=== PATIENT | female | born 1950 | race Caucasian/White ===

== ENCOUNTER → 2016-12-07 | Outpatient (REF) | payer OTHER ==
[~2016-12-07] MED LIST: ASPI1TAB PO; BENA20TA2 PO; CALC600T10 PO; CIPR500T89 PO; FLAG500T PO; FLON1SPR; GABA300C3 PO; HYDR12CA PO; INSULANT SC; MAXA5TAB11 PO; METF500T PO; OMEP20CA3 PO; PROP1TAB29 PO; ROPI1TAB PO; TRAM50TA2 PO; VITA-121 PO; ZOCO40TA PO
[2016-12-07 19:00] LABS: PERCENT SATURATION 11.2 % (13.2-37.4)
== END ==
LOC: M LAB REF 16:53
PROVIDERS: ATTEND Internal Medicine Nephrology
DX: N18.9 Chronic kidney disease, unspecified (principal); D63.1 Anemia in chronic kidney disease

== ENCOUNTER → 2016-12-28 | Outpatient (CLI) | payer OTHER ==
[2016-12-28 10:15] LABS: ALBUMIN 3.3 GM/DL (3.2-5.2); ALBUMIN/GLOBULIN RATIO 0.8 (1.00-1.93); BASO # 0.1 K/mm3 (0.0-0.2); BASO % 0.7 % (0.0-1.0); BILIRUBIN,TOTAL 0.3 MG/DL (0.2-1.0); CALCIUM LEVEL 9.4 MG/DL (8.8-10.2); CREATININE FOR GFR 2.43 MG/DL (0.55-1.02); EOS # 0.4 K/mm3 (0.0-0.50); EOS % 5.2 % (0.0-3.0); GLOMERULAR FILTRATION RATE 21.3 (>45); LARGE UNSTAINED CELL # 0.1 K/mm3 (0.0-0.4); LARGE UNSTAINED CELL % 1.7 % (0.0-4.0); LYMPH # 1.9 K/mm3 (1.5-4.5); LYMPH % 21.8 % (24.0-44.0); MEAN CORPUSCULAR HEMOGLOBIN 28.3 pg (27.0-33.0); MEAN CORPUSCULAR VOLUME 88.5 fl (80.0-96.0); MONO # 0.5 K/mm3 (0.0-0.8); MONO % 6.1 % (0.0-5.0); NEUTROPHILS # 5.2 K/mm3 (1.8-7.7); NEUTROPHILS % 64.4 % (36.0-66.0); PLATELET COUNT, AUTOMATED 280 k/mm3 (150-450); POTASSIUM SERUM 4.9 MEQ/L (3.5-5.1); TOTAL PROTEIN 7.4 GM/DL (6.4-8.2); WHITE BLOOD COUNT 8.1 K/mm3 (4.0-10.0)
== END ==
LOC: M WUC 08:09
PROVIDERS: ATTEND Nurse Practitioner Family
DX: D64.9 Anemia, unspecified (principal); E11.29 Type 2 diabetes mellitus with other diabetic kidney complication

== ENCOUNTER → 2017-01-29 | Outpatient (CLI) | payer OTHER ==
[~2017-01-29] MED LIST changes: +GABA-282 PO; -GABA300C3 PO
[2017-01-29 10:24] LABS: ALBUMIN 3.1 GM/DL (3.2-5.2); CALCIUM LEVEL 8.7 MG/DL (8.8-10.2); CREATININE FOR GFR 1.82 MG/DL (0.55-1.02); GLOMERULAR FILTRATION RATE 29.8 (>45); MAGNESIUM LEVEL 1.8 MG/DL (1.8-2.4); PHOSPHORUS LEVEL 4.6 MG/DL (2.5-4.9); POTASSIUM SERUM 4.4 MEQ/L (3.5-5.1)
[2017-01-29 10:25] LABS: MEAN CORPUSCULAR HEMOGLOBIN 27.8 pg (27.0-33.0); MEAN CORPUSCULAR HGB CONC 31.5 g/dl (32.0-36.5); MEAN CORPUSCULAR VOLUME 88.3 fl (80.0-96.0); WHITE BLOOD COUNT 7.7 K/mm3 (4.0-10.0)
== END ==
LOC: M WUC 08:05
PROVIDERS: ATTEND Internal Medicine Nephrology
DX: N17.9 Acute kidney failure, unspecified (principal); E11.22 Type 2 diabetes mellitus with diabetic chronic kidney disease; D50.9 Iron deficiency anemia, unspecified; N25.81 Secondary hyperparathyroidism of renal origin

== ENCOUNTER → 2017-03-16 | Outpatient (CLI) | payer OTHER ==
[2017-03-16 12:49] LABS: MEAN CORPUSCULAR HEMOGLOBIN 28.7 pg (27.0-33.0); MEAN CORPUSCULAR HGB CONC 32.1 g/dl (32.0-36.5); MEAN CORPUSCULAR VOLUME 89.5 fl (80.0-96.0); RED CELL DISTRIBUTION WIDTH 13.8 % (11.5-14.5); WHITE BLOOD COUNT 6.4 K/mm3 (4.0-10.0)
[2017-03-16 13:05] LABS: ALBUMIN 2.9 GM/DL (3.2-5.2); CALCIUM LEVEL 8.8 MG/DL (8.8-10.2); CREATININE FOR GFR 1.31 MG/DL (0.55-1.02); GLOMERULAR FILTRATION RATE 43.5 (>45); MAGNESIUM LEVEL 1.7 MG/DL (1.8-2.4); PHOSPHORUS LEVEL 3.6 MG/DL (2.5-4.9); POTASSIUM SERUM 4.6 MEQ/L (3.5-5.1)
== END ==
LOC: M WUC 09:12
PROVIDERS: ATTEND Internal Medicine Nephrology
DX: N17.9 Acute kidney failure, unspecified (principal); E11.22 Type 2 diabetes mellitus with diabetic chronic kidney disease; D50.9 Iron deficiency anemia, unspecified; N25.81 Secondary hyperparathyroidism of renal origin

== ENCOUNTER → 2017-03-30 | Outpatient (CLI) | payer OTHER ==
[2017-03-30 12:03] LABS: ALBUMIN 3.2 GM/DL (3.2-5.2); ALBUMIN/GLOBULIN RATIO 0.84 (1.00-1.93); BILIRUBIN,TOTAL 0.4 MG/DL (0.2-1.0); CREATININE FOR GFR 1.33 MG/DL (0.55-1.02); GLOMERULAR FILTRATION RATE 42.8 (>45); POTASSIUM SERUM 4.3 MEQ/L (3.5-5.1)
== END ==
LOC: M WUC 08:31
PROVIDERS: ATTEND Nurse Practitioner Family
DX: E11.29 Type 2 diabetes mellitus with other diabetic kidney complication (principal)

== ENCOUNTER → 2017-07-02 | Outpatient (CLI) | payer MEDICARE, OTHER ==
[~2017-07-02] MED LIST changes: -BENA20TA2 PO; +BENA20TA8 PO; -CALC600T10 PO; +CALC600T31 PO; +CIPR-249 PO; -CIPR500T89 PO; -METF500T PO; +METF500T13 PO
[2017-07-02 14:37] LABS: BASO # 0.1 10^3/uL (0.0-0.2); BASO % 0.9 % (0.0-1.0); EOS # 0.3 10^3/uL (0.0-0.50); EOS % 4.1 % (0.0-3.0); LYMPH # 1.7 10^3/uL (1.5-4.5); LYMPH % 26.1 % (24.0-44.0); MEAN CORPUSCULAR HEMOGLOBIN 27.4 pg (27.0-33.0); MEAN CORPUSCULAR HGB CONC 31.4 g/dl (32.0-36.5); MEAN CORPUSCULAR VOLUME 87.2 fl (80.0-96.0); MONO # 0.5 10^3/uL (0.0-0.8); MONO % 7.2 % (0.0-5.0); NEUTROPHILS # 4.1 10^3/uL (1.8-7.7); NEUTROPHILS % 61.5 % (36.0-66.0); PLATELET COUNT, AUTOMATED 258 10^3/uL (150-450); RED CELL DISTRIBUTION WIDTH 14.5 % (11.5-14.5); WHITE BLOOD COUNT 6.7 10^3/uL (4.0-10.0)
[2017-07-02 15:21] LABS: ALBUMIN 3.1 GM/DL (3.2-5.2); CALCIUM LEVEL 8.9 MG/DL (8.8-10.2); CREATININE FOR GFR 1.51 MG/DL (0.55-1.02); GLOMERULAR FILTRATION RATE 36.8 (>45); MAGNESIUM LEVEL 1.9 MG/DL (1.8-2.4); PHOSPHORUS LEVEL 4.3 MG/DL (2.5-4.9); POTASSIUM SERUM 4.1 MEQ/L (3.5-5.1)
== END ==
LOC: M WUC 09:16
PROVIDERS: ATTEND Internal Medicine Nephrology
DX: N18.3 Chronic kidney disease, stage 3 (moderate) (principal); D50.9 Iron deficiency anemia, unspecified; N25.81 Secondary hyperparathyroidism of renal origin

== ENCOUNTER → 2017-07-02 | Outpatient (CLI) | payer MEDICARE, OTHER ==
[2017-07-02 14:36] LABS: BASO % 0.6 % (0.0-1.0); EOS # 0.2 10^3/uL (0.0-0.50); EOS % 3.4 % (0.0-3.0); LYMPH # 1.8 10^3/uL (1.5-4.5); MEAN CORPUSCULAR HEMOGLOBIN 27.4 pg (27.0-33.0); MEAN CORPUSCULAR HGB CONC 31.3 g/dl (32.0-36.5); MEAN CORPUSCULAR VOLUME 87.6 fl (80.0-96.0); MONO # 0.5 10^3/uL (0.0-0.8); MONO % 7.4 % (0.0-5.0); NEUTROPHILS # 4.2 10^3/uL (1.8-7.7); NEUTROPHILS % 62.3 % (36.0-66.0); PLATELET COUNT, AUTOMATED 251 10^3/uL (150-450); RED CELL DISTRIBUTION WIDTH 14.6 % (11.5-14.5); WHITE BLOOD COUNT 6.7 10^3/uL (4.0-10.0)
[2017-07-02 15:09] LABS: ALBUMIN 3.1 GM/DL (3.2-5.2); ALBUMIN/GLOBULIN RATIO 0.79 (1.00-1.93); BILIRUBIN,TOTAL 0.4 MG/DL (0.2-1.0); CALCIUM LEVEL 9.3 MG/DL (8.8-10.2); CREATININE FOR GFR 1.51 MG/DL (0.55-1.02); GLOMERULAR FILTRATION RATE 36.8 (>45); PERCENT SATURATION 14.7 % (13.2-45.0); POTASSIUM SERUM 4.1 MEQ/L (3.5-5.1)
== END ==
LOC: M WUC 09:22
PROVIDERS: ATTEND Nurse Practitioner Family
DX: E11.29 Type 2 diabetes mellitus with other diabetic kidney complication (principal); E78.2 Mixed hyperlipidemia; D63.1 Anemia in chronic kidney disease

== ENCOUNTER → 2017-07-27 | Outpatient (REF) | payer MEDICARE | LOC: M LAB REF 16:20 | PROVIDERS: ATTEND Obstetrics & Gynecology | DX: Z11.3 Encounter for screening for infections with a predominantly sexual mode of transmission (principal); N76.4 Abscess of vulva ==

== ENCOUNTER → 2017-08-03 | Outpatient (CLI) | payer MEDICARE ==
[2017-08-03 08:59] LABS: BASO # 0.1 10^3/uL (0.0-0.2); BASO % 0.6 % (0.0-1.0); EOS # 0.2 10^3/uL (0.0-0.50); IMMATURE GRANULOCYTE % 0.1 % (0-0); LYMPH # 1.7 10^3/uL (1.5-4.5); LYMPH % 21.3 % (24.0-44.0); MEAN CORPUSCULAR HEMOGLOBIN 27.4 pg (27.0-33.0); MEAN CORPUSCULAR HGB CONC 31.8 g/dl (32.0-36.5); MEAN CORPUSCULAR VOLUME 86.1 fl (80.0-96.0); MONO # 0.6 10^3/uL (0.0-0.8); MONO % 6.9 % (0.0-5.0); NEUTROPHILS # 5.4 10^3/uL (1.8-7.7); NEUTROPHILS % 68.1 % (36.0-66.0); PLATELET COUNT, AUTOMATED 308 10^3/uL (150-450); RED CELL DISTRIBUTION WIDTH 14.2 % (11.5-14.5); WHITE BLOOD COUNT 7.9 10^3/uL (4.0-10.0)
[2017-08-03 09:27] LABS: ALBUMIN 3.2 GM/DL (3.2-5.2); ALBUMIN/GLOBULIN RATIO 0.84 (1.00-1.93); BILIRUBIN,TOTAL 0.3 MG/DL (0.2-1.0); CALCIUM LEVEL 8.9 MG/DL (8.8-10.2); CREATININE FOR GFR 1.21 MG/DL (0.55-1.02); GLOMERULAR FILTRATION RATE 47.5 (>45); PERCENT SATURATION 12.4 % (13.2-45.0); POTASSIUM SERUM 4.2 MEQ/L (3.5-5.1)
== END ==
LOC: M WUC 08:22
PROVIDERS: ATTEND Nurse Practitioner Family
DX: E11.29 Type 2 diabetes mellitus with other diabetic kidney complication (principal); D63.1 Anemia in chronic kidney disease; N18.9 Chronic kidney disease, unspecified

== ENCOUNTER → 2017-10-05 | Outpatient (CLI) | payer MEDICARE ==
[2017-10-05 09:29] LABS: ALBUMIN 3.3 GM/DL (3.2-5.2); ALBUMIN/GLOBULIN RATIO 0.83 (1.00-1.93); ALKALINE PHOSPHATASE 141 U/L (45-117); ALT/SGPT 16 U/L (12-78); ANION GAP 6 MEQ/L (8-16); AST/SGOT 14 U/L (7-37); BILIRUBIN,TOTAL 0.4 MG/DL (0.2-1.0); BLOOD UREA NITROGEN 43 MG/DL (7-18); CALCIUM LEVEL 9.1 MG/DL (8.8-10.2); CARBON DIOXIDE LEVEL 32 MEQ/L (21-32); CHLORIDE LEVEL 105 MEQ/L (98-107); GLOMERULAR FILTRATION RATE 43.8 (>45); GLUCOSE, FASTING 134 MG/DL (80-110); POTASSIUM SERUM 3.9 MEQ/L (3.5-5.1); SODIUM LEVEL 143 MEQ/L (136-145); TOTAL PROTEIN 7.3 GM/DL (6.4-8.2)
[2017-10-05 10:07] LABS: ESTIMATED AVERAGE GLUCOSE 203 MG/DL (60-110)
== END ==
LOC: M WUC 08:00
DX: E11.21 Type 2 diabetes mellitus with diabetic nephropathy (principal)

== ENCOUNTER → 2017-10-05 | Outpatient (CLI) | payer MEDICARE ==
[2017-10-05 09:20] LABS: MEAN CORPUSCULAR HEMOGLOBIN 27.2 pg (27.0-33.0); MEAN CORPUSCULAR HGB CONC 31.8 g/dl (32.0-36.5); MEAN CORPUSCULAR VOLUME 85.6 fl (80.0-96.0); PLATELET COUNT, AUTOMATED 326 10^3/uL (150-450); RED CELL DISTRIBUTION WIDTH 13.9 % (11.5-14.5); WHITE BLOOD COUNT 8.6 10^3/uL (4.0-10.0)
[2017-10-05 10:58] LABS: ALBUMIN 3.3 GM/DL (3.2-5.2); ANION GAP 9 MEQ/L (8-16); BLOOD UREA NITROGEN 44 MG/DL (7-18); CALCIUM LEVEL 8.9 MG/DL (8.8-10.2); CARBON DIOXIDE LEVEL 31 MEQ/L (21-32); CHLORIDE LEVEL 106 MEQ/L (98-107); CREATININE FOR GFR 1.32 MG/DL (0.55-1.02); GLUCOSE, FASTING 135 MG/DL (80-110); POTASSIUM SERUM 4.1 MEQ/L (3.5-5.1); SODIUM LEVEL 146 MEQ/L (136-145); URIC ACID 6.7 MG/DL (2.6-6.0)
== END ==
LOC: M WUC 08:03
DX: N18.3 Chronic kidney disease, stage 3 (moderate) (principal); E11.21 Type 2 diabetes mellitus with diabetic nephropathy; E11.22 Type 2 diabetes mellitus with diabetic chronic kidney disease; D50.9 Iron deficiency anemia, unspecified; N25.81 Secondary hyperparathyroidism of renal origin
CPT/HCPCS: 83735

== ENCOUNTER → 2017-11-08 | Outpatient (CLI) | payer MEDICARE ==
[2017-11-08 19:08] LABS: BASO # 0.1 10^3/uL (0.0-0.2); BASO % 0.6 % (0.0-1.0); EOS # 0.2 10^3/uL (0.0-0.50); EOS % 2.4 % (0.0-3.0); HEMATOCRIT 35.3 % (36.0-47.0); HEMOGLOBIN 11.1 g/dl (12.0-16.0); IMMATURE GRANULOCYTE % 0.2 % (0-0); LYMPH # 2.4 10^3/uL (1.5-4.5); LYMPH % 24.9 % (24.0-44.0); MEAN CORPUSCULAR HEMOGLOBIN 27.2 pg (27.0-33.0); MEAN CORPUSCULAR HGB CONC 31.4 g/dl (32.0-36.5); MEAN CORPUSCULAR VOLUME 86.5 fl (80.0-96.0); MONO # 0.7 10^3/uL (0.0-0.8); MONO % 7.1 % (0.0-5.0); NEUTROPHILS # 6.1 10^3/uL (1.8-7.7); NEUTROPHILS % 64.8 % (36.0-66.0); PLATELET COUNT, AUTOMATED 312 10^3/uL (150-450); RED BLOOD COUNT 4.08 10^6/uL (4.00-5.40); RED CELL DISTRIBUTION WIDTH 14.4 % (11.5-14.5); WHITE BLOOD COUNT 9.5 10^3/uL (4.0-10.0)
[2017-11-08 19:49] LABS: APPEARANCE, URINE CLEAR (CLEAR); BACTERIA, URINE AUTO 1+ (NEGATIVE); BILIRUBIN, URINE AUTO NEGATIVE (NEGATIVE); BLOOD, URINE BLOOD NEGATIVE (NEGATIVE); COLOR, URINE STRAW (YELLOW); GLUCOSE, URINE (UA) AUTO 2+ mg/dL (NEGATIVE); KETONE, URINE AUTO NEGATIVE (NEGATIVE); LEUKOCYTE ESTERASE, URINE AUTO NEGATIVE (NEGATIVE); NITRITE, URINE AUTO NEGATIVE (NEGATIVE); PROTEIN, URINE AUTO NEGATIVE (NEGATIVE); RBC, URINE AUTO 2 /HPF (0-3); SPECIFIC GRAVITY URINE AUTO 1.006 (1.002-1.035); SQUAMOUS EPITHELIAL CELL UR AU 0 /HPF (0-6); UROBILINOGEN, URINE AUTO 0.2 mg/dL (0.0-2.0); WBC, URINE AUTO 0 /HPF (0-3)
[2017-11-08 20:14] LABS: ALBUMIN 3.3 GM/DL (3.2-5.2); ANION GAP 7 MEQ/L (8-16); BLOOD UREA NITROGEN 37 MG/DL (7-18); CALCIUM LEVEL 8.8 MG/DL (8.8-10.2); CARBON DIOXIDE LEVEL 29 MEQ/L (21-32); CHLORIDE LEVEL 103 MEQ/L (98-107); CREATININE FOR GFR 1.35 MG/DL (0.55-1.30); GLOMERULAR FILTRATION RATE 41.9 (>45); GLUCOSE, FASTING 285 MG/DL (70-100); POTASSIUM SERUM 4.2 MEQ/L (3.5-5.1); SODIUM LEVEL 139 MEQ/L (136-145)
== END ==
LOC: M WUC 14:18
DX: N18.3 Chronic kidney disease, stage 3 (moderate) (principal); D63.8 Anemia in other chronic diseases classified elsewhere
CPT/HCPCS: 80069

== ENCOUNTER → 2018-01-31 | Outpatient (CLI) | payer MEDICARE ==
[2018-01-31 09:04] LABS: HEMOGLOBIN 10.8 g/dl (12.0-15.5); MEAN CORPUSCULAR HEMOGLOBIN 27.1 pg (27.0-33.0); MEAN CORPUSCULAR HGB CONC 31.8 g/dl (32.0-36.5); MEAN CORPUSCULAR VOLUME 85.2 fl (80.0-96.0); PLATELET COUNT, AUTOMATED 297 10^3/uL (150-450); RED BLOOD COUNT 3.99 10^6/uL (4.00-5.40); RED CELL DISTRIBUTION WIDTH 14.5 % (11.5-14.5); RETIC HEMOGLOBIN EQUIVALENT 31.3 pg (24-36); RETICULOCYTE # 50.7 10^9/L (17-77); RETICULOCYTE % 1.3 % (0.5-1.5); WHITE BLOOD COUNT 6.5 10^3/uL (4.0-10.0)
[2018-01-31 09:48] LABS: ALBUMIN 3.2 GM/DL (3.2-5.2); ALBUMIN/GLOBULIN RATIO 0.86 (1.00-1.93); ALKALINE PHOSPHATASE 135 U/L (45-117); ALT/SGPT 16 U/L (12-78); ANION GAP 6 MEQ/L (8-16); AST/SGOT 14 U/L (7-37); BILIRUBIN,TOTAL 0.4 MG/DL (0.2-1.0); BLOOD UREA NITROGEN 35 MG/DL (7-18); CALCIUM LEVEL 8.7 MG/DL (8.8-10.2); CARBON DIOXIDE LEVEL 30 MEQ/L (21-32); CHLORIDE LEVEL 111 MEQ/L (98-107); CHOLESTEROL LEVEL 114 MG/DL (<200); CREATININE FOR GFR 1.35 MG/DL (0.55-1.30); FERRITIN 76 NG/ML (8-252); FREE T4 1.16 NG/DL (0.76-1.46); GLOMERULAR FILTRATION RATE 41.9 (>45); GLUCOSE, FASTING 94 MG/DL (70-100); HDL CHOLESTEROL 41 MG/DL (>40); IRON (FE) 49 UG/DL (50-170); LDL CHOLESTEROL 53.6 MG/DL (<100); NON-HDL-C 73 MG/DL; PERCENT SATURATION 16.7 % (13.2-45.0); POTASSIUM SERUM 4.1 MEQ/L (3.5-5.1); SODIUM LEVEL 147 MEQ/L (136-145); TOTAL IRON BINDING CAPACITY 294 UG/DL (250-450); TOTAL PROTEIN 6.9 GM/DL (6.4-8.2); TRIGLYCERIDES LEVEL 97 MG/DL (<150)
[2018-01-31 10:40] LABS: ESTIMATED AVERAGE GLUCOSE 200 MG/DL (60-110); HEMOGLOBIN A1c 8.6 %
== END ==
LOC: M WUC 08:04
DX: E11.21 Type 2 diabetes mellitus with diabetic nephropathy (principal); E78.2 Mixed hyperlipidemia; D63.1 Anemia in chronic kidney disease
CPT/HCPCS: 83550

== ENCOUNTER → 2018-02-04 | Outpatient (REF) | payer MEDICARE ==
[2018-02-04 16:17] LABS: FREE T4 1.05 NG/DL (0.76-1.46)
== END ==
LOC: M SFHCPLAZ 13:51
DX: R94.6 Abnormal results of thyroid function studies (principal)
CPT/HCPCS: 84443

== ENCOUNTER → 2018-02-08 | Outpatient (CLI) | payer MEDICARE ==
[2018-02-08 12:42] LABS: BASO # 0.1 10^3/uL (0.0-0.2); BASO % 0.6 % (0.0-1.0); EOS # 0.4 10^3/uL (0.0-0.50); EOS % 4.5 % (0.0-3.0); HEMATOCRIT 34.1 % (36.0-47.0); HEMOGLOBIN 10.8 g/dl (12.0-15.5); IMMATURE GRANULOCYTE % 0.4 % (0-3.0); LYMPH # 1.7 10^3/uL (1.5-4.5); LYMPH % 22.4 % (24.0-44.0); MEAN CORPUSCULAR HEMOGLOBIN 27.5 pg (27.0-33.0); MEAN CORPUSCULAR HGB CONC 31.7 g/dl (32.0-36.5); MEAN CORPUSCULAR VOLUME 86.8 fl (80.0-96.0); MONO # 0.5 10^3/uL (0.0-0.8); MONO % 6.3 % (0.0-5.0); NEUTROPHILS # 5.1 10^3/uL (1.8-7.7); NEUTROPHILS % 65.8 % (36.0-66.0); PLATELET COUNT, AUTOMATED 317 10^3/uL (150-450); RED BLOOD COUNT 3.93 10^6/uL (4.00-5.40); RED CELL DISTRIBUTION WIDTH 14.6 % (11.5-14.5); WHITE BLOOD COUNT 7.7 10^3/uL (4.0-10.0)
[2018-02-08 13:03] LABS: APPEARANCE, URINE HAZY (CLEAR); BACTERIA, URINE AUTO NEGATIVE (NEGATIVE); BILIRUBIN, URINE AUTO NEGATIVE (NEGATIVE); BLOOD, URINE BLOOD NEGATIVE (NEGATIVE); COLOR, URINE YELLOW (YELLOW); GLUCOSE, URINE (UA) AUTO NEGATIVE (NEGATIVE); KETONE, URINE AUTO NEGATIVE (NEGATIVE); LEUKOCYTE ESTERASE, URINE AUTO NEGATIVE (NEGATIVE); NITRITE, URINE AUTO NEGATIVE (NEGATIVE); PROTEIN, URINE AUTO NEGATIVE (NEGATIVE); RBC, URINE AUTO 2 /HPF (0-3); SPECIFIC GRAVITY URINE AUTO 1.018 (1.002-1.035); SQUAMOUS EPITHELIAL CELL UR AU 3 /HPF (0-6); UROBILINOGEN, URINE AUTO 0.2 mg/dL (0.0-2.0); WBC, URINE AUTO 0 /HPF (0-3)
[2018-02-08 13:08] LABS: PTH INTACT 173.6 PG/ML (18.5-88.0); TOTAL 25(OH) VITAMIN D 36.4 NG/ML (30.0-100.0)
[2018-02-08 14:29] LABS: ALBUMIN 3.3 GM/DL (3.2-5.2); ANION GAP 9 MEQ/L (8-16); BLOOD UREA NITROGEN 43 MG/DL (7-18); CALCIUM LEVEL 8.8 MG/DL (8.8-10.2); CARBON DIOXIDE LEVEL 26 MEQ/L (21-32); CHLORIDE LEVEL 105 MEQ/L (98-107); CREATININE FOR GFR 1.57 MG/DL (0.55-1.30); GLOMERULAR FILTRATION RATE 35.2 (>45); GLUCOSE, FASTING 214 MG/DL (70-100); PHOSPHORUS LEVEL 4.2 MG/DL (2.5-4.9); POTASSIUM SERUM 3.9 MEQ/L (3.5-5.1); SODIUM LEVEL 140 MEQ/L (136-145)
== END ==
LOC: M WUC 09:48
DX: N18.3 Chronic kidney disease, stage 3 (moderate) (principal); D50.9 Iron deficiency anemia, unspecified; N25.81 Secondary hyperparathyroidism of renal origin
CPT/HCPCS: 83735

== ENCOUNTER → 2018-02-12 | Outpatient (CLI) | payer MEDICARE | LOC: M RAD 13:29 | DX: E04.1 Nontoxic single thyroid nodule (principal) | CPT/HCPCS: 76536 ==

== ENCOUNTER → 2018-04-08 | Outpatient (CLI) | payer MEDICARE ==
[~2018-04-08] MED LIST changes: -ASPI1TAB PO; -BENA20TA8 PO; -CALC600T31 PO; -CIPR-249 PO; +E-Z-GAS II EFFERVESCENT PACKET (SODIUM BICARB./CITRIC ACID/SIMETHICONE) As Ordered; +E-Z-HD 98% w/w 340GM SUSP BTL As Ordered; +E-Z-PAQUE 96% w/w SUSP 176GM BTL As Ordered; -FLAG500T PO; -FLON1SPR; -GABA-282 PO; -HYDR12CA PO; -INSULANT SC; -MAXA5TAB11 PO; -METF500T13 PO; -OMEP20CA3 PO; -PROP1TAB29 PO; -ROPI1TAB PO; -TRAM50TA2 PO; -VITA-121 PO; -ZOCO40TA PO
== END ==
LOC: M RAD 08:19
DX: K21.9 Gastro-esophageal reflux disease without esophagitis (principal); R13.10 Dysphagia, unspecified
CPT/HCPCS: 74220

== ENCOUNTER → 2018-04-12 | Outpatient (CLI) | payer MEDICARE ==
[~2018-04-12] MED LIST changes: -E-Z-GAS II EFFERVESCENT PACKET (SODIUM BICARB./CITRIC ACID/SIMETHICONE) As Ordered; -E-Z-HD 98% w/w 340GM SUSP BTL As Ordered; -E-Z-PAQUE 96% w/w SUSP 176GM BTL As Ordered; +LIDOCAINE 1% MDV 20ML VIAL As Ordered
== END ==
LOC: M RADPRO 11:59
DX: E04.2 Nontoxic multinodular goiter (principal); Z79.82 Long term (current) use of aspirin; Z79.899 Other long term (current) drug therapy; Z79.4 Long term (current) use of insulin; Z88.5 Allergy status to narcotic agent; Z91.041 Radiographic dye allergy status; Z88.8 Allergy status to other drugs, medicaments and biological substances
CPT/HCPCS: 10022

== ENCOUNTER → 2018-04-18 | Outpatient (CLI) | payer MEDICARE ==
[2018-04-18 09:17] LABS: ESTIMATED AVERAGE GLUCOSE 203 MG/DL (60-110); HEMOGLOBIN A1c 8.7 %
[2018-04-18 09:21] LABS: ALBUMIN 2.9 GM/DL (3.2-5.2); ALBUMIN/GLOBULIN RATIO 0.76 (1.00-1.93); ALKALINE PHOSPHATASE 154 U/L (45-117); ALT/SGPT 14 U/L (12-78); ANION GAP 9 MEQ/L (8-16); AST/SGOT 14 U/L (7-37); BILIRUBIN,TOTAL 0.4 MG/DL (0.2-1.0); BLOOD UREA NITROGEN 37 MG/DL (7-18); CALCIUM LEVEL 8.6 MG/DL (8.8-10.2); CARBON DIOXIDE LEVEL 29 MEQ/L (21-32); CHLORIDE LEVEL 107 MEQ/L (98-107); CREATININE FOR GFR 1.34 MG/DL (0.55-1.30); GLOMERULAR FILTRATION RATE 42.3 (>45); GLUCOSE, FASTING 89 MG/DL (70-100); POTASSIUM SERUM 4.5 MEQ/L (3.5-5.1); SODIUM LEVEL 145 MEQ/L (136-145); TOTAL PROTEIN 6.7 GM/DL (6.4-8.2)
== END ==
LOC: M WUC 08:04
DX: E11.21 Type 2 diabetes mellitus with diabetic nephropathy (principal)
CPT/HCPCS: 80053

== ENCOUNTER → 2018-05-09 | Outpatient (CLI) | payer MEDICARE ==
[2018-05-09 12:06] LABS: HEMATOCRIT 33.3 % (36.0-47.0); HEMOGLOBIN 10.3 g/dl (12.0-15.5); MEAN CORPUSCULAR HEMOGLOBIN 26.9 pg (27.0-33.0); MEAN CORPUSCULAR HGB CONC 30.9 g/dl (32.0-36.5); MEAN CORPUSCULAR VOLUME 86.9 fl (80.0-96.0); PLATELET COUNT, AUTOMATED 290 10^3/uL (150-450); RED BLOOD COUNT 3.83 10^6/uL (4.00-5.40); RED CELL DISTRIBUTION WIDTH 14.1 % (11.5-14.5); WHITE BLOOD COUNT 7.8 10^3/uL (4.0-10.0)
[2018-05-09 12:11] LABS: APPEARANCE, URINE CLEAR (CLEAR); BACTERIA, URINE AUTO NEGATIVE (NEGATIVE); BILIRUBIN, URINE AUTO NEGATIVE (NEGATIVE); BLOOD, URINE BLOOD NEGATIVE (NEGATIVE); COLOR, URINE YELLOW (YELLOW); GLUCOSE, URINE (UA) AUTO NEGATIVE (NEGATIVE); KETONE, URINE AUTO NEGATIVE (NEGATIVE); LEUKOCYTE ESTERASE, URINE AUTO NEGATIVE (NEGATIVE); NITRITE, URINE AUTO NEGATIVE (NEGATIVE); PROTEIN, URINE AUTO NEGATIVE (NEGATIVE); RBC, URINE AUTO 0 /HPF (0-3); SPECIFIC GRAVITY URINE AUTO 1.015 (1.002-1.035); SQUAMOUS EPITHELIAL CELL UR AU 1 /HPF (0-6); UROBILINOGEN, URINE AUTO 0.2 mg/dL (0.0-2.0); WBC, URINE AUTO 0 /HPF (0-3)
[2018-05-09 12:30] LABS: PTH INTACT 116.8 PG/ML (18.5-88.0)
[2018-05-09 12:53] LABS: ANION GAP 10 MEQ/L (8-16); BLOOD UREA NITROGEN 48 MG/DL (7-18); CALCIUM LEVEL 8.6 MG/DL (8.8-10.2); CARBON DIOXIDE LEVEL 26 MEQ/L (21-32); CHLORIDE LEVEL 109 MEQ/L (98-107); GLOMERULAR FILTRATION RATE 37.1 (>45); GLUCOSE, FASTING 118 MG/DL (70-100); MAGNESIUM LEVEL 1.9 MG/DL (1.8-2.4); PHOSPHORUS LEVEL 3.8 MG/DL (2.5-4.9); POTASSIUM SERUM 4.1 MEQ/L (3.5-5.1); SODIUM LEVEL 145 MEQ/L (136-145)
[2018-05-09 13:24] LABS: MALB URINE SIEMENS 22.9 MG/L; MAU/CREAT RATIO 22.6 MCG/MG (0.0-30.0)
== END ==
LOC: M WUC 08:25
DX: N18.3 Chronic kidney disease, stage 3 (moderate) (principal); E11.22 Type 2 diabetes mellitus with diabetic chronic kidney disease; E50.9 Vitamin A deficiency, unspecified; N25.81 Secondary hyperparathyroidism of renal origin
CPT/HCPCS: 83735

== ENCOUNTER → 2018-07-22 | Outpatient (CLI) | payer MEDICARE ==
[2018-07-22 09:10] LABS: HEMATOCRIT 34.3 % (36.0-47.0); HEMOGLOBIN 10.9 g/dl (12.0-15.5); MEAN CORPUSCULAR HEMOGLOBIN 27.6 pg (27.0-33.0); MEAN CORPUSCULAR HGB CONC 31.8 g/dl (32.0-36.5); MEAN CORPUSCULAR VOLUME 86.8 fl (80.0-96.0); PLATELET COUNT, AUTOMATED 290 10^3/uL (150-450); RED BLOOD COUNT 3.95 10^6/uL (4.00-5.40); RED CELL DISTRIBUTION WIDTH 14.1 % (11.5-14.5)
[2018-07-22 09:41] LABS: ESTIMATED AVERAGE GLUCOSE 174 MG/DL (60-110); HEMOGLOBIN A1c 7.7 %
[2018-07-22 09:51] LABS: ANION GAP 7 MEQ/L (8-16); BLOOD UREA NITROGEN 45 MG/DL (7-18); CALCIUM LEVEL 9.1 MG/DL (8.8-10.2); CARBON DIOXIDE LEVEL 31 MEQ/L (21-32); CHLORIDE LEVEL 106 MEQ/L (98-107); CREATININE FOR GFR 1.54 MG/DL (0.55-1.30); FREE T4 1.08 NG/DL (0.76-1.46); GLOMERULAR FILTRATION RATE 35.9 (>45); GLUCOSE, FASTING 107 MG/DL (70-100); POTASSIUM SERUM 4.3 MEQ/L (3.5-5.1); SODIUM LEVEL 144 MEQ/L (136-145)
== END ==
LOC: M WUC 08:10
DX: E03.9 Hypothyroidism, unspecified (principal); E11.21 Type 2 diabetes mellitus with diabetic nephropathy; E11.22 Type 2 diabetes mellitus with diabetic chronic kidney disease; D63.1 Anemia in chronic kidney disease; N18.3 Chronic kidney disease, stage 3 (moderate)
CPT/HCPCS: 83735

== ENCOUNTER → 2018-07-22 | Outpatient (CLI) | payer MEDICARE ==
[2018-07-22 09:10] LABS: BASO # 0.1 10^3/uL (0.0-0.2); BASO % 0.8 % (0.0-1.0); EOS # 0.4 10^3/uL (0.0-0.50); EOS % 4.8 % (0.0-3.0); HEMATOCRIT 33.3 % (36.0-47.0); HEMOGLOBIN 10.6 g/dl (12.0-15.5); IMMATURE GRANULOCYTE % 0.3 % (0-3.0); LYMPH # 2.2 10^3/uL (1.5-4.5); MEAN CORPUSCULAR HEMOGLOBIN 27.1 pg (27.0-33.0); MEAN CORPUSCULAR HGB CONC 31.8 g/dl (32.0-36.5); MEAN CORPUSCULAR VOLUME 85.2 fl (80.0-96.0); MONO # 0.6 10^3/uL (0.0-0.8); MONO % 8.3 % (0.0-5.0); NEUTROPHILS # 4.1 10^3/uL (1.8-7.7); NEUTROPHILS % 55.8 % (36.0-66.0); PLATELET COUNT, AUTOMATED 291 10^3/uL (150-450); RED BLOOD COUNT 3.91 10^6/uL (4.00-5.40); RED CELL DISTRIBUTION WIDTH 14.3 % (11.5-14.5); WHITE BLOOD COUNT 7.3 10^3/uL (4.0-10.0)
[2018-07-22 09:19] LABS: APPEARANCE, URINE CLEAR (CLEAR); BACTERIA, URINE AUTO NEGATIVE (NEGATIVE); BILIRUBIN, URINE AUTO NEGATIVE (NEGATIVE); BLOOD, URINE BLOOD NEGATIVE (NEGATIVE); COLOR, URINE YELLOW (YELLOW); GLUCOSE, URINE (UA) AUTO NEGATIVE (NEGATIVE); KETONE, URINE AUTO NEGATIVE (NEGATIVE); LEUKOCYTE ESTERASE, URINE AUTO NEGATIVE (NEGATIVE); NITRITE, URINE AUTO NEGATIVE (NEGATIVE); PROTEIN, URINE AUTO NEGATIVE (NEGATIVE); RBC, URINE AUTO 1 /HPF (0-3); SPECIFIC GRAVITY URINE AUTO 1.015 (1.002-1.035); SQUAMOUS EPITHELIAL CELL UR AU 1 /HPF (0-6); UROBILINOGEN, URINE AUTO 0.2 mg/dL (0.0-2.0); WBC, URINE AUTO 1 /HPF (0-3)
[2018-07-22 09:42] LABS: ALBUMIN 3.2 GM/DL (3.2-5.2); ANION GAP 9 MEQ/L (8-16); BLOOD UREA NITROGEN 47 MG/DL (7-18); CALCIUM LEVEL 9.1 MG/DL (8.8-10.2); CARBON DIOXIDE LEVEL 30 MEQ/L (21-32); CHLORIDE LEVEL 106 MEQ/L (98-107); CREATININE FOR GFR 1.51 MG/DL (0.55-1.30); GLOMERULAR FILTRATION RATE 36.7 (>45); GLUCOSE, FASTING 107 MG/DL (70-100); MAGNESIUM LEVEL 2.1 MG/DL (1.8-2.4); PHOSPHORUS LEVEL 3.6 MG/DL (2.5-4.9); POTASSIUM SERUM 4.2 MEQ/L (3.5-5.1); SODIUM LEVEL 145 MEQ/L (136-145)
== END ==
LOC: M WUC 08:15
DX: N18.3 Chronic kidney disease, stage 3 (moderate) (principal); D50.9 Iron deficiency anemia, unspecified

== ENCOUNTER → 2018-09-18 | Outpatient (CLI) | payer MEDICARE ==
[2018-09-18 12:02] LABS: BASO # 0.1 10^3/uL (0.0-0.2); BASO % 0.9 % (0.0-1.0); EOS # 0.3 10^3/uL (0.0-0.50); EOS % 3.8 % (0.0-3.0); HEMOGLOBIN 10.4 g/dl (12.0-15.5); IMMATURE GRANULOCYTE % 0.3 % (0-3.0); LYMPH # 1.8 10^3/uL (1.5-4.5); LYMPH % 23.8 % (24.0-44.0); MEAN CORPUSCULAR HEMOGLOBIN 27.3 pg (27.0-33.0); MEAN CORPUSCULAR HGB CONC 31.5 g/dl (32.0-36.5); MEAN CORPUSCULAR VOLUME 86.6 fl (80.0-96.0); MONO # 0.6 10^3/uL (0.0-0.8); MONO % 7.2 % (0.0-5.0); NEUTROPHILS # 4.9 10^3/uL (1.8-7.7); PLATELET COUNT, AUTOMATED 326 10^3/uL (150-450); RED BLOOD COUNT 3.81 10^6/uL (4.00-5.40); RED CELL DISTRIBUTION WIDTH 14.4 % (11.5-14.5); WHITE BLOOD COUNT 7.7 10^3/uL (4.0-10.0)
[2018-09-18 12:03] LABS: APPEARANCE, URINE CLEAR (CLEAR); BACTERIA, URINE AUTO NEGATIVE (NEGATIVE); BILIRUBIN, URINE AUTO NEGATIVE (NEGATIVE); BLOOD, URINE BLOOD NEGATIVE (NEGATIVE); COLOR, URINE STRAW (YELLOW); GLUCOSE, URINE (UA) AUTO NEGATIVE (NEGATIVE); KETONE, URINE AUTO NEGATIVE (NEGATIVE); LEUKOCYTE ESTERASE, URINE AUTO NEGATIVE (NEGATIVE); MUCUS, URINE SMALL (NEGATIVE); NITRITE, URINE AUTO NEGATIVE (NEGATIVE); PROTEIN, URINE AUTO NEGATIVE (NEGATIVE); RBC, URINE AUTO 1 /HPF (0-3); SPECIFIC GRAVITY URINE AUTO 1.008 (1.002-1.035); SQUAMOUS EPITHELIAL CELL UR AU 1 /HPF (0-6); UROBILINOGEN, URINE AUTO 0.2 mg/dL (0.0-2.0); WBC, URINE AUTO 0 /HPF (0-3)
[2018-09-18 12:59] LABS: ALBUMIN 2.8 GM/DL (3.2-5.2); ANION GAP 10 MEQ/L (8-16); BLOOD UREA NITROGEN 55 MG/DL (7-18); CALCIUM LEVEL 8.5 MG/DL (8.8-10.2); CARBON DIOXIDE LEVEL 27 MEQ/L (21-32); CHLORIDE LEVEL 106 MEQ/L (98-107); CREATININE FOR GFR 1.95 MG/DL (0.55-1.30); GLOMERULAR FILTRATION RATE 27.3 (>45); GLUCOSE, FASTING 175 MG/DL (70-100); MAGNESIUM LEVEL 1.7 MG/DL (1.8-2.4); PHOSPHORUS LEVEL 3.3 MG/DL (2.5-4.9); POTASSIUM SERUM 4.1 MEQ/L (3.5-5.1); SODIUM LEVEL 143 MEQ/L (136-145); URIC ACID 9.8 MG/DL (2.6-6.0)
== END ==
LOC: M WUC 08:35
DX: N18.3 Chronic kidney disease, stage 3 (moderate) (principal); D50.9 Iron deficiency anemia, unspecified
CPT/HCPCS: 83735

== ENCOUNTER → 2018-10-14 | Outpatient (CLI) | payer MEDICARE ==
[~2018-10-14] MED LIST changes: +ASPI1TAB PO; +BENA20TA8 PO; +CALC600T31 PO; +CIPR-249 PO; +FLAG500T PO; +FLON1SPR; +GABA-843 PO; +HYDR12CA PO; +INSULANT SC; -LIDOCAINE 1% MDV 20ML VIAL As Ordered; +MAXA5TAB11 PO; +METF500T13 PO; +OMEP20CA3 PO; +PROP20TA72 PO; +ROPI1TAB PO; +TRAM50TA2 PO; +VITA-121 PO; +ZOCO40TA PO
--- NOTE | 2018-10-14 14:06 | REP ---
THYROID ULTRASOUND: Real-time sonographic evaluation of the thyroid performed and compared to several prior studies including 02/12/2018 and 12/14/2011. Patient has had a prior right thyroidectomy. Left lobe is unchanged in size measuring 5.0 x 1.9 x 1.7 cm. There is diffusely heterogeneous echotexture in the left lobe. Multiple cysts and nodules are seen essentially unchanged compared to the prior study. There is an oval cyst in the left upper pole measuring 1.4 x 0.9 x 1.5 cm. Adjacent complex nodule is stable compared back to 2012 exam measuring 10 x 6 x 7 mm. A cyst more inferiorly measures 1 cm in maximum diameter. A 5 mm cyst is also seen in the left lower pole. IMPRESSION: Multiple cysts and nodules in the left lobe essentially unchanged compared to prior studies. Patient is status post right thyroidectomy. Electronically Signed by Marino Mahoney MD 10/14/2018 03:50 P
== END ==
LOC: M RAD 12:33
PROVIDERS: ATTEND Otolaryngology
DX: E04.2 Nontoxic multinodular goiter (principal); Z90.89 Acquired absence of other organs

== ENCOUNTER → 2018-10-24 | Outpatient (CLI) | payer MEDICARE ==
[2018-10-24 10:05] LABS: HEMOGLOBIN A1c 8.2 %
[2018-10-24 10:20] LABS: BILIRUBIN,TOTAL 0.4 MG/DL (0.2-1.0); CALCIUM LEVEL 8.7 MG/DL (8.8-10.2); CREATININE FOR GFR 1.5 MG/DL (0.55-1.30); FREE T4 1.15 NG/DL (0.76-1.46); POTASSIUM SERUM 4.1 MEQ/L (3.5-5.1); THYROID STIMULATING HORMONE 6.09 uIU/ML (0.358-3.740); TOTAL PROTEIN 6.5 GM/DL (6.4-8.2)
[2018-10-25 10:19] LABS: THYROID PEROXIDASE ANTIBODY 29.5 U/ML (<60.0)
== END ==
LOC: M WUC 08:22
PROVIDERS: ATTEND Nurse Practitioner Family
DX: E11.22 Type 2 diabetes mellitus with diabetic chronic kidney disease (principal); E78.2 Mixed hyperlipidemia; E11.21 Type 2 diabetes mellitus with diabetic nephropathy; E03.9 Hypothyroidism, unspecified

== ENCOUNTER → 2018-12-12 | Outpatient (CLI) | payer MEDICARE ==
--- NOTE | 2018-12-12 14:14 | REPMRS ---
Patient History The patient states she has not had a clinical breast exam in over a year. Patient is postmenopausal and is nulliparous. Family history of endometrial cancer at age 45 in sister. Benign stereotatic loc for ea lesion of the right breast, March 17, 2013. Stereotatic Loc for ea Lesion of the right breast, August 27, 2012. 3D TOMOSYNTHESIS WAS PERFORMED. Digital Woman Screen Mammo: December 12, 2018 - Exam #: [id number] Bilateral MLO, CC, and XCCL view(s) were taken. Technologist: Charity Franklin, Technologist Prior study comparison: August 28, 2014, bilateral digital mammo screening bilat, performed at [facility]. August 27, 2013, bilateral digital mammo screening bilat, performed at [facility]. FINDINGS: There are scattered fibroglandular densities. There has been no change in the appearance of the mammogram from the prior studies. There is a mild amount of residual fibroglandular tissue which is fairly symmetric. There is no interval development of dominant mass, architectural distortion, or clustered microcalcification suggestive of malignancy. Assessment: BI-RADS/ACR category 1 mammogram. Negative Mammogram. Recommendation Routine screening mammogram in 1 year (for women over age 40). This mammogram was interpreted with the aid of an FDA-approved computer-aided dectection system. Electronically Signed By: Marino Mahoney MD 12/12/18 0198
--- NOTE | 2018-12-18 10:40 | DEXA ---
AP SPINE L1 - L4 1.315 1.0 2.6 LT FEMUR TOTAL 0.832 -1.4 -0.1 LT NECK 0.809 -1.6 -0.1 RT FEMUR TOTAL 0.848 -1.3 0.0 RT NECK 0.808 -1.7 -0.1 TOTAL BODY TOTAL OTHER COMMENTS: Normal bone densitometry of the spine. There is low bone density of the hips. FOLLOW-UP: Recommendation for the next bone density exam: 2 years. GENEVA
== END ==
LOC: M WHC 11:22
PROVIDERS: ATTEND Nurse Practitioner Family
DX: Z12.31 Encounter for screening mammogram for malignant neoplasm of breast (principal); Z78.0 Asymptomatic menopausal state; Z80.49 Family history of malignant neoplasm of other genital organs; Z86.018 Personal history of other benign neoplasm

== ENCOUNTER → 2018-12-12 | Outpatient (CLI) | payer MEDICARE ==
[2018-12-12 13:20] LABS: APPEARANCE, URINE CLEAR (CLEAR); BACTERIA, URINE AUTO 1+ (NEGATIVE); BILIRUBIN, URINE AUTO NEGATIVE (NEGATIVE); BLOOD, URINE BLOOD NEGATIVE (NEGATIVE); COLOR, URINE YELLOW (YELLOW); GLUCOSE, URINE (UA) AUTO NEGATIVE (NEGATIVE); KETONE, URINE AUTO NEGATIVE (NEGATIVE); LEUKOCYTE ESTERASE, URINE AUTO NEGATIVE (NEGATIVE); NITRITE, URINE AUTO NEGATIVE (NEGATIVE); PROTEIN, URINE AUTO NEGATIVE (NEGATIVE); RBC, URINE AUTO 3 /HPF (0-3); SPECIFIC GRAVITY URINE AUTO 1.016 (1.002-1.035); SQUAMOUS EPITHELIAL CELL UR AU 6 /HPF (0-6); UROBILINOGEN, URINE AUTO 0.2 mg/dL (0.0-2.0); WBC, URINE AUTO 1 /HPF (0-3)
[2018-12-12 13:35] LABS: BASO # 0.1 10^3/uL (0.0-0.2); BASO % 0.8 % (0.0-1.0); EOS # 0.3 10^3/uL (0.0-0.50); EOS % 3.4 % (0.0-3.0); HEMOGLOBIN 10.4 g/dl (12.0-15.5); LYMPH # 1.5 10^3/uL (1.5-4.5); LYMPH % 20.2 % (24.0-44.0); MEAN CORPUSCULAR HEMOGLOBIN 26.7 pg (27.0-33.0); MEAN CORPUSCULAR HGB CONC 31.5 g/dl (32.0-36.5); MEAN CORPUSCULAR VOLUME 84.8 fl (80.0-96.0); MONO # 0.5 10^3/uL (0.0-0.8); MONO % 5.9 % (0.0-5.0); NEUTROPHILS # 5.3 10^3/uL (1.8-7.7); NEUTROPHILS % 69.3 % (36.0-66.0); PLATELET COUNT, AUTOMATED 314 10^3/uL (150-450); RED BLOOD COUNT 3.89 10^6/uL (4.00-5.40); WHITE BLOOD COUNT 7.6 10^3/uL (4.0-10.0)
[2018-12-12 13:52] LABS: ALBUMIN 2.9 GM/DL (3.2-5.2); CALCIUM LEVEL 8.3 MG/DL (8.8-10.2); CREATININE FOR GFR 1.73 MG/DL (0.55-1.30); GLOMERULAR FILTRATION RATE 31.4 (>45); MAGNESIUM LEVEL 1.7 MG/DL (1.8-2.4); PHOSPHORUS LEVEL 3.8 MG/DL (2.5-4.9); POTASSIUM SERUM 3.8 MEQ/L (3.5-5.1); URIC ACID 8.2 MG/DL (2.6-6.0)
[2018-12-12 13:56] LABS: PTH INTACT 194.1 PG/ML (18.5-88.0)
== END ==
LOC: M WUC 09:38
PROVIDERS: ATTEND Internal Medicine Nephrology
DX: N18.3 Chronic kidney disease, stage 3 (moderate) (principal); N25.81 Secondary hyperparathyroidism of renal origin; D50.9 Iron deficiency anemia, unspecified; E79.0 Hyperuricemia without signs of inflammatory arthritis and tophaceous disease

== ENCOUNTER → 2019-01-31 | Outpatient (CLI) | payer MEDICARE ==
[~2019-01-31] MED LIST changes: -ASPI1TAB PO; +ASPI81TA26 PO
[2019-01-31 09:54] LABS: ALBUMIN 3.1 GM/DL (3.2-5.2); BILIRUBIN,TOTAL 0.4 MG/DL (0.2-1.0); CALCIUM LEVEL 8.9 MG/DL (8.8-10.2); CHOLESTEROL RISK RATIO 2.644 (<5); CREATININE FOR GFR 1.69 MG/DL (0.55-1.30); FREE T4 1.3 NG/DL (0.76-1.46); GLOMERULAR FILTRATION RATE 32.2 (>45); LDL CHOLESTEROL 56.8 MG/DL (<100); POTASSIUM SERUM 4.2 MEQ/L (3.5-5.1); THYROID STIMULATING HORMONE 3.5 uIU/ML (0.358-3.740); TOTAL PROTEIN 6.5 GM/DL (6.4-8.2)
== END ==
LOC: M WUC 08:12
PROVIDERS: ATTEND Nurse Practitioner Family
DX: I10 Essential (primary) hypertension (principal); E11.21 Type 2 diabetes mellitus with diabetic nephropathy; E78.2 Mixed hyperlipidemia; E03.9 Hypothyroidism, unspecified; Z12.31 Encounter for screening mammogram for malignant neoplasm of breast

== ENCOUNTER → 2019-05-01 | Outpatient (CLI) | payer MEDICARE ==
[~2019-05-01] MED LIST changes: -OMEP20CA3 PO; +OMEP20CA4 PO
[2019-05-01 10:22] LABS: HEMOGLOBIN A1c 7.3 %
[2019-05-01 10:30] LABS: CALCIUM LEVEL 8.8 MG/DL (8.8-10.2); CREATININE FOR GFR 1.75 MG/DL (0.55-1.30); POTASSIUM SERUM 4.1 MEQ/L (3.5-5.1); THYROID STIMULATING HORMONE 2.88 uIU/ML (0.358-3.740)
== END ==
LOC: M WUC 08:22
PROVIDERS: ATTEND Nurse Practitioner Family
DX: E03.9 Hypothyroidism, unspecified (principal); E11.21 Type 2 diabetes mellitus with diabetic nephropathy; I10 Essential (primary) hypertension

== ENCOUNTER → 2019-05-09 | Outpatient (CLI) | payer MEDICARE ==
--- NOTE | 2019-05-09 12:25 | REP ---
Clinical: Nontoxic multinodular goiter. Technique: Real time live scale and color evaluation using linear high frequency transducer. Comparison: 10/14/2018. Findings: There is evidence for prior right thyroidectomy with a residual portion of the right thyroid lobe measuring 1.6 x 0.7 x 1.3 cm and including 4.1 x 3.4 x 2.9 mm nonspecific cyst. The isthmus measures 4.3 mm in width. The left thyroid lobe measures 5.5 x 2.1 x 1.5 cm and appears diffusely heterogeneous with multiple cystic lesions including 15.3 x 5.0 x 13 mm complex medial cyst, 5.8 x 3.9 x 4.5 mm cyst, 8.0 x 6.3 x 9.5 mm simple upper pole cyst, and 11.0 x 5.4 x 6.7 cm nonspecific mid pole hypoechoic nodule. Impression: Thyroid gland is essentially unchanged from prior examination. Electronically Signed by Manas Bolanos MD 05/09/2019 12:16 P
== END ==
LOC: M RAD 11:14
PROVIDERS: ATTEND Physician Assistant Medical
DX: E04.2 Nontoxic multinodular goiter (principal)

== ENCOUNTER → 2019-06-19 | Outpatient (CLI) | payer MEDICARE ==
[2019-06-19 12:12] LABS: BASO # 0.1 10^3/uL (0.0-0.2); BASO % 0.7 % (0.0-1.0); EOS # 0.3 10^3/uL (0.0-0.5); EOS % 4.5 % (0.0-3.0); HEMATOCRIT 32.2 % (36.0-47.0); HEMOGLOBIN 10.3 g/dl (12.0-15.5); LYMPH # 1.7 10^3/uL (1.5-5.0); LYMPH % 23.1 % (24.0-44.0); MEAN CORPUSCULAR HEMOGLOBIN 28.5 pg (27.0-33.0); MEAN CORPUSCULAR VOLUME 89.2 fl (80.0-96.0); MONO # 0.6 10^3/uL (0.0-0.8); MONO % 7.7 % (0.0-5.0); NEUTROPHILS # 4.6 10^3/uL (1.5-8.5); NEUTROPHILS % 63.9 % (36.0-66.0); PLATELET COUNT, AUTOMATED 283 10^3/uL (150-450); RED BLOOD COUNT 3.61 10^6/uL (4.00-5.40); WHITE BLOOD COUNT 7.1 10^3/uL (4.0-10.0)
[2019-06-19 12:14] LABS: APPEARANCE, URINE HAZY (CLEAR); BACTERIA, URINE AUTO 1+ (NEGATIVE); BILIRUBIN, URINE AUTO NEGATIVE (NEGATIVE); BLOOD, URINE BLOOD NEGATIVE (NEGATIVE); COLOR, URINE YELLOW (YELLOW); GLUCOSE, URINE (UA) AUTO NEGATIVE (NEGATIVE); KETONE, URINE AUTO NEGATIVE (NEGATIVE); LEUKOCYTE ESTERASE, URINE AUTO NEGATIVE (NEGATIVE); MUCUS, URINE SMALL (NEGATIVE); NITRITE, URINE AUTO NEGATIVE (NEGATIVE); PROTEIN, URINE AUTO NEGATIVE (NEGATIVE); RBC, URINE AUTO 3 /HPF (0-3); SPECIFIC GRAVITY URINE AUTO 1.011 (1.002-1.035); SQUAMOUS EPITHELIAL CELL UR AU 3 /HPF (0-6); UROBILINOGEN, URINE AUTO 0.2 mg/dL (0.0-2.0); WBC, URINE AUTO 1 /HPF (0-3)
[2019-06-19 12:21] LABS: CALCIUM LEVEL 8.8 MG/DL (8.8-10.2); CREATININE FOR GFR 1.84 MG/DL (0.55-1.30); GLOMERULAR FILTRATION RATE 29.2 (>45); PHOSPHORUS LEVEL 3.6 MG/DL (2.5-4.9); POTASSIUM SERUM 3.9 MEQ/L (3.5-5.1); URIC ACID 9.4 MG/DL (2.6-6.0)
[2019-06-19 12:32] LABS: PTH INTACT 172.8 PG/ML (18.5-88.0)
== END ==
LOC: M WUC 08:55
PROVIDERS: ATTEND Internal Medicine Nephrology
DX: N18.3 Chronic kidney disease, stage 3 (moderate) (principal); D50.9 Iron deficiency anemia, unspecified; N25.81 Secondary hyperparathyroidism of renal origin; E79.0 Hyperuricemia without signs of inflammatory arthritis and tophaceous disease

== ENCOUNTER → 2019-07-28 | Outpatient (CLI) | payer MEDICARE ==
[2019-07-28 10:14] LABS: ALBUMIN 2.8 GM/DL (3.2-5.2); BILIRUBIN,TOTAL 0.4 MG/DL (0.2-1.0); CALCIUM LEVEL 9.1 MG/DL (8.8-10.2); CREATININE FOR GFR 2.22 MG/DL (0.55-1.30); GLOMERULAR FILTRATION RATE 23.5 (>45); POTASSIUM SERUM 4.5 MEQ/L (3.5-5.1); THYROID STIMULATING HORMONE 3.61 uIU/ML (0.358-3.740)
[2019-07-28 10:16] LABS: CREATININE, URINE 92.9 MG/DL; MALB URINE SIEMENS 27.9 MG/L
[2019-07-28 12:35] LABS: HEMOGLOBIN A1c 8.2 %
== END ==
LOC: M WUC 08:30
PROVIDERS: ATTEND Nurse Practitioner Family
DX: E03.9 Hypothyroidism, unspecified (principal); I10 Essential (primary) hypertension; E11.21 Type 2 diabetes mellitus with diabetic nephropathy

== ENCOUNTER → 2019-10-20 | Outpatient (CLI) | payer MEDICARE ==
[~2019-10-20] MED LIST changes: +OMEP1CAP73 PO; -OMEP20CA4 PO
[2019-10-20 13:15] LABS: BASO # 0.1 10^3/uL (0.0-0.2); BASO % 0.7 % (0.0-1.0); EOS # 0.3 10^3/uL (0.0-0.5); EOS % 3.5 % (0.0-3.0); HEMATOCRIT 33.4 % (36.0-47.0); HEMOGLOBIN 9.9 g/dl (12.0-15.5); LYMPH # 1.9 10^3/uL (1.5-5.0); LYMPH % 23.4 % (24.0-44.0); MEAN CORPUSCULAR HGB CONC 29.6 g/dl (32.0-36.5); MONO # 0.6 10^3/uL (0.0-0.8); MONO % 7.5 % (0.0-5.0); NEUTROPHILS # 5.2 10^3/uL (1.5-8.5); NEUTROPHILS % 64.7 % (36.0-66.0); PLATELET COUNT, AUTOMATED 305 10^3/uL (150-450); RED BLOOD COUNT 3.67 10^6/uL (4.00-5.40); WHITE BLOOD COUNT 8.1 10^3/uL (4.0-10.0)
[2019-10-20 13:34] LABS: CALCIUM LEVEL 8.9 MG/DL (8.8-10.2); CREATININE FOR GFR 1.8 MG/DL (0.55-1.30); GLOMERULAR FILTRATION RATE 29.9 (>45); PERCENT SATURATION 12.1 % (13.2-45.0); PHOSPHORUS LEVEL 3.5 MG/DL (2.5-4.9); POTASSIUM SERUM 4.4 MEQ/L (3.5-5.1); URIC ACID 9.3 MG/DL (2.6-6.0)
[2019-10-20 13:37] LABS: TOTAL 25(OH) VITAMIN D 47.6 NG/ML (30.0-100.0)
[2019-10-20 13:54] LABS: APPEARANCE, URINE CLEAR (CLEAR); BACTERIA, URINE AUTO NEGATIVE (NEGATIVE); BILIRUBIN, URINE AUTO NEGATIVE (NEGATIVE); BLOOD, URINE BLOOD NEGATIVE (NEGATIVE); CALCIUM OXALATE CRYSTALS SMALL; COLOR, URINE STRAW (YELLOW); GLUCOSE, URINE (UA) AUTO NEGATIVE (NEGATIVE); KETONE, URINE AUTO NEGATIVE (NEGATIVE); LEUKOCYTE ESTERASE, URINE AUTO NEGATIVE (NEGATIVE); MUCUS, URINE SMALL (NEGATIVE); NITRITE, URINE AUTO NEGATIVE (NEGATIVE); PROTEIN, URINE AUTO NEGATIVE (NEGATIVE); RBC, URINE AUTO 2 /HPF (0-3); SQUAMOUS EPITHELIAL CELL UR AU 1 /HPF (0-6); UROBILINOGEN, URINE AUTO 0.2 mg/dL (0.0-2.0); WBC, URINE AUTO 0 /HPF (0-3)
== END ==
LOC: M WUC 09:23
PROVIDERS: ATTEND Nurse Practitioner Family
DX: N18.4 Chronic kidney disease, stage 4 (severe) (principal); D63.1 Anemia in chronic kidney disease; N25.81 Secondary hyperparathyroidism of renal origin; E55.9 Vitamin D deficiency, unspecified; D50.9 Iron deficiency anemia, unspecified; E79.0 Hyperuricemia without signs of inflammatory arthritis and tophaceous disease

== ENCOUNTER → 2019-10-31 | Outpatient (CLI) | payer MEDICARE ==
[2019-10-31 09:50] LABS: HEMOGLOBIN A1c 7.3 %
[2019-10-31 09:54] LABS: BILIRUBIN,TOTAL 0.4 MG/DL (0.2-1.0); CALCIUM LEVEL 8.7 MG/DL (8.8-10.2); CREATININE FOR GFR 1.8 MG/DL (0.55-1.30); FREE T4 1.22 NG/DL (0.76-1.46); GLOMERULAR FILTRATION RATE 29.9 (>45); MAU/CREAT RATIO 28.8 MCG/MG (0.0-30.0); POTASSIUM SERUM 4.2 MEQ/L (3.5-5.1); THYROID STIMULATING HORMONE 2.71 uIU/ML (0.358-3.740); TOTAL PROTEIN 6.6 GM/DL (6.4-8.2)
== END ==
LOC: M WUC 08:24
PROVIDERS: ATTEND Nurse Practitioner Family
DX: E11.21 Type 2 diabetes mellitus with diabetic nephropathy (principal); E03.9 Hypothyroidism, unspecified

== ENCOUNTER → 2019-11-17 | Outpatient (CLI) | payer MEDICARE ==
[~2019-11-17] MED LIST changes: -ROPI1TAB PO; +ROPI1TAB3 PO
--- NOTE | 2019-11-17 13:50 | REP ---
Clinical: Multinodular goiter. Technique: Real time live scale and color evaluation using linear high frequency transducer. Comparison: 05/09/2019. Findings: There is evidence for prior partial right hemithyroidectomy with the right lobe measuring 1.8 x 0.9 x 1.0 cm and including 2 mm and 4 mm simple cysts. The isthmus measures 5.1 mm in width. The left lobe measures 5.4 x 1.6 x 1.3 cm with a 11 x 3 x 11 mm complex cyst extending to the isthmus/midline, 9 x 6 x 10 mm cyst with a single thin septation, and 9 x 6 x 9 cm mid pole hypoechoic nodule. 4 x 3 x 5 mm incidental lower pole cyst also identified. Impression: Multinodular goiter without significant change from prior examination. Electronically Signed by Manas Bolanos MD 11/17/2019 01:41 P
== END ==
LOC: M RAD 11:03
PROVIDERS: ATTEND Physician Assistant Medical
DX: E04.2 Nontoxic multinodular goiter (principal)

== ENCOUNTER → 2020-01-22 | Outpatient (CLI) | payer MEDICARE ==
[2020-01-22 09:51] LABS: APPEARANCE, URINE HAZY (CLEAR); BACTERIA, URINE AUTO NEGATIVE (NEGATIVE); BASO # 0.1 10^3/uL (0.0-0.2); BILIRUBIN, URINE AUTO NEGATIVE (NEGATIVE); BLOOD, URINE BLOOD NEGATIVE (NEGATIVE); COLOR, URINE YELLOW (YELLOW); EOS # 0.3 10^3/uL (0.0-0.5); EOS % 3.8 % (0.0-3.0); GLUCOSE, URINE (UA) AUTO NEGATIVE (NEGATIVE); HEMATOCRIT 33.1 % (36.0-47.0); HEMOGLOBIN 10.3 g/dl (12.0-15.5); KETONE, URINE AUTO NEGATIVE (NEGATIVE); LEUKOCYTE ESTERASE, URINE AUTO NEGATIVE (NEGATIVE); LYMPH # 1.9 10^3/uL (1.5-5.0); LYMPH % 26.2 % (24.0-44.0); MEAN CORPUSCULAR HEMOGLOBIN 28.3 pg (27.0-33.0); MEAN CORPUSCULAR HGB CONC 31.1 g/dl (32.0-36.5); MEAN CORPUSCULAR VOLUME 90.9 fl (80.0-96.0); MONO # 0.5 10^3/uL (0.0-0.8); MONO % 6.7 % (0.0-5.0); NEUTROPHILS # 4.5 10^3/uL (1.5-8.5); NITRITE, URINE AUTO NEGATIVE (NEGATIVE); PLATELET COUNT, AUTOMATED 289 10^3/uL (150-450); PROTEIN, URINE AUTO NEGATIVE (NEGATIVE); RBC, URINE AUTO 1 /HPF (0-3); RED BLOOD COUNT 3.64 10^6/uL (4.00-5.40); SPECIFIC GRAVITY URINE AUTO 1.017 (1.002-1.035); SQUAMOUS EPITHELIAL CELL UR AU 0 /HPF (0-6); UROBILINOGEN, URINE AUTO 0.2 mg/dL (0.0-2.0); WBC, URINE AUTO 1 /HPF (0-3); WHITE BLOOD COUNT 7.2 10^3/uL (4.0-10.0)
[2020-01-22 10:39] LABS: ALBUMIN 3.1 GM/DL (3.2-5.2); CALCIUM LEVEL 9.5 MG/DL (8.8-10.2); CREATININE FOR GFR 1.59 MG/DL (0.55-1.30); GLOMERULAR FILTRATION RATE 34.5 (>45); MAGNESIUM LEVEL 1.9 MG/DL (1.8-2.4); PERCENT SATURATION 16.5 % (13.2-45.0); POTASSIUM SERUM 3.8 MEQ/L (3.5-5.1)
[2020-01-22 10:43] LABS: PTH INTACT 39.3 PG/ML (18.5-88.0)
== END ==
LOC: M WUC 09:01
PROVIDERS: ATTEND Nurse Practitioner Family
DX: N18.4 Chronic kidney disease, stage 4 (severe) (principal); D63.1 Anemia in chronic kidney disease; N25.81 Secondary hyperparathyroidism of renal origin; D50.9 Iron deficiency anemia, unspecified; E83.42 Hypomagnesemia

== ENCOUNTER → 2020-02-04 | Outpatient (CLI) | payer MEDICARE ==
[2020-02-04 13:55] LABS: CREATININE, URINE 94.4 MG/DL; MALB URINE SIEMENS 60.1 MG/L; MAU/CREAT RATIO 63.6 MCG/MG (0.0-30.0)
[2020-02-04 14:05] LABS: BILIRUBIN,TOTAL 0.6 MG/DL (0.2-1.0); CALCIUM LEVEL 8.7 MG/DL (8.8-10.2); CHOLESTEROL RISK RATIO 2.613 (<5); CREATININE FOR GFR 1.88 MG/DL (0.55-1.30); FREE T4 1.16 NG/DL (0.76-1.46); GLOMERULAR FILTRATION RATE 28.4 (>45); POTASSIUM SERUM 4.3 MEQ/L (3.5-5.1); THYROID STIMULATING HORMONE 2.85 uIU/ML (0.358-3.740); TOTAL PROTEIN 6.8 GM/DL (6.4-8.2)
== END ==
LOC: M WUC 09:28
PROVIDERS: ATTEND Nurse Practitioner Family
DX: I12.9 Hypertensive chronic kidney disease with stage 1 through stage 4 chronic kidney disease, or unspecified chronic kidney disease (principal); E03.9 Hypothyroidism, unspecified; N18.9 Chronic kidney disease, unspecified; E78.2 Mixed hyperlipidemia; E11.22 Type 2 diabetes mellitus with diabetic chronic kidney disease

== ENCOUNTER → 2020-04-22 | Outpatient (CLI) | payer MEDICARE ==
[2020-04-22 10:51] LABS: BASO # 0.1 10^3/uL (0.0-0.2); BASO % 0.6 % (0.0-1.0); EOS # 0.3 10^3/uL (0.0-0.5); EOS % 3.9 % (0.0-3.0); HEMATOCRIT 30.8 % (36.0-47.0); HEMOGLOBIN 9.7 g/dl (12.0-15.5); LYMPH # 1.5 10^3/uL (1.5-5.0); LYMPH % 18.7 % (24.0-44.0); MEAN CORPUSCULAR HEMOGLOBIN 28.9 pg (27.0-33.0); MEAN CORPUSCULAR HGB CONC 31.5 g/dl (32.0-36.5); MEAN CORPUSCULAR VOLUME 91.7 fl (80.0-96.0); MONO # 0.6 10^3/uL (0.0-0.8); MONO % 7.6 % (0.0-5.0); NEUTROPHILS # 5.5 10^3/uL (1.5-8.5); NEUTROPHILS % 68.8 % (36.0-66.0); PLATELET COUNT, AUTOMATED 250 10^3/uL (150-450); RED BLOOD COUNT 3.36 10^6/uL (4.00-5.40); WHITE BLOOD COUNT 7.9 10^3/uL (4.0-10.0)
[2020-04-22 11:03] LABS: APPEARANCE, URINE CLEAR (CLEAR); BACTERIA, URINE AUTO NEGATIVE (NEGATIVE); BILIRUBIN, URINE AUTO NEGATIVE (NEGATIVE); BLOOD, URINE BLOOD NEGATIVE (NEGATIVE); COLOR, URINE YELLOW (YELLOW); GLUCOSE, URINE (UA) AUTO NEGATIVE (NEGATIVE); KETONE, URINE AUTO NEGATIVE (NEGATIVE); LEUKOCYTE ESTERASE, URINE AUTO NEGATIVE (NEGATIVE); NITRITE, URINE AUTO NEGATIVE (NEGATIVE); PROTEIN, URINE AUTO NEGATIVE (NEGATIVE); RBC, URINE AUTO 2 /HPF (0-3); SPECIFIC GRAVITY URINE AUTO 1.015 (1.002-1.035); SQUAMOUS EPITHELIAL CELL UR AU 0 /HPF (0-6); UROBILINOGEN, URINE AUTO 0.2 mg/dL (0.0-2.0); WBC, URINE AUTO 1 /HPF (0-3)
[2020-04-22 11:08] LABS: CALCIUM LEVEL 8.8 MG/DL (8.8-10.2); CREATININE FOR GFR 1.92 MG/DL (0.55-1.30); GLOMERULAR FILTRATION RATE 27.7 (>45); MAGNESIUM LEVEL 1.9 MG/DL (1.8-2.4); PHOSPHORUS LEVEL 3.2 MG/DL (2.5-4.9); POTASSIUM SERUM 4.1 MEQ/L (3.5-5.1); URIC ACID 9.4 MG/DL (2.6-6.0)
[2020-04-22 12:07] LABS: PTH INTACT 82.1 PG/ML (18.5-88.0)
== END ==
LOC: M WUC 08:55
PROVIDERS: ATTEND Nurse Practitioner Family
DX: N18.3 Chronic kidney disease, stage 3 (moderate) (principal); D50.9 Iron deficiency anemia, unspecified; N25.81 Secondary hyperparathyroidism of renal origin; E79.0 Hyperuricemia without signs of inflammatory arthritis and tophaceous disease; E83.42 Hypomagnesemia

== ENCOUNTER → 2020-04-22 | Outpatient (CLI) | payer MEDICARE ==
[2020-04-22 11:16] LABS: ALBUMIN 2.9 GM/DL (3.2-5.2); BILIRUBIN,TOTAL 0.4 MG/DL (0.2-1.0); CALCIUM LEVEL 8.9 MG/DL (8.8-10.2); CREATININE FOR GFR 1.94 MG/DL (0.55-1.30); FREE T4 1.14 NG/DL (0.76-1.46); GLOMERULAR FILTRATION RATE 27.4 (>45); POTASSIUM SERUM 4.2 MEQ/L (3.5-5.1); THYROID STIMULATING HORMONE 2.97 uIU/ML (0.358-3.740); TOTAL PROTEIN 6.7 GM/DL (6.4-8.2)
[2020-04-22 11:31] LABS: CREATININE, URINE 81.3 MG/DL; MALB URINE SIEMENS 38.6 MG/L; MAU/CREAT RATIO 47.4 MCG/MG (0.0-30.0)
[2020-04-22 11:37] LABS: HEMOGLOBIN A1c 6.7 %
== END ==
LOC: M WUC 08:50
PROVIDERS: ATTEND Nurse Practitioner Family
DX: E11.21 Type 2 diabetes mellitus with diabetic nephropathy (principal); E03.9 Hypothyroidism, unspecified

== ENCOUNTER → 2020-07-23 | Outpatient (CLI) | payer MEDICARE ==
[2020-07-23 10:24] LABS: FREE T4 1.08 NG/DL (0.76-1.46); THYROID STIMULATING HORMONE 5.32 uIU/ML (0.358-3.740)
[2020-07-23 12:21] LABS: HEMOGLOBIN A1c 7.1 %
== END ==
LOC: M WUC 08:34
PROVIDERS: ATTEND Nurse Practitioner Family
DX: E11.21 Type 2 diabetes mellitus with diabetic nephropathy (principal); E03.9 Hypothyroidism, unspecified

== ENCOUNTER → 2020-07-23 | Outpatient (CLI) | payer MEDICARE ==
[2020-07-23 09:55] LABS: BASO # 0.1 10^3/uL (0.0-0.2); BASO % 0.8 % (0.0-1.0); EOS # 0.3 10^3/uL (0.0-0.5); EOS % 3.4 % (0.0-3.0); HEMATOCRIT 31.6 % (36.0-47.0); HEMOGLOBIN 9.6 g/dl (12.0-15.5); LYMPH # 1.9 10^3/uL (1.5-5.0); LYMPH % 25.3 % (24.0-44.0); MEAN CORPUSCULAR HEMOGLOBIN 28.3 pg (27.0-33.0); MEAN CORPUSCULAR HGB CONC 30.4 g/dl (32.0-36.5); MEAN CORPUSCULAR VOLUME 93.2 fl (80.0-96.0); MONO # 0.6 10^3/uL (0.0-0.8); MONO % 8.2 % (0.0-5.0); NEUTROPHILS # 4.7 10^3/uL (1.5-8.5); NEUTROPHILS % 61.9 % (36.0-66.0); PLATELET COUNT, AUTOMATED 275 10^3/uL (150-450); RED BLOOD COUNT 3.39 10^6/uL (4.00-5.40); WHITE BLOOD COUNT 7.7 10^3/uL (4.0-10.0)
[2020-07-23 09:59] LABS: APPEARANCE, URINE HAZY (CLEAR); BACTERIA, URINE AUTO 1+ (NEGATIVE); BILIRUBIN, URINE AUTO NEGATIVE (NEGATIVE); BLOOD, URINE BLOOD NEGATIVE (NEGATIVE); COLOR, URINE YELLOW (YELLOW); GLUCOSE, URINE (UA) AUTO NEGATIVE (NEGATIVE); KETONE, URINE AUTO NEGATIVE (NEGATIVE); LEUKOCYTE ESTERASE, URINE AUTO NEGATIVE (NEGATIVE); MUCUS, URINE SMALL (NEGATIVE); NITRITE, URINE AUTO NEGATIVE (NEGATIVE); PROTEIN, URINE AUTO NEGATIVE (NEGATIVE); RBC, URINE AUTO 1 /HPF (0-3); SPECIFIC GRAVITY URINE AUTO 1.013 (1.002-1.035); SQUAMOUS EPITHELIAL CELL UR AU 6 /HPF (0-6); UROBILINOGEN, URINE AUTO 0.2 mg/dL (0.0-2.0); WBC, URINE AUTO 0 /HPF (0-3)
[2020-07-23 10:15] LABS: CALCIUM LEVEL 9.6 MG/DL (8.8-10.2); CREATININE FOR GFR 2.1 MG/DL (0.55-1.30); GLOMERULAR FILTRATION RATE 24.9 (>45); MAGNESIUM LEVEL 1.8 MG/DL (1.8-2.4); PERCENT SATURATION 15.7 % (13.2-45.0); PHOSPHORUS LEVEL 4.5 MG/DL (2.5-4.9); POTASSIUM SERUM 4.4 MEQ/L (3.5-5.1); URIC ACID 6.8 MG/DL (2.6-6.0)
[2020-07-23 10:24] LABS: PTH INTACT 37.3 PG/ML (18.5-88.0)
== END ==
LOC: M WUC 08:31
PROVIDERS: ATTEND Nurse Practitioner Family
DX: N18.30 Chronic kidney disease, stage 3 unspecified (principal); D50.9 Iron deficiency anemia, unspecified; N25.81 Secondary hyperparathyroidism of renal origin; E83.42 Hypomagnesemia; E79.0 Hyperuricemia without signs of inflammatory arthritis and tophaceous disease; E11.21 Type 2 diabetes mellitus with diabetic nephropathy; E03.9 Hypothyroidism, unspecified

== ENCOUNTER → 2020-10-25 | Outpatient (CLI) | payer MEDICARE ==
[~2020-10-25] MED LIST changes: +ALLO10TA PO; +AMLO1TAB24 PO; +ATOR40TA75 PO; +CALC1CAP31 PO; +CALC600T60 PO; +CEPH500C PO; +COLA100C5 PO; +D31000TA2 PO; +FERR1TAB8 PO; +GABA-282 PO; -GABA-843 PO; +HYDR10TAB PO; +INSUHUMDS SC; +LANTINJ4 SC; +LEVO25TA34 PO; +PROP20TA PO; +PROP60TA18 PO; +RISATAB3 PO; +TORS20TA2 PO
[2020-10-25 12:13] LABS: BASO % 0.5 % (0.0-1.0); EOS # 0.3 10^3/uL (0.0-0.5); HEMOGLOBIN 10.3 g/dl (12.0-15.5); LYMPH # 1.6 10^3/uL (1.5-5.0); LYMPH % 18.7 % (24.0-44.0); MEAN CORPUSCULAR HEMOGLOBIN 28.9 pg (27.0-33.0); MEAN CORPUSCULAR HGB CONC 30.3 g/dl (32.0-36.5); MEAN CORPUSCULAR VOLUME 95.2 fl (80.0-96.0); MONO # 0.5 10^3/uL (0.0-0.8); MONO % 5.5 % (0.0-5.0); NEUTROPHILS # 5.9 10^3/uL (1.5-8.5); NEUTROPHILS % 70.9 % (36.0-66.0); PLATELET COUNT, AUTOMATED 323 10^3/uL (150-450); RED BLOOD COUNT 3.57 10^6/uL (4.00-5.40); WHITE BLOOD COUNT 8.4 10^3/uL (4.0-10.0)
[2020-10-25 12:15] LABS: APPEARANCE, URINE CLEAR (CLEAR); BACTERIA, URINE AUTO NEGATIVE (NEGATIVE); BILIRUBIN, URINE AUTO NEGATIVE (NEGATIVE); BLOOD, URINE BLOOD NEGATIVE (NEGATIVE); COLOR, URINE STRAW (YELLOW); GLUCOSE, URINE (UA) AUTO NEGATIVE (NEGATIVE); KETONE, URINE AUTO NEGATIVE (NEGATIVE); LEUKOCYTE ESTERASE, URINE AUTO NEGATIVE (NEGATIVE); MUCUS, URINE SMALL (NEGATIVE); NITRITE, URINE AUTO NEGATIVE (NEGATIVE); PROTEIN, URINE AUTO NEGATIVE (NEGATIVE); RBC, URINE AUTO 0 /HPF (0-3); SPECIFIC GRAVITY URINE AUTO 1.009 (1.002-1.035); SQUAMOUS EPITHELIAL CELL UR AU 0 /HPF (0-6); UROBILINOGEN, URINE AUTO 0.2 mg/dL (0.0-2.0); WBC, URINE AUTO 0 /HPF (0-3)
[2020-10-25 12:47] LABS: ALBUMIN 3.1 GM/DL (3.2-5.2); CALCIUM LEVEL 9.5 MG/DL (8.8-10.2); CREATININE FOR GFR 1.99 MG/DL (0.55-1.30); GLOMERULAR FILTRATION RATE 26.5 (>45); PHOSPHORUS LEVEL 3.7 MG/DL (2.5-4.9); POTASSIUM SERUM 3.7 MEQ/L (3.5-5.1); URIC ACID 6.2 MG/DL (2.6-6.0)
[2020-10-25 12:50] LABS: PTH INTACT 71.6 PG/ML (18.5-88.0); TOTAL 25(OH) VITAMIN D 39.5 NG/ML (30.0-100.0)
== END ==
LOC: M WUC 09:51
PROVIDERS: ATTEND Nurse Practitioner Family
DX: N18.4 Chronic kidney disease, stage 4 (severe) (principal); D50.9 Iron deficiency anemia, unspecified; N25.81 Secondary hyperparathyroidism of renal origin; E55.9 Vitamin D deficiency, unspecified; E79.0 Hyperuricemia without signs of inflammatory arthritis and tophaceous disease

== ENCOUNTER 2020-10-27 14:59 | Inpatient (IN) | payer MEDICARE ==
[~2020-10-27] VITALS: Ht 154.9 cm; Wt 117.5 kg
[~2020-10-27 14:59] MED LIST changes: -ALLO10TA PO; -AMLO1TAB24 PO; -ATOR40TA75 PO; -CALC1CAP31 PO; -CALC600T60 PO; -CEPH500C PO; -COLA100C5 PO; -D31000TA2 PO; -FERR1TAB8 PO; -HYDR10TAB PO; -INSUHUMDS SC; -LANTINJ4 SC; -LEVO25TA34 PO; -PROP20TA PO; -PROP60TA18 PO; -RISATAB3 PO; -TORS20TA2 PO
--- OUTSIDE RECORDS SUMMARY | 2020-10-27 15:05 | CCD ---
Author [facility] Organization [facility] Address Unknown Phone Unavailable Care Team Providers Care Designer And Patternmaker Name Role Phone Veena Aguirre Unavailable PROBLEMS Type Condition ICD9-CM Code MEM89-TB Code Onset Dates Condition S tatus SNOMED Code Notes Problem Type 2 diabetes mellitus with diabetic nephropathy E11.21 Active 563971848 Problem Diabetic neuropathy E11.40 Active 055158114 Problem Essential (primary) hypertension I10 Active 70565327 Problem Mixed hyperlipidemia E78.2 Active 161980751 Problem Restless legs syndrome G25.81 Active 25134399 Problem Chronic migraine without aura, not intra ctable, with status migrainosus G43.701 Active 620597082412085 Problem Chronic kidney disease, stage 3 (moderate) N18.3 Active 960942276 Problem Neuropathy of both feet G57.91 Active 35287887 2 Problem Type 2 diabetes mellitus with other diabetic kid zach complication E11.29 Active 494552656 Problem Edema of foot R60.0 Active 327056307 Problem 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 92 Active 259463881 Problem Hypertensive chronic kidney disease with stage 1 through stage 4 chronic kidney disease, or unspecified chronic kidney disease I12.9 Active 81261069 Problem Gastro-esophageal reflux disease without esophagitis K21.9 Active 601051875 Problem BMI 40.0-44.9, adult Z68.41 Active 088970824 Problem Encounter for long-term (current) use of insulin Z 79.4 Active 029262341 Problem Rosacea blepharoconjunctivitis L71.9 Active 3 87235524 Problem History of thyroid nodule Z86.39 Active 519653 003 Problem Thyroid nodule E04.1 Active 008399114 Problem Hypothyroidism, unspecified type E03.9 Active 11813968 ALLERGIES Allergen (clinical drug ingredient) Drug/Non Drug Allergy do cumented on EMR Reaction Allergy Type Onset Date Status Glucophage GI upset Drug Allergy Active contrast dye hives Non Drug Allergy Active Bydureon GI upset Drug Allergy Active Vioxx (for allergy use only) GI upset Drug Allergy Active Codeine Phosphate (For Allergies Use Only) migraine,Gi ups et Drug Allergy Active naproxen Naprosyn([facility] [place]NOTE 2] Code:[address]-37) GI upset Drug Allergy Active ENCOUNTERS from 1950 to 2020-10-13 Encounter Location Date Provider Diagnosis [address] [address] Oct, 021 [facility] Type 2 diabetes mellitus with diabetic nephropathy E11.21 IMMUNIZATIONS Vaccine Route Administration Date Status Influenza (18 yrs & older) Flublok IM Intramuscular Jul 18, 2018 Administered Influenza (Pharmacy Given) Unknown May 22, 2019 Admin istered Influenza (Pharmacy Given) Unknown Jul 22, 2019 Admin istered Influenza (High Dose 65 & up) Unknown Jul 26, 2017 Ot hers Influenza (6mo & up) Fluzone IM Intramuscular Jul 27, 2015 Ad ministered Influenza (18 yrs & older) Flublok Unknown Aug 03, 2020 Administered Influenza (High Dose 65 & up) IM Intramuscular Jul 06, 2017 A dministered Zoster 0.65mL (Zostavax) Unknown Jul 29, 2013 Adminis tered Pneumococcal Adult 0.5mL (Pneumovax 23) Unknown Jul 22, 2019 Administered Pneumococcal Adult 0.5mL (Pneumovax 23) Unknown March 10, 2003 Administered Pneumococcal 0.5mL (Prevnar 13) IM Intramuscular Oct 19, 2017 Administered Influenza (6mo & up) Fluzone IM Intramuscular Jul 06, 2017 Ad ministered Influenza (6mo & up) Fluzone Unknown Aug 25, 2016 Adm inistered SOCIAL HISTORY Tobacco Use: Social History Observation Description Date Details (start date - stop date) Never Smoker Sex Assigned At : Social History Observation Description Sex Assigned At Unknown Education: Question Answer Notes Level of Education: Finished High School Audit Question Answer Notes Total Score: 0 Interpretation: Alcohol Education Language: Question Answer Notes Languages spoken: Irish Moravian: Question Answer Notes Moravian 35 None Sexual Hx: Question Answer Notes Had sex in the last 12 months (vaginal, oral, or anal)? No LMP: post menopause Have you ever had an STD? No Drug and Alcohol Question Answer Notes Total Score: 0 Interpretation: No problems reported Alcohol Screening: Question Answer Notes Did you have a drink containing alcohol in the past year? No Points 0 Interpretation Negative BMI Care Goal Follow-Up Question Answer Notes Above Normal BMI Follow-Up Dietary management educatio n, guidance, and counseling Tobacco Use: Question Answer Notes Are you a: never smoker REASON FOR REFERRAL No Information VITAL SIGNS No information MEDICATIONS Medication SIG (Take, Route, Frequency, Duration) Notes Start Da te End Date Status Levothyroxine Sodium 25 MCG 1 tablet on an empty stoma ch in the morning Orally Once a day for 90 days Active Gabapentin 300 300 mg 1 tab(s) orally three times a day for 30 day(s) Active Atorvastatin Calcium 40 MG 1 tablet Orally Once a day Active Colchicine 0.6 MG 1 tablet Orally Once a day x7days Active Pen [place] 5/16" 31G X 8 MM E11.29 change pen needle twice daily for use with byetta pen subcutaneously TID for 100 Active Calcium 500 mg 1 tablet with meals Orally Once a day 2012 Active Tylenol 325 MG 1 tablet as needed Orally every 4 hrs Active Torsemide 20 MG 1.5tabs Orally daily Active GE100 Blood Glucose Test - freestyle test strips dx=E1 1.21 three times daily and as needed if BS is low for 34 Ac tive Calcitriol 0.25 MCG 1 tab Orally seven days Active Colace 100 MG 1 capsule as needed Orally Sunday through Sunday ONLY with IRON Active [facility] Fluticasone Propionate 50 MCG/ACT 1 spray in each nostril Nasally Once a day, prn Mar, Active Blood Glucose Meter - as directed _ once daily for 30 day(s) Jun, Active Ferrous Sulfate 325 (65 Fe) MG 1 tablet Orally Sunday through Sunday Active Allopurinol 100 MG 1 tablet Orally Once a day for 30 day(s) Active Mupirocin 2 % APPLY A SMALL AMOUNT TO LESI ON ON FACE 3 TIMES DAILY External for 7 Active Metronidazole 1 % 1 application to affected ar ea Externally Once a day for 30 day(s) Apr, Active Humalog Pen 100 UNIT/ML as directed Subcutaneous 4-6 units before each meal; supper with sliding scale for 90 day(s) Active Aspirin Adult Low Dose 81 MG 1 tablet Orally Once a day Active Vitamin D (Cholecalciferol) 400 UNIT 500units Orally Once a day Active Lancets Misc. - GE lancets to use with GE gl ucometer subcutaneousDx : E11.65 bid for 100 Active Propranolol HCl 60 MG 1 tablet Orally Twice a day for 90 day(s) Active Lantus SoloStar 100 UNIT/ML as directed Subcutaneous 4 0u in AM, 26u in PM for 90 day(s) Oct, Active Magnesium Chloride ER 535 (64 Mg) MG 1 tablet Orally daily Active HydrALAZINE HCl 10 MG 1 tablet with food Orally once daily Active Omeprazole 20 MG 1 capsule Orally Once a day for 90 days Active Blood Pressure Monitor - xl adult cuff DX: I12.9 Daily for 90 day(s) Active PROCEDURES No Information RESULTS No Results REASON FOR VISIT ins no longer covers Levemir FlexTouch 100 UNIT/ML Solution Pen-injector MEDICAL (GENERAL) HISTORY Type Description Date Medical History type 2 diabetes elev GIOVANNY 07/22 Medical History hypertension Medical History migraine headaches Medical History hyperlipidemia Medical History Esophageal reflux Medical History anemia of chronic disease/work up 06/13 Medical History venous insufficiency with edema/varicosi ties Medical History diverticulosis Medical History morbid obesity Medical History vitamin D deficiency Medical History menieres disease/postional vertigo Medical History generalized OA Medical History breast biopsies x2 (bilateral) calcium d eposits Medical History pagets disease of vulva 07/11/2010 Medical History secondary hyperparathyroidism Medical History Barium Swallow: Tertiary waves, Reflux n oted Medical History CKD 3-Nephrology Medical History Thyroid nodules Surgical History D&C x 2 Surgical History No personal or FHx of severe reaction to anesthesia Surgical History thyroid nodule removed (rt hemithyroidec susan); US 07/09, 12/1708/24/1988 Surgical History trigger finger release x 2 Surgical History carpal tunnel release bilaterally Surgical History Laser vaporization of the vu lva and colposcopy (,[place] 07/11/2010 Surgical History colonoscopies (declines repeat) 97, 2004 ,4-15 Surgical History FNA performed in April. Small groups of follicular noted in a background of colloid, macrophages, scattered lymphocytes and debris, benign 04/12/18 Hospitalization History No Hospitalization history informati on Goals Section No Information Health Concerns No Information MEDICAL EQUIPMENT No Information MENTAL STATUS No Information FUNCTIONAL STATUS No Information ASSESSMENTS Encounter Date Diagnosis Assessment Notes Treatment Notes Treatm ent Clinical Notes Oct, Type 2 diabetes mellitus wit h diabetic nephropathy (ICD-10 - E11.21) PLAN OF TREATMENT Medication Medication Name Sig Start Date Stop Date Omeprazole 20 MG 1 capsule Orally Once a day for 90 days Blood Pressure Monitor - xl adult cuff DX: I12.9 Daily for 90 da y(s) Propranolol HCl 60 MG 1 tablet Orally Twice a day for 90 day(s) Lantus SoloStar 100 UNIT/ML as directed Subcutaneous 4 0u in AM, 26u in PM for 90 day(s) Oct, Aspirin Adult Low Dose 81 MG 1 tablet Orally Once a day Humalog Pen 100 UNIT/ML as directed Subcutaneous 4-6 units before each meal; supper with sliding scale for 90 day(s) Levothyroxine Sodium 25 MCG 1 tablet on an empty stoma ch in the morning Orally Once a day for 90 days Atorvastatin Calcium 40 MG 1 tablet Orally Once a day GE100 Blood Glucose Test - freestyle test strips dx=E1 1.21 three times daily and as needed if BS is low for 34 Pen Irvine /" 31G X 8 MM E11.29 change pen needle twice daily for use with byetta pen subcutaneously TID for 100 Next Appt Details Provider Name:Veena gAuirre, 2021-02-01 11:3 0:00 AM, [address] [place], [address], Insurance Providers Payer Name Payer Address Payer Phone Insured Name Patient Relati onship to Insured Coverage Start Date Coverage End Date MEDICARE BLUE PPO [address] [facility] BLUE [id number] [address] [place]
--- OUTSIDE RECORDS SUMMARY | 2020-10-27 15:05 | CCD ---
Author Author [facility] Organization [facility] Address Unknown Phone Unavailable Care Team Providers Care Solutions Analyst Name Role Phone Veena Aguirre Unavailable PROBLEMS Type Condition ICD9-CM Code IPX95-HI Code Onset Dates Condition S tatus SNOMED Code Notes Problem Type 2 diabetes mellitus with diabetic nephropathy E11.21 Active 454753072 Problem Diabetic neuropathy E11.40 Active 121411604 Problem Essential (primary) hypertension I10 Active 98825522 Problem Mixed hyperlipidemia E78.2 Active 038851533 Problem Restless legs syndrome G25.81 Active 75751312 Problem Chronic migraine without aura, not intra ctable, with status migrainosus G43.701 Active 278219821016558 Problem Chronic kidney disease, stage 3 (moderate) N18.3 Active 887797009 Problem Neuropathy of both feet G57.91 Active 50167576 2 Problem Type 2 diabetes mellitus with other diabetic kid zach complication E11.29 Active 234863284 Problem Edema of foot R60.0 Active 978088616 Problem 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 92 Active 028833041 Problem Hypertensive chronic kidney disease with stage 1 through stage 4 chronic kidney disease, or unspecified chronic kidney disease I12.9 Active 76395376 Problem Gastro-esophageal reflux disease without esophagitis K21.9 Active 637184387 Problem BMI 40.0-44.9, adult Z68.41 Active 278155458 Problem Encounter for long-term (current) use of insulin Z 79.4 Active 041990689 Problem Rosacea blepharoconjunctivitis L71.9 Active 3 39730047 Problem History of thyroid nodule Z86.39 Active 548388 003 Problem Thyroid nodule E04.1 Active 465928406 Problem Hypothyroidism, unspecified type E03.9 Active 02592566 ALLERGIES Allergen (clinical drug ingredient) Drug/Non Drug Allergy do cumented on EMR Reaction Allergy Type Onset Date Status Glucophage GI upset Drug Allergy Active contrast dye hives Non Drug Allergy Active Bydureon GI upset Drug Allergy Active Vioxx (for allergy use only) GI upset Drug Allergy Active Codeine Phosphate (For Allergies Use Only) migraine,Gi ups et Drug Allergy Active naproxen Naprosyn([facility] Code:[address]-83) GI upset Drug Allergy Active ENCOUNTERS from 1952 to 2020-09-21 Encounter Location Date Provider Diagnosis [facility] [place] [address] [place] [address] 14 Sep, 2020 [facility] Type 2 diabetes mellitus wit h diabetic nephropathy E11.21 IMMUNIZATIONS Vaccine Route Administration Date Status Influenza (Pharmacy Given) Unknown Jul 22, 2019 Admin istered Influenza (18 yrs & older) Flublok IM Intramuscular Jul 18, 2018 Administered Influenza (18 yrs & older) Flublok Unknown Aug 03, 2020 Administered Influenza (Pharmacy Given) Unknown May 22, 2019 Admin istered Influenza (6mo & up) Fluzone IM Intramuscular Jul 27, 2015 Ad ministered Influenza (High Dose 65 & up) Unknown Jul 26, 2017 Ot hers Influenza (High Dose 65 & up) IM [...] Finished High School Audit Question Answer Notes Interpretation: Alcohol Education Total Score: 0 Language: Question Answer Notes Languages spoken: Trinidadian Baptist: Question Answer Notes Baptist 33 None Sexual Hx: Question Answer Notes Had sex in the last 12 months (vaginal, oral, or anal)? No LMP: post menopause Have you ever had an STD? No Drug and Alcohol Question Answer Notes Interpretation: No problems reported Total Score: 0 Alcohol Screening: Question Answer Notes Did you [...] Once a day for 90 days Active GE100 Blood Glucose Test - freestyle test strips dx=E1 1.21 3-5 times daily and as needed if BS is low for 30 days Active Atorvastatin Calcium 40 MG 1 tablet Orally Once a day Active Colchicine 0.6 MG 1 tablet Orally Once a day x7days Active Pen [place] 5/16" 31G X 8 MM E11.29 change pen needle twice daily for use with byetta pen subcutaneously TID for 100 Active Torsemide 20 MG 1.5tabs Orally daily Active Tylenol 325 MG 1 tablet as needed Orally every 4 hrs Active Gabapentin 300 300 mg 1 tab(s) orally three times a day for 30 day(s) Active Calcitriol 0.25 MCG 1 tab Orally seven days Active Levemir FlexTouch 100 UNIT/ML as directed Subcutaneous 40 units in morning, 26 units in PM for 30 day(s) Active Calcium 500 mg 1 tablet with meals Orally Once a day 2012 Active Colace 100 MG 1 capsule as [...] Misc. - GE lancets to use with PureHistory gl ucometer subcutaneousDx : E11.65 bid for 100 Active Propranolol HCl 60 MG 1 tablet Orally Twice a day for 90 day(s) Active GE100 Blood Glucose Test - freestyle test strips dx=E1 1.21 three times daily and as needed if BS is low for 30 Ac tive Magnesium Chloride ER 535 (64 Mg) MG 1 tablet Orally daily Active HydrALAZINE HCl 10 MG 1 tablet with food Orally once daily Active Omeprazole 20 MG 1 capsule Orally Once a day for 90 days Active Blood Pressure Monitor - xl adult cuff DX: I12.9 Daily for 90 day(s) Active PROCEDURES No Information RESULTS No Results REASON FOR VISIT rx MEDICAL (GENERAL) HISTORY Type Description Date Medical [...] vaporization of the vu lva [place] 07/11/2010 Surgical History colonoscopies (declines repeat) 97, 2003 ,4-15 Surgical History FNA performed in April. Small groups of follicular noted in a background of colloid, macrophages, scattered lymphocytes and debris, benign 04/12/18 Hospitalization History No Hospitalization history informati on Goals Section No Information Health Concerns No Information MEDICAL EQUIPMENT No Information MENTAL STATUS No Information FUNCTIONAL STATUS No Information ASSESSMENTS Encounter Date Diagnosis Assessment Notes Treatment Notes Treatm ent Clinical Notes Sep, Type 2 diabetes mellitus wit h diabetic nephropathy (ICD-10 - E11.21) PLAN OF TREATMENT Medication Medication Name Sig Start Date Stop Date Omeprazole 20 MG 1 capsule Orally Once a day for 90 days Blood Pressure Monitor - xl adult cuff DX: I12.9 Daily for 90 da y(s) Atorvastatin Calcium 40 MG 1 tablet Orally Once a day Propranolol HCl 60 MG 1 tablet Orally Twice a day for 90 day(s) GE100 Blood Glucose Test - freestyle test strips dx=E1 1.21 3-5 times daily and as needed if BS is low for 30 days Aspirin Adult Low Dose 81 MG 1 tablet Orally Once a day Pen [place] 02/20" 31G X 8 MM E11.29 change pen needle twice daily for use with byetta pen subcutaneously TID for 100 Levothyroxine Sodium 25 MCG 1 tablet on an empty stoma ch in the morning Orally Once a day for 90 days Humalog Pen 100 UNIT/ML as directed Subcutaneous 4-6 units before each meal; supper with sliding scale for 90 day(s) Levemir FlexTouch 100 UNIT/ML as directed Subcutaneous 40 units in morning, 26 units in PM for 30 day(s) Next Appt Details Provider Name:Veena Aguirre, 2021-02-01 11:3 0:00 AM, [address] [place], [address], Insurance Providers Payer Name Payer Address Payer Phone Insured Name Patient Relati onship to Insured Coverage Start Date Coverage End Date MEDICARE BLUE PPO 306 [employer] BLUE [address] [facility] [id number] [place]
--- OUTSIDE RECORDS SUMMARY | 2020-10-27 15:06 | CCD ---
Author Author [facility] Organization [facility] Address Unknown Phone Unavailable Care Team Providers Care Conveyor System Operator Name Role Phone Delaney Gold Unavailable PROBLEMS Type Condition ICD9-CM Code [id number] Code Onset Dates Condition S tatus SNOMED Code Notes Problem Type 2 diabetes mellitus with diabetic nephropathy E11.21 Active 086568812 Problem Diabetic neuropathy E11.40 Active 330087042 Problem Essential (primary) hypertension I10 Active 98764035 Problem Mixed hyperlipidemia E78.2 Active 013326138 Problem Restless legs syndrome G25.81 Active 06496959 Problem Chronic migraine without aura, not intra ctable, with status migrainosus G43.701 Active 176881448533243 Problem Chronic kidney disease, stage 3 (moderate) N18.3 Active 251775313 Problem Neuropathy of both feet G57.91 Active 98474619 2 Problem Type 2 diabetes mellitus with other diabetic kid zach complication E11.29 Active 137806268 Problem Edema of foot R60.0 Active 006364668 Problem 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 92 Active 651426302 Problem Hypertensive chronic kidney disease with stage 1 through stage 4 chronic kidney disease, or unspecified chronic kidney disease I12.9 Active 86607237 Problem Gastro-esophageal reflux disease without esophagitis K21.9 Active 929246066 Problem BMI 40.0-44.9, adult Z68.41 Active 324698790 Problem Encounter for long-term (current) use of insulin Z 79.4 Active 917349690 Problem Rosacea blepharoconjunctivitis L71.9 Active 3 63325390 Problem History of thyroid nodule Z86.39 Active 721816 003 Problem Thyroid nodule E04.1 Active 767144184 Problem Hypothyroidism, unspecified type E03.9 Active 33011249 ALLERGIES Allergen (clinical drug ingredient) Drug/Non Drug Allergy do cumented on EMR Reaction Allergy Type Onset Date Status Glucophage GI upset Drug Allergy Active contrast dye hives Non Drug Allergy Active Bydureon GI upset Drug Allergy Active Vioxx (for allergy use only) GI upset Drug Allergy Active Codeine Phosphate (For Allergies Use Only) migraine,Gi ups et Drug Allergy Active naproxen Naprosyn([facility] Code:[address]-68) GI upset Drug Allergy Active ENCOUNTERS from 1950 to 2020-08-17 Encounter Location Date Provider Diagnosis [address] [address] Aug, Delaney Gold Gastro-esophageal reflux disease without esophagitis K21.9 IMMUNIZATIONS Vaccine Route Administration Date Status Influenza [...] Education Language: Question Answer Notes Languages spoken: Syrian Yazidi: Question Answer Notes Yazidi 33 None Sexual Hx: Question Answer Notes [...] MEDICATIONS Medication SIG (Take, Route, Frequency, Duration) Start Date En d Date Status Tylenol 325 MG 1 tablet as needed Orally every 4 hrs Active Gabapentin 300 300 mg 1 tab(s) orally three times a day for 30 day( s) Active Levothyroxine Sodium 25 MCG 1 tablet on an empty stoma ch in the morning Orally Once a day for 90 days Active Levemir FlexTouch 100 UNIT/ML as directed Subcutaneous 40 units in morning, 26 units in PM for 30 day(s) Active Humalog Pen 100 UNIT/ML as directed Subcutaneous 4-6 units before each meal; supper with sliding scale for 90 day(s) Active Calcium 500 mg 1 tablet with meals Orally Once a day Oct, Active Pen Cheriton 516" 31G X 8 MM E11.29 change pen needle twice daily for use with byetta pen subcutaneously TID for 100 Ac tive Torsemide 20 MG 1.5tabs Orally daily Acti ve Propranolol HCl 60 MG 1 tablet Orally Twice a day for 90 day(s) Active Allopurinol 100 MG 1 tablet Orally Once a day for 30 day(s) Active Calcitriol 0.25 MCG 1 tab Orally seven days Active Metronidazole 1 % 1 application to affected ar ea Externally Once a day for 30 day(s) Apr, Active Colace 100 MG 1 capsule as needed Orally Sunday through Sunday ONLY with IRON Active Blood Glucose Meter - as directed _ once daily for 30 day(s) Jun Active Lancets Misc. - GE lancets to use with GE gl ucometer subcutaneousDx : E11.65 bid for 100 Active Colchicine 0.6 MG 1 tablet Orally Once a day x7days Active Mupirocin 2 % APPLY A SMALL AMOUNT TO LESI ON ON FACE 3 TIMES DAILY External for 7 Active Ferrous Sulfate 325 (65 Fe) MG 1 tablet Orally Sunday through y Active Aspirin Adult Low Dose 81 MG 1 tablet Orally Once a day Active GE100 Blood Glucose Test - freestyle test strips dx=E1 1.21 3-5 times daily and as needed if BS is low for 30 days Activ e Vitamin D (Cholecalciferol) 400 UNIT 500units Orally Once a day Active Atorvastatin Calcium 40 MG 1 tablet Orally Once a day Active [facility] Fluticasone Propionate 50 MCG/ACT 1 spray in each nostril Nasally Once a day, prn 30 Mar, 2017 Active GE100 Blood Glucose Test - freestyle test strips dx=E1 1.21 three times daily and as needed if BS is low for 30 Active Magnesium Chloride ER 535 (64 Mg) MG 1 tablet Orally daily Active HydrALAZINE HCl 10 MG 1 tablet with food Orally once daily Active Omeprazole 20 MG 1 capsule Orally Once a day for 90 days Active Blood Pressure Monitor - xl adult cuff DX: I12.9 Daily for 90 day(s ) Active PROCEDURES No Information RESULTS No Results REASON FOR VISIT refill-omeprazole MEDICAL (GENERAL) HISTORY Type Description Date Medical [...] vaporization of the vu [place]va and [place]poscopy [place] 07/11/2010 Surgical History colonoscopies (declines repeat) [...] STATUS No Information ASSESSMENTS Encounter Date Diagnosis Notes Aug, Gastro-esophageal reflux dis ease without esophagitis (ICD-10 - K21.9) PLAN OF TREATMENT Medication Medication Name Sig Start Date Stop Date Omeprazole 20 MG 1 capsule Orally Once a day for 90 days Blood Pressure Monitor - xl adult cuff DX: I12.9 Daily for 90 da y(s) Levothyroxine Sodium 25 MCG 1 tablet on an empty stoma ch in the morning Orally Once a day for 90 days Atorvastatin Calcium 40 MG 1 tablet Orally Once a day Levemir FlexTouch 100 UNIT/ML as directed Subcutaneous 40 units in morning, 26 units in PM for 30 day(s) Humalog Pen 100 UNIT/ML as directed Subcutaneous 4-6 units before each meal; supper with sliding scale for 90 day(s) Pen Cheriton 5/16" 31G X 8 MM E11.29 change pen needle twice daily for use with byetta pen subcutaneously TID for 100 GE100 Blood Glucose Test - freestyle test strips dx=E1 1.21 3-5 times daily and as needed if BS is low for 30 days Aspirin Adult Low Dose 81 MG 1 tablet Orally Once a day Next Appt Details Provider Name:Veena Aguirre, 2021-02-01 11:3 0:00 AM, [address] [place], [address], Insurance Providers Payer Name Payer Address Payer Phone Insured Name Patient Relati onship to Insured Coverage Start Date Coverage End Date MEDICARE BLUE PPO [address] [facility] BLUE [id number] [address] MEGHA LIRA
--- OUTSIDE RECORDS SUMMARY | 2020-10-27 15:06 | CCD ---
Author Author [facility] Organization [facility] Address Unknown Phone Unavailable Care Team Providers Care Procurement Professional Logistics Name Role Phone Veena Aguirre Unavailable PROBLEMS Type Condition ICD9-CM Code [id number] Code Onset Dates Condition S tatus SNOMED Code Notes Problem Type 2 diabetes mellitus with diabetic nephropathy E11.21 Active 371319361 Problem Diabetic neuropathy E11.40 Active 915571715 Problem Essential (primary) hypertension I10 Active 06980447 Problem Mixed hyperlipidemia E78.2 Active 559995256 Problem Restless legs syndrome G25.81 Active 70716386 Problem Chronic migraine without aura, not intra ctable, with status migrainosus G43.701 Active 063684602743786 Problem Chronic kidney disease, stage 3 (moderate) N18.3 Active 432099137 Problem Neuropathy of both feet G57.91 Active 12730888 2 Problem Type 2 diabetes mellitus with other diabetic kid zach complication E11.29 Active 120672113 Problem Edema of foot R60.0 Active 547467709 Problem 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 92 Active 871656317 Problem Hypertensive chronic kidney disease with stage 1 through stage 4 chronic kidney disease, or unspecified chronic kidney disease I12.9 Active 71619309 Problem Gastro-esophageal reflux disease without esophagitis K21.9 Active 641216890 Problem BMI 40.0-44.9, adult Z68.41 Active 175179398 Problem Encounter for long-term (current) use of insulin Z 79.4 Active 572077567 Problem Rosacea blepharoconjunctivitis L71.9 Active 3 83276046 Problem History of thyroid nodule Z86.39 Active 273478 003 Problem Thyroid nodule E04.1 Active 628961725 Problem Hypothyroidism, unspecified type E03.9 Active 49269647 ALLERGIES Allergen (clinical drug ingredient) Drug/Non Drug Allergy do cumented on EMR Reaction Allergy Type Onset Date Status Glucophage GI upset Drug Allergy Active contrast dye hives Non Drug Allergy Active Bydureon GI upset Drug Allergy Active Vioxx (for allergy use only) GI upset Drug Allergy Active Codeine Phosphate (For Allergies Use Only) migraine,Gi ups et Drug Allergy Active naproxen Naprosyn([facility] [place] [place] Code:[address]-44) GI upset Drug Allergy Active ENCOUNTERS from 1952 to 2020-08-06 Encounter Location Date Provider Diagnosis [address] [address] Jul, 020 Veena [place] Hypertensive chronic kidney disease with stage 1 through stage 4 chronic kidney disease, or unspecified chronic kidney disease I12.9 ; Type 2 diabetes mellitus with diabetic nephropathy E11.21 ; Hypothyroidism, unspecified type E03.9 ; Stage 4 chronic kidney disease N18.4 ; Mixed hyperlipidemia E78.2 and Gastro- esophageal reflux disease without esophagitis K21.9 IMMUNIZATIONS Vaccine [...] Education Language: Question Answer Notes Languages spoken: Mozambican Gnosticist: Question Answer Notes Gnosticist 33 None Sexual Hx: Question Answer Notes [...] REASON FOR REFERRAL No Information VITAL SIGNS Weight 260 lbs Jul, Height 61 in Jul, BMI 49.12 kg/m2 Jul, Heart Rate 88 /min Jul, Respiratory Rate 20 /min Jul, Temperature 97 degrees Fahrenheit Jul, Oximetry 97 Jul, Blood pressure systolic 132 mm Hg Jul, Blood pressure diastolic 80 mm Hg Jul, MEDICATIONS Medication SIG (Take, Route, Frequency, Duration) Start Date En d Date Status Tylenol 325 MG 1 tablet as needed Orally every 4 hrs Active Torsemide 20 MG 1.5tabs Orally daily Acti ve Levothyroxine Sodium 25 MCG 1 tablet on an empty stoma ch in the morning Orally Once a day for 90 days Active Gabapentin 300 300 mg 1 tab(s) orally three times a day for 30 day( s) Active Allopurinol 100 MG 1 tablet Orally Once a day for 30 day(s) Active Omeprazole 20 MG 1 capsule Orally Once a day for 90 days Active Humalog Pen 100 UNIT/ML as directed Subcutaneous 4-6 units before each meal; supper with sliding scale for 90 day(s) Active Calcium 500 mg 1 tablet with meals Orally Once a day Oct, Active Propranolol HCl 60 MG 1 tablet Orally Twice a day for 90 day(s) Active Aspirin Adult Low Dose 81 MG 1 tablet Orally Once a day Active Calcitriol 0.25 MCG 1 tab Orally seven days Active Metronidazole 1 % 1 application to affected ar ea Externally Once a day for 30 day(s) Apr, Active Colace 100 MG 1 capsule as needed Orally Sunday through Sunday ONLY with IRON Active Vitamin D (Cholecalciferol) 400 UNIT 500units Orally Once a day Active Lancets Misc. - GE lancets to use with CIQUAL gl ucometer subcutaneousDx : E11.65 bid for 100 Active GE100 Blood Glucose Test - freestyle test strips dx=E1 1.21 3-5 times daily and as needed if BS is low for 30 days Activ e Pen Upperco 02/20" 31G X 8 MM E11.29 change pen needle twice daily for use with byetta pen subcutaneously TID for 90 Act dax Ferrous Sulfate 325 (65 Fe) MG 1 tablet Orally Sunday through y Active Colchicine 0.6 MG 1 tablet Orally Once a day x7days Active Levemir FlexTouch 100 UNIT/ML as directed Subcutaneous 40 units in morning, 26 units in PM for 30 day(s) Active Mupirocin 2 % APPLY A SMALL AMOUNT TO LESI ON ON FACE 3 TIMES DAILY External for 7 Active Atorvastatin Calcium 40 MG 1 tablet Orally Once a day Active [facility] Fluticasone Propionate 50 MCG/ACT 1 spray in each nostril Nasally Once a day, prn Mar, Active Blood Glucose Meter - as directed _ once daily for 30 day(s) Jun Active HydrALAZINE HCl 10 MG 1 tablet with food Orally once daily Active GE100 Blood Glucose Test - freestyle test strips dx=E1 1.21 three times daily and as needed if BS is low for 30 Active Magnesium Chloride ER 535 (64 Mg) MG 1 tablet Orally daily Active Blood Pressure Monitor - xl adult cuff DX: I12.9 Daily for 90 day(s ) Active PROCEDURES No Information RESULTS No Results REASON FOR VISIT f/up after labs MEDICAL (GENERAL) HISTORY Type Description Date Medical [...] vaporization of the vu lva and colposcopy (,[place] 07/11/2010 Surgical History colonoscopies (declines repeat) [...] No Information ASSESSMENTS Encounter Date Diagnosis Notes Jul, Hypertensive chronic kidney disease with stage 1 through stage 4 chronic kidney disease, or unspecified chronic kidney disease (ICD-10 - I12.9) Jul, Hypothyroidism, unspecified type (ICD-10 - E03.9) Jul, Type 2 diabetes mellitus wit h diabetic nephropathy (ICD-10 - E11.21) Jul, Mixed hyperlipidemia (ICD-10 - E78.2) Jul, Stage 4 chronic kidney disease (ICD-10 - N18.4) Jul, Gastro-esophageal reflux dis ease without esophagitis (ICD-10 - K21.9) PLAN OF TREATMENT Medication Medication Name Sig Start Date Stop Date Atorvastatin Calcium 40 MG 1 tablet Orally Once a day Blood Pressure Monitor - xl adult cuff DX: I12.9 Daily for 90 da y(s) Humalog Pen 100 UNIT/ML as directed Subcutaneous 4-6 units before each meal; supper with sliding scale for 90 day(s) Levothyroxine Sodium 25 MCG 1 tablet on an empty stoma ch in the morning Orally Once a day for 90 days GE100 Blood Glucose Test - freestyle test strips dx=E1 1.21 3-5 times daily and as needed if BS is low for 30 days Aspirin Adult Low Dose 81 MG 1 tablet Orally Once a day Omeprazole 20 MG 1 capsule Orally Once a day for 90 days Levemir FlexTouch 100 UNIT/ML as directed Subcutaneous 40 units in morning, 26 units in PM for 30 day(s) Treatment Notes Assessment Notes Clinical Notes Hypertensive chronic kidney disease with stage 1 through stage 4 chronic kidney disease, or unspecified chronic kidney disease Meds per nephrology. Per [facility] 8 guidelines, goal BP < 140/90, is meeting goal on current regimen. Advised heart- healthy diet, sodium restriction Type 2 diabetes mellitus with diabetic nephropathy stable on current meds Hypothyroidism, unspecified type lab stable Stage 4 chronic kidney disease f/up with nephrology - Mixed hyperlipidemia Patient is tolerati ng statin therapy. Reinforced the importance of lifestyle modifications to lower cardiovascular disease risk. These recommendations included eating a heart healthy diet, regular aerobic exercise and achieving a desirable body weight Future Test Test Name Order Date Comprehensive Metabolic Profile (CMP) 20210118 FREE T4 & TSH PANEL 20210118 LIPID PANEL (CARDIAC RISK) 20210118 HEMOGLOBIN A1c 20210118 Next Appt Details 6 Months (30min) Reason:f/u after labs Provider Name:Veena Aguirre, 2021-02-01 11:3 0:00 AM, [address] [place], [address], Follow Up:6 Months (30min)f/u after labs Insurance Providers Payer Name Payer Address Payer Phone Insured Name Patient Relati onship to Insured Coverage Start Date Coverage End Date MEDICARE BLUE O [address] [facility] [address] [place] [id number] MEGHA LIRA
--- OUTSIDE RECORDS SUMMARY | 2020-10-27 15:06 | CCD ---
Author Author [facility] Organization [facility] Address Unknown Phone Unavailable Care Team Providers Care Mat Inspector Name Role Phone Mariano II, Carlos PA Unavailable Unavailable Mariano II, Carlos PA Unavailable Unavailable Mariano II, Carlos PA Unavailable Unavailable Mariano II, Carlos PA Unavailable Unavailable Mariano II, Carlos PA Unavailable Unavailable Mariano II, Carlos PA Unavailable Unavailable Mariano II, Carlos PA Unavailable Unavailable Mariano II, Carlos PA Unavailable Unavailable Mariano II, Carlos PA Unavailable Unavailable Mariano II, Carlos PA Unavailable Unavailable Mariano II, Carlos PA Unavailable Unavailable Mariano II, Carlos PA Unavailable Unavailable Mariano II, Carlos PA Unavailable Unavailable Mariano II, Carlos PA Unavailable Unavailable Mariano II, Carlos PA Unavailable Unavailable Mariano II, Carlos PA Unavailable Unavailable Mariano II, Carlos PA Unavailable Unavailable Re-disclosure Warning The records that you are about to access may contain information from federally-assisted alcohol or drug abuse programs. If such information is present, then the following federally mandated warning applies: This information has been disclosed to you from records protected by federal confidentiality rules (42 CFR part 2). The federal rules prohibit you from making any further disclosure of this information unless further disclosure is expressly permitted by the written consent of the person to whom it pertains or as otherwise permitted by 42 CFR part 2. A general authorization for the release of medical or other information is NOT sufficient for this purpose. The Federal rules restrict any use of the information to criminally investigate or prosecute any alcohol or drug abuse patient.The records that you are about to access may contain highly sensitive health information, the redisclosure of which is protected by Article 27-F of the [facility] Public Health law. If you continue you may have access to information: Regarding HIV / AIDS; Provided by facilities licensed or operated by the [facility] Office of Mental Health; or Provided by the [facility] Office for People With Developmental Disabilities. If such information is present, then the following [facility] mandated warning applies: This information has been disclosed to you from confidential records which are protected by state law. State law prohibits you from making any further disclosure of this information without the specific written consent of the person to whom it pertains, or as otherwise permitted by law. Any unauthorized further disclosure in violation of state law may result in a fine or group home sentence or both. A general authorization for the release of medical or other information is NOT sufficient authorization for further disc losure. Allergies and Adverse Reactions Type Description Substance Reaction Status Data Source(s ) Drug allergy Naprosyn Naproxen GI upset Active eCW1 ([facility]) contrast dye contrast dye contrast dye hives Active eCW1 ([facility]) Glucophage Glucophage Metformin hydrochloride 1000 MG Oral Tablet [Glucophage] GI upset Active eCW1 ([facility]) contrast dye contrast dye contrast dye hives Active eCW1 ([facility]) Glucophage Glucophage Metformin hydrochloride 1000 MG Oral Tablet [Glucophage] GI upset Active eCW1 ([facility]) Family History Family Member Name Family Member Gender Family Member Status Date o f Status Description Data Source(s) Unknown Unknown Problem MEDENT ([facility]) Unknown Female Problem MEDENT ([facility] ) Encounters Encounter Providers Location Date Indications Data Source(s ) Unknown [address] [facility] [place] [address] 10/11/2020 12:00:00 AM EST eCW1 ([facility]) Unknown [address] [facility] [place] [address] 09/20/2020 12:00:00 AM EST eCW1 ([facility]) Unknown [address] [facility] [place] [address] 08/16/2020 12:00:00 AM EST eCW1 ([facility]) Outpatient [address] [facility] [place] [address] 08/03/2020 12:00:00 AM EDT eCW1 ([facility]) Unknown [address] [facility] [place] [address] 07/26/2020 12:00:00 AM EDT eCW1 ([facility]) Unknown [address] [facility] [place] [address] 07/16/2020 12:00:00 AM EDT eCW1 ([facility]) [facility] [address] [facility] [place] [address] 05/25/2020 12:00:00 AM EDT eCW1 ([facility]) Outpatient [address] [facility] [place] [address] 04/29/2020 12:00:00 AM EDT eCW1 ([facility]) Unknown [address] [facility] [place] [address] 03/23/2020 12:00:00 AM EDT eCW1 ([facility]) Unknown [address] [facility] [place] [address] 03/22/2020 12:00:00 AM EDT eCW1 ([facility]) Unknown [address] [facility] [place] [address] 03/11/2020 12:00:00 AM EDT eCW1 ([facility]) [facility] [address] [facility] [place] [address] 02/17/2020 12:00:00 AM EDT eCW1 ([facility]) [facility] [address] [facility] [place] [address] 02/16/2020 12:00:00 AM EDT eCW1 ([facility]) [facility] [address] 02/10/2020 12:00:00 AM EDT eCW1 ([facility]) [address] [place] [address] 02/09/2020 12:00:00 AM EDT eCW1 ([facility]) [address] [place] [address] 01/20/2020 12:00:00 AM EDT eCW1 ([facility]) Outpatient 12/10/2019 06:16:00 AM EST [facility] [address] [place] [address] 12/01/2019 12:00:00 AM EST eCW1 ([facility]) Outpatient Attender: Carlos Herrera/Candy/Yvan/Dov dl 11/27/2019 09:15:00 AM EST MEDENT ([facility]) [address] [address] 11/25/2019 12:00:00 AM EST eCW1 ([facility]) [address] [address] 11/18/2019 12:00:00 AM EST eCW1 ([facility]) [address] [place] [address] 11/10/2019 12:00:00 AM EST eCW1 ([facility]) [address] [address] 11/07/2019 12:00:00 AM EST eCW1 ([facility]) [address] [address] 10/14/2019 12:00:00 AM EST eCW1 ([facility]) [address] [address] 09/23/2019 12:00:00 AM EST eCW1 ([facility]) [facility] [address] [facility] [place] [address] 09/08/2019 12:00:00 AM EST eCW1 ([facility]) Immunizations Vaccine Date Status Description Data Source(s) influenza, recombinant, quadrIvalent,injectable, prese rvative free 08/03/2020 11:53:00 AM EDT completed eCW1 ([facility]) influenza, recombinant, quadrIvalent,injectable, prese rvative free 08/03/2020 11:53:00 AM EDT completed eCW1 ([facility]) influenza, recombinant, quadrIvalent,injectable, prese rvative free 08/03/2020 11:53:00 AM EDT completed eCW1 ([facility]) influenza, recombinant, quadrIvalent,injectable, prese rvative free 08/03/2020 11:53:00 AM EDT completed eCW1 ([facility]) Medications Medication Brand Name Start Date Product Form Dose Route Admi nistrative Instructions Pharmacy Instructions Status Indications Reaction Description Data Source(s) 3 ML Insulin Glargine 100 UNT/ML Pen Inj ben [Lantus] Lantus SoloStar 100 UNIT/ML Lantus SoloStar 100 UNIT/ML 10/12/2020 12:00:00 AM EST active Lantus SoloStar 100 UNIT/ML eCW1 ([facility]) Insurance Providers Payer name Policy type / Coverage type Policy ID Covered republican ID Covered republican's relationship to finn Policy Finn Plan Information MEDICARE BLUE PPO 306 [id number] SP [id number] [facility] B [id number] S [id number] MEDICARE BLUE PPO 306 [id number] SP [id number] MEDICARE BLUE PPO 306 [id number] SP [id number] [facility] [id number] [facility] [id number] ANSI-Medicare Part B [id number] ANSI-Medicare Part B [id number] ANSI-Medicare Part B [id number] ANSI-Medicare Part B [id number] ANSI-Medicare Part B [id number] ANSI-Medicare Part B [id number] ANSI-Medicare Part B [id number] ANSI-Medicare Part B [id number] ANSI-Medicare Part B [id number] ANSI-Medicare Part B [id number] ANSI-Medicare Part B [id number] ANSI-Medicare Part B [id number] ANSI-Medicare Part B [id number] ANSI-Medicare Part B [id number] Medicare Blue Ppo Commercial [id number] Self [id number] ANSI-Medicare Part B [id number] ANSI-Medicare Part B [id number] MEDICARE BLUE PPO 306 [id number] SP [id number] ANSI-Medicare Part B [id number] ANSI-Medicare Part B [id number] ANSI-Medicare Part B [id number] ANSI-Medicare Part B [id number] ANSI-Medicare Part B [id number] ANSI-Medicare Part B [id number] ANSI-Medicare Part B [id number] ANSI-Medicare Part B [id number] ANSI-Medicare Part B [id number] ANSI-Medicare Part B [id number] ANSI-Medicare Part B [id number] ANSI-Medicare Part B [id number] ANSI-Medicare Part B [id number] ANSI-Medicare Part B [id number] ANSI-Medicare Part B [id number] Medicare Blue Ppo Commercial [id number] Self [id number] ANSI-Medicare Part B [id number] MEDICARE BLUE PPO 306 [id number] SP [id number] Medicare Blue Ppo Commercial [id number] Self [id number] MEDICARE [id number] SP [id number] [facility] [id number] SP [id number] [facility] O [id number] S [id number] [facility] [id number] SP [id number] FORMERLY [facility] [id number] SP [id number] BS [place] Medigap Part B Self BS [place] Commercial Self [facility]) O [id number] S [id number] [employer] 306/806 [id number] SP [id number] [employer] P [id number] S [id number] [place] 306/806 [id number] SP [id number] FOR[facility] [id number] SP [id number] [place] PPO 302/307 [id number] SP [id number] Surgeries/Procedures Procedure Description Date Indications Data Source(s) MED NUTRITION INDIV SUBSEQ 12/01/2019 12:00:00 AM EST eCW1 ([facility]) Social History Code Duration Value Status Description Data Source(s ) Smoking 08/03/2020 12:00:00 AM EDT Never Smoker completed Never S moker eCW1 ([facility]) Smoking 08/03/2020 12:00:00 AM EDT Never Smoker completed Never S moker eCW1 ([facility]) Smoking 08/03/2020 12:00:00 AM EDT Never Smoker completed Never S moker eCW1 ([facility]) Smoking 08/03/2020 12:00:00 AM EDT Never Smoker completed Never S moker eCW1 ([facility]) Smoking 04/29/2020 12:00:00 AM EDT Never Smoker completed Never S moker eCW1 ([facility]) Smoking 04/29/2020 12:00:00 AM EDT Never Smoker completed Never S moker eCW1 ([facility]) Smoking 04/29/2020 12:00:00 AM EDT Never Smoker completed Never S moker eCW1 ([facility]) Smoking 02/09/2020 12:00:00 AM EDT Never Smoker completed Never S moker eCW1 ([facility]) Smoking 02/09/2020 12:00:00 AM EDT Never Smoker completed Never S moker eCW1 ([facility]) Smoking 02/09/2020 12:00:00 AM EDT Never Smoker completed Never S moker eCW1 ([facility]) Vital Signs ID Date Data Source UNK Name Value Range Interpretation Code Description Data Source(s) Diastolic blood pressure 80 mm[Hg] 80 mm[Hg] eCW1 ([facility]) Systolic blood pressure 132 mm[Hg] 132 mm[Hg] e CW1 ([facility]) Body temperature 97 [degF] 97 [degF] eCW1 ([facility]) Respiratory rate 20 /min 20 /min eCW1 ([facility]) Heart rate 88 /min 88 /min eCW1 ([facility]) Body mass index (BMI) [Ratio] 49.12 kg/m2 49.12 kg/m2 W1 ([facility]) Body height 61 [in_i] 61 [in_i] eCW1 ([facility] Body weight 260 [lb_av] 260 [lb_av] eCW1 ([facility]) Diastolic blood pressure 70 mm[Hg] 70 mm[Hg] eCW1 ([facility]) Systolic blood pressure 124 mm[Hg] 124 mm[Hg] e CW1 ([facility]) Body temperature 98.3 [degF] 98.3 [degF] eCW1 ( [facility]) Respiratory rate 16 /min 16 /min eCW1 ([facility]) Heart rate 70 /min 70 /min eCW1 ([facility]) Body mass index (BMI) [Ratio] 48.74 kg/m2 48.74 kg/m2 eCW1 ([facility]) Body height 61 [in_i] 61 [in_i] eCW1 ([facility]) Body weight 258 [lb_av] 258 [lb_av] eCW1 ([facility]) Body weight 116.122 kg 116.122 kg [facility] ([facility], ) Body mass index (BMI) [Ratio] 50.0 kg/m2 50.0 k g/m2 MEDENT ([facility], ) Body weight 256.00 [lb_av] 256.00 [lb_av] MEDEN T ([facility], ) Body height 60 [in_i] 60 [in_i] [facility] ([facility], ) 5'0" Diastolic blood pressure 76 mm[Hg] 76 mm[Hg] eCW1 ([facility]) Systolic blood pressure 132 mm[Hg] 132 mm[Hg] e CW1 ([facility]) Body temperature 97.6 [degF] 97.6 [degF] eCW1 ( [facility]) Respiratory rate 18 /min 18 /min eCW1 ([facility]) Heart rate 88 /min 88 /min eCW1 ([facility]) Body mass index (BMI) [Ratio] 48.37 kg/m2 48.37 kg/m2 W1 ([facility]) Body height 61 [in_us] 61 [in_us] eCW1 ([facility]) Body weight Measured 256 [lb_av] 256 [lb_av] eC W1 ([facility]) Body mass index (BMI) [Ratio] 48.74 kg/m2 48.74 kg/m2 eCW1 ([facility]) Body height 61 [in_us] 61 [in_us] eCW1 ([facility]) Body weight Measured 258 [lb_av] 258 [lb_av] eC W1 ([facility]) Body weight 116.122 kg 116.122 kg MEDENT ([facility], ) Body mass index (BMI) [Ratio] 50.0 kg/m2 50.0 k g/m2 MEDENT ([facility]) Body weight 256.00 [lb_av] 256.00 [lb_av] MEDEN T ([facility]) Body height 60 [in_i] 60 [facility] 5'0" Diastolic blood pressure 68 mm[Hg] 68 mm[Hg] eCW1 ([facility]) Systolic blood pressure 122 mm[Hg] 122 mm[Hg] e CW1 ([facility]) Body temperature 96.8 [degF] 96.8 [degF] eCW1 ( [facility]) Respiratory rate 20 /min 20 /min eCW1 ([facility]) Heart rate 79 /min 79 /min eCW1 ([facility]) Body mass index (BMI) [Ratio] 48.18 kg/m2 48.18 kg/m2 eCW1 ([facility]) Body height 61 [in_us] 61 [in_us] eCW1 ([facility]) Body weight Measured 255.0 [lb_av] 255.0 [lb_av ] eCW1 ([facility]) Body mass index (BMI) [Ratio] 48.18 kg/m2 48.18 kg/m2 W1 ([facility]) Body height 61 [in_us] 61 [in_us] eCW1 ([facility]) Body weight Measured 255 [lb_av] 255 [lb_av] eC W1 ([facility]) Patient Treatment Plan of Care Planned Activity Planned Date Details Description Data Source (s) 3 ML Insulin Glargine 100 UNT/ML Pen Injector [Lantus] 10/12/2020 12:00:00 AM EST eCW1 ([facility])
[2020-10-27] MEDS ORDERED: MORPHINE 4 MG/ML 1ML VIAL/SYRINGE (J2270) IV ONE (15:15)
[2020-10-27 15:52] LABS: ALBUMIN 2.9 GM/DL (3.2-5.2); BILIRUBIN,DIRECT 0.1 MG/DL (0.0-0.2); BILIRUBIN,TOTAL 0.5 MG/DL (0.2-1.0); CALCIUM LEVEL 9.1 MG/DL (8.8-10.2); CREATININE FOR GFR 2.09 MG/DL (0.55-1.30); GLOMERULAR FILTRATION RATE 25.1 (>45)
[2020-10-27 15:54] LABS: BASO # 0.1 10^3/uL (0.0-0.2); BASO % 0.2 % (0.0-1.0); HEMATOCRIT 33.3 % (36.0-47.0); HEMOGLOBIN 10.4 g/dl (12.0-15.5); LYMPH # 0.9 10^3/uL (1.5-5.0); LYMPH % 4.2 % (24.0-44.0); MEAN CORPUSCULAR HEMOGLOBIN 28.4 pg (27.0-33.0); MEAN CORPUSCULAR HGB CONC 31.2 g/dl (32.0-36.5); MONO # 0.9 10^3/uL (0.0-0.8); MONO % 4.2 % (0.0-5.0); NEUTROPHILS # 18.7 10^3/uL (1.5-8.5); PLATELET COUNT, AUTOMATED 307 10^3/uL (150-450); RED BLOOD COUNT 3.66 10^6/uL (4.00-5.40); WHITE BLOOD COUNT 20.6 10^3/uL (4.0-10.0)
--- OUTSIDE RECORDS SUMMARY | 2020-10-27 16:18 | CCD ---
Author Author [facility] Organization [facility] Address Unknown Phone Unavailable Care Team Providers Care Rodeo Performer Name Role Phone Mariano II, Carlos PA [...] is protected by Article 27-F of the [facility] Public Health law. If you continue you may have access to information: Regarding HIV / AIDS; Provided by facilities licensed or operated by the [facility] Office of Mental Health; or Provided by the [facility] Office for People With Developmental Disabilities. If such information is present, then the following [facility] mandated warning applies: This information has been [...] law may result in a fine or mcfp sentence or both. A general authorization for the release of medical or other information is NOT sufficient authorization for further disc losure. Allergies and Adverse Reactions Type Description Substance Reaction Status Data Source(s ) Drug allergy Naprosyn Naproxen GI upset Active eCW1 ([facility]) contrast dye contrast dye contrast dye hives Active eCW1 ([facility]) Glucophage Glucophage Metformin hydrochloride 1000 MG Oral Tablet [Glucophage] GI upset Active eCW1 ([facility]) contrast dye contrast dye contrast dye hives Active eCW1 ([facility]) Glucophage Glucophage Metformin hydrochloride 1000 MG Oral Tablet [Glucophage] GI upset Active eCW1 ([facility]) Family History Family Member Name Family Member Gender Family Member Status Date o f Status Description Data Source(s) Unknown Unknown Problem MEDENT ([facility]) Unknown Female Problem MEDENT ([facility] ) Encounters Encounter Providers Location Date Indications Data Source(s ) Unknown [address] [facility] [facility] [place] [address] 10/11/2020 12:00:00 AM EST eCW1 ([facility]) [place] [address] [facility] [address] 09/20/2020 12:00:00 AM EST eCW1 ([facility]) [place] [address] [facility] [address] 08/16/2020 12:00:00 AM EST eCW1 ([facility]) Outpatient [address] [facility] [address] 08/03/2020 12:00:00 AM EDT eCW1 ([facility]) [place] [address] [facility] [address] 07/26/2020 12:00:00 AM EDT eCW1 ([facility]) [place] [address] [facility] [address] 07/16/2020 12:00:00 AM EDT eCW1 ([facility]) [facility] [address] [facility] [address] 05/25/2020 12:00:00 AM EDT eCW1 ([facility]) Outpatient [address] [facility] [place] [address] 04/29/2020 12:00:00 AM EDT eCW1 ([facility]) [place] [address] [facility] [place] [address] 03/23/2020 12:00:00 AM EDT eCW1 ([facility]) Unknown [address] [facility] [address] 03/22/2020 12:00:00 AM EDT eCW1 ([facility]) Unknown [address] [facility] [address] 03/11/2020 12:00:00 AM EDT eCW1 ([facility]) [facility] [address] [facility] [address] 02/17/2020 12:00:00 AM EDT eCW1 ([facility]) [facility] [address] [facility] [address] 02/16/2020 12:00:00 AM EDT eCW1 ([facility]) [facility] [address] 02/10/2020 12:00:00 AM EDT eCW1 ([facility]) [address] [place] [address] 02/09/2020 12:00:00 AM EDT eCW1 ([facility]) [address] [place] [address] 01/20/2020 12:00:00 AM EDT eCW1 ([facility]) Outpatient 12/10/2019 06:16:00 AM EST [facility] [address] [place] [address] 12/01/2019 12:00:00 AM EST eCW1 ([facility]) Outpatient Attender: Carlos Herrera/Candy/Yvan/Dov dl 11/27/2019 09:15:00 AM EST MEDENT ([facility]) [address] [address] 11/25/2019 12:00:00 AM EST eCW1 ([facility]) [address] [address] 11/18/2019 12:00:00 AM EST eCW1 ([facility]) [address] [place] [address] 11/10/2019 12:00:00 AM EST eCW1 ([facility]) [address] [address] 11/07/2019 12:00:00 AM EST eCW1 ([facility]) [address] [address] 10/14/2019 12:00:00 AM EST eCW1 ([facility]) [address] [address] 09/23/2019 12:00:00 AM EST eCW1 ([facility]) [facility] [address] [facility] [place] [address] 09/08/2019 12:00:00 AM EST eCW1 ([facility]) Immunizations Vaccine Date Status Description Data Source(s) influenza, recombinant, quadrIvalent,injectable, prese rvative free 08/03/2020 11:53:00 AM EDT completed eCW1 ([facility]) influenza, recombinant, quadrIvalent,injectable, prese rvative free 08/03/2020 11:53:00 AM EDT completed eCW1 ([facility]) influenza, recombinant, quadrIvalent,injectable, prese rvative free 08/03/2020 11:53:00 AM EDT completed eCW1 ([facility]) influenza, recombinant, quadrIvalent,injectable, prese rvative free 08/03/2020 11:53:00 AM EDT completed eCW1 ([facility]) Medications Medication Brand Name Start Date Product Form Dose Route Admi nistrative Instructions Pharmacy Instructions Status Indications Reaction Description Data Source(s) 3 ML Insulin Glargine 100 UNT/ML Pen Inj ben [Lantus] Lantus SoloStar 100 UNIT/ML Lantus SoloStar 100 UNIT/ML 10/12/2020 12:00:00 AM EST active Lantus SoloStar 100 UNIT/ML eCW1 ([facility]) Insurance Providers Payer name Policy type / Coverage type Policy ID Covered green party ID Covered green party's relationship to finn Policy Finn Plan Information MEDICARE BLUE PPO 306 [id number] SP [id number] [facility] B [id number] S [id number] MEDICARE BLUE PPO 306 [id number] SP [id number] MEDICARE BLUE PPO 306 [id number] SP [id number] [facility] [id number] [facility] [id number] ANSI-Medicare Part B [id number] ANSI-Medicare Part B [id number] ANSI-Medicare Part B [id number] ANSI-Medicare Part B [id number] ANSI-Medicare Part B [id number] ANSI-Medicare Part B [id number] ANSI-Medicare Part B [id number] ANSI-Medicare Part B [id number] ANSI-Medicare Part B [id number] ANSI-Medicare Part B [id number] ANSI-Medicare Part B [id number] ANSI-Medicare Part B [id number] ANSI-Medicare Part B [id number] ANSI-Medicare Part B [id number] Medicare Blue Ppo Commercial [id number] Self [id number] ANSI-Medicare Part B [id number] ANSI-Medicare Part B [id number] MEDICARE BLUE PPO 306 [id number] SP [id number] ANSI-Medicare Part B [id number] ANSI-Medicare Part B [id number] ANSI-Medicare Part B [id number] ANSI-Medicare Part B [id number] ANSI-Medicare Part B [id number] ANSI-Medicare Part B [id number] ANSI-Medicare Part B [id number] ANSI-Medicare Part B [id number] ANSI-Medicare Part B [id number] ANSI-Medicare Part B [id number] ANSI-Medicare Part B [id number] ANSI-Medicare Part B [id number] ANSI-Medicare Part B [id number] ANSI-Medicare Part B [id number] ANSI-Medicare Part B [id number] Medicare Blue Ppo Commercial [id number] Self [id number] ANSI-Medicare Part B [id number] MEDICARE BLUE PPO 306 [id number] SP [id number] Medicare Blue Ppo Commercial [id number] Self [id number] MEDICARE [id number] SP [id number] [facility] [id number] SP [id number] [facility] O [id number] S [id number] [facility] [id number] SP [id number] [facility] [id number] SP [id number] BS [place] Medigap Part B Self BS [place] Commercial Self [facility]) O [id number] S [id number] [employer] [place] 306/806 [id number] SP [id number] [employer] P [id number] S [id number] [employer] [place] 306/806 [id number] SP [id number] [facility] [id number] SP [id number] [place] PPO 302/307 [id number] SP [id number] Surgeries/Procedures Procedure Description Date Indications Data Source(s) MED NUTRITION INDIV SUBSEQ 12/01/2019 12:00:00 AM EST eCW1 ([facility]) Social History Code Duration Value Status Description Data Source(s ) Smoking 08/03/2020 12:00:00 AM EDT Never Smoker completed Never S moker eCW1 ([facility]) Smoking 08/03/2020 12:00:00 AM EDT Never Smoker completed Never S moker eCW1 ([facility]) Smoking 08/03/2020 12:00:00 AM EDT Never Smoker completed Never S moker eCW1 ([facility]) Smoking 08/03/2020 12:00:00 AM EDT Never Smoker completed Never S moker eCW1 ([facility]) Smoking 04/29/2020 12:00:00 AM EDT Never Smoker completed Never S moker eCW1 ([facility]) Smoking 04/29/2020 12:00:00 AM EDT Never Smoker completed Never S moker eCW1 ([facility]) Smoking 04/29/2020 12:00:00 AM EDT Never Smoker completed Never S moker eCW1 ([facility]) Smoking 02/09/2020 12:00:00 AM EDT Never Smoker completed Never S moker eCW1 ([facility]) Smoking 02/09/2020 12:00:00 AM EDT Never Smoker completed Never S moker eCW1 ([facility]) Smoking 02/09/2020 12:00:00 AM EDT Never Smoker completed Never S moker eCW1 ([facility]) Vital Signs ID Date Data Source UNK Name Value Range Interpretation Code Description Data Source(s) Diastolic blood pressure 80 mm[Hg] 80 mm[Hg] eCW1 ([facility]) Systolic blood pressure 132 mm[Hg] 132 mm[Hg] e CW1 ([facility]) Body temperature 97 [degF] 97 [degF] eCW1 ([facility]) Respiratory rate 20 /min 20 /min eCW1 ([facility]) Heart rate 88 /min 88 /min eCW1 ([facility]) Body mass index (BMI) [Ratio] 49.12 kg/m2 49.12 kg/m2 W1 ([facility]) Body height 61 [in_i] 61 [in_i] eCW1 ([facility]) Body weight 260 [lb_av] 260 [lb_av] eCW1 ([facility]) Diastolic blood pressure 70 mm[Hg] 70 mm[Hg] eCW1 ([facility]) Systolic blood pressure 124 mm[Hg] 124 mm[Hg] e CW1 ([facility]) Body temperature 98.3 [degF] 98.3 [degF] eCW1 ( [facility]) Respiratory rate 16 /min 16 /min eCW1 ([facility]) Heart rate 70 /min 70 /min eCW1 ([facility]) Body mass index (BMI) [Ratio] 48.74 kg/m2 48.74 kg/m2 eCW1 ([facility]) Body height 61 [in_i] 61 [in_i] eCW1 ([facility]) Body weight 258 [lb_av] 258 [lb_av] eCW1 ([facility]) Body weight 116.122 kg 116.122 kg [facility] ([facility], ) Body mass index (BMI) [Ratio] 50.0 kg/m2 50.0 k g/m2 MEDENT ([facility], ) Body weight 256.00 [lb_av] 256.00 [lb_av] MEDEN T ([facility], ) Body height 60 [in_i] 60 [in_i] [facility] ([facility], ) 5'0" Diastolic blood pressure 76 mm[Hg] 76 mm[Hg] eCW1 ([facility]) Systolic blood pressure 132 mm[Hg] 132 mm[Hg] e CW1 ([facility]) Body temperature 97.6 [degF] 97.6 [degF] eCW1 ( [facility]) Respiratory rate 18 /min 18 /min eCW1 ([facility]) Heart rate 88 /min 88 /min eCW1 ([facility]) Body mass index (BMI) [Ratio] 48.37 kg/m2 48.37 kg/m2 W1 ([facility]) Body height 61 [in_us] 61 [in_us] eCW1 ([facility]) Body weight Measured 256 [lb_av] 256 [lb_av] eC W1 ([facility]) Body mass index (BMI) [Ratio] 48.74 kg/m2 48.74 kg/m2 eCW1 ([facility]) Body height 61 [in_us] 61 [in_us] eCW1 ([facility]) Body weight Measured 258 [lb_av] 258 [lb_av] eC W1 ([facility]) Body weight 116.122 kg 116.122 kg MEDENT ([facility], ) Body mass index (BMI) [Ratio] 50.0 kg/m2 50.0 k g/m2 MEDENT ([facility]) Body weight 256.00 [lb_av] 256.00 [lb_av] MEDEN T ([facility]) Body height 60 [in_i] 60 [facility]" Diastolic blood pressure 68 mm[Hg] 68 mm[Hg] eCW1 ([facility]) Systolic blood pressure 122 mm[Hg] 122 mm[Hg] e CW1 ([facility]) Body temperature 96.8 [degF] 96.8 [degF] eCW1 ( [facility]) Respiratory rate 20 /min 20 /min eCW1 ([facility]) Heart rate 79 /min 79 /min eCW1 ([facility]) Body mass index (BMI) [Ratio] 48.18 kg/m2 48.18 kg/m2 eCW1 ([facility]) Body height 61 [in_us] 61 [in_us] eCW1 ([facility]) Body weight Measured 255.0 [lb_av] 255.0 [lb_av ] eCW1 ([facility]) Body mass index (BMI) [Ratio] 48.18 kg/m2 48.18 kg/m2 W1 ([facility]) Body height 61 [in_us] 61 [in_us] eCW1 ([facility]) Body weight Measured 255 [lb_av] 255 [lb_av] eC W1 ([facility]) Patient Treatment Plan of Care Planned Activity Planned Date Details Description Data Source (s) 3 ML Insulin Glargine 100 UNT/ML Pen Injector [Lantus] 10/12/2020 12:00:00 AM EST eCW1 ([facility])
--- NOTE | 2020-10-27 16:27 | REP ---
INDICATION: generalized abd pain COMPARISON: Comparison CT study April 17, 2016.. TECHNIQUE: Helical scanning is acquired in 4 mm axial images were reformatted. Coronal and sagittal MPR images were generated and reviewed. FINDINGS: Preliminary digital accounts payable lead radiograph shows an unremarkable bowel gas pattern. The lung bases are clear on axial CT images. There is a small amount of free air in the upper abdomen consistent with perforation of hollow viscus. The largest amount of free air is in the central periumbilical region. There are free air bubbles in the mesenteric fat and there is un contained air adjacent to the sigmoid colon.99 there is mural thickening and some pericolonic streaking adjacent to this portion of the sigmoid colon and the findings are consistent with perforated diverticulitis of the sigmoid colon. No large or small bowel obstructive lesion is seen. No focal hepatic or splenic lesion is seen. No abnormality is noted in the gallbladder or pancreas. The kidneys enhance symmetrically. There is a right renal cyst in the lower pole measuring 2.8 cm in greatest diameter. No hydronephrosis is seen. No abdominal wall defect is seen. No bony destructive lesion is observed. IMPRESSION: Findings consistent with perforated acute diverticulitis affecting the sigmoid colon with pericolonic fat inflammation, noncontained air, and free intraperitoneal air extending into the upper abdomen under both diaphragms. Critical Findings: Perforated diverticulitis of the sigmoid colon. Dispersed free intraperitoneal air. The critical information above was relayed directly by me by telephone to Dr. Hima Mendoza MD on 10/27/2020 at 4:19 pm with readback verification. <Electronically signed by Cedric Ward > 10/27/20 [id number]
[2020-10-27] MEDS ORDERED: ERTAPENEM SODIUM 1 GM in NS MINI-BAG PLUS 50 ML IV ONE (16:30)
[2020-10-27] MEDS ORDERED: CALC1CAP31 PO (16:48)
[2020-10-27] MEDS ORDERED: TORS20TA2 PO (16:48)
[2020-10-27] MEDS ORDERED: COLA100C5 PO (16:48)
[2020-10-27] MEDS ORDERED: HYDR10TAB PO (16:48)
[2020-10-27] MEDS ORDERED: LEVO25TA34 PO (16:48)
[2020-10-27] MEDS ORDERED: CALC600T60 PO (16:48)
[2020-10-27] MEDS ORDERED: D31000TA2 PO (16:48)
[2020-10-27] MEDS ORDERED: PROP60TA18 PO (16:48)
[2020-10-27] MEDS ORDERED: ATOR40TA75 PO (16:48)
[2020-10-27] MEDS ORDERED: INSUHUMDS SC (16:48)
[2020-10-27] MEDS ORDERED: ALLO10TA PO (16:48)
[2020-10-27] MEDS ORDERED: LANTINJ4 SC ×2 (16:48)
[2020-10-27] MEDS ORDERED: FERR1TAB8 PO (16:48)
--- OUTSIDE RECORDS SUMMARY | 2020-10-27 17:06 | CCD ---
Author Author [facility] Organization [facility] Address Unknown Phone Unavailable Care Team Providers Care Roofing Supervisor Name Role Phone Mariano II, Carlos PA [...] is protected by Article 27-F of the [facility] Public Health law. If you continue you may have access to information: Regarding HIV / AIDS; Provided by facilities licensed or operated by the [facility] Office of Mental Health; or Provided by the [facility] Office for People With Developmental Disabilities. If such information is present, then the following [facility] mandated warning applies: This information has [...] allergy Naprosyn Naproxen GI upset Active eCW1 ([facility]) contrast dye contrast dye contrast dye hives Active eCW1 ([facility]) Glucophage Glucophage Metformin hydrochloride 1000 MG Oral Tablet [Glucophage] GI upset Active eCW1 ([facility]) contrast dye contrast dye contrast dye hives Active eCW1 ([facility]) Glucophage Glucophage Metformin hydrochloride 1000 MG Oral Tablet [Glucophage] GI upset Active eCW1 ([facility]) Family History Family Member Name Family Member Gender Family Member Status Date o f Status Description Data Source(s) Unknown Unknown Problem MEDENT ([facility]) Unknown Female Problem MEDENT ([facility] ) Encounters Encounter Providers Location Date Indications Data Source(s ) Unknown [address] [facility] [place] [address] 10/11/2020 12:00:00 AM EST eCW1 ([facility]) Unknown [address] [facility] [place] [address] 09/20/2020 12:00:00 AM EST eCW1 ([facility]) [place] [address] [facility] [place] [address] 08/16/2020 12:00:00 AM EST eCW1 ([facility]) [place] [address] [facility] [place] [address] 08/03/2020 12:00:00 AM EDT eCW1 ([facility]) Unknown [address] [facility] [place] [address] 07/26/2020 12:00:00 AM EDT eCW1 ([facility]) Unknown [address] [facility] [place] [address] 07/16/2020 12:00:00 AM EDT eCW1 ([facility]) [facility] [address] [facility] [place] [address] 05/25/2020 12:00:00 AM EDT eCW1 ([facility]) [place] [address] [facility] [place] [address] 04/29/2020 12:00:00 AM EDT eCW1 ([facility]) Unknown [address] [facility] [place] [address] 03/23/2020 12:00:00 AM EDT eCW1 ([facility]) Unknown [address] [facility] [place] [address] 03/22/2020 12:00:00 AM EDT eCW1 ([facility]) Unknown [address] [facility] [place] [address] 03/11/2020 12:00:00 AM EDT eCW1 ([facility]) [facility] [address] [facility] [place] [address] 02/17/2020 12:00:00 AM EDT eCW1 ([facility]) [facility] [address] [facility] [place] [address] 02/16/2020 12:00:00 AM EDT eCW1 ([facility]) [facility] [address] 02/10/2020 12:00:00 AM EDT eCW1 ([facility]) [address] [place] [address] 02/09/2020 12:00:00 AM EDT eCW1 ([facility]) [address] [place] [address] 01/20/2020 12:00:00 AM EDT eCW1 ([facility]) Outpatient 12/10/2019 06:16:00 AM EST [facility] [address] [place] [address] 12/01/2019 12:00:00 AM EST eCW1 ([facility]) Outpatient Attender: Carlos Herrera/Candy/Yvan/Dov dl 11/27/2019 09:15:00 AM EST MEDENT ([facility] [address] [address] 11/25/2019 12:00:00 AM EST eCW1 ([facility]) [address] [address] 11/18/2019 12:00:00 AM EST eCW1 ([facility]) [address] [place] [address] 11/10/2019 12:00:00 AM EST eCW1 ([facility]) [address] [address] 11/07/2019 12:00:00 AM EST eCW1 ([facility]) [address] [address] 10/14/2019 12:00:00 AM EST eCW1 ([facility]) [address] [address] 09/23/2019 12:00:00 AM EST eCW1 ([facility]) [facility] [address] [facility] [place] [address] 09/08/2019 12:00:00 AM EST eCW1 ([facility]) Immunizations Vaccine Date Status Description Data Source(s) influenza, recombinant, quadrIvalent,injectable, prese rvative free 08/03/2020 11:53:00 AM EDT completed eCW1 ([facility]) influenza, recombinant, quadrIvalent,injectable, prese rvative free 08/03/2020 11:53:00 AM EDT completed eCW1 ([facility]) influenza, recombinant, quadrIvalent,injectable, prese rvative free 08/03/2020 11:53:00 AM EDT completed eCW1 ([facility]) influenza, recombinant, quadrIvalent,injectable, prese rvative free 08/03/2020 11:53:00 AM EDT completed eCW1 ([facility]) Medications Medication Brand Name Start Date Product Form Dose Route Admi nistrative Instructions Pharmacy Instructions Status Indications Reaction Description Data Source(s) 3 ML Insulin Glargine 100 UNT/ML Pen Inj ben [Lantus] Lantus SoloStar 100 UNIT/ML Lantus SoloStar 100 UNIT/ML 10/12/2020 12:00:00 AM EST active Lantus SoloStar 100 UNIT/ML eCW1 ([facility]) Insurance Providers Payer name Policy type / Coverage type Policy ID Covered libertarian ID Covered libertarian's relationship to finn Policy Finn Plan Information MEDICARE BLUE PPO 306 [id number] SP [id number] MEDICARE BLUE PPO 306 [id number] SP [id number] [facility] B [id number] S VYM [id number] MEDICARE BLUE PPO 306 [id number] SP [id number] ANSMedicare Part B [id number] ANSMedicare Part B [id number] ANSI-Medicare Part B [id number] ANSI-Medicare Part B [id number] ANSI-Medicare Part B [id number] ANSI-Medicare Part B [id number] ANSI-Medicare Part B [id number] ANSI-Medicare Part B [id number] ANSI-Medicare Part B [id number] ANSI-Medicare Part B [id number] ANSI-Medicare Part B [id number] ANSI-Medicare Part B [id number] ANSI-Medicare Part B [id number] ANSI-Medicare Part B [id number] ANSI-Medicare Part B [id number] ANSI-Medicare Part B [id number] Medicare Blue Ppo Commercial [id number] Self [id number] ANSI-Medicare Part B [id number] ANSI-Medicare Part B [id number] MEDICARE BLUE PPO 306 [id number] SP [id number] ANSI-Medicare Part B [id number] ANSI-Medicare Part B [id number] ANSI-Medicare Part B [id number] ANSI-Medicare Part B [id number] ANSI-Medicare Part B [id number] ANSI-Medicare Part B [id number] ANSI-Medicare Part B [id number] ANSI-Medicare Part B [id number] ANSI-Medicare Part B [id number] ANSI-Medicare Part B [id number] ANSI-Medicare Part B [id number] ANSI-Medicare Part B [id number] ANSI-Medicare Part B [id number] ANSI-Medicare Part B [id number] ANSI-Medicare Part B [id number] Medicare Blue Ppo Commercial [id number] Self [id number] ANSI-Medicare Part B [id number] MEDICARE BLUE PPO 306 [id number] SP [id number] Medicare Blue Ppo Commercial [id number] Self [id number] MEDICARE [id number] SP [id number] [facility] [id number] SP [id number] [facility] O [id number] S [id number] [facility] [id number] SP [id number] [facility] [id number] SP [id number] 400 BS [employer] Medigap Part B Self BS [employer] Commercial Self [facility] O [id number] S [id number] [employer] [place] 306/806 [id number] SP [id number] [employer] P [id number] S [id number] [employer] [place] 306/806 [id number] SP [id number] [facility] [id number] SP [id number] [place] PPO 302/307 [id number] SP [id number] Surgeries/Procedures Procedure Description Date Indications Data Source(s) MED NUTRITION INDIV SUBSEQ 12/01/2019 12:00:00 AM EST eCW1 ([facility]) Social History Code Duration Value Status Description Data Source(s ) Smoking 08/03/2020 12:00:00 AM EDT Never Smoker completed Never S moker eCW1 ([facility]) Smoking 08/03/2020 12:00:00 AM EDT Never Smoker completed Never S moker eCW1 ([facility]) Smoking 08/03/2020 12:00:00 AM EDT Never Smoker completed Never S moker eCW1 ([facility]) Smoking 08/03/2020 12:00:00 AM EDT Never Smoker completed Never S moker eCW1 ([facility]) Smoking 04/29/2020 12:00:00 AM EDT Never Smoker completed Never S moker eCW1 ([facility]) Smoking 04/29/2020 12:00:00 AM EDT Never Smoker completed Never S moker eCW1 ([facility]) Smoking 04/29/2020 12:00:00 AM EDT Never Smoker completed Never S moker eCW1 ([facility]) Smoking 02/09/2020 12:00:00 AM EDT Never Smoker completed Never S moker eCW1 ([facility]) Smoking 02/09/2020 12:00:00 AM EDT Never Smoker completed Never S moker eCW1 ([facility]) Smoking 02/09/2020 12:00:00 AM EDT Never Smoker completed Never S moker eCW1 ([facility]) Vital Signs ID Date Data Source UNK Name Value Range Interpretation Code Description Data Source(s) Diastolic blood pressure 80 mm[Hg] 80 mm[Hg] eCW1 ([facility]) Systolic blood pressure 132 mm[Hg] 132 mm[Hg] e CW1 ([facility]) Body temperature 97 [degF] 97 [degF] eCW1 ([facility]) Respiratory rate 20 /min 20 /min eCW1 ([facility]) Heart rate 88 /min 88 /min eCW1 ([facility]) Body mass index (BMI) [Ratio] 49.12 kg/m2 49.12 kg/m2 W1 ([facility]) Body height 61 [in_i] 61 [in_i] eCW1 ([facility]) Body weight 260 [lb_av] 260 [lb_av] eCW1 ([facility]) Diastolic blood pressure 70 mm[Hg] 70 mm[Hg] eCW1 ([facility]) Systolic blood pressure 124 mm[Hg] 124 mm[Hg] e CW1 ([facility]) Body temperature 98.3 [degF] 98.3 [degF] eCW1 ( [facility]) Respiratory rate 16 /min 16 /min eCW1 ([facility]) Heart rate 70 /min 70 /min eCW1 ([facility]) Body mass index (BMI) [Ratio] 48.74 kg/m2 48.74 kg/m2 eCW1 ([facility]) Body height 61 [in_i] 61 [in_i] eCW1 ([facility]) Body weight 258 [lb_av] 258 [lb_av] eCW1 ([facility]) Body weight 116.122 kg 116.122 kg [facility] ([facility], ) Body mass index (BMI) [Ratio] 50.0 kg/m2 50.0 k g/m2 MEDENT ([facility] ) Body weight 256.00 [lb_av] 256.00 [lb_av] MEDEN T ([facility], ) Body height 60 [in_i] 60 [in_i] [facility] ([facility], ) 5'0" Diastolic blood pressure 76 mm[Hg] 76 mm[Hg] eCW1 ([facility]) Systolic blood pressure 132 mm[Hg] 132 mm[Hg] e CW1 ([facility]) Body temperature 97.6 [degF] 97.6 [degF] eCW1 ( [facility]) Respiratory rate 18 /min 18 /min eCW1 ([facility]) Heart rate 88 /min 88 /min eCW1 ([facility]) Body mass index (BMI) [Ratio] 48.37 kg/m2 48.37 kg/m2 W1 ([facility]) Body height 61 [in_us] 61 [in_us] eCW1 ([facility]) Body weight Measured 256 [lb_av] 256 [lb_av] eC W1 ([facility]) Body mass index (BMI) [Ratio] 48.74 kg/m2 48.74 kg/m2 eCW1 ([facility]) Body height 61 [in_us] 61 [in_us] eCW1 ([facility]) Body weight Measured 258 [lb_av] 258 [lb_av] eC W1 ([facility]) Body weight 116.122 kg 116.122 kg MEDENT ([facility], ) Body mass index (BMI) [Ratio] 50.0 kg/m2 50.0 k g/m2 MEDENT ([facility]) Body weight 256.00 [lb_av] 256.00 [lb_av] MEDEN T ([facility]) Body height 60 [in_i] 60 [facility]i] [facility] 5'0" Diastolic blood pressure 68 mm[Hg] 68 mm[Hg] eCW1 ([facility]) Systolic blood pressure 122 mm[Hg] 122 mm[Hg] e CW1 ([facility]) Body temperature 96.8 [degF] 96.8 [degF] eCW1 ( [facility]) Respiratory rate 20 /min 20 /min eCW1 ([facility]) Heart rate 79 /min 79 /min eCW1 ([facility]) Body mass index (BMI) [Ratio] 48.18 kg/m2 48.18 kg/m2 eCW1 ([facility]) Body height 61 [in_us] 61 [in_us] eCW1 ([facility]) Body weight Measured 255.0 [lb_av] 255.0 [lb_av ] eCW1 ([facility]) Body mass index (BMI) [Ratio] 48.18 kg/m2 48.18 kg/m2 W1 ([facility]) Body height 61 [in_us] 61 [in_us] eCW1 ([facility]) Body weight Measured 255 [lb_av] 255 [lb_av] eC W1 ([facility]) Patient Treatment Plan of Care Planned Activity Planned Date Details Description Data Source (s) 3 ML Insulin Glargine 100 UNT/ML Pen Injector [Lantus] 10/12/2020 12:00:00 AM EST eCW1 ([facility])
[2020-10-27 17:20] LABS: RSV AMPLIFICATION NEGATIVE (NEGATIVE)
[2020-10-27] MEDS ORDERED: BUPIVACAINE/EPIN 0.25% 30 ML VIAL As Ordered ONE (18:57)
[2020-10-27] MEDS ORDERED: GLUCAGON INJ 1MG VIAL As Ordered ONE (18:58)
[2020-10-27] MEDS ORDERED: LIDOCAINE 2% 100MG/5ML SDV (FOR ANES.) As Ordered ONE (18:59)
[2020-10-27] MEDS ORDERED: SUGAMMADEX SODIUM 500 MG/5 ML VIAL (BRIDION) As Ordered ONE (18:59)
[2020-10-27] MEDS ORDERED: dexameTHASONE 4 MG/ML 1ML VIAL (J1100 PER 1MG) As Ordered ONE (18:59)
[2020-10-27] MEDS ORDERED: fentaNYL 250 MCG/5 ML INJECTION (J3010) As Ordered ONE (18:59)
[2020-10-27] MEDS ORDERED: MIDAZOLAM INJ 2MG/2ML VIAL (J2250 PER 1MG) As Ordered ONE (18:59)
[2020-10-27] MEDS ORDERED: ONDANSETRON 4MG/2ML VIAL As Ordered ONE ×2 (18:59→22:52)
[2020-10-27] MEDS ORDERED: ROCURONIUM BROMIDE 50 MG/5 ML VIAL As Ordered ONE ×2 (18:59→20:56)
[2020-10-27] MEDS ORDERED: propofoL 200 MG/20 ML VIAL As Ordered ONE ×2 (18:59→19:00)
[2020-10-27] MEDS ORDERED: ePHEDrine SULFATE 25 MG/5 ML(5MG/ML) SYRINGE As Ordered ONE (19:00)
[2020-10-27] MEDS ORDERED: PHENYLephrine 500MCG 5ML (100MCG/ML) SYRINGE As Ordered ONE (19:00)
[2020-10-27] MEDS ORDERED: ACETAMINOPHEN 1000MG 100ML IV BTL (OFIRMEV) (J0131 PER 10MG) As Ordered ONE (21:37)
[2020-10-27] MEDS ORDERED: MORPHINE 1MG/ML IN 0.9% NACL 100ML IV BAG As Ordered ONE (22:19)
[2020-10-27] MEDS ORDERED: GLUCOSE 4GM CHEW TABLET PO PRN (22:30)
[2020-10-27] MEDS ORDERED: METOCLOPRAMIDE INJ 10MG/2ML VIAL (J2765 PER 1) IV PRN (22:30)
[2020-10-27] MEDS ORDERED: NALOXONE INJ 0.4MG/1ML VIAL (J2310 PER 1MG) IV PRN (22:30)
[2020-10-27] MEDS ORDERED: MORPHINE 2 MG/ML 1ML VIAL (J2270) IV PRN (22:30)
[2020-10-27] MEDS ORDERED: diphenhydrAMINE 50MG/ML VIAL (J1200) IV PRN (22:30)
[2020-10-27] MEDS ORDERED: IPRATROPIUM 0.5MG/ALBUTEROL 2.5MG INH SOL UD 3ML (DUONEB) NEB PRN (22:30)
[2020-10-27] MEDS ORDERED: DEXTROSE 50% 50 ML SYRINGE IV PRN (22:30)
[2020-10-27] MEDS ORDERED: MORPHINE 1MG/ML IN 0.9% NACL 100ML IV BAG IV PRN (22:30)
[2020-10-27] MEDS ORDERED: ONDANSETRON 4MG/2ML VIAL IV PRN ×3 (22:30)
[2020-10-27] MEDS ORDERED: GLUCAGON INJ 1MG VIAL SC PRN (22:30)
[2020-10-27] MEDS ORDERED: oxyCODONE 5MG TAB PO PRN (22:30)
[2020-10-27] MEDS ORDERED: fentaNYL 100 MCG/2 ML INJECTION (J3010) IV PRN (22:30)
[2020-10-27] MEDS ORDERED: EPIDURAL/PCA KEYS XX PRN (22:30)
[2020-10-27] MEDS ORDERED: LR 1,000 ML IV SCH (22:30)
[2020-10-27] MEDS: LR 1,000 ML IV SCH (23:30)
[2020-10-28] VITALS (13 sets, daily range): BP systolic 114–157; BP diastolic 57–75
[2020-10-28] MEDS: HumaLOG INSULIN (NovoLOG) PER UNIT SC SCH ×4 (01:15→17:52)
[2020-10-28] MEDS: LR 1,000 ML IV SCH ×3 (01:26→13:20)
[2020-10-28] MEDS: CIPROFLOXACIN 400 MG in IV 1 EA IV SCH ×2 (01:26→12:14)
[2020-10-28] MEDS: IPRATROPIUM 0.5MG/ALBUTEROL 2.5MG INH SOL UD 3ML (DUONEB) NEB SCH ×4 (01:42→20:12)
[2020-10-28] MEDS: metroNIDAZOLE 500 MG in IV 1 EA IV SCH ×3 (02:56→17:38)
[2020-10-28 06:06] LABS: HEMATOCRIT 29.1 % (36.0-47.0); HEMOGLOBIN 9.1 g/dl (12.0-15.5); MEAN CORPUSCULAR HEMOGLOBIN 28.3 pg (27.0-33.0); MEAN CORPUSCULAR HGB CONC 31.3 g/dl (32.0-36.5); MEAN CORPUSCULAR VOLUME 90.4 fl (80.0-96.0); PLATELET COUNT, AUTOMATED 272 10^3/uL (150-450); RED BLOOD COUNT 3.22 10^6/uL (4.00-5.40); WHITE BLOOD COUNT 16.1 10^3/uL (4.0-10.0)
[2020-10-28 06:28] LABS: CALCIUM LEVEL 8.5 MG/DL (8.8-10.2); CREATININE FOR GFR 1.84 MG/DL (0.55-1.30); POTASSIUM SERUM 3.8 MEQ/L (3.5-5.1)
[2020-10-28] MEDS: PANTOPRAZOLE 40MG VIAL (C9113 PER 1) IV SCH (09:10)
[2020-10-28] MEDS: ALVIMOPAN 12 MG CAPSULE (ENTEREG) PO SCH ×2 (10:25→21:43)
[2020-10-28] MEDS ORDERED: LEVOTHYROXINE 100MCG (0.1MG) VIAL IV SCH (12:15)
--- NOTE | 2020-10-28 12:26 | CR.PDOC ---
General Date of Consultation: Oct 28, 2020 Referring Provider: Julian Olivas Jr Consultation REASON FOR CONSULTATION: medical mgt of chronic medical problems HISTORY OF PRESENT ILLNESS: 70 y/o F w pmh significant for CKD3, HTN, DM2, GERD, obesity bmi 49.5, chronic anemia, venous insufficiency w varicosities, diverticulosis, vit d def, meniere's disease, OA, secondary hyperparathyroidism, thyroid nodules admitted by General Surgery for perforated diverticulitis on 10/27/20 s/p one dose of ertapenem, on iv cipro and flagyl s/p exploratory laparotomy, colon resection, and colostomy, now on slag mixer pump, entereg po and hyoglycemic protocol w fingersticks q6hrs. She has had no fevers overnight, and denies sob, cp, pres sure, tightness, diaphoresis, n/v, lightheadedness, dizziness, dysuria, urgency, frequency, polyphagia, polydipsia, weight changes, insomnia,hypersomnia, chagnes in vsiion, sore throag, sinus tenderness, ear pain, tinnitus, discharge, b/l ue and le weakness. she c/o bleeding at left iv site. No other issues per nursing. ALLERGIES: Please see below. HOME MEDICATIONS: Please see below. PAST MEDICAL HISTORY: CKD3, HTN, DM2, GERD, obesity bmi 49.5, chronic anemia, venous insufficiency w varicosities, diverticulosis, vit d def, meniere's disease, OA, secondary hyperparathyroidism, thyroid nodules PAST SURGICAL HISTORY: dilation and currettage x 2, right hemithyroidectomy , tirgger finger release x 2, carpal tunnel release x 2, laser vaporization of vulva and colposcopy, FNA thyroid. FAMILY HISTORY: Father: age 54 cad,mi, copd mother: cva, htn, cerebral occlusion w cerebral infarction brother: lung cancer tobacco abuse sister; ovarian ca SOCIAL HISTORY: retired [employer] 2013, deneis etoh tobacco or drug use. REVIEW OF SYSTEMS: 12pt ROS negative aside from positive findings on hpi PHYSICAL EXAMINATION: VITAL SIGNS: Please see below. I/O: reviewed GENERAL APPEARANCE:obese aaox3 no distress HEENT: moist mm no jvd no thyromegaly RESPIRATORY: CTAB CARDIOVASCULAR: S1S2 RRR ABDOMEN: +bs soft slightly tender.bandaged right upper medial drain w bloody drainage right lower lateral bert drain w minimal bloody drainage. EXTREMITIES: no cyanosis or clubbing. warm to touch . LABORATORY DATA: Please see below. ASSESSMENT/PLAN: 70 y/o F w pmh significant for CKD3, HTN, DM2, GERD, obesity bmi 49.5, chronic anemia, venous insufficiency w varicosities, diverticulosis, vit d def, meniere's disease, OA, secondary hyperparathyroidism, thyroid nodules admitted by General Surgery for perforated diverticulitis on 10/27/20 s/p one dose of ertapenem, on iv cipro and flagyl s/p exploratory laparotomy, colon resection, and colostomy, now on slag mixer pump, entereg po and hyoglycemic protocol w fingersticks q6hrs. She has had no fevers overnight, and denies sob, cp, press ure, tightness, diaphoresis, n/v, lightheadedness, dizziness, dysuria, urgency, frequency, polyphagia, polydipsia, weight changes, insomnia,hypersomnia, chagnes in vsiion, sore throag, sinus tenderness, ear pain, tinnitus, discharge, b/l ue and le weakness. she c/o bleeding at left iv site. No other issues per nursing. Perforated diverticulitis -POD#1 s/p exploratory laparotomy, colon resection, colostomy w 2JP drains with minimal output overnight. -s/p ertapenem x 1 on 10/27/20 -on IV cipro and IV flagyl day #2 -npo -on entereg -LR for now until diet is advanced. if prolonged npo status >72hrs, would suggest TPN. hypoglycemic protocol with fingersticks q6hrs. DM2 -currently npo on ivfluids, hypoglycemic protocol an fingersticks q6hrs until resumes an oral diet. -sliding scale insulin HTN -controlled on no meds -if sbp>150mmhg or dbp>90, nitroglycerin 2%patch while npo Hypothyroidism -iv synthroid 1/2 po dose until resumes oral intake Dyslipidemia -hold off on meds Morbid obesity BMI 49.5 -at risk for respiratory acidosis and hypercapnic respiratory failure while on opioids. -DAJUAN protocol CKD3 -at baseline creatinine. -strict i/o -avoid NSAIDs including toradol, ibuprofen, naproxen -if needs antipyretics, use acetaminophen products Vital Signs/I&O Vital Signs Date Time Temp Pulse Resp B/P (MAP) Pulse Ox O2 Delivery O2 Flow Rate FiO2 10/28/20 08:00 2.0 10/28/20 07:11 97.2 72 18 143/65 (91) 97 Nasal Cannula l I&O- Last 24 Hours up to 6 AM 10/28/20 06:00 Intake Total 1450 ml Output Total 365 ml Balance 1085 ml Laboratory Data Labs 24H Laboratory Tests 2 10/27/20 15:00: Immature Granulocyte % (Auto) 0.4, Neutrophils (%) (Auto) 91.0H, Lymphocytes (%) (Auto) 4.2L, Monocytes (%) (Auto) 4.2, Eosinophils (%) (Auto) 0.0, Basophils (%) (Auto) 0.2, Neutrophils # (Auto) 18.7H, Lymphocytes # (Auto) 0.9L, Monocytes # (Auto) 0.9H, Eosinophils # (Auto) 0.0, Basophils # (Auto) 0.1, Nucleated Red Blood Cells % (auto) 0.0, Anion Gap 7L, Glomerular Filtration Rate 25.1L, Calcium Level 9.1, Total Bilirubin 0.5, Direct Bilirubin 0.1, Aspartate Amino Transf (AST/SGOT) 20, Alanine Aminotransferase (ALT/SGPT) 10L, Alkaline Phos phatase 125H, Total Protein 7.0, Albumin 2.9L, Albumin/Globulin Ratio 0.7L, Lipase 47L 10/27/20 15:17: Bedside Glucose (Misc Panel) 94 10/27/20 16:06: Urine Color YELLOW, Urine Appearance CLEAR, Urine pH 5.0, Urine Specific Elmer 1.009, Urine Protein NEGATIVE, Urine Glucose (UA) NEGATIVE, Urine Ketones NEGATIVE, Urine Blood NEGATIVE, Urine Nitrite NEGATIVE, Urine Bilirubin NEGATIVE, Urine Urobilinogen 0.2, Urine Leukocyte Esterase TRACEH, Urine WBC (Auto) 7H, Urine RBC (Auto) 1, Urine Hyaline Casts (Auto) 1, Urine Bacteria (Auto) NEGATIVE, Urine Squamous Epithelial Cells 2, Urine Mucus (Auto) SMALL, Urine Sperm (Auto) 10/27/20 16:33: Coronavirus (COVID-19)(PCR) NEGATIVE, Influenza Type A (RT-PCR) NEGATIVE, Influenza Type B (RT-PCR) NEGATIVE, Respiratory Syncytial Virus (PCR) NEGATIVE 10/27/20 18:21: Bedside Glucose (Misc Panel) 79L 10/28/20 00:26: Bedside Glucose (Misc Panel) 131H 10/28/20 05:21: Nucleated Red Blood Cells % (auto) 0.0, Anion Gap 10, Glomerular Filtration Rate 29.0L, Calcium Level 8.5L 10/28/20 06:27: Bedside Glucose (Misc Panel) 159H CBC/BMP Laboratory Tests 10/27/20 15:00 10/28/20 05:21 Microbiology Microbiology 10/27/20 Urine Culture, Received Pending Allergies Coded Allergies: Contrast Media (Verified Allergy, Intermediate, HIVES, 03/31/08) exenatide (Verified Adverse Reaction, Intermediate, LOSS OF APPETITE / WE IGHT LOSS, 10/27/20) rofecoxib (Verified Adverse Reaction, Intermediate, DECREASED KIDNEY FUNCT ION, 10/27/20) codeine (Verified Adverse Reaction, Mild, HEADACHE, 10/27/20) metformin (Verified Adverse Reaction, Mild, DIARRHEA, 10/27/20) naproxen (Verified Adverse Reaction, Unknown, NAUSEA, 10/27/20) Home Medications Scheduled Allopurinol (Allopurinol) 100 Mg Tablet, 100 MG PO DAILY, (Reported) Aspirin (Aspirin EC) 81 Mg Tab, 81 MG PO DAILY, (Reported) Atorvastatin Calcium (Atorvastatin Calcium) 40 Mg Tablet, 40 MG PO QHS, (Reported) Calcitriol (Calcitriol) 0.25 Mcg Capsule, 0.25 MCG PO DAILY, (Reported) Calcium Carbonate (Calcium) 600 Mg Tablet, 600 MG PO QPM, (Reported) Cholecalciferol (Vitamin D3) (Vitamin D3) 1,000 Unit Tablet, 1,000 UNITS PO QPM, (Reported) Docusate Sodium (Colace) 100 Mg Capsule, 100 MG PO QHS, (Reported) Ferrous Sulfate (Ferrous Sulfate) 325 Mg Tablet, 325 MG PO 5XW, (Reported) QPM: MON THRU FRI Gabapentin (Gabapentin) 300 Mg Cap, 300 MG PO TID, (Reported) Hydralazine HCl (Hydralazine HCl) 10 Mg Tablet, 10 MG PO BID, (Reported) Insulin Glargine,Hum.rec.anlog (Lantus Solostar) 100 Unit/1 Ml Insuln.pen, 40 UNITS SC QAM, (Reported) Insulin Glargine,Hum.rec.anlog (Lantus Solostar) 100 Unit/1 Ml Insuln.pen, 26 UNITS SC QHS, (Reported) Insulin Human Lispro (Humalog) 100 Unit/1 Ml Vial, 1 DOSE SC AC, (Reported) Levothyroxine Sodium (Levoxyl) 25 Mcg Tablet, 25 MCG PO DAILY, (Reported) Omeprazole (Omeprazole) 20 Mg Cap, 20 MG PO DAILY, (Reported) Propranolol HCl (Propranolol HCl) 60 Mg Tablet, 60 MG PO BID, (Reported) Torsemide (Torsemide) 20 Mg Tablet, 30 MG PO DAILY, (Reported) CAMELIA STAFFORD MD Oct 28, 2020 11:59
--- NOTE | 2020-10-28 12:35 | HPE ---
HISTORY AND PHYSICAL DATE OF ADMISSION: 10/27/2020 CHIEF COMPLAINT: Perforated diverticulitis seen on CT scan. BRIEF HISTORY OF PRESENT ILLNESS: The patient is a 70-year-old female who has had diverticulitis in the past and was hospitalized for several days of antibiotics, developed abdominal pain approximately 48 to 72 hours prior to admission. Over the last 24 hours it has been quite severe and presents to the Emergency Room with elevated white count and evidence of free air with a perforated diverticulitis. She has not been hypotensive in the Emergency Room but complaining of significant severe pain with movement, some mild nausea without vomiting. No diarrhea. No bowel movement. PAST MEDICAL HISTORY: Past medical history is significant for a history of diabetes mellitus, hypertension, migraine headaches, hyperlipidemia, esophageal reflux, chronic iron deficiency anemia, venous insufficiency with chronic lymphedema and varicosities, history of severe morbid obesity, diverticulosis, vitamin D deficiency, Meniere's disease/positional vertigo, osteoarthritis, previous breast biopsies, Paget's disease of the vulva, secondary hyperthyroidism, esophageal spasm, chronic kidney disease, thyroid nodules, hypercholesterolemia, chronic constipation. MEDICATIONS: 1. Allopurinol. 2. Aspirin. 3. Atorvastatin. 4. Calcitriol. 5. Calcium carbonate. 6. Vitamin D. 7. Colace. 8. Iron. 9. Gabapentin. 10.Hydralazine. 11.Insulin. 12.Synthroid. 13.Omeprazole. 14.Propanolol. 15.Torsemide. PHYSICAL EXAMINATION: GENERAL: Physical examination reveals a 70-year-old female who looks her stated age. HEENT: Unremarkable. NECK: Supple without adenopathy. LUNGS: Clear anteriorly. HEART: Regular but tachycardic. ABDOMEN: Tender throughout without significant guarding in the upper abdomen but definitely with peritoneal signs throughout the lower abdomen in the infraumbilical site. EXTREMITIES: Warm and well-perfused but significant chronic lymphedema, venous stasis disease of bilateral lower extremities. IMPRESSION/PLAN: Patient has a perforated diverticulitis. Plan is for an exploratory laparotomy with sigmoid colectomy and colostomy. The risks as well as benefits have been discussed with her at length; those including but not limited to infection, bleeding, damage to surrounding structures such as kidney, ureter, bladder and given her morbid obesity her ostomy is more likely to have complications and difficulties with healing as well as midline wound infection rates are much higher as well as dehiscence rates are much higher given infection as well as morbid obesity issues. The patient understands and would like to proceed with this as scheduled.
--- NOTE | 2020-10-28 13:13 | IPN ---
PROGRESS NOTE DATE: 10/28/2020 SUBJECTIVE: The patient had an exploratory laparotomy with a diverting colostomy last night. This morning she has actually been doing relatively well. She is relatively comfortable. She has a CREDIT COUNSELOR that is working well for her from a pain control standpoint. She is making good urine and overall she has been afebrile. Her I.'s and O.'s reveal a CARYN that is draining some serosanguinous fluid from both of her drains, a little bit more purulent from the intraabdominal drain which is the lower of the two on the right hand side. She is, as I stated, making adequate urine although not an excessive amount. Her vital signs have been stable. Blood pressure has been good. Her laboratory studies reveal her white count came down to 16,000. Hematocrit is down a little bit as well, consistent with her chronic anemia. PHYSICAL EXAMINATION: ABDOMEN: Dressing which is clean, dry no drainage. Her ostomy is pink and nicely viable. IMPRESSION AND PLAN: The patient has a colectomy, colostomy and the patient is actually doing quite well today given her significant comorbidities. 1. At this point I would like to keep her n.p.o. 2. Continue with IV fluids. 3. However we will get the Hospitalists involved in her care to help us manage her diabetes, hypertension, chronic insufficiency as she is. 4. But given her creatinine dropped a little bit appropriately so, and her urine output is good, I do feel that her fluid status is good at this time. 5. If her hematocrit continues to trend down, she may be an individual that would benefit from some transfusion, but at this point no plans for this at this time. She is not short of breath and not tachycardic.
[2020-10-28] MEDS: NITROGLYCERIN 2% OINT 1 GM *U/D* PKT TOP SCH ×2 (13:20→17:37)
--- NOTE | 2020-10-28 13:54 | ECGEPIP ---
[facility] Test Date: 2020-10-27 Pat Name: MEGHA VENTURA Department: Room: 2231 Gender: Female Excel Vba Developer: DEONTE : 1950 Requested By: WEI Order Number: [id number] Reading MD: Kacie Yuan Measurements Intervals [place] Rate: 87 P: 94 ND: 173 QRS: -1 QRSD: 112 T: -61 QT: 332 QTc: 401 Interpretive Statements SINUS RHYTHM LOW QRS VOLTAGE IN PRECORDIAL LEADS NSSTTABN ANTERIOR LEADS CLINICAL TRAV NO PRIOR Electronically Signed on 10-28-2020 8:36:17 EST by Kacie Yuan
--- NOTE | 2020-10-28 14:11 | RO ---
OPERATIVE NOTE DATE OF OPERATION: 10/27/2020 PREOPERATIVE DIAGNOSIS: Perforated diverticulitis. POSTOPERATIVE DIAGNOSIS: Perforated diverticulitis. PROCEDURE: Exploratory laparotomy with sigmoid colectomy and end colostomy. SURGEON: Julian Olivas M.D. SEAFOOD PROCESSOR: ANESTHESIA: General endotracheal anesthesia. ESTIMATED BLOOD LOSS: Minimal. FLUIDS: Crystalloid. DESCRIPTION OF PROCEDURE: The patient was brought into the operating room and was given general anesthesia. After adequate anesthesia and preoperative antibiotics were given, the patient was prepped and draped in the usual sterile fashion. A midline incision was made with a skin knife. Electrocautery was used to cut through dermis and underlying subcutaneous tissue down through the fascia and the peritoneum was entered. There was some minimal stool spillage as well as purulent exudate throughout the abdomen with some generalized peritonitis. This was irrigated and copiously irrigated away with normal saline but once the Bookwalter was placed and the bowel was adequately packed away, I was able to mobilize the sigmoid colon along the white line of Toldt and then transect the colon distal to this at the rectosigmoid junction, taking the mesentery with Edom 60 vascular load. I was to mobilize the sigmoid colon, transecting this proximally with an Edom 60 green load as well. Next, the descending colon needed to be mobilized, thus taking the white line of Toldt down all the way up to the splenic flexure and then mobilizing this off Gerota's using blunt dissection as well as some minimal electrocautery and some loose areolar tissue. This continued down to the descending colon/sigmoid junction area and the vessels were preventing me from bringing the colon up to the abdominal wall. Thus I placed a Sulma clamp on this lightly to see if transecting these vessels would make an ischemic ostomy and indeed this did not reveal any significant problems with it. I thus transected more proximal vessels in this area going up from the sigmoid vessels/an arcade from the sigmoid vessels and good viability was appreciated. Next, after copiously irrigating the abdomen, a #19 Chay-Cotton drain was left in the bed of the dissection. The colon was brought out through a transabdominal incision in the left upper quadrant and it was a transrectus muscle incision made. Next, the midline was closed with looped 0 PDS in a running manner. Subcutaneous tissue was loosely approximated over a Chay-Cotton drain and agustin were used to approximate the skin. Next, the ostomy was matured using 3-0 Vicryl and an ostomy appliance was applied. The patient was awakened, extubated and brought to the recovery room awake, alert, hemodynamically stable. Sponge and needle counts were correct x2.
[2020-10-29] VITALS (14 sets, daily range): BP systolic 104–139; BP diastolic 53–65
[2020-10-29] MEDS: CIPROFLOXACIN 400 MG in IV 1 EA IV SCH ×2 (00:42→12:46)
[2020-10-29] MEDS: LR 1,000 ML IV SCH (00:43)
[2020-10-29] MEDS: IPRATROPIUM 0.5MG/ALBUTEROL 2.5MG INH SOL UD 3ML (DUONEB) NEB SCH ×4 (01:31→20:11)
[2020-10-29] MEDS: NS 1,000 ML IV SCH ×5 (01:54→20:36)
[2020-10-29] MEDS: metroNIDAZOLE 500 MG in IV 1 EA IV SCH ×3 (01:55→18:41)
[2020-10-29] MEDS: HumaLOG INSULIN (NovoLOG) PER UNIT SC ONE ×2 (01:55→02:01)
[2020-10-29 04:54] LABS: HEMATOCRIT 23.3 % (36.0-47.0); HEMOGLOBIN 7.3 g/dl (12.0-15.5); MEAN CORPUSCULAR HEMOGLOBIN 28.5 pg (27.0-33.0); MEAN CORPUSCULAR HGB CONC 31.3 g/dl (32.0-36.5); PLATELET COUNT, AUTOMATED 307 10^3/uL (150-450); RED BLOOD COUNT 2.56 10^6/uL (4.00-5.40); WHITE BLOOD COUNT 15.7 10^3/uL (4.0-10.0)
[2020-10-29 05:13] LABS: CALCIUM LEVEL 7.9 MG/DL (8.8-10.2); CREATININE FOR GFR 2.49 MG/DL (0.55-1.30); GLOMERULAR FILTRATION RATE 20.5 (>45); POTASSIUM SERUM 4.3 MEQ/L (3.5-5.1)
[2020-10-29] MEDS: HumaLOG INSULIN (NovoLOG) PER UNIT SC SCH ×4 (06:00→18:41)
[2020-10-29] MEDS: NITROGLYCERIN 2% OINT 1 GM *U/D* PKT TOP SCH ×2 (06:00)
[2020-10-29] MEDS ORDERED: LEVOTHYROXINE 12.5MCG PER 1/2 TAB (0.0125MG) PO SCH (06:00)
--- NOTE | 2020-10-29 09:58 | REP ---
INDICATION: renal failure. COMPARISON: CT 10/27/2020. TECHNIQUE: Real-time sonographic evaluation of the kidneys is performed. FINDINGS: There is mild left renal atrophy. Left kidney is echogenic suggesting medical renal disease. Right kidney demonstrates relatively normal echotexture. There is no hydronephrosis bilaterally. Study is limited due to patient body habitus. No gross renal mass is seen. The right kidney measures 10.9 x 5.8 x 5.8 cm. Left renal dimensions are 8.3 x 6.2 x 4.5 cm. The urinary bladder could not be visualized. IMPRESSION: Left renal atrophy with echogenic appearance. No hydronephrosis bilaterally. <Electronically signed by Marino Mahoney > 10/29/20 0954
[2020-10-29] MEDS: PANTOPRAZOLE 40MG VIAL (C9113 PER 1) IV SCH (10:07)
[2020-10-29] MEDS: ALVIMOPAN 12 MG CAPSULE (ENTEREG) PO SCH (10:07)
[2020-10-29 11:17] LABS: PERCENT SATURATION 5.2 % (13.2-45.0)
--- NOTE | 2020-10-29 11:43 | IPNPDOC ---
Date Seen The patient was seen on 10/29/20. Progress Note SUBJECTIVE: Developed oliguric renal failure on ckd3 overnight. no c/o sob, on ivfluids currently with renal us negative for hydronephrosis. denies brbpr, hematemesis or coffee ground emesis black stools. bloody drainage in abd. PHYSICAL EXAMINATION: VITAL SIGNS: Please see below. I/O: reviewed GENERAL APPEARANCE:obese aaox3 no distress HEENT: moist mm no jvd no thyromegaly RESPIRATORY: CTAB no adventitious breath sounds CARDIOVASCULAR: S1S2 RRR ABDOMEN: +bs soft slightly tender.bandaged bert drain w minimal bloody drainage. EXTREMITIES: no cyanosis or clubbing. warm to touch . LABORATORY DATA: Please see below. ASSESSMENT/PLAN: 70 y/o F w pmh significant for CKD3, HTN, DM2, GERD, obesity bmi 49.5, chronic anemia, venous insufficiency w varicosities, diverticulosis, vit d def, me niere's disease, OA, secondary hyperparathyroidism, thyroid nodules admitted by General Surgery for perforated diverticulitis on 10/27/20 s/p one dose of ertapenem, on iv cipro and flagyl s/p exploratory laparotomy, colon resection, and colostomy, now on ed manager pump, entereg po and hyoglycemic protocol w fingersticks q6hrs. She has had no fevers overnight, and denies sob, cp, pressure, tightness, diaphoresis, n/v, lightheadedness, dizziness, dysuria, urgency, frequency, polyphagia, polydipsia, weight changes, insomnia,hypersomnia, chagnes in vsiion, sore throag, sinus tenderness, ear pain, tinnitus, discharge, b/l ue and le weakness. she c/o bleeding at left iv site. No other issues per nursing. Perforated diverticulitis -POD#2 s/p exploratory laparotomy, colon resection, colostomy w 2JP drains with minimal output overnight. -s/p ertapenem x 1 on 10/27/20 -on IV cipro and IV flagyl day #3 -npo -on entereg -LR for now until diet is advanced. if prolonged npo status >72hrs, would suggest TPN. hypoglycemic protocol with fingersticks q6hrs. Acute oliguric on CKD3 -on iv fluids, strict i/o, daily weights -renal us negative -avoiding nephrotoxins. -no signs of metabolic acidosis, fluid overload, or hyperkalemia -will repeat bmp after ivfluids. nephrology will be consulted if worsening renal function or oliguria. acute blood loss anemia -baseline anemia of chronic disease -transfused 2 units rbc -repeat serial cbc DM2 -currently npo on ivfluids, hypoglycemic protocol an fingersticks q6hrs until resumes an oral diet. -sliding scale insulin HTN -controlled on no meds -if sbp>150mmhg or dbp>90, nitroglycerin 2%patch while npo Hypothyroidism -iv synthroid 1/2 po dose until resumes oral intake Dyslipidemia -hold off on meds Morbid obesity BMI 49.5 -at risk for respiratory acidosis and hypercapnic respiratory failure while on opioids. -DAJUAN protocol VS, I&O, 24H, Fishbone Vital Signs/I&O Vital Signs Date Time Temp Pulse Resp B/P (MAP) Pulse Ox O2 Delivery O2 Flow Rate FiO2 10/29/20 08:00 98.5 100 18 104/53 (70) 95 Nasal Cannula 1.0 I&O- Last 24 Hours up to 6 AM 10/29/20 06:00 Intake Total 1575 ml Output Total 595 ml Balance 980 ml Laboratory Data 24H LABS Laboratory Tests 2 10/28/20 12:02: Bedside Glucose (Misc Panel) 149H 10/28/20 17:42: Bedside Glucose (Misc Panel) 163H 10/29/20 00:41: Bedside Glucose (Misc Panel) 176H 10/29/20 04:11: Nucleated Red Blood Cells % (auto) 0.1H, Anion Gap 9, Glomerular Filtration Rate 20.5L, Calcium Level 7.9L 10/29/20 06:07: Bedside Glucose (Misc Panel) 175H 10/29/20 10:04: Reticulocyte # (auto) 43.0, Differential Slide Review Report, Peripheral Blood Smear Path Consult PERIPHERAL SMEAR, Percent Reticulocyte Count 1.8H, Reticulocyte Hemoglobin Equivalent 29.2, Iron Level 8L, Total Iron Binding Capacity 154L, Transferrin % Saturation 5.2L, Ferritin 211 CBC/BMP Laboratory Tests 10/29/20 04:11 Microbiology Microbiology 10/27/20 Urine Culture - Final, Complete CAMELIA STAFFORD MD Oct 29, 2020 11:41
[2020-10-29 19:44] LABS: HEMATOCRIT 26.8 % (36.0-47.0); HEMOGLOBIN 8.6 g/dl (12.0-15.5)
[2020-10-29 20:15] LABS: CALCIUM LEVEL 7.6 MG/DL (8.8-10.2); CREATININE FOR GFR 2.82 MG/DL (0.55-1.30); GLOMERULAR FILTRATION RATE 17.7 (>45)
--- NOTE | 2020-10-29 23:35 | IPN ---
PROGRESS NOTE DATE: 10/29/2020 SUBJECTIVE: The patient is postoperative day two from an exploratory laparotomy with colectomy and colostomy. The patient had significantly decreased urine output yesterday and this morning her creatinine is up. Her urine output is still low and was given some fluid boluses and is ordered to have some blood transfusions as well. She overall states that her pain has been better controlled although she seems a little bit more confused today and sedated. PHYSICAL EXAMINATION: LUNGS: Her lungs anteriorly are clear. HEART: Regular. ABDOMEN: Morbidly obese. Her dressing is clean and dry. The CARYN drains are serosanguinous, a little bit bloody are the intraperitoneal drain than previously but there is not a lot of drainage. The urine is clearing up a little bit. Compared to what it was earlier this morning, I see some leftover in the bag, and this is after she has been given a liter bolus of normal saline. IMPRESSION AND PLAN: The patient is probably third spacing a significant amount of fluids and although she has chronic lymphedema of the lower extremities, I am not seeing any significant lymphedema out of the expected considering her morbid obesity, etc., and thus I would anticipate that she indeed is significantly dry at this point, and I do agree with fluid resuscitation and blood transfusion for her chronic anemia and acute anemia in addition to the chronic baseline issue. Otherwise I would recommend that we keep her n.p.o. except medications. She does not need an NG tube. She is not having any nausea or vomiting. Her ostomy is pink but significantly edematous, and there is no significant drainage from that site, thus at this point I do feel that we can see how she does over the next 24-48 hours and possibly start her up on some clears. The Hospitalist Service is assisting us with the medical issues such as the diabetes, hypertension, fluid status, etc. I appreciate their assistance and we will continue with the regular routine, General Surgery supportive care.
[2020-10-30] VITALS (10 sets, daily range): BP systolic 117–198; BP diastolic 60–88
[2020-10-30] MEDS: ALVIMOPAN 12 MG CAPSULE (ENTEREG) PO SCH ×3 (00:34→20:22)
[2020-10-30] MEDS: CIPROFLOXACIN 400 MG in IV 1 EA IV SCH ×2 (00:42→12:27)
[2020-10-30] MEDS: HumaLOG INSULIN (NovoLOG) PER UNIT SC SCH ×4 (00:52→17:17)
[2020-10-30] MEDS: IPRATROPIUM 0.5MG/ALBUTEROL 2.5MG INH SOL UD 3ML (DUONEB) NEB SCH ×4 (01:17→20:00)
[2020-10-30] MEDS: metroNIDAZOLE 500 MG in IV 1 EA IV SCH ×3 (02:04→17:17)
[2020-10-30] MEDS: NS 1,000 ML IV SCH (05:08)
[2020-10-30 07:58] LABS: HEMOGLOBIN 9.4 g/dl (12.0-15.5); MEAN CORPUSCULAR HEMOGLOBIN 29.2 pg (27.0-33.0); MEAN CORPUSCULAR HGB CONC 31.3 g/dl (32.0-36.5); MEAN CORPUSCULAR VOLUME 93.2 fl (80.0-96.0); PLATELET COUNT, AUTOMATED 254 10^3/uL (150-450); RED BLOOD COUNT 3.22 10^6/uL (4.00-5.40); WHITE BLOOD COUNT 12.8 10^3/uL (4.0-10.0)
[2020-10-30 08:21] LABS: CALCIUM LEVEL 7.9 MG/DL (8.8-10.2); CREATININE FOR GFR 2.59 MG/DL (0.55-1.30); GLOMERULAR FILTRATION RATE 19.6 (>45); POTASSIUM SERUM 4.2 MEQ/L (3.5-5.1)
[2020-10-30] MEDS: PANTOPRAZOLE 40MG VIAL (C9113 PER 1) IV SCH (08:52)
--- NOTE | 2020-10-30 10:25 | IPNPDOC ---
Date Seen The patient was seen on 10/30/20. Progress Note SUBJECTIVE: Patient was very confused this morning and PTCA helped. She was adamant About leaving AGAINST MEDICAL ADVICE and going home today. She remains nothing by mouth. Patient had a total of 2.7 L. Input yesterday with output of 7:30. Since midnight 1300 mL of input and output of 790. She complains of slight cough and shortness of breath. Very anxious this morning with blood pressure 198/88. She denies any chest pain, Pressure, tightness, tightness or dizziness nausea, vomiting. PHYSICAL EXAMINATION: VITAL SIGNS: Please see below. I/O: reviewed GENERAL APPEARANCE:agitated aaox 2 person and date HEENT: moist mm no jvd no thyromegaly RESPIRATORY: diminished CARDIOVASCULAR: S1S2 RRR ABDOMEN: +bs soft slightly tender.bandaged bert drains w minimal bloody drainage. EXTREMITIES: no cyanosis or clubbing. warm to touch . LABORATORY DATA: Please see below. ASSESSMENT/PLAN: 70 y/o F w pmh significant for CKD3, HTN, DM2, GERD, obesity bmi 49.5, chronic anemia, venous insufficiency w varicosities, diverticulosis, vit d def, meniere's disease, OA, secondary hyperparathyroidism, thyroid nodules admitted by General Surgery for perforated diverticulitis on 10/27/20 s/p one dose of e rtapenem, on iv cipro and flagyl s/p exploratory laparotomy, colon resection, and colostomy, now on side stitching machine operator pump, entereg po and hyoglycemic protocol w fingersticks q6hrs. She has had no fevers overnight, and denies sob, cp, pressure, tightness, diaphoresis, n/v, lightheadedness, dizziness, dysuria, urg ency, frequency, polyphagia, polydipsia, weight changes, insomnia,hypersomnia, chagnes in vsiion, sore throag, sinus tenderness, ear pain, tinnitus, discharge, b/l ue and le weakness. she c/o bleeding at left iv site. No other issues per nursing. Perforated diverticulitis -POD#3 s/p exploratory laparotomy, colon resection, colostomy w 2JP drains with minimal output overnight. -s/p ertapenem x 1 on 10/27/20 -on IV cipro and IV flagyl day #3 -npo -on entereg -changed to d51/2 ns due to dm2 Acute on CKD3,improving -due to perforated diverticulitis. -did not receive any contrast -on iv fluids, strict i/o, daily weights -renal us negative -avoiding nephrotoxins. -no signs of metabolic acidosis, fluid overload, or hyperkalemia - nephrology consulted -jhaveri Opioid-induced encephalopathy/acute delirium -minimized pain meds -frequent re-orientation -encouraged to call her frequently acute blood loss anemia -baseline anemia of chronic disease -transfused 2 units rbc -bloody drainage through bert drains DM2 -currently npo on ivfluids, hypoglycemic protocol an fingersticks q6hrs until resumes an oral diet. -sliding scale insulin -changed from ns to d51/2/ns HTN -uncontrolled due to anxiety -if sbp>150mmhg or dbp>90, nitroglycerin 2%patch while npo Hypothyroidism -iv synthroid 1/2 po dose until resumes oral intake Dyslipidemia -hold off on meds Morbid obesity BMI 49.5 -at risk for respiratory acidosis and hypercapnic respiratory failure while on opioids. -DAJUAN protocol VS, I&O, 24H, [facility] Vital Signs/I&O Vital Signs Date Time Temp Pulse Resp B/P (MAP) Pulse Ox O2 Delivery O2 Flow Rate FiO2 10/30/20 04:00 98.2 117 18 153/68 (96) 94 Nasal Cannula 2.0 I&O- Last 24 Hours up to 6 AM 10/30/20 06:00 Intake Total 2700 ml Output Total 1350 ml Balance 1350 ml Laboratory Data 24H LABS Laboratory Tests 2 10/29/20 10:04: Reticulocyte # (auto) 43.0, Differential Slide Review Report, Peripheral Blood Smear Path Consult PERIPHERAL SMEAR, Percent Reticulocyte Count 1.8H, Reticulocyte Hemoglobin Equivalent 29.2, Iron Level 8L, Total Iron Binding Capacity 154L, Transferrin % Saturation 5.2L, Ferritin 211 10/29/20 11:50: Bedside Glucose (Misc Panel) 154H 10/29/20 18:24: Bedside Glucose (Misc Panel) 188H 10/29/20 19:27: Anion Gap 11, Glomerular Filtration Rate 17.7L, Calcium Level 7.6L 10/30/20 00:32: Bedside Glucose (Misc Panel) 159H 10/30/20 07:41: CBC/BMP Laboratory Tests 10/29/20 19:27 Microbiology Microbiology 10/27/20 Urine Culture - Final, Complete CAMELIA STAFFORD MD Oct 30, 2020 07:48
[2020-10-30] MEDS: METOPROLOL 5 MG/5 ML VIAL IV SCH ×2 (10:57→11:20)
[2020-10-30] MEDS: D5W/0.45% SODIUM CHLORIDE 1,000 ML IV SCH ×2 (10:58→20:15)
--- NOTE | 2020-10-30 11:28 | REP ---
INDICATION: chest pain sob. COMPARISON: Frontal view obtained as part of an abdominal series 02/09/2011. TECHNIQUE: Semi upright portable FINDINGS: The technique utilized in obtaining the radiograph has magnified the cardiac silhouette and accentuated the interstitial markings. The superior mediastinal structures are midline. The cardiac silhouette is unremarkable in size, shape, and position. The diaphragmatic surfaces of the lungs are regular, and the costophrenic angles are clear. The pulmonary murray are clear. The imaged osseous structures are intact. IMPRESSION: There is no acute cardiopulmonary disease. <Electronically signed by Bob Garza > 10/30/20 1128
--- NOTE | 2020-10-30 11:51 | ECGEPIP ---
[facility] Test Date: 2020-10-30 Pat Name: MEGHA VENTURA Department: Room: [place] [address] Gender: Female Electronic Equipment Set Up Operator: DAYDAY : 1950 Requested By: CAMELIA Alarcon Order Number: [id number] Reading MD: Kacie Yuan Measurements Intervals [place] Rate: 100 P: 46 [place]: 164 QRS: 7 QRSD: 106 T: 23 QT: 356 QTc: 461 Interpretive Statements SINUS TACHYCARDIA LOW QRS VOLTAGE IN PRECORDIAL LEADS NSSTTWABN ANTERIORALLY SOMEWHAT IMPROVED C/W 10/27/20 RATE FASTER Electronically Signed on 10-30-2020 11:51:07 EST by Kacie Yuan
[2020-10-30 12:32] LABS: CK-MB VALUE MASS 1.9 NG/ML (<3.6); MB/CK RELATIVE INDEX 1.22 (< OR =4); TROPONIN I 0.1 NG/ML (< 0.10)
--- NOTE | 2020-10-30 13:27 | IPNPDOC ---
Text Note Date of Service The patient was seen on 10/30/20. NOTE Overnight she did have some confusion. She was not sure where she was and att empted to leave AMA. This am she also had some sudden chest pains about 20 min before I saw her. She feels better currently. Denies nausea, emesis, fevers, or uncontrolled pains. Her urine output has also improved and there is stool in the ostomy. VSSAF NAD abd - soft, TTP diffuse appropriate, drains serosanguinous, small stool in ostomy labs - below A) 70y/o female s/p perforated diverticulitis P) clq diet dc jhaveri OOB to chair with meals ambulate in halls PT, OT ostomy teaching Santosh García DO VS,Kristi, I+O VSKristi, I+O Laboratory Tests 10/29/20 19:27 10/30/20 07:41 Vital Signs Date Time Temp Pulse Resp B/P (MAP) Pulse Ox O2 Delivery O2 Flow Rate FiO2 10/30/20 12:00 98.8 100 20 176/78 (110) 93 Room Air 10/30/20 04:00 2.0 I&O- Last 24 Hours up to 6 AM 10/30/20 06:00 Intake Total 4000 ml Output Total 1350 ml Balance 2650 ml NEMESIO GARCÍA DO Oct 30, 2020 13:26
[2020-10-30] MEDS ORDERED: atenoloL 25 MG TAB PO ONE (15:00)
[2020-10-30] MEDS ORDERED: cloNIDine 0.2 MG TAB PO ONE (15:00)
--- NOTE | 2020-10-30 17:52 | CR ---
NEPHROLOGY CONSULTATION DATE: 10/30/2020 REFERRING PHYSICIAN: Екатерина Mcbride MD REASON FOR CONSULTATION: Acute kidney injury superimposed on chronic kidney disease. HISTORY OF PRESENT ILLNESS: Mrs. Lira is a 70-year-old female who was admitted with abdominal pain and was found to have a perforated viscus. She underwent exploratory laparotomy and bowel resection and a colostomy. She developed oliguric acute kidney injury postoperatively. A nephrology consultation was requested yesterday and the patient was seen this morning. PAST MEDICAL HISTORY: 1. Morbid obesity with BMI of 49.5. 2. Type 2 diabetes. 3. Hypertension. 4. Stage 3 of chronic kidney disease. 5. History of venous insufficiency with varicosities. 6. History of diverticulosis. 7. History of gastroesophageal reflux disease. 8. History of osteoarthritis. 9. History of Meniere's disease. 10. History of secondary hyperparathyroidism. 11. History of thyroid nodules. PAST SURGICAL HISTORY: Significant for D&C x2, right hemithyroidectomy, trigger finger release, carpal tunnel release, fine needle aspiration of thyroid nodules and laser vaporization of vulva and colposcopy. FAMILY HISTORY: Father at age 54 with coronary artery disease and [place]. Mother is with stroke and hypertension. She has cerebral occlusion and infarction. One brother with lung cancer and one sister has ovarian cancer. PERSONAL AND SOCIAL HISTORY: The patient is retired, denies any alcohol, tobacco or drug use. REVIEW OF SYSTEMS: At present, she reports feeling sleepy most of the time due to analgesic control. She has started to take sips of liquids and is tolerating. She denies any fever rule out chills. Ears, nose and throat are unremarkable other than history of Meniere's disease. Cardiovascular system: Negative for dyspnea or chest pain. Respiratory system is negative for cough or hemoptysis. GI system is as per history of present illness. She just had a laparotomy with colostomy and bowel resection due to ruptured diverticulum. system is significant for oliguric acute kidney injury. She has a Robert catheter in place and does have some urine output today. Musculoskeletal system is significant for morbid obesity. She denies any leg edema. She does have history of osteoarthritis. Hematological system is negative for any long-term anticoagulation. She denies excessive bleeding or bruising. Neurological system is negative for seizures or stroke. Psychosocial system: Negative for depression and anxiety. Skin is negative for rash or ulcers. PHYSICAL EXAMINATION: This is a morbidly obese lady lying in the bed with head elevated. Vital signs: Temperature 98.8 degrees Fahrenheit, heart rate 100 per minute and respiratory rate 20 per minute. Blood pressure 176/78 mmHg now and oxygen saturation 93% on room air. Head is atraumatic. Neck: Supple and JVD is not abnormally elevated She has no oral thrush or ulcers. Heart sounds are tachycardic and lungs with slightly diminished breath sounds. Abdomen is obese and bowel sounds are not audible at present. Her colostomy has some output of liquid dark stool. She has two CARYN drains in her upper abdomen. Extremities have no cyanosis or clubbing. Neurologically she is awake and able to answer questions appropriately. No focal deficit noted. LABORATORY DATA: WBC count is 12.8 today, hemoglobin 9.4 and hematocrit 30. Platelets 254. Yesterday her BUN was 58 and creatinine 2.82. Today sodium is 141, potassium 4.2, CO2 21, BUN 55 and creatinine 2.59. Glucose 185 and calcium 7.9. Total CK 156 and troponin is 0.010. A BNP level is 4305. PROBLEMS: 1. Acute kidney injury superimposed on chronic kidney disease. The patient has known history of baseline chronic kidney disease at stage 3. She developed acute kidney injury postoperatively. Most likely volume related. She is receiving IV fluid and seems to have improved urine output. Her creatinine has also slightly improved compared with yesterday. She does not have any evidence of metabolic acidosis or hyperkalemia at present. I will recommend to continue with IV fluids and monitor her urine output. She has no evidence of sepsis at present and I am optimistic about recovery of renal function. 2. Anemia. She did receive transfusion of two units of packed RBCs and anemia has improved. At present, no other urgent intervention indicated. 3. Ruptured diverticulum, status post laparotomy with bowel resection and colostomy. She remains on Cipro and metronidazole. If her kidney function does not improve in the next 24 hours, then we will consider to adjust the dose of her ciprofloxacin. She is afebrile at present. 4. Pain control. The patient is on patient controlled analgesia. She is not a suitable candidate for any NSAID in view of acute renal failure. The patient reports excessive sleeping and I will recommend to cut down the dose of her COMMUNITY SERVICE DIRECTOR. Thank you for involving me in the care of Mrs. Lira. I will follow her along with you.
[2020-10-31] VITALS: BP 145/67
[2020-10-31] MEDS: HumaLOG INSULIN (NovoLOG) PER UNIT SC SCH ×5 (00:01→21:00)
[2020-10-31] MEDS: CIPROFLOXACIN 400 MG in IV 1 EA IV SCH ×2 (00:01→12:39)
[2020-10-31] MEDS: metroNIDAZOLE 500 MG in IV 1 EA IV SCH ×3 (01:46→18:08)
[2020-10-31 04:00] VITALS: BP 123/60
[2020-10-31 05:00] LABS: HEMATOCRIT 27.4 % (36.0-47.0); HEMOGLOBIN 8.8 g/dl (12.0-15.5); MEAN CORPUSCULAR HEMOGLOBIN 29.5 pg (27.0-33.0); MEAN CORPUSCULAR HGB CONC 32.1 g/dl (32.0-36.5); MEAN CORPUSCULAR VOLUME 91.9 fl (80.0-96.0); PLATELET COUNT, AUTOMATED 251 10^3/uL (150-450); RED BLOOD COUNT 2.98 10^6/uL (4.00-5.40); WHITE BLOOD COUNT 11.5 10^3/uL (4.0-10.0)
[2020-10-31 05:39] LABS: CALCIUM LEVEL 7.8 MG/DL (8.8-10.2); CREATININE FOR GFR 2.14 MG/DL (0.55-1.30); GLOMERULAR FILTRATION RATE 24.4 (>45); POTASSIUM SERUM 4.2 MEQ/L (3.5-5.1)
[2020-10-31] MEDS: IPRATROPIUM 0.5MG/ALBUTEROL 2.5MG INH SOL UD 3ML (DUONEB) NEB SCH ×3 (07:16→19:20)
[2020-10-31 07:53] VITALS: BP 134/62
[2020-10-31] MEDS: PANTOPRAZOLE 40MG VIAL (C9113 PER 1) IV SCH (09:03)
[2020-10-31] MEDS: ALVIMOPAN 12 MG CAPSULE (ENTEREG) PO SCH ×2 (09:03→21:18)
--- NOTE | 2020-10-31 10:41 | IPNPDOC ---
Date Seen The patient was seen on 10/31/20. Progress Note SUBJECTIVE; requests applejuice w clear liquid diet . high glucose. dced d5. tolerating po well w/o n/v/abd pain or distention. no fever or chills on ivfluids w improving creatinine. bp improved. solar sales pump dced due to confusion and agitation yesterday . pain is controlled.bp normal. PHYSICAL EXAMINATION: VITAL SIGNS: Please see below. I/O: reviewed GENERAL APPEARANCE:no distress dry mm HEENT: no cervical lad or stridor no jvd no thyromegaly RESPIRATORY: diminished CARDIOVASCULAR: S1S2 RRR ABDOMEN: +bs soft slightly tender.bandaged bert drains w minimal bloody drainage. EXTREMITIES: no cyanosis or clubbing. warm to touch . LABORATORY DATA: Please see below. ASSESSMENT/PLAN: 70 y/o F w pmh significant for CKD3, HTN, DM2, GERD, obesity bmi 49.5, chronic anemia, venous insufficiency w varicosities, diverticulosis, vit d def, meniere's disease, OA, secondary hyperparathyroidism, thyroid nodules admitted by General Surgery for perforated diverticulitis on 10/27/20 s/p one dose of erta penem, on iv cipro and flagyl s/p exploratory laparotomy, colon resection, and colostomy, now on solar sales pump, entereg po and hyoglycemic protocol w fingersticks q6hrs. She has had no fevers overnight, and denies sob, cp, pressure, tightness, diaphoresis, n/v, lightheadedness, dizziness, dysuria, urgency, frequency, polyphagia, polydipsia, weight changes, insomnia,hypersomnia, chagnes in vsiion, sore throag, sinus tenderness, ear pain, tinnitus, discharge, b/l ue and le weakness. she c/o bleeding at left iv site. No other issues per nursing. Perforated diverticulitis -POD#4 s/p exploratory laparotomy, colon resection, colostomy w 2JP drains with minimal output overnight. -s/p ertapenem x 1 on 10/27/20 -on IV cipro and IV flagyl day #4 -tolerating clears -on entereg -dced d5 due to hyperglycemia. ns now Acute on CKD3,improving -due to perforated diverticulitis. -did not receive any contrast -on iv fluids, strict i/o, daily weights -renal us negative -avoiding nephrotoxins. -no signs of metabolic acidosis, fluid overload, or hyperkalemia - nephrology consulted -jhaveri Opioid-induced encephalopathy/acute delirium -minimized pain meds -frequent re-orientation -encouraged to call her frequently acute blood loss anemia -baseline anemia of chronic disease -transfused 2 units rbc -bloody drainage through bert drains DM2 currently npo on ivfluids, hypoglycemic protocol an fingersticks q6hrs until resumes an oral diet. -sliding scale insulin -dced d5 due to hyperglycemia -clears now HTN -uncontrolled due to anxiety -if sbp>150mmhg or dbp>90, nitroglycerin 2%patch while npo Hypothyroidism -po synthroid. Dyslipidemia -hold off on meds Morbid obesity BMI 49.5 -at risk for respiratory acidosis and hypercapnic respiratory failure while on opioids. -DAJUAN protocol VS, I&O, 24H, Fishbone Vital Signs/I&O Vital Signs Date Time Temp Pulse Resp B/P (MAP) Pulse Ox O2 Delivery O2 Flow Rate FiO2 10/31/20 07:53 98.2 84 18 134/62 (86) 93 Room Air 10/30/20 04:00 2.0 I&O- Last 24 Hours up to 6 AM 10/31/20 06:00 Intake Total 1850 ml Output Total 1640 ml Balance 210 ml Laboratory Data 24H LABS Laboratory Tests 2 10/30/20 11:38: Total Creatine Kinase 156, Creatine Kinase MB 1.9, Creatine Kinase MB Relative Index 1.22, Troponin I 0.10, PE-Qof-K-Type Natriuretic Peptide 4305H, Procalcitonin 1.88 10/30/20 12:02: Bedside Glucose (Misc Panel) 171H 10/30/20 16:58: Bedside Glucose (Misc Panel) 244H 10/30/20 23:14: Bedside Glucose (Misc Panel) 267H 10/31/20 04:33: Nucleated Red Blood Cells % (auto) 0.0, Anion Gap 7L, Glomerular Filtration Rate 24.4L, Calcium Level 7.8L CBC/BMP Laboratory Tests 10/31/20 04:33 Microbiology Microbiology 10/27/20 Urine Culture - Final, Complete CAMELIA STAFFORD MD Oct 31, 2020 10:41
[2020-10-31] MEDS: NS 0.45% 1,000 ML IV SCH ×2 (11:09→21:18)
--- NOTE | 2020-10-31 11:40 | IPNPDOC ---
Text Note Date of Service The patient was seen on 10/31/20. NOTE Denies nausea, emesis, fevers, or uncontrolled pains. Her urine output has also improved and there is stool more stool output. She is tolerating the clq diet. VSSAF NAD abd - soft, TTP diffuse appropriate, drains serosanguinous, stool and air in ostomy labs - below A) 70y/o female s/p perforated diverticulitis P) reg diet OOB to chair with meals ambulate in halls PT, OT ostomy teaching Santosh García DO VS,Kristi, I+O VS, Kristi, I+O Laboratory Tests 10/31/20 04:33 Vital Signs Date Time Temp Pulse Resp B/P (MAP) Pulse Ox O2 Delivery O2 Flow Rate FiO2 10/31/20 07:53 98.2 84 18 134/62 (86) 93 Room Air 10/30/20 04:00 2.0 I&O- Last 24 Hours up to 6 AM 10/31/20 06:00 Intake Total 1850 ml Output Total 1640 ml Balance 210 ml NEMESIO GARCÍA DO Oct 31, 2020 11:40
[2020-10-31 12:00] VITALS: BP 126/57
[2020-10-31] MEDS: allopurinoL 100 MG TAB PO SCH (12:39)
[2020-10-31 16:00] VITALS: BP 135/60
[2020-10-31] MEDS: ACETAMINOPHEN TAB 650MG DOSE (2X325MG) PO PRN (16:49)
--- NOTE | 2020-10-31 17:48 | IPN ---
PROGRESS NOTE DATE: 10/31/2020 Mrs. Lira is seen this morning on her bedside. She is sitting in the chair now. Her Robert catheter has been removed and she reports that she was able to urinate without any problem. She is taking sips of liquid and tolerating. She denies any dyspnea or chest pain. PHYSICAL EXAMINATION: Temperature 98.2 degrees Fahrenheit, heart rate 84 per minute, respiratory rate 18 per minute, blood pressure 134/62 mmHg, oxygen saturation 93% on room air. INTAKE AND OUTPUT: Records from yesterday showed total intake 3150 and output 1950 mL. HEAD: Atraumatic. NECK: Supple and jugular venous distention (JVD) is not abnormally elevated sitting upright. LUNGS: Clear to auscultation. HEART SOUNDS: Regular. ABDOMEN: Soft. Obese. Colostomy in left lower quadrant is putting out a small amount of dark liquid. Surgical dressings and Chay-Cotton (CARYN) drains are intact. EXTREMITIES: Without any cyanosis or clubbing. NEUROLOGIC: Awake, alert and oriented times three. LABORATORY DATA: Today's laboratories show WBC 11.5, hemoglobin 8.8, hematocrit 27.4, platelets 251. Sodium 141, potassium 4.2, CO2 23, BUN 45, creatinine 2.14, glucose 292, calcium 7.8. PROBLEMS: 1. Oliguric acute renal failure. Patient is not oliguric anymore and kidney function has started to improve. She is still receiving intravenous (IV) fluid and will consider to stop it after 24 hours if her oral intake is adequate and tolerated. Electrolytes are stable and she does not have any evidence of acidosis. 2. Anemia. Anemia is slightly worse, but no active bleeding. This is probably related to recent surgery and hemodilution with IV fluid. No urgent need for a transfusion at present. All in all, from a renal standpoint, patient is doing very well.
[2020-10-31 20:00] VITALS: BP 141/65
[2020-11-01] VITALS: BP 156/72
[2020-11-01] MEDS: CIPROFLOXACIN 400 MG in IV 1 EA IV SCH ×3 (01:20→23:44)
[2020-11-01] MEDS: ACETAMINOPHEN TAB 650MG DOSE (2X325MG) PO PRN ×2 (01:26→18:28)
[2020-11-01] MEDS: metroNIDAZOLE 500 MG in IV 1 EA IV SCH ×3 (01:26→18:22)
[2020-11-01] MEDS: IPRATROPIUM 0.5MG/ALBUTEROL 2.5MG INH SOL UD 3ML (DUONEB) NEB SCH ×4 (01:56→20:04)
[2020-11-01 04:00] VITALS: BP 159/72
[2020-11-01 05:05] LABS: CALCIUM LEVEL 8.1 MG/DL (8.8-10.2); CREATININE FOR GFR 1.88 MG/DL (0.55-1.30); GLOMERULAR FILTRATION RATE 28.3 (>45); POTASSIUM SERUM 3.9 MEQ/L (3.5-5.1)
[2020-11-01 05:07] LABS: HEMATOCRIT 26.3 % (36.0-47.0); HEMOGLOBIN 8.5 g/dl (12.0-15.5); MEAN CORPUSCULAR HGB CONC 32.3 g/dl (32.0-36.5); MEAN CORPUSCULAR VOLUME 89.8 fl (80.0-96.0); PLATELET COUNT, AUTOMATED 238 10^3/uL (150-450); RED BLOOD COUNT 2.93 10^6/uL (4.00-5.40); WHITE BLOOD COUNT 8.9 10^3/uL (4.0-10.0)
[2020-11-01] MEDS: LEVOTHYROXINE 25MCG TABLET (0.025MG) PO SCH (06:34)
--- NOTE | 2020-11-01 07:11 | IPNPDOC ---
Date Seen The patient was seen on 11/01/20. Progress Note SUBJECTIVE; c/o nausea w/o vomiting. +diffuse abd pain all night no fever or chills. feels like having a bowel movement this morning. PHYSICAL EXAMINATION: VITAL SIGNS: Please see below. I/O: reviewed GENERAL APPEARANCE:no distress no conversational dyspnea. no use of resp acc mm HEENT: no cervical lad or stridor no jvd no thyromegaly RESPIRATORY: diminished CARDIOVASCULAR: S1S2 RRR ABDOMEN: +bs soft slightly tender. bret drains w minimal bloody drainage. EXTREMITIES: no cyanosis or clubbing. warm to touch . LABORATORY DATA: Please see below. ASSESSMENT/PLAN: 70 y/o F w pmh significant for CKD3, HTN, DM2, GERD, obesity bmi 49.5, chronic anemia, venous insufficiency w varicosities, diverticulosis, vit d def, meniere's disease, OA, secondary hyperparathyroidism, thyroid nodules admitted by General Surgery for perforated diverticulitis on 10/27/20 s/p one dose of ertapenem, on iv cipro and flagyl s/p exploratory laparotomy, colon resection, and colostomy, now on digital editor pump, entereg po and hyoglycemic protocol w fingersticks q6hrs. She has had no fevers overnight, and denies sob, cp, pressure, tightness, diaphoresis, n/v, lightheadedness, dizziness, dysuria, urgency, frequency, polyphagia, polydipsia, weight changes, insomnia,hypersomnia, chagnes in vsiion, sore throag, sinus tenderness, ear pain, tinnitus, discharge, b/l ue and le weakness. she c/o bleeding at left iv site. No other issues per nursing. Perforated diverticulitis -POD#5 s/p exploratory laparotomy, colon resection, colostomy w 2JP drains with minimal output overnight. -s/p ertapenem x 1 on 10/27/20 -on IV cipro and IV flagyl day #5 -tolerating diet -on entereg -dced d5 due to hyperglycemia. ns now Acute on CKD3,improving -due to perforated diverticulitis. -did not receive any contrast -trict i/o, daily weights -renal us negative -avoiding nephrotoxins. -no signs of metabolic acidosis, fluid overload, or hyperkalemia - nephrology consulted -jhaveri Opioid-induced encephalopathy/acute delirium -minimized pain meds -frequent re-orientation acute blood loss anemia -baseline anemia of chronic disease -transfused 2 units rbc -bloody drainage through bert drains DM2 -sliding scale insulin -dced d5 due to hyperglycemia -tolerating diet HTN -controlled Hypothyroidism -po synthroid. Dyslipidemia -chronic Morbid obesity BMI 49.5 -at risk for respiratory acidosis and hypercapnic respiratory failure while on opioids. -DAJUAN protocol VS, I&O, 24H, Fishbone Vital Signs/I&O Vital Signs Date Time Temp Pulse Resp B/P (MAP) Pulse Ox O2 Delivery O2 Flow Rate FiO2 11/01/20 04:00 98.6 88 20 159/72 (101) 95 Room Air 10/30/20 04:00 2.0 I&O- Last 24 Hours up to 6 AM 11/01/20 06:00 Intake Total 2290 ml Output Total 1115 ml Balance 1175 ml Laboratory Data 24H LABS Laboratory Tests 2 10/31/20 11:41: Bedside Glucose (Misc Panel) 268H 10/31/20 16:53: Bedside Glucose (Misc Panel) 254H 10/31/20 21:17: Bedside Glucose (Misc Panel) 247H 11/01/20 04:07: Nucleated Red Blood Cells % (auto) 0.0, Anion Gap 9, Glomerular Filtration Rate 28.3L, Calcium Level 8.1L CBC/BMP Laboratory Tests 11/01/20 04:07 Microbiology Microbiology 10/27/20 Urine Culture - Final, Complete CAMELIA STAFFORD MD Nov 01, 2020 07:11
[2020-11-01] MEDS ORDERED: PERCOCET 5MG/325MG TAB PO ONE (07:15)
[2020-11-01] MEDS ORDERED: ONDANSETRON 4MG/2ML VIAL IV ONE (07:15)
[2020-11-01 08:00] VITALS: BP 145/72
[2020-11-01] MEDS: PANTOPRAZOLE 40MG TAB (PROTONIX) PO SCH (08:35)
[2020-11-01] MEDS: ALVIMOPAN 12 MG CAPSULE (ENTEREG) PO SCH ×2 (08:35→21:01)
[2020-11-01] MEDS: allopurinoL 100 MG TAB PO SCH (08:35)
[2020-11-01] MEDS: HumaLOG INSULIN (NovoLOG) PER UNIT SC SCH ×4 (08:36→21:00)
[2020-11-01] MEDS: NS 0.45% 1,000 ML IV SCH (08:39)
[2020-11-01 12:00] VITALS: BP 149/70
[2020-11-01] MEDS: amLODIPine 5 MG TAB PO SCH ×2 (12:32→21:01)
--- NOTE | 2020-11-01 12:37 | IPN ---
NEPHROLOGY PROGRESS NOTE DATE: 11/01/20 SUBJECTIVE: Ms. Lira is seen this morning on her bedside. She is feeling better and tolerating her diet. She reports that her diet has been advanced to a regular diet. Her colostomy has started to function. She denies any dyspnea or chest pain. She does have some lower extremity edema. PHYSICAL EXAMINATION: Temperature 98.4 degrees Fahrenheit, heart rate 86 per minute and respiratory rate 18 per minute. Blood pressure 145/72 mmHg and oxygen saturation 95% on room air. Head: Atraumatic. Neck: Supple and without JVD or thyroid enlargement. Heart: Sounds are regular. Lungs: With diminished breath sounds at the bases. Abdomen: Obese and nontender and bowel sounds are normal. Extremities: Without any cyanosis or clubbing. Her colostomy is putting out dark blackish fluid. I do not see any stool yet. Neurologically: She is awake and at her baseline mentation without any focal deficits. LABORATORY DATA: Today's labs show WBC count 8.9, hemoglobin 8.5, hematocrit 26.3, platelets 239. Sodium 138, potassium 3.9, chloride 109, CO2 20, BUN 34, creatinine 1.88, glucose 233, calcium 8.1. PROBLEMS/PLAN: 1. Acute kidney injury superimposed on chronic kidney disease: Kidney function is improving nicely and she remains nonoliguric. Her oral intake is improved so I am going to stop her I.V. fluid. 2. Anemia: This is related to her recent surgery and iron deficiency. She has received a transfusion recently. At present no urgent intervention is needed other than continued iron supplement. 3. Hypervolemia: She has mild lower extremity edema. She has been receiving I.V. fluid since surgery and I am going to stop it. I will hold off on any diuretic use. 4. Ruptured diverticulum status post colon resection and colostomy: Her diet is being advanced by surgery. She remains on antibiotics.
[2020-11-01 15:10] VITALS: BP 132/72
--- NOTE | 2020-11-01 21:34 | IPN ---
NEPHROLOGY PROGRESS NOTE DATE: 11/01/2020 SUBJECTIVE: Mrs. Lira is seen this morning at her bedside. She is feeling much better now and tolerating her diet well. She denies any nausea or vomiting. She has no fever or chills. PHYSICAL EXAMINATION: VITAL SIGNS: Temperature 98 degrees Fahrenheit, heart rate 80 per minute, respiratory rate 20 per minute, blood pressure 149/70 mm of mercury and oxygen saturation is 95%. HEENT: Head is atraumatic. NECK: Supple and without JVD or thyroid enlargement. HEART: Regular. LUNGS: Diminished breath sounds at the bases. ABDOMEN: Soft and colostomy has minimal dark fluid output. Surgical dressings and drains are intact. LABORATORY STUDIES: Today's labs show white blood cell count 8.9, hemoglobin 8.5 and hematocrit 26.3. Sodium 138 and potassium 3.9. BUN 34 and creatinine 1.88. PROBLEMS: 1. Acute kidney injury - kidney function is improving nicely and she has good urine output. Her oral intake has improved so her IV fluid is being stopped. 2. Anemia at present her anemia is stable and does not need any urgent intervention. 3. Diverticulitis - status post colon resection and colostomy. The patient is tolerating oral intake well. She remains on antibiotics and is making progress.
[2020-11-01 22:00] VITALS: BP 135/70
[2020-11-02 02:00] VITALS: BP 142/72
[2020-11-02] MEDS: IPRATROPIUM 0.5MG/ALBUTEROL 2.5MG INH SOL UD 3ML (DUONEB) NEB SCH ×5 (02:00→23:33)
[2020-11-02] MEDS: metroNIDAZOLE 500 MG in IV 1 EA IV SCH ×3 (02:19→17:15)
[2020-11-02] MEDS: ACETAMINOPHEN TAB 650MG DOSE (2X325MG) PO PRN ×3 (04:03→17:19)
[2020-11-02 06:00] VITALS: BP 133/71
[2020-11-02] MEDS: LEVOTHYROXINE 25MCG TABLET (0.025MG) PO SCH (06:19)
[2020-11-02 07:20] LABS: HEMATOCRIT 25.1 % (36.0-47.0); MEAN CORPUSCULAR HEMOGLOBIN 28.6 pg (27.0-33.0); MEAN CORPUSCULAR HGB CONC 31.9 g/dl (32.0-36.5); MEAN CORPUSCULAR VOLUME 89.6 fl (80.0-96.0); PLATELET COUNT, AUTOMATED 229 10^3/uL (150-450); WHITE BLOOD COUNT 9.8 10^3/uL (4.0-10.0)
[2020-11-02 07:51] LABS: CALCIUM LEVEL 7.7 MG/DL (8.8-10.2); CREATININE FOR GFR 1.47 MG/DL (0.55-1.30); GLOMERULAR FILTRATION RATE 37.6 (>45); POTASSIUM SERUM 4.2 MEQ/L (3.5-5.1)
[2020-11-02] MEDS: PANTOPRAZOLE 40MG TAB (PROTONIX) PO SCH (08:03)
[2020-11-02] MEDS: allopurinoL 100 MG TAB PO SCH (08:03)
[2020-11-02] MEDS: ALVIMOPAN 12 MG CAPSULE (ENTEREG) PO SCH ×2 (08:03→21:07)
[2020-11-02] MEDS: HumaLOG INSULIN (NovoLOG) PER UNIT SC SCH ×4 (08:04→21:00)
[2020-11-02] MEDS: amLODIPine 5 MG TAB PO SCH ×2 (08:04→21:13)
[2020-11-02 10:00] VITALS: BP 141/64
[2020-11-02] MEDS: CIPROFLOXACIN 400 MG in IV 1 EA IV SCH ×2 (11:54→23:03)
[2020-11-02 14:00] VITALS: BP 153/69
--- NOTE | 2020-11-02 15:11 | IPNPDOC ---
Text Note Date of Service The patient was seen on 11/02/20. NOTE SUBJECTIVE: Feels better this morning. sitting up in a chair. Colostomy in place with god output. No fever or chills, no abdominal pain today except for inthe surgical site. Complains of itching in the back seems to be from dry skin. PHYSICAL EXAMINATION: VITAL SIGNS: Please see below. GENERAL APPEARANCE: no distress no conversational dyspnea, sitting up in chair alert, oriented x 3. HEENT: Moist mucous membranes and anicteric eyes. NECK: no cervical lad or stridor no jvd no thyromegaly RESPIRATORY: diminished all over, no added sounds. CARDIOVASCULAR: S1S2 RRR, No rub or murmur or gallop ABDOMEN: +bs soft slightly tender. Mid abdominal surgical scar with agustin. bert drains w minimal bloody drainage. Colostomy in place. EXTREMITIES: no cyanosis or clubbing. Chronic venous stasis changes with lymphedema. LABORATORY DATA: Please see below. ASSESSMENT/PLAN: 70 y/o F w pmh significant for CKD3, HTN, DM2, GERD, Morbid obesity bmi 52.6, chronic anemia, venous insufficiency w varicosities, chronic venous stasis, diverticulosis, vit d def, meniere's disease, OA, secondary hyperparathyroidism, thyroid nodules admitted by General Surgery for perforated diverticulitis on 10/27/20 s/p one dose of ertapenem, on iv cipro and flagyl s/p exploratory laparotomy, colon resection, and colostomy, was on product advisor pump for pain control. Hospital Course has been complicated by GHISLAINE on CKD , Toxic metabolic encephalopathy due to opiod PERSONNEL CLERK and acute on chronic anemia requiring PRBC transfusion. Perforated diverticulitis POD#6 s/p exploratory laparotomy, colon resection, colostomy w 2 BERT drains with minimal output overnight. on IV cipro and IV flagyl day #6 tolerating diet on entereg GHISLAINE on CKD3 due to perforated diverticulitis with third spacing and decrease in int ravascular volume did not receive any contrast Improved with IVF. Now stopped fluids. strict i/o, daily weights renal us negative Torsemide on hold. Acute toxic- metabolic encephalopathy Opioid-induced encephalopathy due to PERSONNEL CLERK pump. minimized pain meds Now resolved. Acute blood loss anemia on anemia of chronic disease baseline anemia of chronic disease transfused 2 units rbc bloody drainage through bert drains DM2 sliding scale insulin tolerating diet HTN BP rising. on amlodipine will restart propranolol. Hypothyroidism synthroid. Dyslipidemia chronic Morbid obesity complicating care DAJUAN protocol Hyperuricemia on allopurinol VS,Fishbone, I+O VS, Fishbone, I+O Laboratory Tests 11/02/20 06:59 Vital Signs Date Time Temp Pulse Resp B/P (MAP) Pulse Ox O2 Delivery O2 Flow Rate FiO2 11/02/20 14:00 97.2 97 20 153/69 (97) 96 Room Air 10/30/20 04:00 2.0 I&O- Last 24 Hours up to 6 AM 11/02/20 06:00 Intake Total 1610 ml Output Total 1765 ml Balance -155 ml STEPHANY JOSHI MD Nov 02, 2020 15:11
[2020-11-02 18:00] VITALS: BP 154/71
--- NOTE | 2020-11-02 19:45 | IPN ---
PROGRESS NOTE DATE: 11/02/2020 Mrs. Lira is seen this morning on her bedside. She is feeling about the same and reports tolerating her oral diet. She denies any dyspnea or chest pain. Her colostomy is still functioning only minimally with some dark-colored fluid coming out. PHYSICAL EXAMINATION: Temperature 97 degrees Fahrenheit, heart rate 84 per minute, respiratory rate 20 per minute, blood pressure 140/64 mmHg, and oxygen saturation 94% on room air. Head is atraumatic. Neck supple and without jugular venous distention (JVD) or thyroid enlargement. Heart sounds are regular and lungs with slightly diminished breath sounds. Abdomen obese, and colostomy has dark-colored fluid in the bag. Chay-Cotton (CARYN) drains are intact, and dressings are also intact. Extremities have no cyanosis or clubbing. Intake and output records show a slight negative fluid balance of only 65 mL over last 24 hours. Today's labs show WBC count 9.8, hemoglobin 8.0, and hematocrit 25.1. Sodium 141, potassium 4.2, CO2 of 22, BUN 27, and creatinine 1.47. PROBLEMS: 1. Acute kidney injury. Kidney function is gradually improving, and electrolytes are stable. Her intravenous (IV) fluid has been stopped, and she is still receiving IV antibiotics. Her oral intake seems to be improving. 2. Anemia. Her anemia is gradually worsened, and she is likely to require further transfusion. I will defer to surgery and hospitalist service. 3. Diverticulitis, status post colon resection and colostomy. She remains on antibiotics and seems to be making progress. All in all, from a renal standpoint patient is improving nicely, and kidney function is likely to return back to her baseline.
[2020-11-02] MEDS: PROPRANOLOL 20 MG TAB PO SCH (21:12)
[2020-11-02 22:00] VITALS: BP 158/79
[2020-11-03 02:00] VITALS: BP 133/68
[2020-11-03] MEDS: metroNIDAZOLE 500 MG in IV 1 EA IV SCH ×2 (02:50→09:21)
[2020-11-03] MEDS: LEVOTHYROXINE 25MCG TABLET (0.025MG) PO SCH (05:56)
[2020-11-03 06:00] VITALS: BP 139/68
[2020-11-03] MEDS: IPRATROPIUM 0.5MG/ALBUTEROL 2.5MG INH SOL UD 3ML (DUONEB) NEB SCH ×3 (08:02→20:21)
[2020-11-03 08:04] LABS: HEMATOCRIT 29.3 % (36.0-47.0); HEMOGLOBIN 9.5 g/dl (12.0-15.5); MEAN CORPUSCULAR HEMOGLOBIN 28.9 pg (27.0-33.0); MEAN CORPUSCULAR HGB CONC 32.4 g/dl (32.0-36.5); MEAN CORPUSCULAR VOLUME 89.1 fl (80.0-96.0); PLATELET COUNT, AUTOMATED 317 10^3/uL (150-450); RED BLOOD COUNT 3.29 10^6/uL (4.00-5.40); WHITE BLOOD COUNT 14.3 10^3/uL (4.0-10.0)
[2020-11-03 08:25] LABS: CALCIUM LEVEL 8.1 MG/DL (8.8-10.2); CREATININE FOR GFR 1.47 MG/DL (0.55-1.30); GLOMERULAR FILTRATION RATE 37.6 (>45); POTASSIUM SERUM 4.3 MEQ/L (3.5-5.1)
[2020-11-03] MEDS: PANTOPRAZOLE 40MG TAB (PROTONIX) PO SCH (09:18)
[2020-11-03] MEDS: allopurinoL 100 MG TAB PO SCH (09:18)
[2020-11-03] MEDS: ALVIMOPAN 12 MG CAPSULE (ENTEREG) PO SCH (09:18)
[2020-11-03] MEDS: ACETAMINOPHEN TAB 650MG DOSE (2X325MG) PO PRN (09:19)
[2020-11-03] MEDS: HumaLOG INSULIN (NovoLOG) PER UNIT SC SCH ×4 (09:19→20:54)
[2020-11-03] MEDS: PROPRANOLOL 20 MG TAB PO SCH ×2 (09:21→20:53)
[2020-11-03] MEDS: amLODIPine 5 MG TAB PO SCH ×2 (09:21→20:54)
[2020-11-03 10:00] VITALS: BP 130/64
--- NOTE | 2020-11-03 12:45 | IPNPDOC ---
Subjective Date Seen The patient was seen on 11/03/20. Subjective Chief Complaint/HPI Pt states that she is doing well and tolerating oral intake well. Pt and nursing staff deny any overnight events. General: Denies: ROS Unobtainable, Chills, Night Sweats, Fatigue, Malaise, Normal Appetite, Other Symptoms Constitutional: Denies: Chills, Fever, Malaise, Night Sweats, Weakness, Fatigue, Weight Loss, Lethargy, Other Pulmonary: Denies: Dyspnea, Cough, Pleuritic Chest Pain, Other Symptoms Objective Physical Examination General Exam: Positive: Alert, Cooperative, No Acute Distress Neck Exam: Negative: JVD Chest Exam: Positive: Clear to auscultation, Normal air movement Heart Exam: Positive: Rate Normal, Regular Rhythm, Normal S1, Normal S2; Negative: Gallops, Murmurs, Rubs Abdomen Exam: Positive: Normal bowel sounds Extremity Exam: Positive: Edema (lower extremities with venous stasis hyperpigmentation); Negative: Clubbing, Cyanosis Assessment /Plan Assessment # Acute kidney injury: BUN has decreased, Creatinine has remained stable. Kidney function is gradually improving, and electrolytes are stable. Pt's IV fluids and antibiotics have been stopped. Pt's oral intake is also improving. Likely, nephrology service may sign off on this patient soon. # Anemia: Her anemia improved from yesterday. Defer to surgery and hospitalist service for intervention. # Diverticulitis, status post colon resection and colostomy: improved after antibiotic tx. Plan/VTE VTE Prophylaxis Ordered?: No GME ATTESTATION My faculty preceptor for this patient encounter was physically present during the encounter and was fully available. All aspects of the patient interview, examination, medical decision making process, and medical care plan development were reviewed and approved by the faculty preceptor. The faculty preceptor is aware and concurs with the plan as stated in the body of this note and will attest to such by his/her cosignature. VS, I&O, 24H, Fishbone Vital Signs/I&O Vital Signs Date Time Temp Pulse Resp B/P (MAP) Pulse Ox O2 Delivery O2 Flow Rate FiO2 11/03/20 10:00 98.4 83 19 130/64 (86) 96 Room Air 10/30/20 04:00 2.0 I&O- Last 24 Hours up to 6 AM 11/03/20 06:00 Intake Total 1120 ml Output Total 1365 ml Balance -245 ml Laboratory Data 24H LABS Laboratory Tests 2 11/02/20 16:24: Bedside Glucose (Misc Panel) 201H 11/02/20 20:10: Bedside Glucose (Misc Panel) 187H 11/03/20 07:38: Nucleated Red Blood Cells % (auto) 0.1H, Anion Gap 13, Glomerular Filtration Rate 37.6L, Calcium Level 8.1L 11/03/20 11:16: Bedside Glucose (Misc Panel) 237H CBC/BMP Laboratory Tests 11/03/20 07:38 Microbiology Microbiology 10/27/20 Urine Culture - Final, Complete Jeff Mathews DO Nov 03, 2020 12:45
--- NOTE | 2020-11-03 13:42 | IPNPDOC ---
Text Note Date of Service The patient was seen on 11/03/20. NOTE SUBJECTIVE: Feels better this morning. sitting up in a chair. Colostomy in place with god output. No fever or chills, no abdominal pain today except for in the surgical site. Does say that she is very weak and minimal movements like moving up the bed makes her feel SOB. No hypoxia noted. Will restart lasix. PHYSICAL EXAMINATION: VITAL SIGNS: Please see below. GENERAL APPEARANCE: no distress no conversational dyspnea, sitting up in chair alert, oriented x 3. HEENT: Moist mucous membranes and anicteric eyes. NECK: no cervical lad or stridor no jvd no thyromegaly RESPIRATORY: diminished all over, no added sounds. CARDIOVASCULAR: S1S2 RRR, No rub or murmur or gallop ABDOMEN: +bs soft slightly tender. Mid abdominal surgical scar with agustin. bert drains w minimal bloody drainage. Colostomy in place. EXTREMITIES: no cyanosis or clubbing. Chronic venous stasis changes with lymphedema. LABORATORY DATA: Please see below. ASSESSMENT/PLAN: 70 y/o F w pmh significant for CKD3, HTN, DM2, GERD, Morbid obesity bmi 52.6, chronic anemia, venous insufficiency w varicosities, chronic venous stasis, diverticulosis, vit d def, meniere's disease, OA, secondary hyperparathyroidism, thyroid nodules admitted by General Surgery for perforated diverticulitis on 10/27/20 s/p one dose of ertapenem, on iv cipro and flagyl s/p exploratory laparotomy, colon resection, and colostomy, was on ship mate pump for pain control. 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 Perforated diverticulitis s/p exploratory laparotomy, colon resection, colostomy. Finished 7 days of antibiotics tolerating diet Mild Leukocytosis WBC up to 14K today from normal Just finished antibiotics. will watch. GHISLAINE on CKD3 due to perforated diverticulitis with third spacing and decrease in intravascular volume did not receive any contrast Improved with IVF. Now stopped fluids. strict i/o, daily weights renal us negative Torsemide on hold. Acute toxic- metabolic encephalopathy Opioid-induced encephalopathy due to PROCESS OPERATOR pump. minimized pain meds Now resolved. Acute blood loss anemia on anemia of chronic disease baseline anemia of chronic disease transfused 2 units rbc DM2 sliding scale insulin tolerating diet HTN BP rising. on amlodipine will restart propranolol. Hypothyroidism synthroid. Dyslipidemia chronic Morbid obesity complicating care DAJUAN protocol Hyperuricemia on allopurinol VS,Fishbone, I+O VS, Fishbone, I+O Laboratory Tests 11/03/20 07:38 Vital Signs Date Time Temp Pulse Resp B/P (MAP) Pulse Ox O2 Delivery O2 Flow Rate FiO2 11/03/20 10:00 98.4 83 19 130/64 (86) 96 Room Air 10/30/20 04:00 2.0 I&O- Last 24 Hours up to 6 AM 11/03/20 05:59 Intake Total 1120 ml Output Total 1365 ml Balance -245 ml STEPHANY JOSHI MD Nov 03, 2020 13:40
[2020-11-03 14:00] VITALS: BP 138/65
[2020-11-03 18:00] VITALS: BP 134/67
[2020-11-03 22:00] VITALS: BP 129/69
[2020-11-04 02:00] VITALS: BP 132/68
[2020-11-04] MEDS: IPRATROPIUM 0.5MG/ALBUTEROL 2.5MG INH SOL UD 3ML (DUONEB) NEB SCH ×4 (02:00→20:11)
[2020-11-04] MEDS: LEVOTHYROXINE 25MCG TABLET (0.025MG) PO SCH (05:40)
[2020-11-04 06:00] VITALS: BP 139/68
[2020-11-04] MEDS: PANTOPRAZOLE 40MG TAB (PROTONIX) PO SCH (08:10)
[2020-11-04] MEDS: allopurinoL 100 MG TAB PO SCH (08:10)
[2020-11-04] MEDS: HumaLOG INSULIN (NovoLOG) PER UNIT SC SCH ×4 (08:10→21:00)
[2020-11-04] MEDS: PROPRANOLOL 20 MG TAB PO SCH ×2 (08:11→22:13)
[2020-11-04] MEDS: amLODIPine 5 MG TAB PO SCH ×2 (08:12→22:14)
[2020-11-04 08:50] LABS: BASO # 0.1 10^3/uL (0.0-0.2); BASO % 0.7 % (0.0-1.0); EOS # 0.8 10^3/uL (0.0-0.5); EOS % 6.1 % (0.0-3.0); HEMATOCRIT 29.7 % (36.0-47.0); HEMOGLOBIN 9.4 g/dl (12.0-15.5); LYMPH # 1.2 10^3/uL (1.5-5.0); LYMPH % 9.8 % (24.0-44.0); MEAN CORPUSCULAR HEMOGLOBIN 28.2 pg (27.0-33.0); MEAN CORPUSCULAR HGB CONC 31.6 g/dl (32.0-36.5); MEAN CORPUSCULAR VOLUME 89.2 fl (80.0-96.0); MONO # 0.9 10^3/uL (0.0-0.8); MONO % 7.5 % (0.0-5.0); NEUTROPHILS # 9.2 10^3/uL (1.5-8.5); NEUTROPHILS % 73.7 % (36.0-66.0); PLATELET COUNT, AUTOMATED 329 10^3/uL (150-450); RED BLOOD COUNT 3.33 10^6/uL (4.00-5.40); WHITE BLOOD COUNT 12.5 10^3/uL (4.0-10.0)
[2020-11-04 09:13] LABS: CALCIUM LEVEL 8.4 MG/DL (8.8-10.2); CREATININE FOR GFR 1.35 MG/DL (0.55-1.30); GLOMERULAR FILTRATION RATE 41.5 (>45); POTASSIUM SERUM 4.6 MEQ/L (3.5-5.1)
[2020-11-04 10:00] VITALS: BP 159/76
[2020-11-04] MEDS ORDERED: TORSEMIDE 20 MG TAB PO ONE (10:00)
[2020-11-04 13:09] VITALS: BP 153/74
--- NOTE | 2020-11-04 13:11 | IPNPDOC ---
Subjective Date Seen The patient was seen on 11/04/20. Subjective Chief Complaint/HPI Pt states that she is doing well. Her oral intake is improving. Pt and nursing staff deny any overnight events. General: Denies: ROS Unobtainable, Chills, Night Sweats, Fatigue, Malaise, Normal Appetite, Other Symptoms Constitutional: Denies: Chills, Fever, Malaise, Night Sweats, Weakness, Fatigue, Weight Loss, Lethargy, Other Pulmonary: Denies: Dyspnea, Cough, Pleuritic Chest Pain, Other Symptoms Objective Physical Examination General Exam: Positive: Alert, Cooperative, No Acute Distress Neck Exam: Negative: JVD Chest Exam: Positive: Normal air movement, Other (inspiratory crackles present) Heart Exam: Positive: Rate Normal, Regular Rhythm, Normal S1, Normal S2; Negative: Gallops, Murmurs, Rubs Abdomen Exam: Positive: Normal bowel sounds Extremity Exam: Positive: Edema (2+ pitting edema bilateral extremities.); Negative: Clubbing, Cyanosis Psych Exam: Positive: Mental status NL, Mood NL Assessment /Plan Assessment # Acute kidney injury: BUN has decreased, Creatinine has remained stable. Kidney function is gradually improving, and electrolytes are stable. Edema of LE has increased. Torsemide 20mg daily has been started. Pt's IV fluids and antibiotics have been stopped. Pt's oral intake is also improving. # Anemia: Defer to surgery and hospitalist service for intervention. # Diverticulitis, status post colon resection and colostomy: improved after antibiotic tx. Plan/VTE VTE Prophylaxis Ordered?: No GME ATTESTATION My faculty preceptor for this patient encounter was physically present during the encounter and was fully available. All aspects of the patient interview, examination, medical decision making process, and medical care plan development were reviewed and approved by the faculty preceptor. The faculty preceptor is aware and concurs with the plan as stated in the body of this note and will attest to such by his/her cosignature. VS, I&O, 24H, Fishbone Vital Signs/I&O Vital Signs Date Time Temp Pulse Resp B/P (MAP) Pulse Ox O2 Delivery O2 Flow Rate FiO2 11/04/20 10:00 98.0 83 15 159/76 (103) 96 Room Air 10/30/20 04:00 2.0 I&O- Last 24 Hours up to 6 AM 11/04/20 06:00 Intake Total 1170 ml Output Total 1115 ml Balance 55 ml Laboratory Data 24H LABS Laboratory Tests 2 11/03/20 16:34: Bedside Glucose (Misc Panel) 181H 11/03/20 20:45: Bedside Glucose (Misc Panel) 202H 11/04/20 08:15: Immature Granulocyte % (Auto) 2.2, Neutrophils (%) (Auto) 73.7H, Lymphocytes (%) (Auto) 9.8L, Monocytes (%) (Auto) 7.5H, Eosinophils (%) (Auto) 6.1H, Basophils (%) (Auto) 0.7, Neutrophils # (Auto) 9.2H, Lymphocytes # (Auto) 1.2L, Monocytes # (Auto) 0.9H, Eosinophils # (Auto) 0.8H, Basophils # (Auto) 0.1, Nucleated Red Blood Cells % (auto) 0.0, Anion Gap 12, Glomerular Filtration Rate 41.5L, Calcium Level 8.4L 11/04/20 11:59: Bedside Glucose (Misc Panel) 283H CBC/BMP Laboratory Tests 11/04/20 08:15 Microbiology Microbiology 10/27/20 Urine Culture - Final, Complete Jeff Mathews DO Nov 04, 2020 13:11
--- NOTE | 2020-11-04 16:19 | IPNPDOC ---
Text Note Date of Service The patient was seen on 11/04/20. NOTE SUBJECTIVE: Feels alright this morning. Sitting up in a chair. Had 1 BERT drain removed today. Colostomy in place with god output. No fever or chills, no abdominal pain today except for in the surgical site after the BERT drain was removed. Does say that she is very weak and minimal movements like moving up the bed makes her feel SOB. No hypoxia noted. Has been walking back and forth to the bathroom. PHYSICAL EXAMINATION: VITAL SIGNS: Please see below. GENERAL APPEARANCE: no distress no conversational dyspnea, sitting up in chair alert, oriented x 3. HEENT: Moist mucous membranes and anicteric eyes. NECK: no cervical lad or stridor no jvd no thyromegaly RESPIRATORY: diminished all over, no added sounds. CARDIOVASCULAR: S1S2 RRR, No rub or murmur or gallop ABDOMEN: +bs soft slightly tender. Mid abdominal surgical scar with agustin. bert drains w minimal bloody drainage. Colostomy in place. EXTREMITIES: no cyanosis or clubbing. Chronic venous stasis changes with lymphedema. LABORATORY DATA: Please see below. ASSESSMENT/PLAN: 70 y/o F w pmh significant for CKD3, HTN, DM2, GERD, Morbid obesity bmi 52.6, chronic anemia, venous insufficiency w varicosities, chronic venous stasis, diverticulosis, vit d def, meniere's disease, OA, secondary hyperparathyroidism, thyroid nodules admitted by General Surgery for perforated diverticulitis on 10/27/20 s/p one dose of ertapenem, on iv cipro and flagyl s/p exploratory laparotomy, colon resection, and colostomy, was on forest pathologist pump for pain control. Hospital Course has been complicated by GHISLAINE on CKD , Toxic metabolic encephalopathy due to opiod DEICER TESTER and acute on chronic anemia requiring PRBC transfusion. Perforated diverticulitis s/p exploratory laparotomy, colon resection, colostomy. Finished 7 days of antibiotics tolerating diet Mild Leukocytosis WBC up to 12K today better than yesterday. Just finished antibiotics. will watch. GHISLAINE on CKD3 due to perforated diverticulitis with third spacing and decrease in intravascular volume did not receive any contrast Improved with IVF. Now stopped fluids. strict i/o, daily weights renal us negative Torsemide restarted at lower dose. Acute toxic- metabolic encephalopathy Opioid-induced encephalopathy due to DEICER TESTER pump. minimized pain meds Now resolved. Acute blood loss anemia on anemia of chronic disease baseline anemia of chronic disease transfused 2 units rbc DM2 sliding scale insulin tolerating diet HTN BP rising. on amlodipine and propranolol and torsemide. Hypothyroidism synthroid. Dyslipidemia chronic Morbid obesity complicating care DAJUAN protocol Hyperuricemia on allopurinol VS,Fishbone, I+O VS, Fishbone, I+O Laboratory Tests 11/04/20 08:15 Vital Signs Date Time Temp Pulse Resp B/P (MAP) Pulse Ox O2 Delivery O2 Flow Rate FiO2 11/04/20 13:09 97.5 76 18 153/74 (100) 97 11/04/20 10:00 Room Air 10/30/20 04:00 2.0 I&O- Last 24 Hours up to 6 AM 11/04/20 07:00 Intake Total 1170 ml Output Total 1145 ml Balance 25 ml STEPHANY JOSHI MD Nov 04, 2020 16:19
[2020-11-04 17:31] VITALS: BP 153/73
[2020-11-04 22:00] VITALS: BP 149/77
[2020-11-05 02:00] VITALS: BP 150/70
[2020-11-05] MEDS: IPRATROPIUM 0.5MG/ALBUTEROL 2.5MG INH SOL UD 3ML (DUONEB) NEB SCH ×4 (02:00→20:29)
[2020-11-05] MEDS: LEVOTHYROXINE 25MCG TABLET (0.025MG) PO SCH (05:31)
[2020-11-05 05:49] LABS: HEMATOCRIT 27.2 % (36.0-47.0); HEMOGLOBIN 8.6 g/dl (12.0-15.5); MEAN CORPUSCULAR HEMOGLOBIN 27.8 pg (27.0-33.0); MEAN CORPUSCULAR HGB CONC 31.6 g/dl (32.0-36.5); PLATELET COUNT, AUTOMATED 322 10^3/uL (150-450); RED BLOOD COUNT 3.09 10^6/uL (4.00-5.40); WHITE BLOOD COUNT 12.8 10^3/uL (4.0-10.0)
[2020-11-05 06:00] VITALS: BP 147/77
[2020-11-05 06:12] LABS: CALCIUM LEVEL 7.9 MG/DL (8.8-10.2); CREATININE FOR GFR 1.46 MG/DL (0.55-1.30); GLOMERULAR FILTRATION RATE 37.9 (>45); POTASSIUM SERUM 4.2 MEQ/L (3.5-5.1)
[2020-11-05 06:20] LABS: BASOPHILS 1 % (0-1); EOSINOPHILS 4 % (0-3); LYMPHOCYTES 15 % (16-44); MONOCYTES 5 % (0-5); NEUTROPHILS 75 % (28-66); PLATELET ESTIMATE NORMAL (NORMAL)
[2020-11-05] MEDS: LEVEMIR (INSULIN DETEMIR) 1 UNITS/0.01ML SC SCH (08:51)
[2020-11-05] MEDS: PANTOPRAZOLE 40MG TAB (PROTONIX) PO SCH (08:52)
[2020-11-05] MEDS: HumaLOG INSULIN (NovoLOG) PER UNIT SC SCH ×4 (08:52→21:00)
[2020-11-05] MEDS: allopurinoL 100 MG TAB PO SCH (08:52)
[2020-11-05] MEDS: TORSEMIDE 20 MG TAB PO SCH (08:52)
[2020-11-05] MEDS: amLODIPine 5 MG TAB PO SCH ×2 (08:53→21:17)
[2020-11-05] MEDS: PROPRANOLOL 20 MG TAB PO SCH ×2 (08:53→21:16)
[2020-11-05 10:00] VITALS: BP 141/63
--- NOTE | 2020-11-05 11:54 | IPN ---
PROGRESS NOTE DATE: 11/05/2020 SUBJECTIVE: Mrs. Panchal has been doing well from a renal standpoint. She is tolerating her oral diet and her colostomy is functioning. She has been afebrile and hemodynamically stable. She did have some leg edema and volume overload. We started a diuretic yesterday and she is diuresing very well. PHYSICAL EXAMINATION: VITAL SIGNS: Temperature 97.4 degrees Fahrenheit, heart rate is 80 per minute, respiratory rate is 18 per minute. Blood pressure 141/63 mmHg and oxygen saturation 97%. HEAD AND NECK: Head is atraumatic. Neck is supple without JVD or thyroid enlargement. LUNGS: Clear to auscultation. HEART: Heart sounds are regular. ABDOMEN: Obese and nontender. Colostomy is functioning. EXTREMITIES: Without cyanosis or clubbing. Lower extremity edema is present along with some chronic stasis dermatitis. LABORATORY DATA: Today's labs shows a BUN 27 and creatinine 1.46. Electrolytes are all stable. Hemoglobin is 8.6 and hematocrit is 27.2. PROBLEMS: 1. Acute on chronic kidney disease. Kidney function has been stable with only mild fluctuations. No changes are being made today. 2. Hypervolemia/leg edema. She is diuresing nicely and current dose of diuretic is appropriate as she does not need too aggressive of a diuretic. She will continue with torsemide 20 mg daily. 3. Anemia. Her anemia is stable and likely to improve over a period of time. 4. Hypertension. Blood pressure has been well-controlled and no changes are being made today. 5. Disposition. Patient will be followed up in our clinic after discharge. She is doing well from a renal standpoint. I am signing off her case. Please do not hesitate to call the Nephrology Service back if she needs any further assistance.
[2020-11-05 14:00] VITALS: BP 139/63
[2020-11-05 18:00] VITALS: BP 144/66
[2020-11-05] MEDS: ACETAMINOPHEN TAB 650MG DOSE (2X325MG) PO PRN (18:09)
[2020-11-05 22:00] VITALS: BP 146/67
[2020-11-06] MEDS: IPRATROPIUM 0.5MG/ALBUTEROL 2.5MG INH SOL UD 3ML (DUONEB) NEB SCH ×4 (00:59→18:05)
[2020-11-06 02:00] VITALS: BP 142/68
[2020-11-06] MEDS: LEVOTHYROXINE 25MCG TABLET (0.025MG) PO SCH (05:50)
[2020-11-06] MEDS: ACETAMINOPHEN TAB 650MG DOSE (2X325MG) PO PRN ×2 (05:51→21:01)
[2020-11-06 06:00] VITALS: BP 149/67
[2020-11-06 08:16] LABS: BASO # 0.1 10^3/uL (0.0-0.2); BASO % 0.6 % (0.0-1.0); EOS # 0.4 10^3/uL (0.0-0.5); EOS % 3.2 % (0.0-3.0); HEMATOCRIT 26.2 % (36.0-47.0); HEMOGLOBIN 8.3 g/dl (12.0-15.5); LYMPH # 1.9 10^3/uL (1.5-5.0); LYMPH % 16.9 % (24.0-44.0); MEAN CORPUSCULAR HEMOGLOBIN 27.9 pg (27.0-33.0); MEAN CORPUSCULAR HGB CONC 31.7 g/dl (32.0-36.5); MEAN CORPUSCULAR VOLUME 88.2 fl (80.0-96.0); MONO # 0.8 10^3/uL (0.0-0.8); MONO % 7.3 % (0.0-5.0); NEUTROPHILS # 7.9 10^3/uL (1.5-8.5); NEUTROPHILS % 70.7 % (36.0-66.0); PLATELET COUNT, AUTOMATED 347 10^3/uL (150-450); RED BLOOD COUNT 2.97 10^6/uL (4.00-5.40); WHITE BLOOD COUNT 11.1 10^3/uL (4.0-10.0)
[2020-11-06] MEDS: amLODIPine 5 MG TAB PO SCH ×2 (08:24→20:59)
[2020-11-06] MEDS: TORSEMIDE 20 MG TAB PO SCH (08:24)
[2020-11-06] MEDS: PROPRANOLOL 20 MG TAB PO SCH ×2 (08:24→20:59)
[2020-11-06] MEDS: PANTOPRAZOLE 40MG TAB (PROTONIX) PO SCH (08:24)
[2020-11-06] MEDS: allopurinoL 100 MG TAB PO SCH (08:24)
[2020-11-06] MEDS: LEVEMIR (INSULIN DETEMIR) 1 UNITS/0.01ML SC SCH (08:25)
[2020-11-06] MEDS: HumaLOG INSULIN (NovoLOG) PER UNIT SC SCH ×4 (08:25→20:19)
[2020-11-06 08:32] LABS: CREATININE FOR GFR 1.28 MG/DL (0.55-1.30); GLOMERULAR FILTRATION RATE 44.1 (>45); POTASSIUM SERUM 4.2 MEQ/L (3.5-5.1)
--- NOTE | 2020-11-06 10:47 | IPN ---
PROGRESS NOTE DATE: 11/03/2020 SUBJECTIVE: Patient overall is doing well. She really has not had any new issues at this time from a surgical standpoint. Did have a bump in her white count today of undetermined etiology. Her creatinine has been nicely and slowly coming down. She has not had any fevers and overall, her drains have continued to drain, but they are slowly trending down over time here. She has had no nausea, no vomiting. Her incision has been healing nicely without erythema, drainage or discharge. Her ostomy is functioning well and the Chay-Cotton (CARYN) drainage is really serosanguineous, does not appear purulent, and no other significant abnormality associated with this. IMPRESSION/PLAN: Patient has some continued improvement of her surgical postoperative status. At this point, I would recommend continuing to increase activity, increase oral intake, encourage ostomy teaching. Unfortunately, her morbid obesity does make it much more difficulty to do the teaching as well as mobilize her to get up and move around as well, but she is making definite progress on a daily basis. Her Chay-Cotton drain is still draining a fair bit and I feel it is from her generalized anasarca/edema that is ongoing and, as that seems to continue to improve, the drainage will continue to decrease and I anticipate over the next 24-48 hours, we will start taking out drains. We will see what her white count does tomorrow and as long as it does not continue to trend up, then we will hold off on proceeding with a follow up CAT scan again.
--- NOTE | 2020-11-06 11:03 | IPN ---
PROGRESS NOTE DATE: 11/04/2020 SUBJECTIVE: Patient continues to be doing well with being afebrile. Intake and output (I and O) why she is continuing to make good urine output. Her creatinine is slowly trending down and nephrology and medicine are happy with her progress overall. Her Chay-Cotton drains have continued to drop down nicely. Her weight has continued to drop down as well. PHYSICAL EXAMINATION: Her incision is clean and dry. No erythema, drainage or discharge is associated with the incisions. Her Chay-Cotton drains are serosanguineous and a little bit more serous than they were previously. Otherwise, no surgical issues at this time. IMPRESSION/PLAN: Patient seems to be stable and will continue with supportive care at this time from a surgical standpoint. Encourage ostomy teaching. I anticipate that she should be ready for discharge to rehabilitation or acute rehabilitation in the next 24-48 hours. Otherwise, she may need subacute rehabilitation if she is not able to tolerate the activity load that is necessary. We will see how she is doing over the next 24 hours and adjust our expectations.
--- NOTE | 2020-11-06 11:20 | IPN ---
PROGRESS NOTE DATE: 11/05/2020 SUBJECTIVE: Patient seems to be making some good progress. We are waiting at this time to see if acute rehabilitation will be able to accept her in. I think it is an insurance issue at this time, whether she will be accepted into this or not. From my standpoint, she would benefit from some rehabilitation prior to being discharged to home. In any case, her white count has stayed about the same, but she has still been afebrile. Her Chay-Cotton drains have been slowly decreasing and I will get her drains out. Yesterday, after seeing her, we decided to take out one of her drains and the second one we will remove today, given that it is minimal. Ostomy is still functioning well and incisions are without complications. IMPRESSION/PLAN: Patient seems to be making some good progress. We are waiting for rehabilitation to make their decision. If not, then we will see if we can get her to subacute. I do feel that may be necessary instead of discharge to home with nursing care, but we will have to make that decision over the next few days. We will reassess this on Sunday.
--- NOTE | 2020-11-06 11:20 | IPN ---
PROGRESS NOTE DATE: 11/06/2020 SUBJECTIVE: Patient has both of her drains removed yesterday and overall is doing well from the medical standpoint. However, she has been afebrile. Her white count still is slowly trending down and otherwise, her creatinine is looking better. Her weight overall continues to come down as well, suggesting that we are on the right trajectory. Otherwise, from a surgical standpoint, her abdomen has been healing nicely. She still has agustin in. She still has the ostomy functioning well. IMPRESSION/PLAN: Patient is at this point awaiting rehabilitation placement. We will see how she does over the weekend and, if she does not have rehabilitation placement on Sunday, we will change her to alternate level of care ([facility]).
[2020-11-06] MEDS: DIMETHICONE 2% OINTMENT(VANICREAM) 70GM TUBE TOP SCH ×2 (13:40→20:59)
[2020-11-06 14:00] VITALS: BP 132/66
[2020-11-06] MEDS: ONDANSETRON 4 MG ORAL DISINTEGRATING TAB SL PRN (20:58)
[2020-11-06 22:00] VITALS: BP 159/71
[2020-11-07] MEDS: IPRATROPIUM 0.5MG/ALBUTEROL 2.5MG INH SOL UD 3ML (DUONEB) NEB SCH ×4 (01:22→18:26)
[2020-11-07] MEDS: LEVOTHYROXINE 25MCG TABLET (0.025MG) PO SCH (05:37)
[2020-11-07 05:44] VITALS: BP 130/66
[2020-11-07 07:41] LABS: BASO # 0.1 10^3/uL (0.0-0.2); BASO % 0.6 % (0.0-1.0); EOS # 0.3 10^3/uL (0.0-0.5); EOS % 2.8 % (0.0-3.0); HEMATOCRIT 25.1 % (36.0-47.0); HEMOGLOBIN 8.1 g/dl (12.0-15.5); LYMPH # 1.6 10^3/uL (1.5-5.0); LYMPH % 13.8 % (24.0-44.0); MEAN CORPUSCULAR HEMOGLOBIN 28.6 pg (27.0-33.0); MEAN CORPUSCULAR HGB CONC 32.3 g/dl (32.0-36.5); MEAN CORPUSCULAR VOLUME 88.7 fl (80.0-96.0); MONO % 8.2 % (0.0-5.0); NEUTROPHILS # 8.6 10^3/uL (1.5-8.5); NEUTROPHILS % 73.7 % (36.0-66.0); PLATELET COUNT, AUTOMATED 374 10^3/uL (150-450); RED BLOOD COUNT 2.83 10^6/uL (4.00-5.40); WHITE BLOOD COUNT 11.7 10^3/uL (4.0-10.0)
[2020-11-07 08:07] LABS: CREATININE FOR GFR 1.31 MG/DL (0.55-1.30); POTASSIUM SERUM 4.2 MEQ/L (3.5-5.1)
[2020-11-07] MEDS: PANTOPRAZOLE 40MG TAB (PROTONIX) PO SCH (08:42)
[2020-11-07] MEDS: HumaLOG INSULIN (NovoLOG) PER UNIT SC SCH ×4 (08:42→20:49)
[2020-11-07] MEDS: allopurinoL 100 MG TAB PO SCH (08:42)
[2020-11-07] MEDS: LEVEMIR (INSULIN DETEMIR) 1 UNITS/0.01ML SC SCH (08:42)
[2020-11-07] MEDS: TORSEMIDE 20 MG TAB PO SCH (08:42)
[2020-11-07] MEDS: amLODIPine 5 MG TAB PO SCH ×2 (08:43→21:33)
[2020-11-07] MEDS: PROPRANOLOL 20 MG TAB PO SCH ×2 (08:43→21:33)
[2020-11-07] MEDS: DIMETHICONE 2% OINTMENT(VANICREAM) 70GM TUBE TOP SCH ×2 (08:43→21:34)
--- NOTE | 2020-11-07 18:50 | IPN ---
PROGRESS NOTE DATE: 11/07/2020 Patient is status post sigmoid colectomy and colostomy, and seems to be making some good progress. We are waiting for rehab to take her to help her get ready for homecare, but at this point, she seems to be making some slow but progressive improvement with her own ability to take care of her ostomy, but unfortunately she is still very slow to get around the room. Her abdominal pain and incisional pain seems to be slowly improving. At this point, we will continue with encouraging her to make some progress. If she is not accepted to the rehab unit tomorrow, we will change her status to snf care.
[2020-11-07 22:00] VITALS: BP 139/69
[2020-11-08] MEDS: ACETAMINOPHEN TAB 650MG DOSE (2X325MG) PO PRN (00:06)
[2020-11-08] MEDS: LEVOTHYROXINE 25MCG TABLET (0.025MG) PO SCH (05:59)
[2020-11-08 06:00] VITALS: BP 137/68
[2020-11-08 06:41] LABS: BASO # 0.1 10^3/uL (0.0-0.2); EOS # 0.4 10^3/uL (0.0-0.5); EOS % 3.6 % (0.0-3.0); HEMATOCRIT 27.5 % (36.0-47.0); HEMOGLOBIN 8.6 g/dl (12.0-15.5); LYMPH # 1.7 10^3/uL (1.5-5.0); LYMPH % 14.4 % (24.0-44.0); MEAN CORPUSCULAR HEMOGLOBIN 28.3 pg (27.0-33.0); MEAN CORPUSCULAR HGB CONC 31.3 g/dl (32.0-36.5); MEAN CORPUSCULAR VOLUME 90.5 fl (80.0-96.0); MONO # 0.9 10^3/uL (0.0-0.8); MONO % 7.6 % (0.0-5.0); NEUTROPHILS # 8.7 10^3/uL (1.5-8.5); NEUTROPHILS % 72.5 % (36.0-66.0); PLATELET COUNT, AUTOMATED 382 10^3/uL (150-450); RED BLOOD COUNT 3.04 10^6/uL (4.00-5.40); WHITE BLOOD COUNT 12.1 10^3/uL (4.0-10.0)
[2020-11-08 07:00] LABS: CALCIUM LEVEL 8.2 MG/DL (8.8-10.2); CREATININE FOR GFR 1.42 MG/DL (0.55-1.30); GLOMERULAR FILTRATION RATE 39.2 (>45); POTASSIUM SERUM 4.3 MEQ/L (3.5-5.1)
[2020-11-08] MEDS: IPRATROPIUM 0.5MG/ALBUTEROL 2.5MG INH SOL UD 3ML (DUONEB) NEB SCH ×2 (07:26→13:44)
[2020-11-08] MEDS: LEVEMIR (INSULIN DETEMIR) 1 UNITS/0.01ML SC SCH (09:00)
[2020-11-08] MEDS: HumaLOG INSULIN (NovoLOG) PER UNIT SC SCH ×2 (09:14→12:25)
[2020-11-08] MEDS ORDERED: LEVEMIR (INSULIN DETEMIR) 1 UNITS/0.01ML SC ONE (09:15)
[2020-11-08] MEDS: allopurinoL 100 MG TAB PO SCH (09:26)
[2020-11-08] MEDS: PANTOPRAZOLE 40MG TAB (PROTONIX) PO SCH (09:26)
[2020-11-08] MEDS: TORSEMIDE 20 MG TAB PO SCH (09:27)
[2020-11-08] MEDS: DIMETHICONE 2% OINTMENT(VANICREAM) 70GM TUBE TOP SCH (09:27)
[2020-11-08 09:28] VITALS: BP 135/69
[2020-11-08] MEDS: amLODIPine 5 MG TAB PO SCH (09:28)
[2020-11-08] MEDS: PROPRANOLOL 20 MG TAB PO SCH (09:29)
[2020-11-08] MEDS: ONDANSETRON 4 MG ORAL DISINTEGRATING TAB SL PRN (11:25)
[2020-11-08] MEDS ORDERED: AMLO1TAB24 PO (13:52)
[2020-11-08] MEDS ORDERED: PROP20TA PO (13:52)
[2020-11-08] MEDS ORDERED: TORS20TA2 PO (13:52)
[2020-11-08 14:00] VITALS: BP 128/64
--- NOTE | 2020-11-08 15:02 | DS.PDOC ---
Discharge Summary General Date of Admission Oct 27, 2020 at 16:40 Date of Discharge Nov 08 2020 Attending Physician: Julian Olivas Jr Discharge Summary PROCEDURES PERFORMED DURING STAY: Sigmoid colectomy, colostomy ADMITTING DIAGNOSES: Perforated diverticulitis Diabetes mellitus Hypertension Migraine headache Dyslipidemia GERD/esophageal spasm Chronic iron deficiency anemia Venous insufficiency with chronic lymphedema Morbid obesity with BMI 48.9 Diverticulosis Vitamin D deficiency Mnire's disease/positional vertigo Osteoarthritis Hypothyroid Chronic kidney disease stage 3 Chronic Constipation DISCHARGE DIAGNOSES: Perforated diverticulitis/status post sigmoid colectomy and colostomy GHISLAINE on CKD3 Anemia, status post transfusion 2 units Diabetes mellitus Hypertension Migraine headache Dyslipidemia GERD/esophageal spasm Chronic iron deficiency anemia Venous insufficiency with chronic lymphedema Morbid obesity with BMI 48.9 Diverticulosis Vitamin D deficiency Mnire's disease/positional vertigo Osteoarthritis Hypothyroid Chronic Constipation HISTORY OF PRESENT ILLNESS: The patient is a 70-year-old female with prior history of diverticulitis who was admitted 10/27/20 after developing abdominal pain approximately 48-72 hours prior to admission. Over the 24 hours prior to admission it became severe and the patient presented to the emergency room with elevated white blood cell count and evidence of free air with CT scan abdomen/pelvis indicating perforated diverticulitis. The patient was complaining of severe pain with movement, mild nausea without vomiting. No diarrhea, no bowel movements. In the emergency room her abdomen was noted to be tender throughout with significant guarding in the upper abdomen and peritoneal signs throughout the lower abdomen and infraumbilical area. HOSPITAL COURSE: The patient was taken to the operating room as per Dr. Olivas 10/27/20 for perforated diverticulitis with exploratory laparotomy, sigmoid colectomy and colostomy. The patient has been progressing well. She has resumed regular diet. Ostomy has been functioning well. She has been off antibiotics since 11/03/20 and remains afebrile. Pain is controlled with Tylenol only. During her hospitalization she did have acute kidney injury on her baseline chronic kidney disease stage 3. She was evaluated by Dr. Tripp from nephrology. She received IV fluids with improved urine output and subsequently serum creatinine improved and returned to baseline. Her diuretic was adjusted to torsemide 20 mg by mouth daily with recommendation to continue with this dose. Patient's antihypertensive regimen was also adjusted to include Norvasc 5 mg twice a day and propranolol 40 mg twice a day. The patient was also noted to have acute on chronic anemia and received 2 units packed red blood cells during her admission. The patient continued to progress and by 11/08/20 was felt stable for discharge to the Acute rehabilitation unit under the care of Dr. Tate. DISCHARGE MEDICATIONS: Please see below. ALLERGIES: Please see below. PHYSICAL EXAMINATION ON DISCHARGE: VITAL SIGNS: Please see below. GENERAL: No distress, sitting up in chair HEENT: Moist mucous membranes CARDIOVASCULAR EXAMINATION: S1-S2 regular rate and rhythm RESPIRATORY EXAMINATION: Clear to auscultation ABDOMINAL EXAMINATION: Surgical incision appears to be healing well, C/D/I. [place] intact. No surrounding erythema or signs of infection, no drainage. Stoma is pink ostomy is functioning well. NEUROLOGICAL EXAMINATION: Alert and oriented 3 LABORATORY DATA: Please see below. ACTIVITY: As tolerated. DIET: Regular DISCHARGE PLAN: The patient will be transferring to acute rehabilitation unit under the care of Dr. Tate today. DISCHARGE INSTRUCTIONS: 1. Discharge to ARU. 2. Continue to keep surgical incision clean and dry. 3. Outpatient follow-up with Dr. Olivas in 7-10 days. 4. Outpatient follow-up with PCP and nephrology. DISCHARGE CONDITION: Stable. TIME SPENT ON DISCHARGE: Greater than 30 minutes. Vital Signs/I&Os Vital Signs Date Time Temp Pulse Resp B/P (MAP) Pulse Ox O2 Delivery O2 Flow Rate FiO2 11/08/20 09:29 93 11/08/20 09:28 135/69 11/08/20 06:00 97.8 18 94 Room Air I&O- Last 24 Hours up to 6 AM 11/08/20 06:00 Intake Total 920 ml Output Total 1225 ml Balance -305 ml Laboratory Data Labs 24H Laboratory Tests 2 11/07/20 16:26: Bedside Glucose (Misc Panel) 153H 11/07/20 19:45: Bedside Glucose (Misc Panel) 194H 11/08/20 06:19: Immature Granulocyte % (Auto) 0.9, Neutrophils (%) (Auto) 72.5H, Lymphocytes (%) (Auto) 14.4L, Monocytes (%) (Auto) 7.6H, Eosinophils (%) (Auto) 3.6H, Basophils (%) (Auto) 1.0, Neutrophils # (Auto) 8.7H, Lymphocytes # (Auto) 1.7, Monocytes # (Auto) 0.9H, Eosinophils # (Auto) 0.4, Basophils # (Auto) 0.1, Nucleated Red Blood Cells % (auto) 0.0, Anion Gap 10, Glomerular Filtration Rate 39.2L, Calcium Level 8.2L 11/08/20 12:00: Bedside Glucose (Misc Panel) 206H CBC/BMP Laboratory Tests 11/08/20 06:19 FSBS Laboratory Tests Test 11/07/20 16:26 11/07/20 19:45 11/08/20 12:00 Range/Units Bedside Glucose (Misc Panel) 153 194 206 80-115 MG/DL Discharge Medications Scheduled Allopurinol (Allopurinol) 100 Mg Tablet, 100 MG PO DAILY, (Reported) Amlodipine Besylate (Amlodipine Besylate) 5 Mg Tablet, 5 MG PO BID Aspirin (Aspirin EC) 81 Mg Tab, 81 MG PO DAILY, (Reported) Atorvastatin Calcium (Atorvastatin Calcium) 40 Mg Tablet, 40 MG PO QHS, (Reported) Calcitriol (Calcitriol) 0.25 Mcg Capsule, 0.25 MCG PO DAILY, (Reported) Calcium Carbonate (Calcium) 600 Mg Tablet, 600 MG PO QPM, (Reported) Cholecalciferol (Vitamin D3) (Vitamin D3) 1,000 Unit Tablet, 1,000 UNITS PO QPM, (Reported) Docusate Sodium (Colace) 100 Mg Capsule, 100 MG PO QHS, (Reported) Ferrous Sulfate (Ferrous Sulfate) 325 Mg Tablet, 325 MG PO 5XW, (Reported) QPM: MON THRU FRI Gabapentin (Gabapentin) 300 Mg Cap, 300 MG PO TID, (Reported) Insulin Glargine,Hum.rec.anlog (Lantus Solostar) 100 Unit/1 Ml Insuln.pen, 40 UNITS SC QAM, (Reported) Insulin Glargine,Hum.rec.anlog (Lantus Solostar) 100 Unit/1 Ml Insuln.pen, 26 UNITS SC QHS, (Reported) Insulin Human Lispro (Humalog) 100 Unit/1 Ml Vial, 1 DOSE SC AC, (Reported) Levothyroxine Sodium (Levoxyl) 25 Mcg Tablet, 25 MCG PO DAILY, (Reported) Omeprazole (Omeprazole) 20 Mg Cap, 20 MG PO DAILY, (Reported) Propranolol HCl (Propranolol HCl) 20 Mg Tablet, 40 MG PO BID Torsemide (Torsemide) 20 Mg Tablet, 20 MG PO DAILY Allergies Coded Allergies: Contrast Media (Verified Allergy, Intermediate, HIVES, 03/31/08) exenatide (Verified Adverse Reaction, Intermediate, LOSS OF APPETITE / WEIGHT LOSS, 10/27/20) rofecoxib (Verified Adverse Reaction, Intermediate, DECREASED KIDNEY FUNCTION, 10/27/20) codeine (Verified Adverse Reaction, Mild, HEADACHE, 10/27/20) metformin (Verified Adverse Reaction, Mild, DIARRHEA, 10/27/20) naproxen (Verified Adverse Reaction, Unknown, NAUSEA, 10/27/20) Cat Barrios Nov 08, 2020 14:12
== END 2020-11-08 15:14 | DRG 329 ==
LOC: M ED 14:59 → M ED INP 16:40 → M PCU 22:21 → M MSPAV 11-01 15:28
PROVIDERS: ADMIT Surgery; ATTEND Surgery
PROC: 0D1N0Z4 Bypass Sigmoid Colon to Cutaneous, Open Approach (ICD-10-PCS; principal; 2020-10-27 19:00)
PROC: 0DBN0ZZ Excision of Sigmoid Colon, Open Approach (ICD-10-PCS; 2020-10-29)
PROC: 30233N1 Transfusion of Nonautologous Red Blood Cells into Peripheral Vein, Percutaneous Approach (ICD-10-PCS; 2020-10-29)
DX: K57.20 Diverticulitis of large intestine with perforation and abscess without bleeding (principal); G92 Toxic encephalopathy; N25.81 Secondary hyperparathyroidism of renal origin; Z68.42 Body mass index [BMI] 45.0-49.9, adult; D62 Acute posthemorrhagic anemia; N17.9 Acute kidney failure, unspecified; N18.30 Chronic kidney disease, stage 3 unspecified; D50.9 Iron deficiency anemia, unspecified; E55.9 Vitamin D deficiency, unspecified; E66.01 Morbid (severe) obesity due to excess calories; E11.9 Type 2 diabetes mellitus without complications; G43.909 Migraine, unspecified, not intractable, without status migrainosus; M19.90 Unspecified osteoarthritis, unspecified site; E03.9 Hypothyroidism, unspecified; E78.5 Hyperlipidemia, unspecified; K21.9 Gastro-esophageal reflux disease without esophagitis; K59.00 Constipation, unspecified; Z79.899 Other long term (current) drug therapy; Z79.82 Long term (current) use of aspirin; Z79.4 Long term (current) use of insulin; Z91.041 Radiographic dye allergy status; Z88.8 Allergy status to other drugs, medicaments and biological substances; I87.2 Venous insufficiency (chronic) (peripheral); T40.2X5A Adverse effect of other opioids, initial encounter; E87.70 Fluid overload, unspecified

== ENCOUNTER 2020-11-08 11:31 | Inpatient (IN) | payer MEDICARE ==
[~2020-11-08] VITALS: Ht 154.9 cm; Wt 115.1 kg
[~2020-11-08 11:31] MED LIST changes: +ALLO10TA PO; +ATOR40TA75 PO; +CALC1CAP31 PO; +CALC600T60 PO; +COLA100C5 PO; +D31000TA2 PO; +FERR1TAB8 PO; +HYDR10TAB PO; +INSUHUMDS SC; +LANTINJ4 SC; +LEVO25TA34 PO; +PROP60TA18 PO; +TORS20TA2 PO
[2020-11-08] MEDS ORDERED: GLUCOSE 4GM CHEW TABLET PO PRN (12:15)
[2020-11-08] MEDS ORDERED: ONDANSETRON 4 MG ORAL DISINTEGRATING TAB PO PRN (12:15)
[2020-11-08] MEDS ORDERED: GLUCAGON INJ 1MG VIAL SC PRN (12:15)
[2020-11-08] MEDS ORDERED: DEXTROSE 50% 50 ML SYRINGE IV PRN (12:15)
--- NOTE | 2020-11-08 12:31 | HPEPDOC ---
Mold [facility] Note DATE OF ADMISSION: 11-08-20 DATE OF SERVICE: 11-09-20 TIME OF ADMISSION: Please refer to physician's admission order. SOURCE OF ADMISSION INFORMATION: [facility] record and patient CHIEF COMPLAINT: sigmoid colectomy HISTORY OF PRESENT ILLNESS: 70 F pmh diverticulitis, CKD, HTN, migraines, HLD, GERD, iron deficiency anemia, DM, HLD, chronic lymphedema, morbid obesity, Menieres disease, OA, secondary hyperparathyroidism who presented to [facility] ED on 10-27-20 with acute abdominal pain and was found to have leukocytosis and imaging revealing free air with perforated diverticulitis for which she underwent an ex-lap with sigmoid colectomy with colostomy. She developed acute metabolic encephalopathy while using her BUNDLE HELPER pump and had GHISLAINE which nephrology followed closely. She received blood transfusions for acute blood loss anemia and was transitioned off IV antibiotics and had her diet slowly advanced. She was evaluated by therapy, found to have significant weakness in mobility and ADLs and deemed medically appropriate for discharge to ARU on 11-08-20. REVIEW OF SYSTEMS: The following is a completed review of systems and has been reviewed. Review of systems otherwise unremarkable. PAIN: Patient self reports no pain EYES: No recent vision changes EARS, NOSE, & THROAT: No throat pain, or dysphagia, or rhinorrhea CARDIOVASCULAR: Denies chest pain or palpitations PULMONARY: Denies shortness of breath GASTROINTESTINAL: +colostomy GENITOURINARY: denies dysuria MUSCULOSKELETAL: generalized weakness NEUROLOGICAL:denies paresthesias or tremor HEMATOLOGICAL: denies easy bruising SKIN: LLE erythema and swelling PSYCHIATRIC: Unremarkable All other review of systems found to be negative. PAST MEDICAL HISTORY: as per HPI PAST SURGICAL HISTORY: D&C x 2, right hemithyroidectomy, FNA thyroid, laser vaporization vulva and colposcopy, tringer finger and carpal tunnel release x 2 ALLERGIES: Please see below. MEDICATIONS: Please see below. FAMILY HISTORY: Cardiac, stroke, cancer SOCIAL HISTORY: Former smoker, no etoh/illicit drugs DIET: consistent carb PHYSICAL EXAMINATION: VITAL SIGNS: Please see below. GENERAL: Pleasant and cooperative. No acute distress. HEENT: PERRL. Extraocular movements intact. Clear conjunctiva] CARDIOVASCULAR: Regular rate and rhythm. No murmurs, rubs, or gallops LUNGS: Clear to auscultation bilaterally. No wheezes. No rhonchi ABDOMEN: Soft, nontender, nondistended. Positive bowel sounds. +colostomy with brown semi-formed stool NEUROLOGICAL: Alert and oriented times three. Cranial nerves II through XII gr ossly intact. Sensation grossly intact EXTREMITIES: 5\5 strength bilateral upper extremities. 5\5 strength right lower extremity. 5/5 strength in left lower extremity. SKIN: left lower calf erythema/TTP/warm, upper chest and upper back with erythematous papular lesions LABORATORY DATA: Please see below. IMAGING:Imaging documentation personally reviewed by record FUNCTIONAL STATUS: Premorbid: Independent with all activities of daily life as well as mobility On Admission: Min assist to stand-by assist for bed mobility, functional transfers, ambulation, dressing, grooming GOALS: Mod-I for household distances with ambulation, stairs, dressing, toileting ASSESSMENT:70-year-old F with past medical history of CKD3, chronic anei,a diverticulitis who presents status post sigmoid colectomy PLAN: 1. Rehab- PT/OT advance mobility and ADLs, strengthen/stretch/maintain ROM all 4 limbs 2. Neuro- hx of meniere disease, consider vestibular rehab program if needed 3. Cardiac- hx of HTN c/u amlodipine and propranolol, chronic CHF c/u torsemide and daily weights, medicine consulted to assist in overall management 4. Resp- incentive spirometry and Duonebs to prevent atelectasis and PNA in setting of recent abdominal surgery 5. GI- hx diverticulitis s/p perforation and sigmoid colectomy performed 10-27-20 with colostomy, surgery consulted to follow -zofran prn nausea 6. DVT ppx- heparin, admission dopplers negative for DVT 7. Endo- hx of hypothryoidism, c/u synthroid -DM c/u Levemir and ISS 8. Renal- hx of CKD with secondary hyperparathryoidism, c/u toresemide, will ask renal to c/u to follow patient while on aru if kidney function worsens 9. Heme- hx of anemia 10. Pain- tylenol prn 11. Derm- LLE cellulitis, will start kefflex and add bacid, benadryl cream and po prn for trunkal rash 12. Dispo- TBD POST ADMISSION PHYSICIAN EVALUATION: Medical and functional status: Description of medical status, medical assessment: As above. Rehabilitation diagnosis and current and prior cold morbid medical conditions as above. Risk of complications and plans to mitigate them as above. Description of functional status current status is as above. Prior status as above. Status compared to preadmission: There are no clinically significant differences between the patient's current status and the information described on the preadmission screening document. Treatment plan anticipated: Treatment plan is as described above. Required disciplines including physical therapy, occupational therapy, others as noted above Intensity of services: 3 hours a day, 6 days a week. Special considerations: There are no specific special or safety considerations that would likely preclude immediate implementation of an intensive rehabilitation program or subsequently influence the plan of care. ATTESTATION: Considering all the information above, it is my best judgment that this patient requires intensive rehabilitation therapy as described above and an inpatient hospital environment due to the complexity of nursing, medical, and rehabilitation needs required by the patient. Furthermore, this patient can reasonably be expected to participate in an benefit from an inpatient rehabilitation stay with an interdisciplinary team approach to the delivery of rehabilitation care under the direction and supervision of rehabilitation physician. PROGNOSIS: good ESTIMATED LENGTH OF STAY:14-18 days. PROJECTED DISCHARGE DESTINATION: Home with family support and any durable medical equipment required to increase functional safety and mobility TIME SPENT COUNSELING AND COORDINATING INITIAL CARE: Greater than 70 minutes. Vital Signs Vital Signs Date Time Temp Pulse Resp B/P (MAP) Pulse Ox O2 Delivery O2 Flow Rate FiO2 11/08/20 15:25 98.4 87 20 143/82 (102) 96 Room Air Home Medications Scheduled Allopurinol (Allopurinol) 100 Mg Tablet, 100 MG PO DAILY, (Reported) Amlodipine Besylate (Amlodipine Besylate) 5 Mg Tablet, 5 MG PO BID Aspirin (Aspirin EC) 81 Mg Tab, 81 MG PO DAILY, (Reported) Atorvastatin Calcium (Atorvastatin Calcium) 40 Mg Tablet, 40 MG PO QHS, (Reported) Calcitriol (Calcitriol) 0.25 Mcg Capsule, 0.25 MCG PO DAILY, (Reported) Calcium Carbonate (Calcium) 600 Mg Tablet, 600 MG PO QPM, (Reported) Cholecalciferol (Vitamin D3) (Vitamin D3) 1,000 Unit Tablet, 1,000 UNITS PO QPM, (Reported) Docusate Sodium (Colace) 100 Mg Capsule, 100 MG PO QHS, (Reported) Ferrous Sulfate (Ferrous Sulfate) 325 Mg Tablet, 325 MG PO 5XW, (Reported) QPM: MON THRU FRI Gabapentin (Gabapentin) 300 Mg Cap, 300 MG PO TID, (Reported) Insulin Glargine,Hum.rec.anlog (Lantus Solostar) 100 Unit/1 Ml Insuln.pen, 40 UNITS SC QAM, (Reported) Insulin Glargine,Hum.rec.anlog (Lantus Solostar) 100 Unit/1 Ml Insuln.pen, 26 UNITS SC QHS, (Reported) Insulin Human Lispro (Humalog) 100 Unit/1 Ml Vial, 1 DOSE SC AC, (Reported) Levothyroxine Sodium (Levoxyl) 25 Mcg Tablet, 25 MCG PO DAILY, (Reported) Omeprazole (Omeprazole) 20 Mg Cap, 20 MG PO DAILY, (Reported) Propranolol HCl (Propranolol HCl) 20 Mg Tablet, 40 MG PO BID Torsemide (Torsemide) 20 Mg Tablet, 20 MG PO DAILY Allergies Coded Allergies: Contrast Media (Verified Allergy, Intermediate, HIVES, 03/31/08) exenatide (Verified Adverse Reaction, Intermediate, LOSS OF APPETITE / WEIGHT LOSS, 10/27/20) rofecoxib (Verified Adverse Reaction, Intermediate, DECREASED KIDNEY FU NCTION, 10/27/20) codeine (Verified Adverse Reaction, Mild, HEADACHE, 10/27/20) metformin (Verified Adverse Reaction, Mild, DIARRHEA, 10/27/20) naproxen (Verified Adverse Reaction, Unknown, NAUSEA, 10/27/20) A-FIB/CHADSVASC A-FIB History Current/History of A-Fib/PAF?: No NICK OLSON MD Nov 08, 2020 12:31
[2020-11-08] MEDS ORDERED: AMLO1TAB24 PO (13:52)
[2020-11-08] MEDS ORDERED: PROP20TA PO (13:52)
[2020-11-08] MEDS ORDERED: TORS20TA2 PO (13:52)
[2020-11-08 15:25] VITALS: BP 143/82
--- OUTSIDE RECORDS SUMMARY | 2020-11-08 15:26 | CCD ---
Author [facility] Address Unknown Phone Unavailable Care Team Providers Care Audio Specialist Name Role Phone Veena Aguirre Unavailable PROBLEMS Type Condition ICD9-CM Code [id number] Code Onset Dates Condition S tatus SNOMED Code Notes Problem Type 2 diabetes mellitus with diabetic nephropathy E11.21 Active 419198512 Problem Diabetic neuropathy E11.40 Active 282413908 Problem Essential (primary) hypertension I10 Active 06413524 Problem Mixed hyperlipidemia E78.2 Active 249349365 Problem Restless legs syndrome G25.81 Active 57530888 Problem Chronic migraine without aura, not intra ctable, with status migrainosus G43.701 Active 496258324975897 Problem Chronic kidney disease, stage 3 (moderate) N18.3 Active 049548368 Problem Neuropathy of both feet G57.91 Active 16840095 2 Problem Type 2 diabetes mellitus with other diabetic kid zach complication E11.29 Active 804423455 Problem Edema of foot R60.0 Active 905668248 Problem 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 92 Active 479114523 Problem Hypertensive chronic kidney disease with stage 1 through stage 4 chronic kidney disease, or unspecified chronic kidney disease I12.9 Active 06545923 Problem Gastro-esophageal reflux disease without esophagitis K21.9 Active 878779974 Problem BMI 40.0-44.9, adult Z68.41 Active 884672977 Problem Encounter for long-term (current) use of insulin Z 79.4 Active 756752622 Problem Rosacea blepharoconjunctivitis L71.9 Active 3 90225464 Problem History of thyroid nodule Z86.39 Active 084506 003 Problem Thyroid nodule E04.1 Active 386621983 Problem Hypothyroidism, unspecified type E03.9 Active 40012053 ALLERGIES Allergen (clinical drug ingredient) Drug/Non Drug Allergy do cumented on EMR Reaction Allergy Type Onset Date Status Glucophage GI upset Drug Allergy Active contrast dye hives Non Drug Allergy Active Bydureon GI upset Drug Allergy Active Vioxx (for allergy use only) GI upset Drug Allergy Active Codeine Phosphate (For Allergies Use Only) migraine,Gi ups et Drug Allergy Active naproxen Naprosyn([facility] Code:[address]-86) GI upset Drug Allergy Active ENCOUNTERS from 1950 to 2020-10-27 Encounter Location Date Provider Diagnosis [address] [address] Oct, 021 Veena Vernon Hypothyroidism, unspecified type E03.9 IMMUNIZATIONS Vaccine Route Administration Date Status Influenza (Pharmacy Given) Unknown Jul 22, 2019 Admin istered Influenza (Pharmacy Given) Unknown May 22, 2019 Admin istered Influenza (High Dose 65 & up) Unknown Jul 26, 2017 Ot hers Influenza (18 yrs & older) Flublok IM Intramuscular Jul 18, 2018 Administered Influenza (6mo & up) Fluzone IM [...] Education Language: Question Answer Notes Languages spoken: Bangladeshi Baptism: Question Answer Notes Baptism 33 None Sexual Hx: Question Answer Notes [...] Notes Start Da te End Date Status Lancets Misc. - GE lancets to use with GE gl ucometer subcutaneousDx : E11.65 bid for 100 Active Gabapentin 300 300 mg 1 tab(s) orally three times a day for 30 day(s) Active Ferrous Sulfate 325 (65 Fe) MG 1 tablet Orally Sunday through Sunday Active Colchicine 0.6 MG 1 tablet Orally Once a day x7days Active Tylenol 325 MG 1 tablet as needed Orally every 4 hrs Active Calcium 500 mg 1 tablet with meals Orally Once a day 2012 Active Atorvastatin Calcium 40 MG 1 tablet Orally Once a day Active Torsemide 20 MG 1.5tabs Orally daily Active Pen [place] 5/16" 31G X 8 MM E11.29 change pen needle twice daily for use with byetta pen subcutaneously TID for 100 Active Calcitriol 0.25 MCG 1 tab Orally seven days Active Propranolol HCl 60 MG 1 tablet Orally Twice a day for 90 day(s) Active Mupirocin 2 % APPLY A SMALL AMOUNT TO LESI ON ON FACE 3 TIMES DAILY External for 7 Active Levothyroxine Sodium 25 MCG 1 tablet on an empty stoma ch in the morning Orally Once a day for 90 days Active Colace 100 MG 1 capsule as needed Orally Sunday through Sunday ONLY with IRON Active Allopurinol 100 MG 1 tablet Orally Once a day for 30 day(s) Active GE100 Blood Glucose Test - freestyle test strips dx=E1 1.21 three times daily and as needed if BS is low for 34 [address] [facility] Fluticasone Propionate 50 MCG/ACT 1 spray in each nostril Nasally Once a day, prn Mar, Active Humalog Pen 100 UNIT/ML as directed Subcutaneous 4-6 units before each meal; supper with sliding scale for 90 day(s) Active Aspirin Adult Low Dose 81 MG 1 tablet Orally Once a day Active Blood Glucose Meter - as directed _ once daily for 30 day(s) Jun, Active Metronidazole 1 % 1 application to affected ar ea Externally Once a day for 30 day(s) Apr, Active Vitamin D (Cholecalciferol) 400 UNIT 500units Orally Once a day Active Lantus SoloStar 100 UNIT/ML as directed [...] Information RESULTS No Results REASON FOR VISIT thryroid and strips MEDICAL (GENERAL) HISTORY Type Description Date Medical [...] Treatment Notes Treatm ent Clinical Notes Oct, Hypothyroidism, unspecified type (ICD-10 - E03.9 ) PLAN OF TREATMENT Medication Medication Name Sig Start Date Stop Date Omeprazole 20 MG 1 capsule Orally Once a day for 90 days Blood Pressure Monitor - xl adult cuff DX: I12.9 Daily for 90 da y(s) Levothyroxine Sodium 25 MCG 1 tablet on an empty stoma ch in the morning Orally Once a day for 90 days Lantus SoloStar 100 UNIT/ML as directed Subcutaneous 4 0u in AM, 26u in PM for 90 day(s) Oct, Aspirin Adult Low Dose 81 MG 1 tablet Orally Once a day Humalog Pen 100 UNIT/ML as directed Subcutaneous 4-6 units before each meal; supper with sliding scale for 90 day(s) Propranolol HCl 60 MG 1 tablet Orally Twice a day for 90 day(s) GE100 Blood Glucose Test - freestyle test strips dx=E1 1.21 three times daily and as needed if BS is low for 34 Pen [place] 5/" 31G X 8 MM E11.29 change pen needle twice daily for use with byetta pen subcutaneously TID for 100 Atorvastatin Calcium 40 MG 1 tablet Orally Once a day Next Appt Details Provider Name:Veena Aguirre, 2021-02-01 11:3 0:00 AM, [address] [place], [address], Insurance Providers Payer Name Payer Address Payer Phone Insured Name Patient Relati onship to Insured Coverage Start Date Coverage End Date MEDICARE BLUE PPO 306 [employer] [address] [facility] [id number] [address]
--- OUTSIDE RECORDS SUMMARY | 2020-11-08 15:27 | CCD ---
Author Author [facility] Organization [facility] Address Unknown Phone Unavailable Care Team Providers Care Debt And Budget Counselor Name Role Phone Mariano II, Carlos PA [...] is protected by Article 27-F of the [facility] Public Health law. If you continue you may have access to information: Regarding HIV / AIDS; Provided by facilities licensed or operated by the [facility] Office of Mental Health; or Provided by the [facility] Office for People With Developmental Disabilities. If such information is present, then the following [facility] mandated warning applies: This information has [...] law may result in a fine or assisted sentence or both. A general authorization for the release of medical or other information is NOT sufficient authorization for further disc losure. Allergies and Adverse Reactions Type Description Substance Reaction Status Data Source(s ) Drug allergy Naprosyn Naproxen GI upset Active eCW1 ([facility]) contrast dye contrast dye contrast dye hives Active eCW1 ([facility]) Glucophage Glucophage Metformin hydrochloride 1000 MG Oral Tablet [Glucophage] GI upset Active eCW1 ([facility]) contrast dye contrast dye contrast dye hives Active eCW1 ([facility]) Glucophage Glucophage Metformin hydrochloride 1000 MG Oral Tablet [Glucophage] GI upset Active eCW1 ([facility]) Family History Family Member Name Family Member Gender Family Member Status Date o f Status Description Data Source(s) Unknown Unknown Problem MEDENT ([facility]) Unknown Female Problem MEDENT ([facility]) Encounters Encounter Providers Location Date Indications Data Source(s ) [place] [address] [facility] [address] 10/26/2020 12:00:00 AM EST eCW1 ([facility]) [place] [address] [facility] [address] 10/11/2020 12:00:00 AM EST eCW1 ([facility]) [place] [address] [facility] [address] 09/20/2020 12:00:00 AM EST eCW1 ([facility]) [place] [address] [facility] [address] 08/16/2020 12:00:00 AM EST eCW1 ([facility]) [place] [address] [facility] [address] 08/03/2020 12:00:00 AM EDT eCW1 ([facility]) [place] [address] [facility] [address] 07/26/2020 12:00:00 AM EDT eCW1 ([facility]) [place] [address] [facility] [address] 07/16/2020 12:00:00 AM EDT eCW1 ([facility] [address] [facility] [address] 05/25/2020 12:00:00 AM EDT eCW1 ([facility]) [place] [address] [facility] [address] 04/29/2020 12:00:00 AM EDT eCW1 ([facility]) [place] [address] [facility] [address] 03/23/2020 12:00:00 AM EDT eCW1 ([facility]) [place] [address] [facility] [address] 03/22/2020 12:00:00 AM EDT eCW1 ([facility]) [place] [address] [facility] [address] 03/11/2020 12:00:00 AM EDT eCW1 ([facility]) [facility] Mar[place] [address] [facility] [address] 02/17/2020 12:00:00 AM EDT eCW1 ([facility]) [facility] [place] [address] [facility] [address] 02/16/2020 12:00:00 AM EDT [facility] [address] [address] 02/10/2020 12:00:00 AM EDT [facility] [address] [address] 02/09/2020 12:00:00 AM EDT [facility]CW[facility] [address] [address] 01/20/2020 12:00:00 AM EDT eCW1 ([facility]) Outpatient 12/10/2019 06:16:00 AM EST [facility] [address] [address] 12/01/2019 12:00:00 AM EST eCW1 ([facility]) Outpatient Attender: Carlos Herrera/Candy/Yvan/Dov liu 11/27/2019 09:15:00 AM EST MEDENT ([facility]) [address] [address] 11/25/2019 12:00:00 AM EST eCW1 ([facility]) [address] [address] 11/18/2019 12:00:00 AM EST eCW1 ([facility]) [address] [address] 11/10/2019 12:00:00 AM EST [facility] [address] [address] 11/07/2019 12:00:00 AM EST [facility] [address] [address] 10/14/2019 12:00:00 AM EST [facility]CW[facility]) [place] [id number] [facility] [address] 09/23/2019 12:00:00 AM EST eCW1 ([facility]) Immunizations Vaccine Date Status Description Data Source(s) influenza, recombinant, quadrIvalent,injectable, prese rvative free 08/03/2020 11:53:00 AM EDT completed [facility] influenza, recombinant, quadrIvalent,injectable, prese rvative free 08/03/2020 11:53:00 AM EDT completed eCW1 [facility]) influenza, recombinant, quadrIvalent,injectable, prese rvative free 08/03/2020 11:53:00 AM EDT completed eCW1 ([facility]) influenza, recombinant, quadrIvalent,injectable, prese rvative free 08/03/2020 11:53:00 AM EDT completed eCW1 ([facility]) influenza, recombinant, quadrIvalent,injectable, prese rvative free 08/03/2020 11:53:00 AM EDT completed eCW1 ([facility]) Medications Medication Brand Name Start Date Product Form Dose Route Admi nistrative Instructions Pharmacy Instructions Status Indications Reaction Description Data Source(s) 3 ML Insulin Glargine 100 UNT/ML Pen Inj ben [Lantus] Lantus SoloStar 100 UNIT/ML Lantus SoloStar 100 UNIT/ML 10/12/2020 12:00:00 AM EST active Lantus SoloStar 100 UNIT/ML eCW1 ([facility]) 3 ML Insulin Glargine 100 UNT/ML Pen Inj ben [Lantus] Lantus SoloStar 100 UNIT/ML Lantus SoloStar 100 UNIT/ML 10/12/2020 12:00:00 AM EST active Lantus SoloStar 100 UNIT/ML eCW1 ([facility]) Insurance Providers Payer name Policy type / Coverage type Policy ID Covered democrat ID Covered democrat's relationship to finn Policy Finn Plan Information MEDICARE BLUE O 306 [id number] SP [id number] MEDICARE BLUE O 306 [id number] SP [id number] [facility] B [id number] S [id number] [id number] MEDICARE BLUE PPO 306 [id number] SP [id number] ANSI-Medicare Part B [id number] ANSI-Medicare Part B [id number] ANSI-Medicare Part B [id number] ANSI-Medicare Part B [id number] ANSI-Medicare Part B [id number] ANSI-Medicare Part B [id number] ANSI-Medicare Part B [id number] ANSI-Medicare Part B [id number] ANSI-Medicare Part B [id number] ANSI-Medicare Part B [id number] ANSI-Medicare Part B [id number] ANSI-Medicare Part B [id number] ANSI-Medicare Part B [id number] ANSI-Medicare Part B [id number] ANSI-Medicare Part B [id number] ANSI-Medicare Part B [id number] Medicare Blue Ppo Commercial [id number] Self [id number] ANSI-Medicare Part B [id number] ANSI-Medicare Part B [id number] MEDICARE BLUE PPO 306 [id number] SP [id number] ANSI-Medicare Part B [id number] ANSI-Medicare Part B [id number] ANSI-Medicare Part B [id number] ANSI-Medicare Part B [id number] ANSI-Medicare Part B [id number] ANSI-Medicare Part B [id number] ANSI-Medicare Part B [id number] ANSI-Medicare Part B [id number] ANSI-Medicare Part B [id number] ANSI-Medicare Part B [id number] ANSI-Medicare Part B [id number] ANSI-Medicare Part B [id number] ANSI-Medicare Part B [id number] ANSI-Medicare Part B [id number] ANSI-Medicare Part B [id number] Medicare Blue Ppo Commercial [id number] Self [id number] ANSI-Medicare Part B [id number] MEDICARE BLUE PPO 306 [id number] SP [id number] Medicare Blue Ppo Commercial [id number] Self [id number] MEDICARE [id number] SP [id number] [facility] [id number] SP [id number] [facility] O [id number] S [id number] [facility] [id number] SP [id number] [facility] [id number] SP [id number] BS [place] Medigap Part B Self BS [place] Commercial Self [facility]) O [id number] S [id number] [employer] 306/806 [id number] SP [id number] [employer] P [id number] S [id number] [place] 306/806 [id number] SP [id number] [facility] [id number] SP [id number] [place] PPO 302/307 [id number] SP [id number] Surgeries/Procedures Procedure Description Date Indications Data Source(s) MED NUTRITION INDIV SUBSEQ 12/01/2019 12:00:00 AM EST eCW1 ([facility]) Results ID Date Data Source [id number] 10/27/2020 04:33:00 PM EST [facility] Name Value Range Interpretation Code Description Data Cristal rce(s) Supporting Document(s) SARS coronavirus 2 RNA [Presence] in Res piratory specimen by MANUEL with probe detection NEGATIVE [facility] This lab was ordered by [facility] a nd reported by [facility]. Procedure Social History Code Duration Value Status Description Data Source(s ) Smoking 08/03/2020 12:00:00 AM EDT Never Smoker completed Never S moker eCW1 ([facility]) Smoking 08/03/2020 12:00:00 AM EDT Never Smoker completed Never S moker eCW1 ([facility]) Smoking 08/03/2020 12:00:00 AM EDT Never Smoker completed Never S moker eCW1 ([facility]) Smoking 08/03/2020 12:00:00 AM EDT Never Smoker completed Never S moker eCW1 ([facility]) Smoking 08/03/2020 12:00:00 AM EDT Never Smoker completed Never S moker eCW1 ([facility]) Smoking 04/29/2020 12:00:00 AM EDT Never Smoker completed Never S moker eCW1 ([facility]) Smoking 04/29/2020 12:00:00 AM EDT Never Smoker completed Never S moker eCW1 ([facility]) Smoking 04/29/2020 12:00:00 AM EDT Never Smoker completed Never S moker eCW1 ([facility]) Smoking 02/09/2020 12:00:00 AM EDT Never Smoker completed Never S moker eCW1 ([facility]) Smoking 02/09/2020 12:00:00 AM EDT Never Smoker completed Never S moker eCW1 ([facility]) Smoking 02/09/2020 12:00:00 AM EDT Never Smoker completed Never S srinivasker eCW1 ([facility]) Vital Signs ID Date Data Source UNK Name Value Range Interpretation Code Description Data Source(s) Diastolic blood pressure 80 mm[Hg] 80 mm[Hg] eCW1 ([facility]) Systolic blood pressure 132 mm[Hg] 132 mm[Hg] e CW1 ([facility]) Body temperature 97 [degF] 97 [degF] eCW1 ([facility]) Respiratory rate 20 /min 20 /min eCW1 ([facility]) Heart rate 88 /min 88 /min eCW1 ([facility]) Body mass index (BMI) [Ratio] 49.12 kg/m2 49.12 kg/m2 W1 ([facility]) Body height 61 [in_i] 61 [in_i] eCW1 ([facility]) Body weight 260 [lb_av] 260 [lb_av] eCW1 ([facility]) Diastolic blood pressure 70 mm[Hg] 70 mm[Hg] eCW1 ([facility]) Systolic blood pressure 124 mm[Hg] 124 mm[Hg] e CW1 ([facility]) Body temperature 98.3 [degF] 98.3 [degF] eCW1 ( [facility]) Respiratory rate 16 /min 16 /min eCW1 ([facility]) Heart rate 70 /min 70 /min eCW1 ([facility]) Body mass index (BMI) [Ratio] 48.74 kg/m2 48.74 kg/m2 W1 ([facility]) Body height 61 [in_i] 61 [in_i] eCW1 ([facility]) Body weight 258 [lb_av] 258 [lb_av] eCW1 ([facility]) Body weight 116.122 kg 116.122 kg [facility] ([facility], ) Body mass index (BMI) [Ratio] 50.0 kg/m2 50.0 k g/m2 MEDENT ([facility], ) Body weight 256.00 [lb_av] 256.00 [lb_av] MEDEN T ([facility], ) Body height 60 [in_i] 60 [in_i] [facility] ([facility], ) 5'0" Diastolic blood pressure 76 mm[Hg] 76 mm[Hg] eCW1 ([facility]) Systolic blood pressure 132 mm[Hg] 132 mm[Hg] e CW1 ([facility]) Body temperature 97.6 [degF] 97.6 [degF] eCW1 ( [facility]) Respiratory rate 18 /min 18 /min eCW1 ([facility]) Heart rate 88 /min 88 /min eCW1 ([facility]) Body mass index (BMI) [Ratio] 48.37 kg/m2 48.37 kg/m2 W1 ([facility]) Body height 61 [in_us] 61 [in_us] eCW1 ([facility]) Body weight Measured 256 [lb_av] 256 [lb_av] eC W1 ([facility]) Body mass index (BMI) [Ratio] 48.74 kg/m2 48.74 kg/m2 eCW1 ([facility]) Body height 61 [in_us] 61 [in_us] eCW1 ([facility]) Body weight Measured 258 [lb_av] 258 [lb_av] eC W1 ([facility]) Body weight 116.122 kg 116.122 kg [facility] ([facility], ) Body mass index (BMI) [Ratio] 50.0 kg/m2 50.0 k g/m2 [facility] ([facility], ) Body weight 256.00 [lb_av] 256.00 [lb_av] MEDEN T ([facility], ) Body height 60 [in_i] 60 [in_i] [facility] ([facility], ) 5'0" Diastolic blood pressure 68 mm[Hg] 68 mm[Hg] eCW1 ([facility]) Systolic blood pressure 122 mm[Hg] 122 mm[Hg] e CW1 ([facility]) Body temperature 96.8 [degF] 96.8 [degF] eCW1 ( [facility]) Respiratory rate 20 /min 20 /min eCW1 ([facility]) Heart rate 79 /min 79 /min eCW1 ([facility]) Body mass index (BMI) [Ratio] 48.18 kg/m2 48.18 kg/m2 eCW1 ([facility]) Body height 61 [in_us] 61 [in_us] eCW1 ([facility]) Body weight Measured 255.0 [lb_av] 255.0 [lb_av ] eCW1 ([facility]) Body mass index (BMI) [Ratio] 48.18 kg/m2 48.18 kg/m2 eCW1 ([facility]) Body height 61 [in_us] 61 [in_us] eCW1 ([facility]) Body weight Measured 255 [lb_av] 255 [lb_av] eC W1 ([facility]) Patient Treatment Plan of Care Planned Activity Planned Date Details Description Data Source (s) 3 ML Insulin Glargine 100 UNT/ML Pen Injector [Lantus] 10/12/2020 12:00:00 AM EST eCW1 ([facility] 3 ML Insulin Glargine 100 UNT/ML Pen Injector [Lantus] 10/12/2020 12:00:00 AM EST eCW1 ([facility])
[2020-11-08] MEDS: IPRATROPIUM 0.5MG/ALBUTEROL 2.5MG INH SOL UD 3ML (DUONEB) NEB SCH ×2 (16:10→19:11)
--- NOTE | 2020-11-08 17:13 | REP ---
INDICATION: immobility COMPARISON: None. TECHNIQUE: Real time compression and duplex Doppler interrogation of the bilateral lower extremity deep venous system is performed. FINDINGS: Bilaterally, the common femoral, superficial femoral and popliteal veins are fully compressible with transducer pressure and demonstrate normal spontaneous and phasic flow, without evidence of deep venous thrombosis. IMPRESSION: No evidence of deep venous thrombosis of the bilateral lower extremity femoral popliteal venous system. <Electronically signed by Marino Mahoney > 11/08/20 [id number]
[2020-11-08] MEDS: HumaLOG INSULIN (NovoLOG) PER UNIT SC SCH ×2 (17:45→20:41)
[2020-11-08] MEDS: REMEDY PHYTOPLEX Z-GUARD PASTE 113GM TUBE (FROM STOREROOM PRODUCT) TOP SCH ×2 (17:45→20:41)
[2020-11-08 20:00] VITALS: BP 141/65
[2020-11-08] MEDS: PROPRANOLOL 20 MG TAB PO SCH (20:40)
[2020-11-08] MEDS: HEPARIN SOD (PORCINE) 5000UNITS/ML 1ML VIAL/SYRINGE SC SCH (20:40)
[2020-11-08] MEDS: amLODIPine 5 MG TAB PO SCH (20:40)
[2020-11-09 06:00] VITALS: BP 138/70
[2020-11-09] MEDS: LEVOTHYROXINE 25MCG TABLET (0.025MG) PO SCH (06:07)
[2020-11-09 07:17] LABS: BASO # 0.2 10^3/uL (0.0-0.2); BASO % 1.3 % (0.0-1.0); EOS # 0.8 10^3/uL (0.0-0.5); EOS % 5.9 % (0.0-3.0); HEMATOCRIT 28.6 % (36.0-47.0); HEMOGLOBIN 9.1 g/dl (12.0-15.5); LYMPH # 1.1 10^3/uL (1.5-5.0); LYMPH % 7.9 % (24.0-44.0); MEAN CORPUSCULAR HEMOGLOBIN 28.1 pg (27.0-33.0); MEAN CORPUSCULAR HGB CONC 31.8 g/dl (32.0-36.5); MEAN CORPUSCULAR VOLUME 88.3 fl (80.0-96.0); MONO # 0.9 10^3/uL (0.0-0.8); MONO % 6.7 % (0.0-5.0); NEUTROPHILS # 10.6 10^3/uL (1.5-8.5); NEUTROPHILS % 77.5 % (36.0-66.0); PLATELET COUNT, AUTOMATED 548 10^3/uL (150-450); RED BLOOD COUNT 3.24 10^6/uL (4.00-5.40); WHITE BLOOD COUNT 13.7 10^3/uL (4.0-10.0)
[2020-11-09] MEDS: LEVEMIR (INSULIN DETEMIR) 1 UNITS/0.01ML SC SCH (07:44)
[2020-11-09] MEDS: HumaLOG INSULIN (NovoLOG) PER UNIT SC SCH ×4 (07:44→20:27)
[2020-11-09] MEDS: HEPARIN SOD (PORCINE) 5000UNITS/ML 1ML VIAL/SYRINGE SC SCH ×2 (07:45→20:27)
[2020-11-09] MEDS: allopurinoL 100 MG TAB PO SCH (07:47)
[2020-11-09] MEDS: PANTOPRAZOLE 40MG TAB (PROTONIX) PO SCH (07:48)
[2020-11-09] MEDS: amLODIPine 5 MG TAB PO SCH ×2 (07:48→20:26)
[2020-11-09] MEDS: TORSEMIDE 20 MG TAB PO SCH ×2 (07:48→08:30)
[2020-11-09 07:49] LABS: ALBUMIN 2.5 GM/DL (3.2-5.2); BILIRUBIN,TOTAL 0.6 MG/DL (0.2-1.0); CALCIUM LEVEL 8.7 MG/DL (8.8-10.2); CREATININE FOR GFR 1.49 MG/DL (0.55-1.30); POTASSIUM SERUM 4.3 MEQ/L (3.5-5.1); TOTAL PROTEIN 5.9 GM/DL (6.4-8.2)
[2020-11-09] MEDS: PROPRANOLOL 20 MG TAB PO SCH ×2 (07:49→20:25)
[2020-11-09] MEDS: IPRATROPIUM 0.5MG/ALBUTEROL 2.5MG INH SOL UD 3ML (DUONEB) NEB SCH ×4 (08:00→20:00)
[2020-11-09] MEDS: REMEDY PHYTOPLEX Z-GUARD PASTE 113GM TUBE (FROM STOREROOM PRODUCT) TOP SCH ×3 (08:30→20:28)
[2020-11-09] MEDS: ACETAMINOPHEN TAB 650MG DOSE (2X325MG) PO PRN ×2 (08:31→20:25)
[2020-11-09] MEDS: NYSTATIN 100,000 UNITS/GM TOPICAL PWD 15 GM TOP SCH ×2 (09:00→13:41)
[2020-11-09 11:04] LABS: C REACTIVE PROTEIN QUANTITATIV 7.33 MG/DL (0.00-0.30)
[2020-11-09] MEDS: LACTOBACILLUS ACIDOPHILUS CAP (BACID) PO SCH ×3 (12:22→20:26)
[2020-11-09] MEDS: diphenhydrAMINE 25MG CAP PO PRN ×2 (12:23→20:26)
[2020-11-09] MEDS: diphenhydrAMINE CREAM 30GM TOP SCH ×2 (12:23→20:27)
[2020-11-09] MEDS: CEPHALEXIN 500 MG CAP PO SCH ×3 (12:29→20:26)
[2020-11-09 14:00] VITALS: BP 126/59
[2020-11-09 20:00] VITALS: BP 178/76
[2020-11-10] MEDS: LEVOTHYROXINE 25MCG TABLET (0.025MG) PO SCH (05:05)
[2020-11-10 06:00] VITALS: BP 142/66
[2020-11-10 07:22] LABS: BASO # 0.2 10^3/uL (0.0-0.2); BASO % 1.4 % (0.0-1.0); EOS # 0.6 10^3/uL (0.0-0.5); EOS % 5.7 % (0.0-3.0); HEMATOCRIT 24.8 % (36.0-47.0); HEMOGLOBIN 7.9 g/dl (12.0-15.5); LYMPH % 9.6 % (24.0-44.0); MEAN CORPUSCULAR HEMOGLOBIN 28.4 pg (27.0-33.0); MEAN CORPUSCULAR HGB CONC 31.9 g/dl (32.0-36.5); MEAN CORPUSCULAR VOLUME 89.2 fl (80.0-96.0); MONO # 0.9 10^3/uL (0.0-0.8); MONO % 8.4 % (0.0-5.0); NEUTROPHILS # 7.7 10^3/uL (1.5-8.5); NEUTROPHILS % 74.2 % (36.0-66.0); PLATELET COUNT, AUTOMATED 477 10^3/uL (150-450); RED BLOOD COUNT 2.78 10^6/uL (4.00-5.40); WHITE BLOOD COUNT 10.4 10^3/uL (4.0-10.0)
[2020-11-10] MEDS: IPRATROPIUM 0.5MG/ALBUTEROL 2.5MG INH SOL UD 3ML (DUONEB) NEB SCH ×4 (07:27→20:00)
[2020-11-10] MEDS: HumaLOG INSULIN (NovoLOG) PER UNIT SC SCH ×4 (07:30→20:55)
[2020-11-10] MEDS: LEVEMIR (INSULIN DETEMIR) 1 UNITS/0.01ML SC SCH (07:33)
[2020-11-10 07:51] LABS: C REACTIVE PROTEIN QUANTITATIV 6.28 MG/DL (0.00-0.30); CALCIUM LEVEL 8.2 MG/DL (8.8-10.2); CREATININE FOR GFR 1.51 MG/DL (0.55-1.30); GLOMERULAR FILTRATION RATE 36.5 (>45); POTASSIUM SERUM 4.1 MEQ/L (3.5-5.1)
[2020-11-10] MEDS: HEPARIN SOD (PORCINE) 5000UNITS/ML 1ML VIAL/SYRINGE SC SCH ×2 (08:54→20:53)
[2020-11-10] MEDS: LACTOBACILLUS ACIDOPHILUS CAP (BACID) PO SCH ×4 (08:54→20:54)
[2020-11-10] MEDS: PANTOPRAZOLE 40MG TAB (PROTONIX) PO SCH (08:54)
[2020-11-10] MEDS: allopurinoL 100 MG TAB PO SCH (08:54)
[2020-11-10] MEDS: PROPRANOLOL 20 MG TAB PO SCH ×2 (08:54→20:54)
[2020-11-10] MEDS: CEPHALEXIN 500 MG CAP PO SCH ×4 (08:55→20:54)
[2020-11-10] MEDS: TORSEMIDE 20 MG TAB PO SCH (08:55)
[2020-11-10] MEDS: amLODIPine 5 MG TAB PO SCH ×2 (08:55→20:54)
[2020-11-10] MEDS: ACETAMINOPHEN TAB 650MG DOSE (2X325MG) PO PRN ×2 (08:58→18:37)
[2020-11-10] MEDS: NYSTATIN 100,000 UNITS/GM TOPICAL PWD 15 GM TOP SCH ×2 (08:58→20:56)
[2020-11-10] MEDS: REMEDY PHYTOPLEX Z-GUARD PASTE 113GM TUBE (FROM STOREROOM PRODUCT) TOP SCH ×3 (08:59→20:56)
[2020-11-10] MEDS: diphenhydrAMINE CREAM 30GM TOP SCH ×2 (08:59→20:56)
[2020-11-10] MEDS: FERROUS SULFATE 325MG TAB PO SCH (09:41)
[2020-11-10 14:00] VITALS: BP 133/62
--- NOTE | 2020-11-10 15:43 | IPNPDOC ---
PM&R Progress Note DATE OF SERVICE: Nov 10, 2020 [employer] Manager Progress Note Subjective: Patient reporting she feels well today, has mild upper abdominal cramping. REVIEW OF SYSTEMS: The following is a completed review of systems and has been r magdaiewed. Review of systems otherwise unremarkable. PAIN: Patient self reports no pain EYES: No recent vision changes EARS, NOSE, & THROAT: No throat pain, or dysphagia, or rhinorrhea CARDIOVASCULAR: Denies chest pain or palpitations PULMONARY: Denies shortness of breath GASTROINTESTINAL: +colostomy GENITOURINARY: denies dysuria MUSCULOSKELETAL: generalized weakness NEUROLOGICAL:denies paresthesias or tremor HEMATOLOGICAL: denies easy bruising SKIN: LLE erythema and swelling PSYCHIATRIC: Unremarkable All other review of systems found to be negative. PHYSICAL EXAMINATION: VITAL SIGNS: Please see below. GENERAL: Pleasant and cooperative. No acute distress. HEENT: PERRL. Extraocular movements intact. Clear conjunctiva] CARDIOVASCULAR: Regular rate and rhythm. No murmurs, rubs, or gallops LUNGS: Clear to auscultation bilaterally. No wheezes. No rhonchi ABDOMEN: Soft, nontender, nondistended. Positive bowel sounds. +colostomy with brown semi-formed stool NEUROLOGICAL: Alert and oriented times three. Cranial nerves II through XII grossly intact. Sensation grossly intact EXTREMITIES: 5\5 strength bilateral upper extremities. 5\5 strength right lower extremity. 5/5 strength in left lower extremity. SKIN: left lower calf erythema/TTP/warm, upper chest and upper back with erythematous papular lesions ASSESSMENT:70-year-old F with past medical history of CKD3, chronic anei,a diver ticulitis who presents status post sigmoid colectomy PLAN: 1. Rehab- PT/OT advance mobility and ADLs, strengthen/stretch/maintain ROM all 4 limbs 2. Neuro- hx of meniere disease, consider vestibular rehab program if needed 3. Cardiac- hx of HTN c/u amlodipine and propranolol, chronic CHF c/u torsemide and daily weights, medicine consulted to assist in overall management 4. Resp- incentive spirometry and Duonebs to prevent atelectasis and PNA in setting of recent abdominal surgery 5. GI- hx diverticulitis s/p perforation and sigmoid colectomy performed 10-27-20 with colostomy, surgery consulted to follow -zofran prn nausea 6. DVT ppx- heparin, admission dopplers negative for DVT 7. Endo- hx of hypothryoidism, c/u synthroid -DM c/u Levemir and ISS 8. Renal- hx of CKD with secondary hyperparathryoidism, c/u toresemide, will ask renal to c/u to follow patient while on aru only if kidney function worsens, so far appears at baseline 9. Heme- hx of anemia, Hgb 7.9 today, will recheck tomorrow, possible dilutional- FOBT ordered 10. Pain- tylenol prn 11. Derm- LLE cellulitis, c/u kefflex and add bacid, benadryl cream and po prn for trunkal rash 12. Dispo- TBD Allergies Coded Allergies: Contrast Media (Verified Allergy, Intermediate, HIVES, 03/31/08) exenatide (Verified Adverse Reaction, Intermediate, LOSS OF APPETITE / WEIGHT LOSS, 10/27/20) rofecoxib (Verified Adverse Reaction, Intermediate, DECREASED KIDNEY FUNCTION, 10/27/20) codeine (Verified Adverse Reaction, Mild, HEADACHE, 10/27/20) metformin (Verified Adverse Reaction, Mild, DIARRHEA, 10/27/20) naproxen (Verified Adverse Reaction, Unknown, NAUSEA, 10/27/20) Vital Signs Vital Signs Date Time Temp Pulse Resp B/P (MAP) Pulse Ox O2 Delivery O2 Flow Rate FiO2 11/10/20 14:00 98.4 78 18 133/62 (85) 96 Room Air Laboratory Data CBC/BMP Laboratory Tests 11/10/20 06:52 Labs 24H Laboratory Tests 2 11/09/20 16:34: Bedside Glucose (Misc Panel) 94 11/09/20 19:31: Bedside Glucose (Misc Panel) 122H 11/10/20 05:12: Bedside Glucose (Misc Panel) 99 11/10/20 06:52: Immature Granulocyte % (Auto) 0.7, Neutrophils (%) (Auto) 74.2H, Lymphocytes (%) (Auto) 9.6L, Monocytes (%) (Auto) 8.4H, Eosinophils (%) (Auto) 5.7H, Basophils (%) (Auto) 1.4H, Neutrophils # (Auto) 7.7, Lymphocytes # (Auto) 1.0L, Monocytes # (Auto) 0.9H, Eosinophils # (Auto) 0.6H, Basophils # (Auto) 0.2, Nucleated Red Blood Cells % (auto) 0.0, Anion Gap 7L, Glomerular Filtration Rate 36.5L, Calcium Level 8.2L, C-Reactive Protein, Quantitative 6.28H 11/10/20 12:16: Bedside Glucose (Misc Panel) 195H Current Medications Current Medications Current Medications Medications (Trade) Dose Ordered Sig/Farshad Route PRN Reason Start Time Stop Time Status Last Admin Dose Admin Acetaminophen (Tylenol Tab) 650 mg Q4HP PRN PO fever/MILD PAIN (PS 1-4) 11/08/20 12:15 11/10/20 08:58 Albuterol/ Ipratropium (Duoneb (Ipr 0.5mg/Alb 2.5mg)) 3 ml RQID NEB 11/08/20 16:00 11/10/20 14:28 Allopurinol (Zyloprim) 100 mg DAILY PO 11/09/20 09:00 11/10/20 08:54 Amlodipine Besylate (Norvasc) 5 mg BID PO 11/08/20 21:00 11/10/20 08:55 Cephalexin Monohydrate (Keflex) 500 mg QID PO 11/09/20 13:00 11/10/20 12:27 Dextrose (Dextrose 50%) 25 ml ASDIRECTED PRN IV SEE LABEL COMMENTS 11/08/20 12:15 Diphenhydramine HCl (Benadryl Cream) upper chest and upper back BID TOP 11/09/20 09:00 11/10/20 08:59 Diphenhydramine HCl (Benadryl) 25 mg Q6HP PRN PO ITCHING 11/09/20 11:00 11/09/20 20:26 Ferrous Sulfate (Ferrous Sulfate) 325 mg DAILY PO 11/10/20 09:00 11/10/20 09:41 Glucagon (Glucagon) 1 mg ASDIRECTED PRN SC SEE LABEL COMMENTS 11/08/20 12:15 Glucose (Glucose) 16 GM ASDIRECTED PRN PO SEE LABEL COMMENTS 11/08/20 12:15 Heparin Sodium (Porcine) (Heparin) 5,000 units Q12H SC 11/08/20 21:00 11/10/20 08:54 Insulin Detemir (Levemir Insulin) 20 units DAILY SC 11/09/20 09:00 11/09/20 07:44 Insulin Human Lispro (HumaLOG INSULIN) SEE PROTOCOL TABLE AC SC 11/08/20 17:30 11/10/20 12:28 Insulin Human Lispro (HumaLOG INSULIN) SEE PROTOCOL TABLE QHS SC 11/08/20 21:00 Lactobacillus Acidophilus (Bacid) 1 ea WMHS PO 11/09/20 12:30 11/10/20 12:27 Levothyroxine Sodium (Synthroid) 25 mcg DAILY@06 PO 11/09/20 06:00 11/10/20 05:05 Nystatin (Mycostatin Powder, Nystop) under breasts and beh... BID TOP 11/09/20 09:00 11/10/20 08:58 Ondansetron HCl (Zofran Odt) 4 mg Q6HP PRN PO NAUSEA OR VOMITING 11/08/20 12:15 11/09/20 20:26 Pantoprazole Sodium (Protonix) 40 mg DAILY PO 11/09/20 09:00 11/10/20 08:54 Propranolol HCl (Inderal) 40 mg BID PO 11/08/20 21:00 11/10/20 08:54 Torsemide (Demadex) 20 mg DAILY PO 11/09/20 09:00 11/10/20 08:55 NICK OLSON MD Nov 10, 2020 15:43
[2020-11-10 20:00] VITALS: BP 153/67
[2020-11-10] MEDS: diphenhydrAMINE 25MG CAP PO PRN (20:54)
[2020-11-11] MEDS: LEVOTHYROXINE 25MCG TABLET (0.025MG) PO SCH (05:08)
[2020-11-11 05:21] VITALS: BP 132/60
[2020-11-11] MEDS: PROPRANOLOL 20 MG TAB PO SCH ×2 (08:27→21:26)
[2020-11-11] MEDS: PANTOPRAZOLE 40MG TAB (PROTONIX) PO SCH (08:28)
[2020-11-11] MEDS: amLODIPine 5 MG TAB PO SCH ×2 (08:28→21:26)
[2020-11-11] MEDS: CEPHALEXIN 500 MG CAP PO SCH ×4 (08:28→21:25)
[2020-11-11] MEDS: FERROUS SULFATE 325MG TAB PO SCH (08:28)
[2020-11-11] MEDS: TORSEMIDE 20 MG TAB PO SCH (08:28)
[2020-11-11] MEDS: LACTOBACILLUS ACIDOPHILUS CAP (BACID) PO SCH ×4 (08:28→21:25)
[2020-11-11] MEDS: allopurinoL 100 MG TAB PO SCH (08:28)
[2020-11-11] MEDS: HEPARIN SOD (PORCINE) 5000UNITS/ML 1ML VIAL/SYRINGE SC SCH ×2 (08:29→21:25)
[2020-11-11] MEDS: LEVEMIR (INSULIN DETEMIR) 1 UNITS/0.01ML SC SCH (08:30)
[2020-11-11] MEDS: HumaLOG INSULIN (NovoLOG) PER UNIT SC SCH ×4 (08:30→21:00)
[2020-11-11] MEDS: diphenhydrAMINE CREAM 30GM TOP SCH ×2 (08:31→21:27)
[2020-11-11] MEDS: REMEDY PHYTOPLEX Z-GUARD PASTE 113GM TUBE (FROM STOREROOM PRODUCT) TOP SCH ×3 (08:32→21:00)
[2020-11-11] MEDS: NYSTATIN 100,000 UNITS/GM TOPICAL PWD 15 GM TOP SCH ×2 (08:33→21:00)
[2020-11-11] MEDS: IPRATROPIUM 0.5MG/ALBUTEROL 2.5MG INH SOL UD 3ML (DUONEB) NEB SCH ×4 (10:17→20:38)
[2020-11-11 11:16] LABS: BASO # 0.1 10^3/uL (0.0-0.2); BASO % 1.3 % (0.0-1.0); EOS # 0.4 10^3/uL (0.0-0.5); EOS % 3.6 % (0.0-3.0); HEMATOCRIT 25.1 % (36.0-47.0); HEMOGLOBIN 8.1 g/dl (12.0-15.5); LYMPH # 1.3 10^3/uL (1.5-5.0); LYMPH % 12.8 % (24.0-44.0); MEAN CORPUSCULAR HEMOGLOBIN 28.8 pg (27.0-33.0); MEAN CORPUSCULAR HGB CONC 32.3 g/dl (32.0-36.5); MEAN CORPUSCULAR VOLUME 89.3 fl (80.0-96.0); MONO % 9.7 % (0.0-5.0); NEUTROPHILS # 7.2 10^3/uL (1.5-8.5); NEUTROPHILS % 72.3 % (36.0-66.0); PLATELET COUNT, AUTOMATED 484 10^3/uL (150-450); RED BLOOD COUNT 2.81 10^6/uL (4.00-5.40)
[2020-11-11 11:19] LABS: WHITE BLOOD COUNT 9.9 10^3/uL (4.0-10.0)
[2020-11-11] MEDS: ACETAMINOPHEN TAB 650MG DOSE (2X325MG) PO PRN ×2 (12:39→21:25)
[2020-11-11 14:00] VITALS: BP 132/62
[2020-11-11 20:00] VITALS: BP 136/69
[2020-11-11] MEDS ORDERED: OMEP1CAP73 PO (21:01)
[2020-11-11] MEDS ORDERED: TORS20TA2 PO (21:01)
[2020-11-11] MEDS ORDERED: CEPH500C PO (21:01)
[2020-11-11] MEDS ORDERED: RISATAB3 PO (21:01)
[2020-11-11] MEDS ORDERED: ALLO10TA PO (21:01)
[2020-11-11] MEDS ORDERED: PROP20TA PO (21:01)
[2020-11-11] MEDS ORDERED: LEVO25TA34 PO (21:01)
[2020-11-11] MEDS ORDERED: AMLO1TAB24 PO (21:01)
[2020-11-11] MEDS ORDERED: ATOR40TA75 PO (21:01)
[2020-11-11] MEDS ORDERED: ASPI81TA26 PO (21:01)
[2020-11-11] MEDS ORDERED: LANTINJ4 SC (21:01)
[2020-11-11] MEDS: diphenhydrAMINE 25MG CAP PO PRN (21:24)
[2020-11-12 05:20] VITALS: BP 141/65
[2020-11-12] MEDS: LEVOTHYROXINE 25MCG TABLET (0.025MG) PO SCH (05:39)
[2020-11-12 06:49] LABS: BASO # 0.1 10^3/uL (0.0-0.2); BASO % 1.7 % (0.0-1.0); EOS # 0.4 10^3/uL (0.0-0.5); EOS % 5.1 % (0.0-3.0); HEMATOCRIT 24.3 % (36.0-47.0); HEMOGLOBIN 7.7 g/dl (12.0-15.5); LYMPH # 1.1 10^3/uL (1.5-5.0); LYMPH % 13.8 % (24.0-44.0); MEAN CORPUSCULAR HEMOGLOBIN 28.2 pg (27.0-33.0); MEAN CORPUSCULAR HGB CONC 31.7 g/dl (32.0-36.5); MONO # 0.8 10^3/uL (0.0-0.8); MONO % 10.1 % (0.0-5.0); NEUTROPHILS # 5.6 10^3/uL (1.5-8.5); NEUTROPHILS % 68.7 % (36.0-66.0); PLATELET COUNT, AUTOMATED 482 10^3/uL (150-450); RED BLOOD COUNT 2.73 10^6/uL (4.00-5.40); WHITE BLOOD COUNT 8.1 10^3/uL (4.0-10.0)
[2020-11-12 07:21] LABS: CALCIUM LEVEL 8.3 MG/DL (8.8-10.2); CREATININE FOR GFR 1.58 MG/DL (0.55-1.30); GLOMERULAR FILTRATION RATE 34.6 (>45); POTASSIUM SERUM 4.4 MEQ/L (3.5-5.1)
[2020-11-12] MEDS: HumaLOG INSULIN (NovoLOG) PER UNIT SC SCH ×2 (07:30→12:29)
[2020-11-12] MEDS: IPRATROPIUM 0.5MG/ALBUTEROL 2.5MG INH SOL UD 3ML (DUONEB) NEB SCH ×2 (07:52→12:00)
[2020-11-12 08:47] VITALS: BP 134/63
[2020-11-12] MEDS: FERROUS SULFATE 325MG TAB PO SCH (08:47)
[2020-11-12] MEDS: PROPRANOLOL 20 MG TAB PO SCH (08:47)
[2020-11-12] MEDS: CEPHALEXIN 500 MG CAP PO SCH (08:47)
[2020-11-12] MEDS: allopurinoL 100 MG TAB PO SCH (08:47)
[2020-11-12] MEDS: LACTOBACILLUS ACIDOPHILUS CAP (BACID) PO SCH ×2 (08:47→12:29)
[2020-11-12] MEDS: PANTOPRAZOLE 40MG TAB (PROTONIX) PO SCH (08:48)
[2020-11-12] MEDS: LEVEMIR (INSULIN DETEMIR) 1 UNITS/0.01ML SC SCH (08:48)
[2020-11-12] MEDS: amLODIPine 5 MG TAB PO SCH (08:48)
[2020-11-12] MEDS: TORSEMIDE 20 MG TAB PO SCH (08:48)
[2020-11-12] MEDS: HEPARIN SOD (PORCINE) 5000UNITS/ML 1ML VIAL/SYRINGE SC SCH (08:48)
[2020-11-12] MEDS: NYSTATIN 100,000 UNITS/GM TOPICAL PWD 15 GM TOP SCH (08:49)
[2020-11-12] MEDS: diphenhydrAMINE CREAM 30GM TOP SCH (08:50)
[2020-11-12] MEDS: REMEDY PHYTOPLEX Z-GUARD PASTE 113GM TUBE (FROM STOREROOM PRODUCT) TOP SCH (08:50)
[2020-11-12] MEDS: diphenhydrAMINE 25MG CAP PO PRN (08:54)
[2020-11-12] MEDS: ACETAMINOPHEN TAB 650MG DOSE (2X325MG) PO PRN (08:55)
== END 2020-11-12 12:30 | disposition home health service (06) | DRG 948 ==
LOC: M PM&R 15:21
PROVIDERS: ADMIT Physical Medicine & Rehabilitation; ATTEND Physical Medicine & Rehabilitation
DX: R53.1 Weakness (principal); I13.0 Hypertensive heart and chronic kidney disease with heart failure and stage 1 through stage 4 chronic kidney disease, or unspecified chronic kidney disease; N25.81 Secondary hyperparathyroidism of renal origin; L03.116 Cellulitis of left lower limb; Z68.42 Body mass index [BMI] 45.0-49.9, adult; Z74.09 Other reduced mobility; Z74.1 Need for assistance with personal care; Z90.49 Acquired absence of other specified parts of digestive tract; N18.30 Chronic kidney disease, stage 3 unspecified; G43.909 Migraine, unspecified, not intractable, without status migrainosus; E78.5 Hyperlipidemia, unspecified; K21.9 Gastro-esophageal reflux disease without esophagitis; D50.9 Iron deficiency anemia, unspecified; E11.22 Type 2 diabetes mellitus with diabetic chronic kidney disease; I89.0 Lymphedema, not elsewhere classified; E66.01 Morbid (severe) obesity due to excess calories; M19.90 Unspecified osteoarthritis, unspecified site; H81.09 Meniere's disease, unspecified ear; Z93.3 Colostomy status; D64.9 Anemia, unspecified; I50.9 Heart failure, unspecified; Z79.82 Long term (current) use of aspirin; Z79.4 Long term (current) use of insulin; Z79.899 Other long term (current) drug therapy; Z91.041 Radiographic dye allergy status; Z88.5 Allergy status to narcotic agent; Z88.6 Allergy status to analgesic agent; Z88.8 Allergy status to other drugs, medicaments and biological substances

== ENCOUNTER → 2020-11-17 | Outpatient (REF) | payer MEDICARE ==
[~2020-11-17] MED LIST changes: +AMLO1TAB24 PO; +CEPH500C PO; +PROP20TA PO; +RISATAB3 PO
== END ==
LOC: M SFHCPLAZ 11:07
PROVIDERS: ATTEND Nurse Practitioner Family
DX: N18.30 Chronic kidney disease, stage 3 unspecified (principal); D63.1 Anemia in chronic kidney disease

== ENCOUNTER → 2020-11-23 | Outpatient (REF) | payer MEDICARE ==
[2020-11-23 16:15] LABS: ALBUMIN 2.7 GM/DL (3.2-5.2); BILIRUBIN,TOTAL 0.3 MG/DL (0.2-1.0); CHOLESTEROL RISK RATIO 4.028 (<5); CREATININE FOR GFR 1.45 MG/DL (0.55-1.30); FREE T4 1.32 NG/DL (0.76-1.46); GLOMERULAR FILTRATION RATE 38.2 (>45); POTASSIUM SERUM 4.7 MEQ/L (3.5-5.1); THYROID STIMULATING HORMONE 4.02 uIU/ML (0.358-3.740)
[2020-11-23 16:46] LABS: HEMOGLOBIN A1c 6.4 %
== END ==
LOC: M SHH 15:33
PROVIDERS: ATTEND Nurse Practitioner Family
DX: I12.9 Hypertensive chronic kidney disease with stage 1 through stage 4 chronic kidney disease, or unspecified chronic kidney disease (principal); E03.9 Hypothyroidism, unspecified; E78.2 Mixed hyperlipidemia; E11.21 Type 2 diabetes mellitus with diabetic nephropathy

== ENCOUNTER → 2020-12-06 | Outpatient (REF) | payer MEDICARE ==
[2020-12-06 17:44] LABS: HEMATOCRIT 31.9 % (36.0-47.0); HEMOGLOBIN 9.7 g/dl (12.0-15.5); MEAN CORPUSCULAR HGB CONC 30.4 g/dl (32.0-36.5); MEAN CORPUSCULAR VOLUME 92.2 fl (80.0-96.0); PLATELET COUNT, AUTOMATED 447 10^3/uL (150-450); RED BLOOD COUNT 3.46 10^6/uL (4.00-5.40); WHITE BLOOD COUNT 10.3 10^3/uL (4.0-10.0)
== END ==
LOC: M SHH 16:31
PROVIDERS: ATTEND Nurse Practitioner Family
DX: N18.9 Chronic kidney disease, unspecified (principal); D63.1 Anemia in chronic kidney disease

== ENCOUNTER → 2021-01-27 | Outpatient (CLI) | payer MEDICARE ==
[2021-01-27 12:23] LABS: HEMOGLOBIN A1c 6.8 %
[2021-01-27 12:50] LABS: BILIRUBIN,TOTAL 0.4 MG/DL (0.2-1.0); CALCIUM LEVEL 9.4 MG/DL (8.8-10.2); CHOLESTEROL RISK RATIO 3.066 (<5); CREATININE FOR GFR 1.6 MG/DL (0.55-1.30); FREE T4 1.08 NG/DL (0.76-1.46); GLOMERULAR FILTRATION RATE 34.1 (>45); POTASSIUM SERUM 3.7 MEQ/L (3.5-5.1); THYROID STIMULATING HORMONE 4.2 uIU/ML (0.358-3.740); TOTAL PROTEIN 6.9 GM/DL (6.4-8.2)
== END ==
LOC: M WUC 09:30
PROVIDERS: ATTEND Nurse Practitioner Family
DX: I12.9 Hypertensive chronic kidney disease with stage 1 through stage 4 chronic kidney disease, or unspecified chronic kidney disease (principal); E03.9 Hypothyroidism, unspecified; E78.2 Mixed hyperlipidemia; E11.21 Type 2 diabetes mellitus with diabetic nephropathy

== ENCOUNTER → 2021-04-21 | Outpatient (REF) | payer MEDICARE | LOC: M SFHCPLAZ 15:02 | PROVIDERS: ATTEND Family Medicine | DX: D04.61 Carcinoma in situ of skin of right upper limb, including shoulder (principal) ==

== ENCOUNTER → 2021-04-28 | Outpatient (CLI) | payer MEDICARE ==
[2021-04-28 10:31] LABS: BILIRUBIN,TOTAL 0.3 MG/DL (0.2-1.0); CALCIUM LEVEL 9.3 MG/DL (8.8-10.2); CREATININE FOR GFR 1.58 MG/DL (0.55-1.30); FREE T4 1.1 NG/DL (0.76-1.46); GLOMERULAR FILTRATION RATE 34.6 (>45); POTASSIUM SERUM 4.1 MEQ/L (3.5-5.1); THYROID STIMULATING HORMONE 4.37 uIU/ML (0.358-3.740)
[2021-04-28 10:32] LABS: CREATININE, URINE 64.6 MG/DL
== END ==
LOC: M WUC 08:08
PROVIDERS: ATTEND Nurse Practitioner Family
DX: E11.21 Type 2 diabetes mellitus with diabetic nephropathy (principal); E03.9 Hypothyroidism, unspecified

== ENCOUNTER → 2021-06-16 | Outpatient (REF) | payer MEDICARE | LOC: M SFHCPLAZ 10:03 | PROVIDERS: ATTEND Family Medicine | DX: D04.61 Carcinoma in situ of skin of right upper limb, including shoulder (principal) ==

== ENCOUNTER → 2021-06-23 | Outpatient (REF) | payer MEDICARE ==
[~2021-06-23] MED LIST changes: +CAL-TAB4 PO
== END ==
LOC: M LAB REF 15:15
PROVIDERS: ATTEND Physician Assistant
DX: C44.319 Basal cell carcinoma of skin of other parts of face (principal)
CPT/HCPCS: 11102; 17000; 17003; 17110; 88305; G0463

== ENCOUNTER → 2021-06-30 | Outpatient (CLI) | payer MEDICARE ==
[2021-06-30 18:07] LABS: HEMATOCRIT 33.6 % (36.0-47.0); HEMOGLOBIN 10.7 g/dl (12.0-15.5); MEAN CORPUSCULAR HEMOGLOBIN 28.5 pg (27.0-33.0); MEAN CORPUSCULAR HGB CONC 31.8 g/dl (32.0-36.5); MEAN CORPUSCULAR VOLUME 89.4 fl (80.0-96.0); PLATELET COUNT, AUTOMATED 384 10^3/uL (150-450); RED BLOOD COUNT 3.76 10^6/uL (4.00-5.40); WHITE BLOOD COUNT 8.4 10^3/uL (4.0-10.0)
[2021-06-30 18:39] LABS: CALCIUM LEVEL 9.3 MG/DL (8.8-10.2); CREATININE FOR GFR 1.61 MG/DL (0.55-1.30); GLOMERULAR FILTRATION RATE 33.8 (>45); THYROID STIMULATING HORMONE 2.69 uIU/ML (0.358-3.740)
== END ==
LOC: M PLALAB 14:29
PROVIDERS: ATTEND Family Medicine
DX: Z01.818 Encounter for other preprocedural examination (principal); E03.9 Hypothyroidism, unspecified

== ENCOUNTER → 2021-07-07 | Outpatient (CLI) | payer MEDICARE | LOC: M LABSMTC 10:00 | PROVIDERS: ATTEND Anesthesiology | DX: Z01.812 Encounter for preprocedural laboratory examination (principal); Z20.822 Contact with and (suspected) exposure to COVID-19 ==

== ENCOUNTER 2021-07-12 05:59 | Inpatient (IN) | payer MEDICARE ==
[2021-07-12] VITALS (8 sets, daily range): BP systolic 123–143; BP diastolic 64–69
[~2021-07-12] VITALS: Ht 152.4 cm; Wt 108.4 kg
[2021-07-12] MEDS ORDERED: ERTAPENEM SODIUM 1 GM in NS MINI-BAG PLUS 50 ML IV ONE (06:00)
[2021-07-12] MEDS ORDERED: LR 1,000 ML IV ONE (06:00)
[2021-07-12] MEDS ORDERED: LIDOCAINE 1% MDV 20ML VIAL SQ PRN (06:00)
--- NOTE | 2021-07-12 06:48 | HPE ---
HISTORY AND PHYSICAL DATE OF ADMISSION: 07/12/2021 CHIEF COMPLAINT: History of perforated diverticulitis with end colostomy. BRIEF HISTORY OF PRESENT ILLNESS: Patient is a 71-year-old female who had earlier this year a perforated sigmoid colon/sigmoid diverticulitis and was hospitalized for a relatively prolonged period of time, eventually was discharged home with an open wound that eventually healed by secondary intention and presents now after healing this wound and needing to undergo reversal of the colostomy. PAST MEDICAL HISTORY: Significant for a history of perforated diverticulitis, diabetes mellitus, hypertension, migraine headaches, dyslipidemia, gastroesophageal reflux disease, esophageal spasm, chronic iron deficiency, venous insufficiency with chronic lymphedema, morbid obesity with a BMI of 48.9, diverticulosis, vitamin D deficiency, Meniere's disease/positional vertigo, osteoarthritis, hypothyroidism, chronic kidney disease, chronic constipation. MEDICATIONS: 1. Allopurinol. 2. Amlodipine. 3. Aspirin. 4. Atorvastatin. 5. Calcium carbonate. 6. Calcitriol. 7. Colace. 8. Iron. 9. Gabapentin. 10.Insulin. 11.Iron. 12.Synthroid. 13.Omeprazole. 14.Zofran. 15.Propanolol. 16.Torsemide. 17.Vitamin D. PHYSICAL EXAMINATION: Physical exam reveals a 71-year-old female who looks her stated age. HEENT is unremarkable. Neck is supple without adenopathy. Lungs are clear to auscultation. Heart is regular. Abdomen is morbidly obese, nontender, nondistended. No guarding. No rebound. No peritoneal signs are appreciated. Extremities are warm and well-perfused. IMPRESSION: In general, it appears she has a functioning osteotomy. It is hard to tell if she has a parastomal hernia or a midline hernia given her morbid obesity with some possible diastasis of the abdominal wall in this area. IMPRESSION: History of diverticulitis with need for colostomy reversal. PLAN: Bowel prep preoperatively, IV antibiotics preoperatively, p.o. antibiotics preoperatively and intraoperatively placing ARISTEO sequentials with the plan of laparoscopic colostomy reversal. If we do find an incisional hernia at that time, if it is at the area of the colostomy, we will close this primarily, however if it is at the midline and we do not perform a midline incision, then I will defer operative repair/robotic incisional repair of this until a later date. She understands the risks of the operation include but are not limited to infection, bleeding, damage to surrounding structures including bowel, bladder, nerve, vessels, kidney, ureter, anastomotic leak, problems with wound healing, if she has a parastomal hernia, recurrence of the hernia as well as infection at the colostomy site. She would like to proceed with this as scheduled.
[2021-07-12] MEDS ORDERED: BUPIVACAINE/EPIN 0.25% 30 ML VIAL As Ordered ONE (07:09)
[2021-07-12] MEDS ORDERED: GLUCAGON INJ 1MG VIAL As Ordered ONE (07:12)
[2021-07-12] MEDS ORDERED: BUPIVACAINE LIPOSOME/PF 1.3% 20ML VIAL (13.3MG/ML)(EXPAREL)(C9290 PER1MG) As Ordered ONE (07:13)
[2021-07-12] MEDS ORDERED: BUPIVACAINE HCL 0.25% 30ML VIAL As Ordered ONE (07:13)
[2021-07-12] MEDS ORDERED: LIDOCAINE 2% 100MG/5ML SDV (FOR ANES.) As Ordered ONE (07:14)
[2021-07-12] MEDS ORDERED: propofoL 200 MG/20 ML VIAL As Ordered ONE (07:14)
[2021-07-12] MEDS ORDERED: ROCURONIUM BROMIDE 50 MG/5 ML VIAL As Ordered ONE ×2 (07:14→09:09)
[2021-07-12] MEDS ORDERED: fentaNYL 250 MCG/5 ML INJECTION (J3010) As Ordered ONE (07:16)
[2021-07-12] MEDS ORDERED: MIDAZOLAM INJ 2MG/2ML VIAL (J2250 PER 1MG) As Ordered ONE (07:17)
[2021-07-12] MEDS ORDERED: PHENYLephrine 500MCG 5ML (100MCG/ML) SYRINGE As Ordered ONE (07:50)
[2021-07-12] MEDS ORDERED: ONDANSETRON 4MG/2ML VIAL As Ordered ONE (08:22)
[2021-07-12] MEDS ORDERED: METOCLOPRAMIDE INJ 10MG/2ML VIAL (J2765 PER 1) As Ordered ONE (08:22)
[2021-07-12] MEDS ORDERED: SUGAMMADEX SODIUM 500 MG/5 ML VIAL (BRIDION) As Ordered ONE (08:23)
[2021-07-12] MEDS ORDERED: ePHEDrine SULFATE 25 MG/5 ML(5MG/ML) SYRINGE As Ordered ONE (09:00)
[2021-07-12] MEDS ORDERED: DESFLURANE 240 ML INHALANT As Ordered ONE (10:07)
[2021-07-12] MEDS ORDERED: HYDROmorphone HCL 2 MG/ML 1ML VIAL As Ordered ONE (10:31)
[2021-07-12] MEDS ORDERED: IPRATROPIUM 0.5MG/ALBUTEROL 2.5MG INH SOL UD 3ML (DUONEB) NEB PRN (11:15)
[2021-07-12] MEDS ORDERED: DEXTROSE 50% 50 ML SYRINGE IV PRN (11:20)
[2021-07-12] MEDS ORDERED: GLUCOSE 4GM CHEW TABLET PO PRN (11:20)
[2021-07-12] MEDS ORDERED: GLUCAGON INJ 1MG VIAL SC PRN (11:20)
[2021-07-12] MEDS ORDERED: ONDANSETRON 4MG/2ML VIAL IV PRN (11:35)
[2021-07-12] MEDS ORDERED: oxyCODONE 5MG TAB PO PRN (11:35)
[2021-07-12] MEDS ORDERED: fentaNYL 100 MCG/2 ML INJECTION (J3010) IV PRN (11:35)
[2021-07-12] MEDS ORDERED: HYDROMORPHONE HCL 0.5 MG/ 0.5 ML SYRINGE (J1170 PER 1) IV PRN (11:35)
[2021-07-12] MEDS ORDERED: LR 1,000 ML IV SCH (11:35)
[2021-07-12] MEDS: HumaLOG INSULIN (NovoLOG) PER UNIT SC SCH ×3 (12:00→21:00)
[2021-07-12] MEDS: LR 1,000 ML IV SCH ×2 (13:34→21:28)
[2021-07-12] MEDS: allopurinoL 100 MG TAB PO SCH (13:34)
[2021-07-12] MEDS: ASPIRIN 81MG ENTERIC TABLET PO SCH (13:34)
[2021-07-12] MEDS: PANTOPRAZOLE 40MG VIAL (C9113 PER 1) IV SCH (13:34)
[2021-07-12] MEDS: IPRATROPIUM 0.5MG/ALBUTEROL 2.5MG INH SOL UD 3ML (DUONEB) NEB SCH ×2 (15:03→21:49)
[2021-07-12] MEDS: ALVIMOPAN 12 MG CAPSULE (ENTEREG) PO SCH (21:28)
[2021-07-12] MEDS: ONDANSETRON 4MG/2ML VIAL IV PRN (21:29)
[2021-07-12] MEDS: ATORVASTATIN 20 MG TAB PO SCH (21:29)
[2021-07-12] MEDS: PROPRANOLOL 20 MG TAB PO SCH (21:29)
[2021-07-12] MEDS: amLODIPine 5 MG TAB PO SCH (21:29)
[2021-07-12] MEDS: MORPHINE 2 MG/ML 1ML VIAL (J2270) IV PRN (21:30)
[2021-07-13 01:00] VITALS: BP 128/57
[2021-07-13] MEDS: MORPHINE 2 MG/ML 1ML VIAL (J2270) IV PRN ×3 (01:37→18:33)
[2021-07-13] MEDS: IPRATROPIUM 0.5MG/ALBUTEROL 2.5MG INH SOL UD 3ML (DUONEB) NEB SCH ×4 (02:07→21:52)
[2021-07-13] MEDS: LR 1,000 ML IV SCH ×3 (05:35→22:29)
[2021-07-13 06:00] VITALS: BP 113/47
[2021-07-13 08:15] LABS: HEMATOCRIT 28.2 % (36.0-47.0); HEMOGLOBIN 9.3 g/dl (12.0-15.5); MEAN CORPUSCULAR HEMOGLOBIN 28.5 pg (27.0-33.0); MEAN CORPUSCULAR VOLUME 86.5 fl (80.0-96.0); PLATELET COUNT, AUTOMATED 272 10^3/uL (150-450); RED BLOOD COUNT 3.26 10^6/uL (4.00-5.40)
[2021-07-13 08:40] LABS: CALCIUM LEVEL 8.7 MG/DL (8.8-10.2); CREATININE FOR GFR 1.48 MG/DL (0.55-1.30); GLOMERULAR FILTRATION RATE 37.2 (>45); POTASSIUM SERUM 3.8 MEQ/L (3.5-5.1)
[2021-07-13] MEDS: HumaLOG INSULIN (NovoLOG) PER UNIT SC SCH ×4 (08:45→22:06)
[2021-07-13] MEDS: allopurinoL 100 MG TAB PO SCH (08:54)
[2021-07-13] MEDS: ASPIRIN 81MG ENTERIC TABLET PO SCH (08:54)
[2021-07-13] MEDS: amLODIPine 5 MG TAB PO SCH ×2 (08:54→22:30)
[2021-07-13] MEDS: ALVIMOPAN 12 MG CAPSULE (ENTEREG) PO SCH ×2 (08:54→22:29)
[2021-07-13] MEDS: PANTOPRAZOLE 40MG VIAL (C9113 PER 1) IV SCH (08:54)
[2021-07-13] MEDS: PROPRANOLOL 20 MG TAB PO SCH ×2 (08:57→22:30)
--- NOTE | 2021-07-13 09:11 | IPNPDOC ---
Subjective General Date/Time Seen The patient was seen on 07/13/21 at 09:05. Subject Chief Complaint/History The patient is a 71-year-old female admitted with a reason for visit of Colostomy reversal S/P Diverticulitis. Day1 postop, patient denies acute complaints. She tells me she is in minimal pain and discomfort. Reports minimal drainage from surgical sites. She tells me CARYN drain in RLQ has been emptied 2 times since procedure. Denies difficulty with urination, BM. Denies chest pain, SOB. Current Medications Current Medications Current Medications Medications (Trade) Dose Ordered Sig/Farshad Route PRN Reason Start Time Stop Time Status Last Admin Dose Admin Albuterol/ Ipratropium (Duoneb (Ipr 0.5mg/Alb 2.5mg)) 3 ml Q2HP PRN NEB SOB/WHEEZING 07/12/21 11:15 Albuterol/ Ipratropium (Duoneb (Ipr 0.5mg/Alb 2.5mg)) 3 ml RQ6H NEB 07/12/21 14:00 07/13/21 07:11 Allopurinol (Zyloprim) 100 mg DAILY PO 07/12/21 09:00 07/13/21 08:54 Alvimopan (Entereg) 12 mg BID PO 07/12/21 21:00 07/19/21 09:01 07/13/21 08:54 Amlodipine Besylate (Norvasc) 5 mg BID PO 07/12/21 21:00 07/13/21 08:54 Aspirin (Ecotrin) 81 mg DAILY PO 07/12/21 09:00 07/13/21 08:54 Atorvastatin Calcium (Lipitor) 40 mg QHS PO 07/12/21 21:00 07/12/21 21:29 Dextrose (Dextrose 50%) 25 ml ASDIRECTED PRN IV SEE LABEL COMMENTS 07/12/21 11:20 Fentanyl Citrate (Sublimaze) 25 mcg Q5MP PRN IV PAIN LEVEL 8-10 07/12/21 11:35 07/12/21 12:44 DC Glucagon (Glucagon) 1 mg ASDIRECTED PRN SC SEE LABEL COMMENTS 07/12/21 11:20 Glucose (Glucose) 16 GM ASDIRECTED PRN PO SEE LABEL COMMENTS 07/12/21 11:20 Hydromorphone HCl (Dilaudid) 0.2 mg Q5MP PRN IV PAIN LEVEL 5-7 07/12/21 11:35 07/12/21 12:43 DC 07/12/21 11:51 Insulin Human Lispro (HumaLOG INSULIN) SEE PROTOCOL TABLE AC SC 07/12/21 12:00 Insulin Human Lispro (HumaLOG INSULIN) SEE PROTOCOL TABLE QHS SC 07/12/21 21:00 Lactated Ringer's 1,000 ml @ 100 mls/hr Q10H IV 07/12/21 11:35 07/12/21 12:42 DC Lactated Ringer's 1,000 ml @ 125 mls/hr Q8H IV 07/12/21 11:15 07/13/21 05:35 Lidocaine HCl (LIDOCAINE 1% MDV 20ml) 0.1 ml ONCE PRN SQ DISCOMFORT BEFORE IV START 07/12/21 06:00 07/12/21 12:43 DC Morphine Sulfate (Morphine Sulfate Inj) 1 mg Q4H PRN IV MODERATE PAIN (PS 5-7) 07/12/21 11:15 07/12/21 21:30 Morphine Sulfate (Morphine Sulfate Inj) 2 mg Q4H PRN IV SEVERE PAIN (PS 8-10) 07/12/21 11:15 07/13/21 08:58 Ondansetron HCl (ZOFRAN INJection) 4 mg Q4HP PRN IV NAUSEA OR VOMITING 07/12/21 11:35 07/12/21 12:43 DC 07/12/21 11:50 Ondansetron HCl (ZOFRAN INJection) 4 mg Q6HP PRN IV NAUSEA OR VOMITING 07/12/21 11:15 07/12/21 21:29 Oxycodone HCl (Roxicodone, Oxyir) 5 mg ASDIRECTED PRN PO PAIN LEVEL 1-4 07/12/21 11:35 07/12/21 12:43 DC Pantoprazole Sodium (Protonix) 40 mg Q24H IV 07/12/21 09:00 07/13/21 08:54 Propranolol HCl (Inderal) 40 mg BID PO 07/12/21 21:00 07/13/21 08:57 Allergies Coded Allergies: Contrast Media (Verified Allergy, Intermediate, HIVES, 06/28/21) exenatide (Verified Adverse Reaction, Intermediate, LOSS OF APPETITE / WEIGHT LOSS, 06/28/21) rofecoxib (Verified Adverse Reaction, Intermediate, DECREASED KIDNEY FUN CTION, 06/28/21) codeine (Verified Adverse Reaction, Mild, HEADACHE, 06/28/21) metformin (Verified Adverse Reaction, Mild, DIARRHEA, 06/28/21) naproxen (Verified Adverse Reaction, Unknown, NAUSEA, 06/28/21) Objective Physical Examination Examination GENERAL APPEARANCE:Patient seen, laying in bed, awake, alert, and oriented. Comfortable, in no acute distress SKIN: Warm and moist. Bandages (5) intact w/out surrounding erythema, warmth, b leeding. Bandage over previous colostomy site saturated with serous fluid. HEENT: Normocephalic, atraumatic. [place] palpebral conjunctiva, anicteric sclerae. Lips and mucosa appear moist NECK: Supple, no thyromegaly. No obvious jugular venous distention LUNGS: Clear to auscultation bilaterally. No wheezing appreciated HEART: No chest wall abnormalities. Regular rate and rhythm with no murmurs appreciated ABDOMEN: Abdomen is nontender, soft, nondistended. No masses appreciated. 1 CARYN drain in RLQ surgical site with moderate serosanguinous fluid. EXTREMITIES: Extremities have no deformities. No edema identified. Vital Signs Vital Signs Date Time Temp Pulse Resp B/P (MAP) Pulse Ox O2 Delivery O2 Flow Rate FiO2 07/13/21 08:58 18 07/13/21 08:54 95 137/65 07/13/21 06:00 98.2 94 Nasal Cannula 2.0 I&Os I&O- Last 24 Hours up to 6 AM 07/13/21 05:59 Intake Total 2850 ml Output Total 650 ml Balance 2200 ml Laboratory Data Labs 24H Laboratory Tests 2 07/12/21 11:56: Bedside Glucose (Misc Panel) 196H 07/12/21 16:32: Bedside Glucose (Misc Panel) 158H 07/12/21 21:15: Bedside Glucose (Misc Panel) 138H 07/13/21 00:22: Bedside Glucose (Misc Panel) 105 07/13/21 07:43: Nucleated Red Blood Cells % (auto) 0.0, Anion Gap 6L, Glomerular Filtration Rate 37.2L, Calcium Level 8.7L CBC/BMP Laboratory Tests 07/13/21 07:43 Impression 71F s/p colostomy reversal, day1 postop without acute complaints. OOB w/ nurse assist Clear liquids diet. Encouraged to be conservative on oral intake, given recent abd surgery. Will change saturated bandage to keep previous colostomy site dry. No surrounding skin changes, bleeding, drainage from other (4)surgical sites. 75mL drainage total from CARYN drain in RLQ thru 07/[address] Continue monitoring I&Os. Continue TEDs and Sequentials for VTE prophylaxis. Encourage OOB. Plan / VTE VTE Prophylaxis Ordered?: Yes (TEDs) Plan / Urinary Catheter Reason for insertion/continuin: Perioperative Edith Rasmussen DO Jul 13, 2021 09:11
[2021-07-13 10:00] VITALS: BP 124/59
[2021-07-13] MEDS: ONDANSETRON 4MG/2ML VIAL IV PRN (13:59)
[2021-07-13 14:00] VITALS: BP 128/60
[2021-07-13 18:00] VITALS: BP 131/62
[2021-07-13 20:00] VITALS: BP 132/60
[2021-07-13] MEDS: ATORVASTATIN 20 MG TAB PO SCH (22:29)
[2021-07-14 02:00] VITALS: BP 125/65
[2021-07-14] MEDS: IPRATROPIUM 0.5MG/ALBUTEROL 2.5MG INH SOL UD 3ML (DUONEB) NEB SCH ×4 (02:37→20:01)
[2021-07-14 06:00] VITALS: BP 153/72
[2021-07-14] MEDS: LR 1,000 ML IV SCH ×2 (06:13→14:21)
[2021-07-14] MEDS: MORPHINE 2 MG/ML 1ML VIAL (J2270) IV PRN ×2 (06:14→18:07)
[2021-07-14 07:10] LABS: HEMATOCRIT 29.2 % (36.0-47.0); HEMOGLOBIN 9.4 g/dl (12.0-15.5); MEAN CORPUSCULAR HEMOGLOBIN 28.7 pg (27.0-33.0); MEAN CORPUSCULAR HGB CONC 32.2 g/dl (32.0-36.5); PLATELET COUNT, AUTOMATED 263 10^3/uL (150-450); RED BLOOD COUNT 3.28 10^6/uL (4.00-5.40)
[2021-07-14] MEDS: HumaLOG INSULIN (NovoLOG) PER UNIT SC SCH ×4 (07:30→21:00)
[2021-07-14 07:37] LABS: CALCIUM LEVEL 8.5 MG/DL (8.8-10.2); CREATININE FOR GFR 1.52 MG/DL (0.55-1.30); GLOMERULAR FILTRATION RATE 36.1 (>45); POTASSIUM SERUM 3.9 MEQ/L (3.5-5.1)
[2021-07-14 08:00] VITALS: BP 140/78
[2021-07-14] MEDS: ALVIMOPAN 12 MG CAPSULE (ENTEREG) PO SCH ×2 (09:33→20:40)
[2021-07-14] MEDS: ASPIRIN 81MG ENTERIC TABLET PO SCH (09:33)
[2021-07-14] MEDS: amLODIPine 5 MG TAB PO SCH ×2 (09:34→20:41)
[2021-07-14] MEDS: allopurinoL 100 MG TAB PO SCH (09:34)
[2021-07-14] MEDS: PANTOPRAZOLE 40MG VIAL (C9113 PER 1) IV SCH (09:35)
[2021-07-14] MEDS: PROPRANOLOL 20 MG TAB PO SCH ×2 (09:55→20:41)
--- NOTE | 2021-07-14 10:09 | IPNPDOC ---
Subjective General Date/Time Seen The patient was seen on 07/14/21 at 10:00. Subject Chief Complaint/History The patient is a 71-year-old female admitted with a reason for visit of Colostomy reversal S/P Diverticulitis. Today, postop day2, patient tells me she is feeling well and has minimal pain. She tells me she is weening herself off of pain meds and is anxious to move OOB today. Denies abd pain, n/v, BM, chest pain, SOB. Current Medications Current Medications Current Medications Medications (Trade) Dose Ordered Sig/Farshad Route PRN Reason Start Time Stop Time Status Last Admin Dose Admin Albuterol/ Ipratropium (Duoneb (Ipr 0.5mg/Alb 2.5mg)) 3 ml Q2HP PRN NEB SOB/WHEEZING 07/12/21 11:15 Albuterol/ Ipratropium (Duoneb (Ipr 0.5mg/Alb 2.5mg)) 3 ml RQ6H NEB 07/12/21 14:00 07/14/21 07:59 Allopurinol (Zyloprim) 100 mg DAILY PO 07/12/21 09:00 07/14/21 09:34 Alvimopan (Entereg) 12 mg BID PO 07/12/21 21:00 07/19/21 09:01 07/14/21 09:33 Amlodipine Besylate (Norvasc) 5 mg BID PO 07/12/21 21:00 07/14/21 09:34 Aspirin (Ecotrin) 81 mg DAILY PO 07/12/21 09:00 07/14/21 09:33 Atorvastatin Calcium (Lipitor) 40 mg QHS PO 07/12/21 21:00 07/13/21 22:29 Dextrose (Dextrose 50%) 25 ml ASDIRECTED PRN IV SEE LABEL COMMENTS 07/12/21 11:20 Fentanyl Citrate (Sublimaze) 25 mcg Q5MP PRN IV PAIN LEVEL 8-10 07/12/21 11:35 07/12/21 12:44 DC Glucagon (Glucagon) 1 mg ASDIRECTED PRN SC SEE LABEL COMMENTS 07/12/21 11:20 Glucose (Glucose) 16 GM ASDIRECTED PRN PO SEE LABEL COMMENTS 07/12/21 11:20 Hydromorphone HCl (Dilaudid) 0.2 mg Q5MP PRN IV PAIN LEVEL 5-7 07/12/21 11:35 07/12/21 12:43 DC 07/12/21 11:51 Insulin Human Lispro (HumaLOG INSULIN) SEE PROTOCOL TABLE AC SC 07/12/21 12:00 Insulin Human Lispro (HumaLOG INSULIN) SEE PROTOCOL TABLE QHS SC 07/12/21 21:00 Lactated Ringer's 1,000 ml @ 100 mls/hr Q10H IV 07/12/21 11:35 07/12/21 12:42 DC Lactated Ringer's 1,000 ml @ 125 mls/hr Q8H IV 07/12/21 11:15 07/14/21 06:13 Lidocaine HCl (LIDOCAINE 1% MDV 20ml) 0.1 ml ONCE PRN SQ DISCOMFORT BEFORE IV START 07/12/21 06:00 07/12/21 12:43 DC Morphine Sulfate (Morphine Sulfate Inj) 1 mg Q4H PRN IV MODERATE PAIN (PS 5-7) 07/12/21 11:15 07/14/21 06:14 Morphine Sulfate (Morphine Sulfate Inj) 2 mg Q4H PRN IV SEVERE PAIN (PS 8-10) 07/12/21 11:15 07/13/21 18:33 Ondansetron HCl (ZOFRAN INJection) 4 mg Q4HP PRN IV NAUSEA OR VOMITING 07/12/21 11:35 07/12/21 12:43 DC 07/12/21 11:50 Ondansetron HCl (ZOFRAN INJection) 4 mg Q6HP PRN IV NAUSEA OR VOMITING 07/12/21 11:15 07/13/21 13:59 Oxycodone HCl (Roxicodone, Oxyir) 5 mg ASDIRECTED PRN PO PAIN LEVEL 1-4 07/12/21 11:35 07/12/21 12:43 DC Pantoprazole Sodium (Protonix) 40 mg Q24H IV 07/12/21 09:00 07/14/21 09:35 Propranolol HCl (Inderal) 40 mg BID PO 07/12/21 21:00 07/14/21 09:55 Allergies Coded Allergies: Contrast Media (Verified Allergy, Intermediate, HIVES, 06/28/21) exenatide (Verified Adverse Reaction, Intermediate, LOSS OF APPETITE / WEIGHT LOSS, 06/28/21) rofecoxib (Verified Adverse Reaction, Intermediate, DECREASED KIDNEY FUNCTION, 06/28/21) codeine (Verified Adverse Reaction, Mild, HEADACHE, 06/28/21) metformin (Verified Adverse Reaction, Mild, DIARRHEA, 06/28/21) naproxen (Verified Adverse Reaction, Unknown, NAUSEA, 06/28/21) Objective Physical Examination Examination GENERAL APPEARANCE:Patient seen, laying in bed, awake, alert, and oriented. Comfortable, in no acute distress SKIN: Warm and moist. Minimal skin irritation near previous colostomy site. Abdominal wounds intact, clean, w/out drainage or surrounding skin changes. HEENT: Normocephalic, atraumatic. [place] palpebral conjunctiva, anicteric sclerae. Lips and mucosa appear moist NECK: Supple LUNGS: Clear to auscultation bilaterally. No wheezing appreciated HEART: No chest wall abnormalities. Regular rate and rhythm with no murmurs appreciated ABDOMEN: Abdomen is nontender, soft, nondistended. 1 CARYN drain in RLQ with minimal serous fluid. No grimacing with palpation. No masses appreciated. Jhaveri in place with adequate output. EXTREMITIES: Extremities have no deformities. 3+ pedal edema identified Vital Signs Vital Signs Date Time Temp Pulse Resp B/P (MAP) Pulse Ox O2 Delivery O2 Flow Rate FiO2 07/14/21 09:55 84 140/78 07/14/21 08:00 98.1 18 91 Nasal Cannula 2.0 I&Os l I&O- Last 24 Hours up to 6 AM 07/14/21 06:00 Intake Total 3000 ml Output Total 1070 ml Balance 1930 ml Laboratory Data Labs 24H Laboratory Tests 2 07/13/21 11:19: Bedside Glucose (Misc Panel) 88 07/13/21 17:09: Bedside Glucose (Misc Panel) 91 07/13/21 20:38: Bedside Glucose (Misc Panel) 94 07/14/21 02:35: Bedside Glucose (Misc Panel) 97 07/14/21 06:29: Nucleated Red Blood Cells % (auto) 0.0, Anion Gap 9, Glomerular Filtration Rate 36.1L, Calcium Level 8.5L CBC/BMP Laboratory Tests 07/14/21 06:29 Impression 71F admitted following colostomy reversal s/p diverticulitis, day 2 postop, with improved pain management and w/out acute complaints. Clear liquids diet 95mL drainage from CARYN drain thru 07/13. Continue monitoring I&Os. Start patient's home Torsemide Continue TEDs and Sequentials for SVT prophylaxis. Encourage OOB D/C jhaveri catheter Continue wound care w/ wound vac. Plan / VTE VTE Prophylaxis Ordered?: Yes (TEDs) Plan / Urinary Catheter Urinary Catheter: D/C Edith Hatfield DO Jul 14, 2021 10:09
[2021-07-14 12:00] VITALS: BP 140/76
[2021-07-14] MEDS: TORSEMIDE 10 MG TABLET PO SCH (12:01)
[2021-07-14] MEDS: ATORVASTATIN 20 MG TAB PO SCH (20:41)
[2021-07-14 22:00] VITALS: BP 155/63
[2021-07-15 02:00] VITALS: BP 140/65
[2021-07-15] MEDS: IPRATROPIUM 0.5MG/ALBUTEROL 2.5MG INH SOL UD 3ML (DUONEB) NEB SCH ×4 (02:00→18:16)
[2021-07-15] MEDS: ACETAMINOPHEN TAB 650MG DOSE (2X325MG) PO PRN ×2 (05:39→16:48)
[2021-07-15 06:00] VITALS: BP 152/63
[2021-07-15 06:52] LABS: HEMATOCRIT 27.5 % (36.0-47.0); HEMOGLOBIN 8.9 g/dl (12.0-15.5); MEAN CORPUSCULAR HGB CONC 32.4 g/dl (32.0-36.5); MEAN CORPUSCULAR VOLUME 86.5 fl (80.0-96.0); PLATELET COUNT, AUTOMATED 250 10^3/uL (150-450); RED BLOOD COUNT 3.18 10^6/uL (4.00-5.40); WHITE BLOOD COUNT 11.4 10^3/uL (4.0-10.0)
[2021-07-15] MEDS: LR 1,000 ML IV SCH ×2 (07:03)
[2021-07-15 07:19] LABS: CALCIUM LEVEL 8.2 MG/DL (8.8-10.2); CREATININE FOR GFR 1.57 MG/DL (0.55-1.30); GLOMERULAR FILTRATION RATE 34.8 (>45); POTASSIUM SERUM 3.9 MEQ/L (3.5-5.1)
[2021-07-15] MEDS: HumaLOG INSULIN (NovoLOG) PER UNIT SC SCH ×4 (08:29→20:06)
[2021-07-15] MEDS: PANTOPRAZOLE 40MG VIAL (C9113 PER 1) IV SCH (08:30)
[2021-07-15] MEDS: ASPIRIN 81MG ENTERIC TABLET PO SCH (08:31)
[2021-07-15] MEDS: allopurinoL 100 MG TAB PO SCH (08:31)
[2021-07-15] MEDS: ALVIMOPAN 12 MG CAPSULE (ENTEREG) PO SCH ×2 (08:31→20:15)
[2021-07-15] MEDS: amLODIPine 5 MG TAB PO SCH ×2 (08:33→20:16)
[2021-07-15] MEDS: TORSEMIDE 10 MG TABLET PO SCH (08:34)
[2021-07-15] MEDS: PROPRANOLOL 20 MG TAB PO SCH ×2 (08:43→20:16)
--- NOTE | 2021-07-15 09:24 | RO ---
OPERATIVE NOTE DATE OF OPERATION: 07/15/2021 PREOPERATIVE DIAGNOSIS: History of perforated diverticulitis with colostomy. POSTOPERATIVE DIAGNOSIS: History of perforated diverticulitis with colostomy. PROCEDURE: Laparoscopic colostomy reversal/partial colonic resection. SURGEON: AMY JAQUEZ JR., MD [employer] REPAIRER: NEMESIO NORMAN DO (provided retraction, anastomosis, assistance with abdominal wall closure). ANESTHESIA: General endotracheal. ESTIMATED BLOOD LOSS: Minimal. FLUIDS: Crystalloid. DISPOSITION: Patient was taken to the Recovery Room awake, alert, hemodynamically stable. BRIEF OPERATIVE SUMMARY: The patient was brought to the Operating Room, was given general anesthesia, after adequate anesthesia and preoperative antibiotics, the patient's ostomy site was closed with a running #1 Prolene. This was closed. Once this was closed, the patient was prepped and draped in the usual sterile fashion. Next, an incision around the ostomy was made with skin knife. Electrocautery was used to cut through dermis and underlying subcutaneous tissue. This was mobilized significantly using a combination of blunt and sharp dissection and eventually I was able to mobilize this off the fascia and then posterior to the fascia I was able to mobilize this as well using some blunt dissection as well as electrocautery on some loose areolar tissue. Once the colon was mobilized, the small bowel that was attached to it was also cleared off of this with sharp dissection. Then, the colostomy was sized and once it was sized a 29 __ anvil was placed in this area. The tip of the ostomy itself was removed using a ROMAIN stapler and the anvil brought out through the end. This was returned to the abdominal cavity and the incision closed with #1 Vicryl in a running manner. A Sukumar catheter was placed into the abdominal cavity and multiple 5 mm trocars were placed to allow for dissection of all these areas along the anterior abdominal wall where multiple adhesions were present, multiple adhesions in the left lower quadrant where the small bowel was up against the pelvic sidewall and the small bowel was up the rectal stump, the rectal stump was dissected off the right lateral abdominal/pelvic sidewall and once this was adequately mobilized, it was obvious that the colon needed to be mobilized a little bit more to reach down into the pelvis adequately, thus the white line of Toldt was scored all the way up to the splenic flexure area and mobilized further and then this reached easily the rectal stump area. The dilators were placed into the rectal stump. There was some stool within the rectal stump itself and eventually after this was evacuated the dilators were placed up into the proximal colon but there was some leakage of contents from the staple line and thus the staple line was re-resected after taking the harmonic scalpel to some of the mesentery taking this back and then using an Miles 60 stapler to take the colon. Once I was able to take this colon, then an EA anastomosis was created, a seal was placed across the anastomosis area and then a #19 Chay-Cotton was left in the bed of the dissection. Once this was all performed, all trocars were removed under direct visualization and the skin incisions were closed with agustin. The ostomy site was packed with a dry gauze. The patient was awakened, extubated and brought to the Recovery Room awake, alert and hemodynamically stable. The anastomosis had been evaluated under water with air insufflation and revealed no evidence of air leak.
--- NOTE | 2021-07-15 09:26 | IPNPDOC ---
Text Note Date of Service The patient was seen on 07/15/21. NOTE S: Pt seen and evaluated this AM. She tells me she is doing well and has been OOB often with both nursing and PT. Reports flatus, BM. Denies abd pain, n/v, chest pain, SOB. She tells me she would like her nasal cannula removed. O: GEN: sitting in chair eating breakfast, awake, alert, NAD SKIN: Wound vac over previous colostomy site. Abdominal wounds intact, clean, w/out drainage or surrounding skin changes. HEENT: Normocephalic, atraumatic. [place] palpebral conjunctiva, anicteric sclerae. Lips and mucosa appear moist LUNGS: Clear to auscultation bilaterally. No wheezing appreciated HEART: No chest wall abnormalities. Regular rate and rhythm with no murmurs appreciated ABDOMEN: Abdomen is nontender, soft, nondistended. 1 CARYN drain in RLQ with minimal serous fluid. No grimacing with palpation. No masses appreciated. EXTREMITIES: Extremities have no deformities. 3+ pedal edema identified A/P: 71F hx diverticulitis s/p colostomy reversal, day 3 postop w/ improved bowel function and mobility. #S/p colostomy reversal, day3 postop Leukocytosis improving from 13 (07/14) to 11.4 (07/15) CARYN drain RLQ w/ 180ML drainage total thru 07/14 O2sat 92% on 3L NC. Titrate supplemental O2 90%. Wound vac in place w/ good output Advance to regular diet D/C IVF Monitor I&Os Encourage OOB and frequent ambulation TEDs and Sequentials for DVT Prophylaxis DIET: consistent carb ACTIVITY: OOB ad yuval DISPO: Home w/ services, as recommended by PFS Kristi HORNER, I+O Kristi HORNER, I+O Laboratory Tests 07/15/21 06:19 Vital Signs Date Time Temp Pulse Resp B/P (MAP) Pulse Ox O2 Delivery O2 Flow Rate FiO2 07/15/21 08:33 83 149/63 07/15/21 06:00 98.5 17 90 Nasal Cannula 3.0 I&O- Last 24 Hours up to 6 AM 07/15/21 06:00 Intake Total 722 ml Output Total 1870 ml Balance -1148 ml Edith Rasmussen DO Jul 15, 2021 09:26
[2021-07-15 19:56] VITALS: BP 149/68
[2021-07-15] MEDS: ATORVASTATIN 20 MG TAB PO SCH (20:16)
[2021-07-15] MEDS: ONDANSETRON 4MG/2ML VIAL IV PRN (20:17)
[2021-07-16 02:00] VITALS: BP 130/64
[2021-07-16] MEDS: IPRATROPIUM 0.5MG/ALBUTEROL 2.5MG INH SOL UD 3ML (DUONEB) NEB SCH ×4 (02:43→20:15)
[2021-07-16 05:11] VITALS: BP 158/81
[2021-07-16] MEDS: ACETAMINOPHEN TAB 650MG DOSE (2X325MG) PO PRN ×2 (05:14→20:44)
[2021-07-16 07:08] LABS: HEMATOCRIT 27.5 % (36.0-47.0); MEAN CORPUSCULAR HEMOGLOBIN 28.6 pg (27.0-33.0); MEAN CORPUSCULAR HGB CONC 32.7 g/dl (32.0-36.5); MEAN CORPUSCULAR VOLUME 87.3 fl (80.0-96.0); PLATELET COUNT, AUTOMATED 278 10^3/uL (150-450); RED BLOOD COUNT 3.15 10^6/uL (4.00-5.40); WHITE BLOOD COUNT 8.2 10^3/uL (4.0-10.0)
[2021-07-16 07:32] LABS: CALCIUM LEVEL 7.6 MG/DL (8.8-10.2); CREATININE FOR GFR 1.74 MG/DL (0.55-1.30); GLOMERULAR FILTRATION RATE 30.9 (>45); POTASSIUM SERUM 3.7 MEQ/L (3.5-5.1)
[2021-07-16] MEDS: PANTOPRAZOLE 40MG VIAL (C9113 PER 1) IV SCH (08:48)
[2021-07-16] MEDS: ASPIRIN 81MG ENTERIC TABLET PO SCH (08:48)
[2021-07-16] MEDS: allopurinoL 100 MG TAB PO SCH (08:48)
[2021-07-16] MEDS: ALVIMOPAN 12 MG CAPSULE (ENTEREG) PO SCH ×2 (08:48→20:41)
[2021-07-16] MEDS: TORSEMIDE 10 MG TABLET PO SCH (08:48)
[2021-07-16] MEDS: HumaLOG INSULIN (NovoLOG) PER UNIT SC SCH ×4 (08:49→20:42)
[2021-07-16] MEDS: amLODIPine 5 MG TAB PO SCH ×2 (08:52→20:43)
[2021-07-16] MEDS: PROPRANOLOL 20 MG TAB PO SCH ×2 (08:52→20:42)
[2021-07-16 10:00] VITALS: BP 134/58
[2021-07-16 14:00] VITALS: BP 143/71
[2021-07-16 18:00] VITALS: BP 109/63
[2021-07-16] MEDS: ATORVASTATIN 20 MG TAB PO SCH (20:41)
[2021-07-16 22:00] VITALS: BP 114/64
[2021-07-17 02:00] VITALS: BP 118/61
[2021-07-17] MEDS: IPRATROPIUM 0.5MG/ALBUTEROL 2.5MG INH SOL UD 3ML (DUONEB) NEB SCH ×4 (03:00→19:55)
[2021-07-17] MEDS: ACETAMINOPHEN TAB 650MG DOSE (2X325MG) PO PRN ×2 (04:12→18:00)
[2021-07-17 06:00] VITALS: BP 118/60
[2021-07-17 07:53] LABS: HEMATOCRIT 26.4 % (36.0-47.0); HEMOGLOBIN 8.7 g/dl (12.0-15.5); MEAN CORPUSCULAR HEMOGLOBIN 28.4 pg (27.0-33.0); MEAN CORPUSCULAR VOLUME 86.3 fl (80.0-96.0); PLATELET COUNT, AUTOMATED 278 10^3/uL (150-450); RED BLOOD COUNT 3.06 10^6/uL (4.00-5.40); WHITE BLOOD COUNT 7.5 10^3/uL (4.0-10.0)
[2021-07-17 08:12] LABS: CALCIUM LEVEL 7.9 MG/DL (8.8-10.2); CREATININE FOR GFR 1.65 MG/DL (0.55-1.30); GLOMERULAR FILTRATION RATE 32.8 (>45); POTASSIUM SERUM 3.9 MEQ/L (3.5-5.1)
[2021-07-17] MEDS: TORSEMIDE 10 MG TABLET PO SCH (08:51)
[2021-07-17] MEDS: allopurinoL 100 MG TAB PO SCH (08:51)
[2021-07-17] MEDS: ALVIMOPAN 12 MG CAPSULE (ENTEREG) PO SCH ×2 (08:51→20:41)
[2021-07-17] MEDS: PANTOPRAZOLE 40MG VIAL (C9113 PER 1) IV SCH (08:51)
[2021-07-17] MEDS: ASPIRIN 81MG ENTERIC TABLET PO SCH (08:51)
[2021-07-17] MEDS: HumaLOG INSULIN (NovoLOG) PER UNIT SC SCH ×4 (08:52→20:45)
[2021-07-17] MEDS: amLODIPine 5 MG TAB PO SCH ×2 (08:53→20:43)
[2021-07-17] MEDS: PROPRANOLOL 20 MG TAB PO SCH ×2 (08:53→20:42)
[2021-07-17 10:00] VITALS: BP 138/60
--- NOTE | 2021-07-17 13:28 | IPNPDOC ---
Text Note Date of Service The patient was seen on 07/17/21. NOTE Patient seen sitting up on the chair, looks very comfortable. She looks to have had a few bowel movements since being given a dose of milk of magnesia yesterday. She is tolerating diet. Vital signs stable Examination Patient sitting up on the chair looks very comfortable, awake alert and oriented Lung sounds clear anteriorly Regular heart rate and rhythm I asked her to transfer to the bed and she was able to do so independently with a walker. I removed her wound VAC and examined the wound. There is beginning good granulation tissue. The depth of the wound is roughly about 3 cm. No purulent drainage. Fascial closure seems to be intact. She is nontender on p alpation. She has a [place] drain with minimal light pink serosanguineous output. 70 mL drain yesterday. 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 I remove the wound VAC and I just had the nurse place a wet-to-dry gauze dressing/packing to the wound in anticipation of hopefully sending her home tomorrow with the same wound management. She tells me that her may be able to help her with the wound packing. Certainly will need to arrange some visiting nurse help when she gets home. Tentative discharge tomorrow with arrangements of visiting nurses. VS,Fishbone, I+O VS, Fishbone, I+O Laboratory Tests 07/17/21 07:32 Vital Signs Date Time Temp Pulse Resp B/P (MAP) Pulse Ox O2 Delivery O2 Flow Rate FiO2 07/17/21 10:00 98.2 75 16 138/60 (86) 95 Nasal Cannula 2.0 I&O- Last 24 Hours up to 6 AM 07/17/21 06:00 Intake Total 700 ml Output Total 1365 ml Balance -665 ml JAMES REYES MD Jul 17, 2021 13:28
[2021-07-17 14:00] VITALS: BP 135/59
[2021-07-17 18:00] VITALS: BP 132/59
[2021-07-17] MEDS: ATORVASTATIN 20 MG TAB PO SCH (20:42)
[2021-07-17 22:00] VITALS: BP 124/52
[2021-07-18 02:00] VITALS: BP 132/68
[2021-07-18] MEDS: IPRATROPIUM 0.5MG/ALBUTEROL 2.5MG INH SOL UD 3ML (DUONEB) NEB SCH ×2 (02:49→07:19)
[2021-07-18 06:00] VITALS: BP 135/70
[2021-07-18 08:04] LABS: HEMATOCRIT 28.9 % (36.0-47.0); HEMOGLOBIN 9.2 g/dl (12.0-15.5); MEAN CORPUSCULAR HEMOGLOBIN 27.8 pg (27.0-33.0); MEAN CORPUSCULAR HGB CONC 31.8 g/dl (32.0-36.5); MEAN CORPUSCULAR VOLUME 87.3 fl (80.0-96.0); PLATELET COUNT, AUTOMATED 332 10^3/uL (150-450); RED BLOOD COUNT 3.31 10^6/uL (4.00-5.40); WHITE BLOOD COUNT 8.1 10^3/uL (4.0-10.0)
[2021-07-18 08:38] LABS: CALCIUM LEVEL 8.3 MG/DL (8.8-10.2); CREATININE FOR GFR 1.63 MG/DL (0.55-1.30); GLOMERULAR FILTRATION RATE 33.3 (>45); POTASSIUM SERUM 3.9 MEQ/L (3.5-5.1)
[2021-07-18] MEDS: TORSEMIDE 10 MG TABLET PO SCH (09:28)
[2021-07-18] MEDS: ALVIMOPAN 12 MG CAPSULE (ENTEREG) PO SCH (09:28)
[2021-07-18] MEDS: allopurinoL 100 MG TAB PO SCH (09:28)
[2021-07-18] MEDS: HumaLOG INSULIN (NovoLOG) PER UNIT SC SCH (09:28)
[2021-07-18] MEDS: PANTOPRAZOLE 40MG VIAL (C9113 PER 1) IV SCH (09:31)
[2021-07-18] MEDS: amLODIPine 5 MG TAB PO SCH (09:31)
[2021-07-18] MEDS: ASPIRIN 81MG ENTERIC TABLET PO SCH (09:31)
[2021-07-18 09:39] VITALS: BP 140/69
[2021-07-18] MEDS: PROPRANOLOL 20 MG TAB PO SCH (09:39)
[2021-07-18] MEDS ORDERED: [UNRECOGNIZED DRUG - CODE] XX (09:59)
== END 2021-07-18 12:15 | disposition home or self-care (01) | DRG 330 ==
LOC: M OR 05:59 → M MSPAV 12:40
PROVIDERS: ADMIT Surgery; ATTEND Surgery
PROC: 0DBN4ZZ Excision of Sigmoid Colon, Percutaneous Endoscopic Approach (ICD-10-PCS; principal; 2021-07-15)
PROC: 0DBP4ZZ Excision of Rectum, Percutaneous Endoscopic Approach (ICD-10-PCS; 2021-07-15)
DX: Z43.3 Encounter for attention to colostomy (principal); Z68.42 Body mass index [BMI] 45.0-49.9, adult; E11.22 Type 2 diabetes mellitus with diabetic chronic kidney disease; N18.9 Chronic kidney disease, unspecified; I12.9 Hypertensive chronic kidney disease with stage 1 through stage 4 chronic kidney disease, or unspecified chronic kidney disease; E66.01 Morbid (severe) obesity due to excess calories; G43.909 Migraine, unspecified, not intractable, without status migrainosus; E55.9 Vitamin D deficiency, unspecified; K57.30 Diverticulosis of large intestine without perforation or abscess without bleeding; E03.9 Hypothyroidism, unspecified; Z79.4 Long term (current) use of insulin; Z79.899 Other long term (current) drug therapy

== ENCOUNTER → 2021-11-07 | Outpatient (CLI) | payer MEDICARE ==
[~2021-11-07] MED LIST changes: +BENA-8 PO; -BENA20TA8 PO; +[UNRECOGNIZED DRUG - CODE] XX
[2021-11-07 18:01] LABS: BASO # 0.1 10^3/uL (0.0-0.2); BASO % 0.7 % (0.0-1.0); EOS # 0.3 10^3/uL (0.0-0.5); HEMATOCRIT 33.3 % (36.0-47.0); HEMOGLOBIN 10.4 g/dl (12.0-15.5); LYMPH % 22.9 % (24.0-44.0); MEAN CORPUSCULAR HEMOGLOBIN 27.4 pg (27.0-33.0); MEAN CORPUSCULAR HGB CONC 31.2 g/dl (32.0-36.5); MEAN CORPUSCULAR VOLUME 87.6 fl (80.0-96.0); MONO # 0.7 10^3/uL (0.0-0.8); MONO % 7.7 % (2.0-8.0); NEUTROPHILS # 5.7 10^3/uL (1.5-8.5); NEUTROPHILS % 65.4 % (36.0-66.0); PLATELET COUNT, AUTOMATED 374 10^3/uL (150-450); WHITE BLOOD COUNT 8.7 10^3/uL (4.0-10.0)
[2021-11-07 18:37] LABS: HEMOGLOBIN A1c 6.8 %
[2021-11-07 19:07] LABS: ALBUMIN 3.3 GM/DL (3.2-5.2); BILIRUBIN,TOTAL 0.2 MG/DL (0.2-1.0); CALCIUM LEVEL 9.1 MG/DL (8.8-10.2); CHOLESTEROL RISK RATIO 3.093 (<5); CREATININE FOR GFR 1.62 MG/DL (0.55-1.30); FREE T4 1.08 NG/DL (0.76-1.46); GLOMERULAR FILTRATION RATE 33.5 (>45); POTASSIUM SERUM 4.2 MEQ/L (3.5-5.1); THYROID STIMULATING HORMONE 2.91 uIU/ML (0.358-3.740); TOTAL PROTEIN 7.2 GM/DL (6.4-8.2)
[2021-11-07 19:08] LABS: MAU/CREAT RATIO 209.8 MCG/MG (0.0-30.0)
== END ==
LOC: M PLALAB 15:19
PROVIDERS: ATTEND Nurse Practitioner Family
DX: E03.9 Hypothyroidism, unspecified (principal); E11.21 Type 2 diabetes mellitus with diabetic nephropathy; E78.2 Mixed hyperlipidemia; I10 Essential (primary) hypertension

== ENCOUNTER → 2021-12-06 | Outpatient (REF) | payer MEDICARE ==
[~2021-12-06] MED LIST changes: -D31000TA2 PO; +VITA100093 PO
== END ==
LOC: M SFHCDERM 18:36
PROVIDERS: ATTEND Dermatology
DX: L57.8 Other skin changes due to chronic exposure to nonionizing radiation (principal)

== ENCOUNTER → 2021-12-16 | Outpatient (CLI) | payer MEDICARE | LOC: M RAD 14:58 | PROVIDERS: ATTEND Dermatology | DX: R22.1 Localized swelling, mass and lump, neck (principal) ==

== ENCOUNTER → 2022-03-07 | Outpatient (CLI) | payer MEDICARE ==
[2022-03-07 15:48] LABS: BASO # 0.1 10^3/uL (0.0-0.2); BASO % 0.6 % (0.0-1.0); EOS # 0.3 10^3/uL (0.0-0.5); EOS % 3.9 % (0.0-3.0); LYMPH # 1.7 10^3/uL (1.5-5.0); LYMPH % 20.5 % (24.0-44.0); MEAN CORPUSCULAR HEMOGLOBIN 27.8 pg (27.0-33.0); MEAN CORPUSCULAR HGB CONC 31.4 g/dl (32.0-36.5); MEAN CORPUSCULAR VOLUME 88.4 fl (80.0-96.0); MONO # 0.7 10^3/uL (0.0-0.8); MONO % 7.9 % (2.0-8.0); NEUTROPHILS # 5.5 10^3/uL (1.5-8.5); NEUTROPHILS % 66.7 % (36.0-66.0); PLATELET COUNT, AUTOMATED 302 10^3/uL (150-450); RED BLOOD COUNT 3.96 10^6/uL (4.00-5.40); WHITE BLOOD COUNT 8.2 10^3/uL (4.0-10.0)
[2022-03-07 15:55] LABS: BILIRUBIN,TOTAL 0.3 MG/DL (0.2-1.0); CALCIUM LEVEL 8.8 MG/DL (8.8-10.2); CREATININE FOR GFR 1.81 MG/DL (0.55-1.30); GLOMERULAR FILTRATION RATE 29.5 (>45)
[2022-03-07 15:56] LABS: ALBUMIN 3.2 GM/DL (3.2-5.2); CHOLESTEROL RISK RATIO 2.977 (<5); FREE T4 0.94 NG/DL (0.76-1.46); THYROID STIMULATING HORMONE 3.76 uIU/ML (0.358-3.740)
[2022-03-07 16:30] LABS: MAU/CREAT RATIO 157.1 MCG/MG (0.0-30.0)
== END ==
LOC: M PLALAB 12:52
PROVIDERS: ATTEND Nurse Practitioner Family
DX: E03.9 Hypothyroidism, unspecified (principal); E11.21 Type 2 diabetes mellitus with diabetic nephropathy; E78.2 Mixed hyperlipidemia; I10 Essential (primary) hypertension

== ENCOUNTER → 2022-09-05 | Outpatient (CLI) | payer MEDICARE ==
[2022-09-05 16:34] LABS: ALBUMIN 3.2 G/DL (3.2-5.2)
[2022-09-05 16:39] LABS: CALCIUM LEVEL 9.4 MG/DL (8.3-10.6)
[2022-09-05 16:40] LABS: BILIRUBIN,TOTAL 0.2 MG/DL (0.3-1.2); TOTAL PROTEIN 6.8 G/DL (5.7-8.2)
[2022-09-05 16:41] LABS: CREATININE FOR GFR 1.76 MG/DL (0.55-1.30); GLOMERULAR FILTRATION RATE 30.4 (>39)
[2022-09-05 16:42] LABS: THYROID STIMULATING HORMONE 3.023 uIU/ML (0.55-4.78)
[2022-09-05 16:44] LABS: FREE T4 1.04 NG/DL (0.89-1.76)
[2022-09-05 17:47] LABS: HEMOGLOBIN A1c 6.6 % (4.0-6.0)
== END ==
LOC: M PLALAB 13:52
PROVIDERS: ATTEND Nurse Practitioner Family
DX: E03.9 Hypothyroidism, unspecified (principal); E11.21 Type 2 diabetes mellitus with diabetic nephropathy

== ENCOUNTER 2023-02-07 10:05 | Emergency (ER) | payer MEDICARE, OTHER ==
[~2023-02-07] VITALS: Ht 154.9 cm; Wt 109.9 kg
[~2023-02-07 10:05] MED LIST changes: +SIMV-254 PO; -ZOCO40TA PO
[2023-02-07] MEDS ORDERED: TRANEXAMIC ACID 100 MG/ML 10ML VIAL ONE (10:20)
[2023-02-07] MEDS ORDERED: PROPRANOLOL 20 MG TAB PO ONE (10:20)
[2023-02-07 10:42] VITALS: BP 186/86
[2023-02-07] MEDS ORDERED: BACI500O8 TOP ×2 (14:01→17:08)
[2023-02-07 14:16] VITALS: BP 175/86
== END 2023-02-07 14:30 | disposition home or self-care (01) ==
LOC: M ED 10:05
DX: R04.0 Epistaxis (principal); E11.9 Type 2 diabetes mellitus without complications; E78.5 Hyperlipidemia, unspecified; D64.9 Anemia, unspecified; N18.9 Chronic kidney disease, unspecified; I10 Essential (primary) hypertension; G43.909 Migraine, unspecified, not intractable, without status migrainosus; Z88.5 Allergy status to narcotic agent; Z88.6 Allergy status to analgesic agent; Z88.8 Allergy status to other drugs, medicaments and biological substances; Z91.041 Radiographic dye allergy status; Z79.82 Long term (current) use of aspirin; Z79.02 Long term (current) use of antithrombotics/antiplatelets; Z79.4 Long term (current) use of insulin; Z79.899 Other long term (current) drug therapy

== ENCOUNTER → 2023-02-22 | Outpatient (CLI) | payer OTHER ==
[~2023-02-22] MED LIST changes: +BACI500O8 TOP
[2023-02-22 10:22] LABS: BASO # 0.1 10^3/uL (0.0-0.2); BASO % 0.7 % (0.0-1.0); EOS # 0.3 10^3/uL (0.0-0.5); EOS % 4.4 % (0.0-3.0); HEMATOCRIT 29.9 % (36.0-47.0); HEMOGLOBIN 9.6 g/dl (12.0-15.5); LYMPH # 1.7 10^3/uL (1.5-5.0); LYMPH % 23.8 % (24.0-44.0); MEAN CORPUSCULAR HEMOGLOBIN 30.6 pg (27.0-33.0); MEAN CORPUSCULAR HGB CONC 32.1 g/dl (32.0-36.5); MEAN CORPUSCULAR VOLUME 95.2 fl (80.0-96.0); MONO # 0.6 10^3/uL (0.0-0.8); NEUTROPHILS # 4.3 10^3/uL (1.5-8.5); NEUTROPHILS % 61.8 % (36.0-66.0); PLATELET COUNT, AUTOMATED 302 10^3/uL (150-450); RED BLOOD COUNT 3.14 10^6/uL (4.00-5.40)
[2023-02-22 10:38] LABS: HEMOGLOBIN A1c 6.2 % (4.0-6.0)
[2023-02-22 10:44] LABS: CREATININE, URINE 68.6 MG/DL; MAU/CREAT RATIO 174.9 MCG/MG (0.0-30.0)
[2023-02-22 10:46] LABS: ALBUMIN 2.9 G/DL (3.2-5.2); BILIRUBIN,TOTAL 0.3 MG/DL (0.3-1.2); CALCIUM LEVEL 8.9 MG/DL (8.3-10.6); CHOLESTEROL RISK RATIO 3.36 (<5); CREATININE FOR GFR 1.7 MG/DL (0.55-1.30); GLOMERULAR FILTRATION RATE 31.6 (>39); HDL CHOLESTEROL 34.2 MG/DL (>40); LDL CHOLESTEROL 57.4 MG/DL (<100); NON-HDL-C 80.8 MG/DL; THYROID STIMULATING HORMONE 3.748 uIU/ML (0.55-4.78); TOTAL PROTEIN 6.1 G/DL (5.7-8.2)
[2023-02-22 10:47] LABS: FREE T4 1.04 NG/DL (0.89-1.76)
== END ==
LOC: M WUC 08:21
PROVIDERS: ATTEND Nurse Practitioner Family
DX: E03.9 Hypothyroidism, unspecified (principal); E11.21 Type 2 diabetes mellitus with diabetic nephropathy; D63.1 Anemia in chronic kidney disease; E78.2 Mixed hyperlipidemia

== ENCOUNTER → 2023-07-09 | Outpatient (REF) | payer OTHER ==
[~2023-07-09] MED LIST changes: -ROPI1TAB3 PO; +ROPI1TAB73 PO
== END ==
LOC: M SFHCDERM 17:26
PROVIDERS: ATTEND Physician Assistant
DX: C44.41 Basal cell carcinoma of skin of scalp and neck (principal); L30.4 Erythema intertrigo; Z12.83 Encounter for screening for malignant neoplasm of skin; L82.1 Other seborrheic keratosis; L81.4 Other melanin hyperpigmentation; L57.0 Actinic keratosis; D49.2 Neoplasm of unspecified behavior of bone, soft tissue, and skin; Z91.041 Radiographic dye allergy status; Z88.8 Allergy status to other drugs, medicaments and biological substances; Z88.5 Allergy status to narcotic agent
CPT/HCPCS: 11102; 88305; G0463

== ENCOUNTER → 2024-02-29 | Outpatient (CLI) | payer OTHER ==
[~2024-02-29] MED LIST changes: +HYDR-161 PO; -HYDR10TAB PO
[2024-02-29 11:24] LABS: BASO # 0.1 10^3/uL (0.0-0.2); BASO % 0.8 % (0.0-1.0); BILIRUBIN,TOTAL 0.3 MG/DL (0.3-1.2); CALCIUM LEVEL 9.5 MG/DL (8.3-10.6); CHOLESTEROL RISK RATIO 3.53 (<5); CREATININE FOR GFR 1.75 MG/DL (0.55-1.30); EOS # 0.2 10^3/uL (0.0-0.5); EOS % 3.2 % (0.0-3.0); FREE T4 1.21 NG/DL (0.89-1.76); GLOMERULAR FILTRATION RATE 30.5 (>39); HDL CHOLESTEROL 36.2 MG/DL (>40); HEMOGLOBIN 10.5 g/dl (12.0-15.5); LDL CHOLESTEROL 67.2 MG/DL (<100); LYMPH # 1.9 10^3/uL (1.5-5.0); LYMPH % 24.8 % (24.0-44.0); MEAN CORPUSCULAR HEMOGLOBIN 30.2 pg (27.0-33.0); MEAN CORPUSCULAR HGB CONC 31.8 g/dl (32.0-36.5); MEAN CORPUSCULAR VOLUME 94.8 fl (80.0-96.0); MONO # 0.7 10^3/uL (0.0-0.8); MONO % 8.7 % (2.0-8.0); NEUTROPHILS # 4.7 10^3/uL (1.5-8.5); NEUTROPHILS % 62.2 % (36.0-66.0); NON-HDL-C 91.8 MG/DL; PERCENT SATURATION 14.6 % (13.2-45.0); PLATELET COUNT, AUTOMATED 327 10^3/uL (150-450); POTASSIUM SERUM 4.2 MMOL/L (3.5-5.1); RED BLOOD COUNT 3.48 10^6/uL (4.00-5.40); THYROID STIMULATING HORMONE 1.389 uIU/ML (0.55-4.78); TOTAL PROTEIN 6.4 G/DL (5.7-8.2); WHITE BLOOD COUNT 7.6 10^3/uL (4.0-10.0)
== END ==
LOC: M WUC 08:19
PROVIDERS: ATTEND Nurse Practitioner Family
DX: E03.9 Hypothyroidism, unspecified (principal); E11.21 Type 2 diabetes mellitus with diabetic nephropathy; E78.2 Mixed hyperlipidemia; D63.1 Anemia in chronic kidney disease; I10 Essential (primary) hypertension

== ENCOUNTER → 2024-06-05 | Outpatient (CLI) | payer MEDICARE, OTHER ==
[2024-06-05 10:02] LABS: BASO # 0.1 10^3/uL (0.0-0.2); BASO % 0.8 % (0.0-1.0); EOS # 0.4 10^3/uL (0.0-0.5); EOS % 4.5 % (0.0-3.0); HEMATOCRIT 32.1 % (36.0-47.0); HEMOGLOBIN 10.2 g/dl (12.0-15.5); LYMPH # 1.7 10^3/uL (1.5-5.0); LYMPH % 22.5 % (24.0-44.0); MEAN CORPUSCULAR HEMOGLOBIN 30.3 pg (27.0-33.0); MEAN CORPUSCULAR HGB CONC 31.8 g/dl (32.0-36.5); MEAN CORPUSCULAR VOLUME 95.3 fl (80.0-96.0); MONO # 0.6 10^3/uL (0.0-0.8); MONO % 7.9 % (2.0-8.0); NEUTROPHILS % 63.9 % (36.0-66.0); PLATELET COUNT, AUTOMATED 325 10^3/uL (150-450); RED BLOOD COUNT 3.37 10^6/uL (4.00-5.40); WHITE BLOOD COUNT 7.8 10^3/uL (4.0-10.0)
[2024-06-05 10:23] LABS: CREATININE, URINE 36.5 MG/DL; MAU/CREAT RATIO 347.9 MCG/MG (0.0-30.0)
[2024-06-05 11:17] LABS: ALBUMIN 3.2 G/DL (3.2-5.2); BILIRUBIN,TOTAL 0.2 MG/DL (0.3-1.2); CALCIUM LEVEL 9.4 MG/DL (8.3-10.6); CHOLESTEROL RISK RATIO 3.6 (<5); CREATININE FOR GFR 1.6 MG/DL (0.55-1.30); GLOMERULAR FILTRATION RATE 33.8 (>39); HDL CHOLESTEROL 37.2 MG/DL (>40); LDL CHOLESTEROL 68.8 MG/DL (<100); NON-HDL-C 96.8 MG/DL; PERCENT SATURATION 14.8 % (13.2-45.0); POTASSIUM SERUM 3.8 MMOL/L (3.5-5.1); TOTAL PROTEIN 6.7 G/DL (5.7-8.2)
[2024-06-05 11:18] LABS: THYROID STIMULATING HORMONE 2.76 uIU/ML (0.55-4.78)
[2024-06-05 11:19] LABS: FREE T4 1.18 NG/DL (0.89-1.76)
== END ==
LOC: M WUC 08:08
PROVIDERS: ATTEND Nurse Practitioner Family
DX: E03.9 Hypothyroidism, unspecified (principal); E11.21 Type 2 diabetes mellitus with diabetic nephropathy; E78.2 Mixed hyperlipidemia; D63.1 Anemia in chronic kidney disease

== ENCOUNTER → 2024-11-07 | Outpatient (CLI) | payer MEDICARE, OTHER ==
[~2024-11-07] MED LIST changes: +GABA-1172 PO; -GABA-282 PO
[2024-11-07 14:05] LABS: ALBUMIN 3.2 G/DL (3.2-5.2); ALKALINE PHOSPHATASE 141 U/L (35-104); ALT/SGPT < 9 U/L (7.0-40); AST/SGOT 15 U/L (<34); BILIRUBIN,TOTAL 0.3 MG/DL (0.3-1.2); BLOOD UREA NITROGEN 88 MG/DL (9-23); CALCIUM LEVEL 9.2 MG/DL (8.3-10.6); CARBON DIOXIDE LEVEL 21 MMOL/L (20-31); CHLORIDE LEVEL 109 MMOL/L (98-107); CREATININE FOR GFR 2.12 MG/DL (0.55-1.30); GLOMERULAR FILTRATION RATE 24.4 (>39); GLUCOSE, FASTING 103 MG/DL (74-106); POTASSIUM SERUM 4.2 MMOL/L (3.5-5.1); SODIUM LEVEL 144 MMOL/L (136-145); TOTAL PROTEIN 6.7 G/DL (5.7-8.2)
[2024-11-07 14:06] LABS: FREE T4 1.23 NG/DL (0.89-1.76); THYROID STIMULATING HORMONE 1.364 uIU/ML (0.55-4.78)
[2024-11-07 14:45] LABS: HEMOGLOBIN A1c 6.7 % (4.0-6.0)
== END ==
LOC: M WUC 08:57
PROVIDERS: ATTEND Nurse Practitioner Family
DX: E03.9 Hypothyroidism, unspecified (principal); E11.21 Type 2 diabetes mellitus with diabetic nephropathy

== ENCOUNTER 2024-12-20 10:40 | Emergency (ER) | payer OTHER ==
[2024-12-20 12:16] LABS: BASO # 0.1 10^3/uL (0.0-0.2); BASO % 0.5 % (0.0-1.0); EOS # 0.2 10^3/uL (0.0-0.5); EOS % 2.4 % (0.0-3.0); HEMATOCRIT 31.5 % (36.0-47.0); HEMOGLOBIN 10.1 g/dl (12.0-15.5); LYMPH # 1.1 10^3/uL (1.5-5.0); LYMPH % 11.3 % (24.0-44.0); MEAN CORPUSCULAR HEMOGLOBIN 32.8 pg (27.0-33.0); MEAN CORPUSCULAR HGB CONC 32.1 g/dl (32.0-36.5); MEAN CORPUSCULAR VOLUME 102.3 fl (80.0-96.0); MONO # 0.7 10^3/uL (0.0-0.8); MONO % 6.8 % (2.0-8.0); NEUTROPHILS # 7.9 10^3/uL (1.5-8.5); NEUTROPHILS % 78.7 % (36.0-66.0); PLATELET COUNT, AUTOMATED 296 10^3/uL (150-450); RED BLOOD COUNT 3.08 10^6/uL (4.00-5.40)
[2024-12-20 12:47] LABS: CK-MB VALUE MASS 1.6 NG/ML (<3.6)
[2024-12-20 12:49] LABS: ALBUMIN 3.1 G/DL (3.2-5.2); BILIRUBIN,DIRECT 0.1 MG/DL (<0.4); BILIRUBIN,TOTAL 0.3 MG/DL (0.3-1.2); CALCIUM LEVEL 9.6 MG/DL (8.3-10.6); CREATININE FOR GFR 2.12 MG/DL (0.55-1.30); GLOMERULAR FILTRATION RATE 24.4 (>39); POTASSIUM SERUM 4.4 MMOL/L (3.5-5.1); TOTAL PROTEIN 6.7 G/DL (5.7-8.2)
[2024-12-20 12:50] LABS: MB/CK RELATIVE INDEX 1.92 (< OR =4)
[2024-12-20 12:51] LABS: FREE T4 1.11 NG/DL (0.89-1.76)
[2024-12-20 12:53] LABS: THYROID STIMULATING HORMONE 0.716 uIU/ML (0.55-4.78)
[2024-12-20 13:40] LABS: CK-MB VALUE MASS 1.2 NG/ML (<3.6)
[2024-12-20 13:42] LABS: MB/CK RELATIVE INDEX 1.57 (< OR =4)
[2024-12-20] MEDS: NS 500 ML IV ONE (14:06)
[2024-12-20 14:58] VITALS: O2SAT 98
[2024-12-20 15:01] VITALS: BP 100/52; TEMP 97.7
== END 2024-12-20 15:20 | disposition home or self-care (01) ==
LOC: EDBD 10:40 → M ED 10:40
DX: R91.1 Solitary pulmonary nodule (principal); E86.0 Dehydration; W01.198A Fall on same level from slipping, tripping and stumbling with subsequent striking against other object, initial encounter; M19.011 Primary osteoarthritis, right shoulder; M16.11 Unilateral primary osteoarthritis, right hip; K21.9 Gastro-esophageal reflux disease without esophagitis; G43.909 Migraine, unspecified, not intractable, without status migrainosus; I10 Essential (primary) hypertension; E11.9 Type 2 diabetes mellitus without complications; Y92.009 Unspecified place in unspecified non-institutional (private) residence as the place of occurrence of the external cause; Y93.89 Activity, other specified; Y99.9 Unspecified external cause status; Z91.041 Radiographic dye allergy status; Z88.5 Allergy status to narcotic agent; Z88.6 Allergy status to analgesic agent; Z88.8 Allergy status to other drugs, medicaments and biological substances; Z79.82 Long term (current) use of aspirin; Z79.02 Long term (current) use of antithrombotics/antiplatelets; Z79.4 Long term (current) use of insulin; Z79.899 Other long term (current) drug therapy

== ENCOUNTER → 2025-01-23 | Outpatient (REF) | payer OTHER ==
[2025-01-23 18:07] LABS: PERCENT SATURATION 13.4 % (13.2-45.0)
[2025-01-23 18:10] LABS: FERRITIN 90.6 NG/ML (7.3-270.7)
== END ==
LOC: M LAB REF 17:27
PROVIDERS: ATTEND Nurse Practitioner Family
DX: D50.9 Iron deficiency anemia, unspecified (principal)

== ENCOUNTER → 2025-04-13 | Outpatient (CLI) | payer OTHER ==
[2025-04-13 12:41] LABS: BASO # 0.1 10^3/uL (0.0-0.2); BASO % 0.9 % (0.0-1.0); EOS # 0.4 10^3/uL (0.0-0.5); EOS % 5.3 % (0.0-3.0); LYMPH # 1.6 10^3/uL (1.5-5.0); LYMPH % 22.9 % (24.0-44.0); MONO # 0.6 10^3/uL (0.0-0.8); MONO % 9.0 % (2.0-8.0); NEUTROPHILS # 4.3 10^3/uL (1.5-8.5); NEUTROPHILS % 61.8 % (36.0-66.0); PLATELET COUNT, AUTOMATED 259 10^3/uL (150-450)
[2025-04-13 12:49] LABS: ALT/SGPT 14.0 U/L (7.0-40); AST/SGOT 22.0 U/L (<34); CALCIUM LEVEL 9.4 MG/DL (8.3-10.6); CARBON DIOXIDE LEVEL 22.0 MMOL/L (20-31); CHLORIDE LEVEL 112.0 MMOL/L (98-107); CREATININE FOR GFR 1.56 MG/DL (0.55-1.30); GLOMERULAR FILTRATION RATE 35.1 (>39); POTASSIUM SERUM 4.5 MMOL/L (3.5-5.1); SODIUM LEVEL 149.0 MMOL/L (136-145)
[2025-04-13 12:50] LABS: CHOLESTEROL LEVEL 112.0 MG/DL (<200); CHOLESTEROL RISK RATIO 3.1 (<5); LDL CHOLESTEROL 60.9 MG/DL (<100); NON-HDL-C 75.9 MG/DL; TRIGLYCERIDES LEVEL 75.0 MG/DL (<150)
[2025-04-13 12:52] LABS: FREE T4 0.94 NG/DL (0.89-1.76)
[2025-04-13 13:06] LABS: ESTIMATED AVERAGE GLUCOSE 108.0 MG/DL (60-110)
[2025-04-13 13:15] LABS: CREATININE, URINE 58.1 MG/DL
[2025-04-13 13:16] LABS: MALB URINE SIEMENS 106.0 MG/L; MAU/CREAT RATIO 182.4 MCG/MG (0.0-30.0)
== END ==
LOC: M WUC 08:24
PROVIDERS: ATTEND Nurse Practitioner Family
DX: E11.21 Type 2 diabetes mellitus with diabetic nephropathy (principal); E03.9 Hypothyroidism, unspecified; E78.2 Mixed hyperlipidemia

== ENCOUNTER → 2025-05-07 | Outpatient (REF) | payer OTHER ==
[~2025-05-07] MED LIST changes: +HYDR12.510 PO; -HYDR12CA PO
[2025-05-07 18:00] LABS: VITAMIN B12 LEVEL 466.0 PG/ML (211-911)
== END ==
LOC: M LAB REF 16:58
PROVIDERS: ATTEND Nurse Practitioner Family
DX: D64.9 Anemia, unspecified (principal)

== ENCOUNTER → 2025-08-03 | Outpatient (CLI) | payer OTHER ==
[2025-08-03 09:13] LABS: ALT/SGPT 12.0 U/L (7.0-40); AST/SGOT 18.0 U/L (<34); CALCIUM LEVEL 9.0 MG/DL (8.3-10.6); CARBON DIOXIDE LEVEL 25.0 MMOL/L (20-31); CHLORIDE LEVEL 111.0 MMOL/L (98-107); CHOLESTEROL LEVEL 131.0 MG/DL (<200); CHOLESTEROL RISK RATIO 3.55 (<5); CREATININE FOR GFR 1.81 MG/DL (0.55-1.30); GLOMERULAR FILTRATION RATE 29.2 (>39); LDL CHOLESTEROL 70.9 MG/DL (<100); NON-HDL-C 94.1 MG/DL; POTASSIUM SERUM 4.4 MMOL/L (3.5-5.1); SODIUM LEVEL 147.0 MMOL/L (136-145); TRIGLYCERIDES LEVEL 116.0 MG/DL (<150)
[2025-08-03 09:17] LABS: FREE T4 1.16 NG/DL (0.89-1.76)
[2025-08-03 11:15] LABS: ESTIMATED AVERAGE GLUCOSE 126.0 MG/DL (60-110)
== END ==
LOC: M LAB 08:07
PROVIDERS: ATTEND Nurse Practitioner Family
DX: E78.2 Mixed hyperlipidemia (principal); E11.21 Type 2 diabetes mellitus with diabetic nephropathy; E03.9 Hypothyroidism, unspecified